=== PATIENT | male | born 1950 | race Caucasian/White ===

== ENCOUNTER 2016-10-03 16:39 | Inpatient (IN) ==
[2016-10-03] MEDS ORDERED: METOPROLOL TARTRATE 5 MG/5 ML VIAL IV STA (17:06)
[2016-10-03] MEDS ORDERED: ALUM/MAG/SIMETH/LIDO VISC 1:1 30 ML BOTTLE PO STA (17:06)
[2016-10-03] MEDS ORDERED: MORPHINE 2 MG/1 ML SYRINGE IV STA (17:06)
[2016-10-03] MEDS ORDERED: ASPIRIN 325 MG TABLET PO STA (17:06)
[2016-10-03] MEDS ORDERED: NITROGLYCERIN 2% OINT 1 INCH/GM PACK TOP STA (17:06)
[2016-10-03] MEDS ORDERED: ONDANSETRON 4 MG/2 ML VIAL IV STA (17:06)
[2016-10-03] MEDS ORDERED: ENOXAPARIN 100 MG/ML SYRINGE SUBCUT STA ×2 (17:06→17:44)
--- NOTE | 2016-10-03 17:08 | Emergency Department Note ---
Nakul Angelo Meredith, am scribing for, and in the presence of, Osmin Cline MD 17:06. Marlyn Angelo Charles R, MD, personally performed the services described in this documentation, ascribed by Ivy Mota in my presence, and it is both accurate and complete 708 . Arrival - Arrival Chief Complaint: Chest Pain Stated Complaint: chest pain ED Nursing Triage Note: Pt states that he has been having midsternal chest pain onset x 1 hour [employer] - pt states that he took nitro and had not helped the pain - pt states that the pain is radiating into bilat jaw area - Mode of Arrival: Ambulatory Limitations: No Limitations Source: Patient, Significant other, Old Records Reviewed, RN Notes Reviewed Time Seen by Provider: 10/03/16 17:00 - History of Present Illness HPI Narrative: Pt is a 66 y/o white male reporting to the ED with c/o midsternal chest pain which onset 1 hour [employer]. He took 2 NTG which did ease his pain slightly. Pt states the pain radiates into his jaw, teeth, and tongue. confirms diaphoresis. He is a former smoker. Pt has a history of HTN, angioplasty, HLD, and NIDDM. Onset (ago): hour(s) Allergies/Adverse Reactions: Allergies Allergy/AdvReac Type Severity Reaction Status Date / Time No Known Allergies Allergy Unverified 10/03/16 16:54 Home Medications: Home Medications Medication Instructions Recorded Confirmed Type Gabapentin Cap/Tab [Neurontin 100 mg PO BEDTIME 10/03/16 10/03/16 History Cap/Tab] Glipizide [Glipizide Xl] 10 mg PO BID 10/03/16 10/03/16 History Lisinopril 20 mg PO DAILY 10/03/16 10/03/16 History Metformin HCl 1,000 mg PO BID 10/03/16 10/03/16 History [place]-3 Fatty Acids [Fish Oil] 500 mg PO DAILY 10/03/16 10/03/16 History Review of System - Review of System 12 point system: reviewed and no additional remarkable complaints except as stated - Review of System Constitutional: Present: as per HPI, diaphoresis Cardiovascular: Present: as per HPI, chest pain (radiates to his jaw, tongue, and teeth) Medical,Surgical,& Family Hx - Medical History Cardio: History of: Hypertension, Cardiovascular Problems (angioplasty 1995) Endocrine: History of: Diabetes Mellitus (NIDDM), Dyslipidemia - Surgical History Neurologic Surgeries: Patient denies: Neurologic Surgery - Family History Family History: Denies;: Additional Family History - Social History Smoking Status: Never smoker Frequency of Alcohol Use: None Type of Drug Use: None Exam Vital Signs: Vital Signs Temperature 98.4 F 10/03/16 16:54 Pulse Rate 145 H 10/03/16 16:54 Respiratory Rate 20 10/03/16 16:54 Blood Pressure 119/73 10/03/16 16:54 O2 Sat by Pulse Oximetry 98 10/03/16 16:54 - General General appearance: alert, in no apparent distress - Head Head exam: Present: atraumatic, normocephalic - Eye Eye exam: Present: normal appearance, PERRL, EOMI - ENT ENT exam: Present: mucous membranes moist, normal external ear exam - Neck Neck exam: Present: full ROM, trachea midline. Absent: tenderness, meningismus , lymphadenopathy, thyromegaly - Chest Chest inspection: Present: symmetric chest wall rise. Absent: tenderness, rash - Respiratory Respiratory exam: Present: normal lung sounds bilaterally. Absent: respiratory distress - Cardiovascular Cardiovascular exam: Present: tachycardia, irregular rhythm - Abdominal Exam Abdominal exam: Present: soft, normal bowel sounds. Absent: distention, tenderness - Extremities Exam Extremities exam: Present: full ROM, normal capillary refill. Absent: tenderness, pedal edema, calf tenderness - Back Exam Back exam: Present: full ROM. Absent: tenderness - Neurological Exam Neurological exam: Present: alert, oriented X3, CN II-XII intact. Absent: motor sensory deficit - Psychiatric Psychiatric exam: Present: normal affect, normal mood - Skin Skin exam: Present: warm, dry, intact, normal color Course - Reevaluation(s) Reevaluation #1: Patient second EKG after beta-blockers and Cardizem showed the lateral leads with less ST depression patient's pain is down to 1 out of 10 feels much better heart rate is down to upper 90s to low 100s Time: 17:51 - Consultations Consultation #1: Dr. Dai will admit patient Time: 17:48 Results - Labs CBC & BMP: 10/03/16 17:11 10/03/16 17:11 Lab Results: I have reviewed the patients labs Labs: Laboratory Tests 10/03/16 17:11 WBC 5.4 RBC 3.96 Hgb 12.7 L Hct 36.1 L Plt Count 169 Critical Care Time Critical Care Time: Yes Total Critical Care Time: 60 Disposition Clinical Impression: Chest pain, New-onset A. fib with RVR Case discussed with: patient, patient's family Disposition: Still a Patient Condition: Guarded Time of Disposition: 17:48
[2016-10-03] MEDS ORDERED: NITROGLYCERIN 2% OINT 1 INCH/GM PACK TOP ONE (17:09)
[2016-10-03] MEDS ORDERED: ONDANSETRON 4 MG/2 ML VIAL ONE (17:09)
--- NOTE | 2016-10-03 17:09 | EKG Report ---
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
[2016-10-03] MEDS ORDERED: ALUM/MAG/SIMETH/LIDO VISC 1:1 30 ML BOTTLE PO ONE (17:10)
[2016-10-03] MEDS ORDERED: ASPIRIN 325 MG TABLET ONE (17:10)
[2016-10-03] MEDS ORDERED: METOPROLOL TARTRATE 5 MG/5 ML VIAL IV ONE (17:10)
[2016-10-03] MEDS ORDERED: MORPHINE 2 MG/1 ML SYRINGE ONE (17:10)
[2016-10-03] MEDS ORDERED: DILTIAZEM 50 MG/10 ML VIAL IV STA ×2 (17:18→17:45)
[2016-10-03 17:21] LABS: Basophils % 0.2 % (0.0-0.8); Eosinophils # 0.1 10*3/uL (0.0-0.87); Hematocrit 36.1 VOL% (42.0-52.0); Hemoglobin 12.7 GM/DL (14.0-18.0); Immature Granulocytes % 0.4 %; Immature Granulocytes Absolute 0.02 #; Lymphocytes # 1.4 10*3/uL (1.4-4.0); Mean Corpuscular HGB Conc 35.2 GM/DL (32-36); Mean Corpuscular Hemoglobin 32 PG (27-34); Mean Corpuscular Volume 91.2 FL (87-102); Mean Platelet Volume 11.6 FL (9.6-12.0); Monocytes # 0.6 10*3/uL (0.11-0.8); Neutrophils # 3.3 10*3/uL (1.4-7.4); Neutrophils % 60.4 % (38.7-73.9); Platelet Count 169 T/CUMM (130-400); Red Blood Count 3.96 MC/CUMM (3.8-5.5); Red Cell Distribution Width 13.3 % (9.3-17.3); White Blood Count 5.4 T/CUMM (4-12)
[2016-10-03] MEDS ORDERED: DILTIAZEM 100 MG VIAL.ADD IV ONE (17:22)
[2016-10-03] MEDS ORDERED: DILTIAZEM 50 MG/10 ML VIAL IV ONE (17:22)
[2016-10-03] MEDS ORDERED: DILTIAZEM INJ 100 MG in SODIUM CHLORIDE 0.9% 100 ML IV SCH (17:30)
--- NOTE | 2016-10-03 17:36 | EKG Report ---
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
[2016-10-03 17:39] LABS: D-Dimer <= 0.5 MG/L FEU; PT Patient Result 10.7 SECS
[2016-10-03 17:42] LABS: Albumin 4.2 G/DL (3.4-5.0); Bilirubin,Total 0.5 MG/DL (0.2-1.0); Magnesium 1.9 MG/DL (1.8-2.4); Potassium 3.6 MMOL/L (3.5-5.1); Total Protein 7.5 G/DL (6.4-8.3)
--- NOTE | 2016-10-03 17:45 | XRay Report ---
XR chest 1V portable Indication: Chest pain Comparison: 03 July 2009 Findings: The heart and mediastinum are normal in size and configuration. The pulmonary vascularity is normal in caliber. Lung volumes are increased with prominent bronchial markings. No lung infiltrates, effusions, pneumothorax or other abnormality is demonstrated. Impression: Chronic lung changes. No acute process or significant change. PROCEDURE INTERPRETED AT [facility] DEPARTMENT OF RADIOLOGY Final Report Signed by: Dr. Manfred Jensen
[2016-10-03] MEDS ORDERED: ENOXAPARIN 100 MG/ML SYRINGE SUBCUT ONE (17:48)
[2016-10-03] MEDS ORDERED: MAGNESIUM SULF RIDER 2 GM in PREMIX 1 EACH IV PRN (19:16)
[2016-10-03] MEDS ORDERED: DEXTROSE 50% 25 GM/50 ML VIAL IV PRN (19:16)
[2016-10-03] MEDS ORDERED: MAGNESIUM SULF RIDER 4 GM in PREMIX 1 EACH IV PRN (19:16)
[2016-10-03] MEDS ORDERED: GLUCAGON 1 MG VIAL IM PRN (19:16)
[2016-10-03] MEDS ORDERED: POTASSIUM CHLORIDE 20 MEQ TABLET PO PRN (19:16)
[2016-10-03] MEDS ORDERED: ONDANSETRON 4 MG/2 ML VIAL IV PRN (19:16)
[2016-10-03] MEDS ORDERED: MORPHINE 2 MG/1 ML SYRINGE IV PRN (19:16)
[2016-10-03] MEDS: SODIUM CHLORIDE 0.9% 1,000 ML IV SCH (19:49)
[2016-10-03] MEDS: NITROGLYCERIN 2% OINT 1 INCH/GM PACK TOP SCH (19:49)
[2016-10-03] MEDS: INSULIN REGULAR 100 UNIT/ML SUBCUT SCH (20:58)
[2016-10-03] MEDS ORDERED: GABAPENTIN 100 MG CAPSULE PO SCH (21:00)
[2016-10-03] MEDS ORDERED: metFORMIN 500 MG TABLET PO SCH (21:00)
[2016-10-03] MEDS ORDERED: ZALEPLON 5 MG CAPSULE PO SCH (21:30)
[2016-10-04] MEDS: NITROGLYCERIN 2% OINT 1 INCH/GM PACK TOP SCH ×3 (00:18→13:47)
[2016-10-04 03:42] LABS: Basophils % 0.2 % (0.0-0.8); Eosinophils # 0.1 10*3/uL (0.0-0.87); Eosinophils % 2.7 % (0.00-10.9); Hematocrit 32.4 VOL% (42.0-52.0); Hemoglobin 10.8 GM/DL (14.0-18.0); Immature Granulocytes % 0.2 %; Immature Granulocytes Absolute 0.01 #; Lymphocytes # 2.2 10*3/uL (1.4-4.0); Lymphocytes % 41.7 % (21.2-54.2); Mean Corpuscular HGB Conc 33.3 GM/DL (32-36); Mean Corpuscular Hemoglobin 31 PG (27-34); Mean Corpuscular Volume 92.8 FL (87-102); Mean Platelet Volume 11.9 FL (9.6-12.0); Monocytes # 0.6 10*3/uL (0.11-0.8); Monocytes % 11.7 % (1.7-12.7); Neutrophils # 2.3 10*3/uL (1.4-7.4); Neutrophils % 43.5 % (38.7-73.9); Platelet Count 141 T/CUMM (130-400); Red Blood Count 3.49 MC/CUMM (3.8-5.5); Red Cell Distribution Width 13.4 % (9.3-17.3); White Blood Count 5.2 T/CUMM (4-12)
[2016-10-04 04:25] LABS: Albumin 3.6 G/DL (3.4-5.0); Bilirubin,Total 1.2 MG/DL (0.2-1.0); Calcium 9.3 MG/DL (8.5-10.1); Magnesium 2.1 MG/DL (1.8-2.4); Osmolality,Calculated 291.6 MOS/KG (273-304); Potassium 3.4 MMOL/L (3.5-5.1); Risk Ratio 5.81; Thyroid Stimulating Hormone 2.6 uIU/ml (0.358-3.74); Total Protein 6.3 G/DL (6.4-8.3); VLDL CHOLESTEROL 85.4 MG/DL
--- NOTE | 2016-10-04 06:06 | Cardiology History & Physical ---
Assessment and Plan (1) Non-ST elevation myocardial infarction (NSTEMI) Status: Acute Assessment and plan: Elevation in his troponin. Certainly his EKG is abnormal. The patient needs further evaluation with left heart catheterization possible Coronary intervention. See my above note. Current Visit: Yes (2) Dyslipidemia associated with type 2 diabetes mellitus Status: Chronic Assessment and plan: Will monitor this while in the hospital. Continue his medications. Current Visit: Yes (3) Hypertension associated with diabetes Status: Chronic Assessment and plan: Fairly stable at this time but will need to monitor this while in the hospital and adjust his medications as necessary and appropriate. Current Visit: Yes (4) Obesity Status: Chronic Assessment and plan: This is a chronic problem and weight loss certainly would benefit most his medical problems. Current Visit: Yes (5) Type 2 diabetes mellitus Status: Chronic Current Visit: Yes Qualifiers: Diabetes mellitus complication status: without complication Diabetes mellitus terminal worker insulin use: without half-way use Qualified Code(s): E11.9 - Type 2 diabetes mellitus without complications (6) Atrial fibrillation with rapid ventricular response Status: Acute Assessment and plan: This is acute onset. The patient is now sinus rhythm. Hold antiarrhythmics at this time. Current Visit: Yes History of Present Illness Chief complaint: chest pain atrial fibrillation History of present illness: Mr. Bird is a 66 year old male who last night had episode of an onset of chest pain he describes as a sharp persistent chest pain without shortness of breath or nausea but will diaphoresis. It was nonradiating. It was not exacerbated by deep breath or motion. It persisted Emergency room and it really prior to coming to the emergency room on arrival. His pain was almost gone. On arrival in emergency room he was found to be in atrial fibrillation with rapid ventricular response. ECG did have some anterior lateral ST depression abnormalities and mild depression inferiorly. He had no prior history of atrial fibrillation. He is placed on diltiazem with management of his heart rates. His troponin was nondetectable on arrival but is increased to 3.13. He is already converted to sinus rhythm on his IV diltiazem. November 1995 the patient had chest pain and underwent cardiac catheterization and PTCA of the RCA. He had minimal disease in his left coronary system. The patient states he has had no issues since then but is continuing his follow with Dr. Diomedes Post. The patient's lab work with a H&H showing slight decrease in his numbers. His his chemistries with potassium dropped to 3.4. His creatinine is 1.1 BUN is 15. Liver signs are unremarkable. The patient is car catheterization was elevated troponin and chest pain on his coronary disease. I discussed heart catheterization with the patient and reviewed the indications as well as how the procedure would be carried out and the risk. I discussed cardiac catheterization and percutaneous coronary intervention with the patient. I reviewed with him the indications for the procedure and the basis of how the procedure would be carried out. I also reviewed with him the risk of the procedure which include but not necessarily limited to access site bleeding, bruising, pain, swelling or vascular injury that may require emergency vascular surgery, blood transfusion, or thrombin injection. Also discussed the possibility of stroke, myocardial infarction, arrhythmia which may require electrocardioversion, and the possibility of dye reaction that would require medical therapy. Also discussed the possibility of coronary artery injury, ruptured, closure or perforation that may require emergency bypass surgery. We also discussed the possibility of from a major complication. He voices understanding and agrees to proceed. Home Medications Medication Instructions Recorded Confirmed Type Aspirin EC Tab 81 mg PO QAM 10/03/16 10/03/16 History Bupropion HCl [Bupropion Xl] 300 mg PO QAM 10/03/16 10/03/16 History Carvedilol [Coreg] 25 mg PO BID 10/03/16 10/03/16 History Doxepin HCl [Silenor] 3 mg PO BEDTIME 10/03/16 10/03/16 History Ferrous Gluconate 325 mg PO QAM 10/03/16 10/03/16 History Gabapentin Cap/Tab [Neurontin 100 mg PO BID 10/03/16 10/03/16 History Cap/Tab] Gemfibrozil 600 mg PO BID 10/03/16 10/03/16 History Lisinopril 20 mg PO QAM 10/03/16 10/03/16 History Metformin HCl 1,000 mg PO BID 10/03/16 10/03/16 History [place]-3/Dha/Epa/Fish Oil [Fish Oil 3,000 mg PO QAM 10/03/16 10/03/16 History Conc 1,000 mg Softgel] Omeprazole Magnesium [Prilosec Otc] 20 mg PO QAM 10/03/16 10/03/16 History Pioglitazone [Actos] 15 mg PO QAM 10/03/16 10/03/16 History Tamsulosin [Flomax] 2 capsule PO BEDTIME 10/03/16 10/03/16 History glipiZIDE [Glipizide] 20 mg PO BID 10/03/16 10/03/16 History Allergies Allergy/AdvReac Type Severity Reaction Status Date / Time No Known Allergies Allergy Unverified 10/03/16 16:54 Review of systems: Constitutional: Denies anorexia, chills, fatigue, fever, frequent falls, night sweats, weight gain, weight loss Eyes: Denies visual changes or loss of vision Ears: Denies decreased hearing, vertigo Nose, mouth and throat: Denies dysphagia, epistaxis, headaches, neck pain, tongue swelling, Neck: Denies thyromegaly or masses. No stiffness. Cardiovascular: as per HPI Respiratory: Denies cough, dyspnea, hemoptysis, dyspnea on exertion, wheezing, snoring Gastrointestinal: Denies abdominal pain, constipation, dyspepsia, dysphagia, hematemesis, hematochezia, melena, nausea, vomiting Genitourinary: Denies dysuria, hematuria, nocturia Musculoskeletal: Denies arthralgias, joint swelling, muscle weakness, myalgias Neurological: denies abnormal gait, abnormal speech, confusion, convulsions, frequent falls, headaches, memory loss, syncope Psychiatric: Denies anxiety, confusion, depression Endocrine: Denies cold intolerance, fatigue, heat intolerance Hematologic/Lymphatic: Denies easy bleeding, easy bruising Dermatologic: Denies Rash, itching, shingles Medical,Surgical,& Family Hx - Medical History Cardio: History of: CAD, Hypertension, Cardiovascular Problems (angioplasty 1995 ) HEENT: History of: Ear Problem (Slight hearing loss) Endocrine: History of: Diabetes Mellitus (NIDDM), Dyslipidemia Genitourinary: History of: Prostate Problems (Enlarged) Gastrointestinal: History of: GERD - Surgical History Neurologic Surgeries: Patient denies: Neurologic Surgery Abdominal Surgeries: Surgical HX of: Abdominal Surgery, Appendectomy - Family History Family History: Reports;: Family Heart Disease Denies;: Additional Family History - Social History Smoking Status: Former smoker (crit 5 years ago but is using an electronic cigarette) Frequency of Alcohol Use: None Type of Drug Use: None Marital Status: Lives With:: Spouse Functional capacity: independent ambulation Cardiology Physical Exam - Constitutional Vitals: Vital Signs Temp Pulse Resp BP Pulse Ox 97.2 F L 68 18 142/71 95 10/04/16 03:35 10/04/16 03:35 10/04/16 03:35 10/04/16 03:35 10/04/16 03:35 Intake and Output 10/03/16 10/03/16 10/04/16 15:59 23:59 07:59 Intake Total 300 / 300 / Output Total 900 / 900 Balance -600 / -600 Intake: IV 30 30 Cardizem Inj 100 mg In Ns 30 30 100 ml @ 5 MG/HR 5 mls/ hr IV TITRATE TIM Rx#: [id number] Oral 300 / 300 Output: Urine 900 / 900 Other: Voiding Method Urinal Weight 90.537 kg Exam: General appearance: Obese, no acute distress Head exam: normal inspection, atraumatic Eye exam: Pupils are equal and reactive. EOMI. There is no trauma. Ear exam: Anatomically normal. Normal auditory acuity to conversation. Oral exam: No significant oral lesions. Neck exam: normal inspection no JVD. No carotid bruit. Trachea is in midline. Respiratory exam: clear to auscultation bilaterally posteriorly and anteriorly with good air movement. No rales, rhonchi or wheezes. Cardiovascular exam: regular rate and rhythm, no murmur or gallop or rub. No precordial lift. No bruits over the major arteries. Chest wall/torso: Anatomically normal. No tenderness, deformity Peripheral Pulses: 2+ throughout. GI/Abdominal exam: normal bowel sounds, soft and nontender, no abdominal bruits or pulsatile masses. Musculoskeletal/Extremities exam: normal inspection without edema or cyanosis. No deformities or trauma. Neurological exam: alert, oriented X3. There is no gross neurologic deficits. Psychiatric exam: normal affect, normal mood. Cognitive function is grossly intact. Skin exam: normal color, warm. No rashes or other skin lesions. Result/EKG - Labs CBC & BMP: 10/04/16 03:07 10/04/16 03:07 Lab Results: I have reviewed the past 24 hour labs Labs: Laboratory Results - last 24 hr 10/03/16 10/03/16 10/03/16 20:13 20:57 23:14 WBC RBC Hgb Hct MCV MCH MCHC RDW Plt Count MPV Neut % (Auto) Lymph % (Auto) Mcdonald % (Auto) Eos % (Auto) Baso % (Auto) Neut # (Auto) Lymph # (Auto) Mcdonald # (Auto) Eos # (Auto) Baso # (Auto) Immature Gran % Nucleated RBC % Immature Gran # Nucleated RBCs # Sodium Potassium Chloride Carbon Dioxide Anion Gap BUN Creatinine GFR Calculation BUN/Creatinine Ratio Glucose POC Glucose 199 H Calculated Osmolality Calcium Magnesium Total Bilirubin AST ALT Alkaline Phosphatase Troponin I 1.370 H D 3.130 H D B-Natriuretic Peptide Total Protein Albumin Globulin Albumin/Globulin Ratio Triglycerides Cholesterol LDL Cholesterol VLDL Cholesterol HDL Cholesterol Heart Disease Risk Ratio [facility] 3rd Generation 10/04/16 10/04/16 10/04/16 03:07 03:07 03:07 WBC 5.2 RBC 3.49 L Hgb 10.8 L Hct 32.4 L MCV 92.8 MCH 31 MCHC 33.3 RDW 13.4 Plt Count 141 MPV 11.9 Neut % (Auto) 43.5 Lymph % (Auto) 41.7 Mcdonald % (Auto) 11.7 Eos % (Auto) 2.7 Baso % (Auto) 0.2 Neut # (Auto) 2.3 Lymph # (Auto) 2.2 Mcdonald # (Auto) 0.6 Eos # (Auto) 0.1 Baso # (Auto) 0.0 Immature Gran % 0.2 Nucleated RBC % 0.0 Immature Gran # 0.01 Nucleated RBCs # 0.00 Sodium 146 H Potassium 3.4 L Chloride 108 H Carbon Dioxide 27 Anion Gap 14.4 BUN 15 Creatinine 1.10 GFR Calculation 85 BUN/Creatinine Ratio 13.00 Glucose 116 H POC Glucose Calculated Osmolality 291.6 Calcium 9.3 Magnesium 2.1 Total Bilirubin 1.20 H AST 31 ALT 26 Alkaline Phosphatase 25 L Troponin I B-Natriuretic Peptide 96 Total Protein 6.3 L Albumin 3.6 Globulin 2.7 Albumin/Globulin Ratio 1.3 Triglycerides 427 H Cholesterol 157 LDL Cholesterol 97.0 VLDL Cholesterol 85.4 HDL Cholesterol 27 L Heart Disease Risk Ratio 5.81 TSH 3rd Generation 2.600 - Impressions Impressions: Admitting ECG with atrial fibrillation rapid ventricular response. He had anterior lateral ST-T abnormalities consistent with possible ischemia. He also has some ST depression inferior but not initially diagnostic. His rhythm has now changed on telemetry to sinus rhythm.
[2016-10-04] MEDS ORDERED: DIAZEPAM 5 MG TABLET PO ONE (06:17)
[2016-10-04] MEDS ORDERED: MAGNESIUM SULF RIDER 2 GM in PREMIX 1 EACH IV PRN ×2 (06:17→16:22)
[2016-10-04] MEDS ORDERED: POTASSIUM CHLORIDE RIDER 10 MEQ in PREMIX 1 EACH IV PRN ×2 (06:17→16:22)
[2016-10-04] MEDS ORDERED: diphenhydrAMINE CAP 25 MG CAPSULE PO ONE (06:17)
--- NOTE | 2016-10-04 06:17 | History and Physical Update ---
Sedation H&P Update - History and Physical H&P was reviewed, the patient examined and there: are no changes in the patients condition since last H&P was completed. - Dictation Physical: refer to H&P completed by admitting physician - Physical Exam Mental Status: alert and oriented Heart: regular rate and rhythm Lung: clear to auscultation Abdomen: within normal limits Vitals: within normal limits History and Physical Changes: None - Sedation Plan for Sedation: moderate Patient Consent: Procedure disscussed with patient and patinet has consented., Risks and benefits were discussed with patient,including infection,, bleeding, injury to surrounding structures, seizure, temporary nerve, Patient understands and accepts potential risks/benefits and agrees to, proceed. ASA Class: III Airway Assessment: Class III: Soft palate, base of uvula visible
--- NOTE | 2016-10-04 07:38 | XRay Report ---
XR chest 2V Indication: Shortness of breath. Comparison: Chest x-ray 10/03/2016 Technique: PA and lateral chest x-ray was performed. Findings: The heart size is within normal limits. The mediastinal contour demonstrates no significant abnormality. The lungs are clear. Bones and soft tissues demonstrate no acute abnormality. Impression: 1. No active cardiopulmonary disease. 10/04/2016 7:35 AM PROCEDURE INTERPRETED AT [facility] DEPARTMENT OF RADIOLOGY Final Report Signed by: Dr. Adrian Pryor
[2016-10-04] MEDS: ASPIRIN EC 325 MG TABLET PO SCH ×2 (07:45→08:15)
[2016-10-04] MEDS: INSULIN REGULAR 100 UNIT/ML SUBCUT SCH ×3 (07:45→18:38)
[2016-10-04] MEDS: LISINOPRIL 20 MG TABLET PO SCH ×2 (07:46→08:16)
[2016-10-04] MEDS: OMEGA 3 ACID ETHYL ESTERS 1 GM CAPSULE PO SCH ×2 (07:46→08:15)
[2016-10-04] MEDS: PANTOPRAZOLE 40 MG TABLET PO SCH ×2 (07:46→08:16)
[2016-10-04] MEDS ORDERED: ENOXAPARIN 100 MG/ML SYRINGE SUBCUT ONE (07:48)
[2016-10-04] MEDS: ENOXAPARIN 100 MG/ML SYRINGE SUBCUT SCH ×2 (07:48→08:15)
[2016-10-04] MEDS ORDERED: MIDAZOLAM 2 MG/2 ML VIAL ONE ×2 (08:47→16:19)
[2016-10-04] MEDS ORDERED: LIDOCAINE 1% 20 ML VIAL ONE (08:47)
[2016-10-04] MEDS ORDERED: fentaNYL 100 MCG/2 ML VIAL ONE (08:47)
[2016-10-04] MEDS ORDERED: HYDROmorphone 2 MG/1 ML VIAL IV PRN (09:31)
[2016-10-04] MEDS ORDERED: GLUCAGON 1 MG VIAL IM PRN ×2 (09:31→10:07)
[2016-10-04] MEDS ORDERED: DEXTROSE 50% 25 GM/50 ML VIAL IV PRN ×4 (09:31→16:22)
--- NOTE | 2016-10-04 09:40 | Operative Note ---
Date of procedure: 10/04/16 Procedure Preformed: Left heart catheterization with [facility] Surgeon / Physician: Brenton Dai Post-op diagnosis: same (non-ST segment elevation myocardial infarction, 3 vessel coronary disease) Findings: Patient with three-vessel coronary artery disease. Specimens: none sent Estimated blood loss: minimal Condition: stable Anesthesia: local, conscious sedation Disposition: floor
--- NOTE | 2016-10-04 09:42 | Cardiac Catheterization ---
Date of Procedure:: 10/04/16 Pre-op Diagnosis: No ST segment elevation myocardial infarction Post-op diagnosis: same (non-ST segment elevation myocardial infarction, 3 vessel coronary disease) Procedure: LEFT HEART CATHERIZATION History: 66-year-old man with known coronary disease having prior intervention and stent placed. Patient now with multiple risk factors coronary disease and having chest pain with elevated troponins. Patient with non-ST elevation myocardial infarction. He presented atrial fibrillation. His multiple risk factors for coronary disease. Pre-Op diagnosis: Non-ST segment elevation myocardial infarction, coronary artery disease, paroxysmal atrial fibrillation. Postoperative diagnosis: Three-vessel coronary artery disease. Same as above Procedures: 1. Left heart catheterization. 2. Left ventricular angiogram. 3. Selective left and right coronary angiograms. 4. Right common femoral artery angiogram with Angio-Seal hemostasis. 5. Left internal mammary artery angiogram. Equipment: 6 [place] arterial sheath, 6 [place] diagnostic pigtail catheter, JL4 and JR4 diagnostic catheters. A 6 [place] Angio-Seal hemostatic device. Medications: Preoperative Benadryl and Valium given by mouth. Lidocaine 1% local anesthesia 10 mls administered by myself. Intraprocedure patient received Versed 1 mgs IVP, fentanyl 50 mcg IVP. Complications: None immediate. Contrast: Omnipaque 171 milliliters. Description of procedure: After informed consent the patient was given preoperative medications and brought to the catheterization laboratory where their right groin was prepped and draped in usual fashion. IV sedation was then obtained after which local anesthesia was administered at the right groin over the right common femoral artery. Using modified Seldinger technique the right common femoral artery was cannulated with 6 [place] arterial sheath placed. The pigtail catheter was then advanced through the sheath in a retrograde approach through the aorta to the aortic valve. The catheter was advanced through the aortic valve where left ventricular pressures were measured. The catheter was then pulled back into the aortic root and pressures measured. The catheter was then advanced across the aortic valve into the left ventricle where left ventricular angiogram was obtained in the right anterior oblique view. The pigtail catheter was then removed. The JL4 diagnostic coronary catheter was then advanced through the sheath in a retrograde approach and used to cannulate the left coronary artery of which angiograms were obtained in multiple projections. This catheter was then removed. The JR 4 diagnostic coronary catheter was then advanced retrograde through the aorta and used to cannulate the right coronary artery of which angiograms were obtained in multiple projections. This right coronary catheter was used to obtain selective left internal mammary artery angiogram. Angiograms were then reviewed. The right coronary catheter was pulled back into the sheath where a right common femoral artery angiogram was obtained with Angio-Seal hemostasis then obtained of this vessel. There were no immediate complications. Hemodynamic data: LV 153/-4 , EDP 20 ; AO root 155/68 , mean 96 . Left ventricular angiogram: Left ventricle is normal size systolic function ejection fraction 55+ percent. No specific segmental wall motion amount is are noted. There is no significant mitral regurgitation noted. The aortic valve appears to be a tricuspid structure. He is noted to have calcification of his coronary arteries. His aortic root is uncoiled. There is calcification of the aortic arch. Left main coronary artery angiogram: Calcified. The caliber vessel that bifurcates to LAD and circumflex arteries. Without any significant stenosis. Left anterior descending artery angiogram: The LAD is a medium caliber diffusely calcified vessel. It tapers to a small vessel is extensive the apex. Mid vessel there is an 80-90% stenosis that is part of a long stenosis extending from the first diagonal on the way past the second diagonal. Is otherwise diffuse lumen irregularities. There is a 20-30% proximal stenosis. Circumflex artery angiogram: Circumflex artery is calcified. Mid vessel/ possible portion of the obtuse marginal branch is a 90% stenosis. The body circumflex artery has diffuse luminal irregularities. Right coronary artery angiogram: RCA proximal is a medium large size vessel tapers are small vessel goes distally. The PDA is a medium caliber vessel with small posterior lateral branches. There is diffuse calcification the RCA. Proximally there is a hazy stenosis that is at least 50% stenosis if not worse. More distally there is a 99% stenosis. PDA has some mild/moderate disease of 50-70% stenosis. Left internal mammary artery angiogram: The RICHARDSON is widely patent at for bypass surgery. Right common femoral artery angiogram: Right calf artery is calcified as is the vessels around it. The sheath is inserted this vessel. Is widely patent though. Impression: 1. Left ventricle is normal size systolic function with ejection fraction 55+ percent. 2. LVEDP is 20 mmHg and mildly elevated. 3. There is no severe mitral regurgitation noted. 4. Aortic valves a tricuspid structure without gradient. 5. The aortic arch is calcified uncoiled. 6. RCA with diffuse calcification in proximal 50+ percent stenosis and 99 percent stenosis distal vessel and 50-70% stenosis of PDA. 7. Left main coronary artery is calcified but patent. 8. Circumflex artery is diffusely calcified with the obtuse marginal that is sensitive the only significant branch having 90% stenosis. 9. LAD is diffuse calcified with 20-30% proximal stenosis and mid stenosis of up to 80-90% stenosis is part removal long calcified lesion. 10. RICHARDSON is adequate for bypass surgery. 11. Calcified peripheral vascular disease involving the aorta and peripheral vessels. 12. Successful Angio-Seal hemostasis right common for artery that is calcified. Discussion: We will monitor this patient post catheterization for any complications. We will ask cardiovascular surgeon see the patient. Since he is had non-ST segment elevation myocardial infarction and has diffuse three- vessel disease I think this would be the best approach this patient. Implants: None Anesthesia: local, moderate conscious sedation Surgeon / Physician: Brenton Dai A P Supervisor: other (Krystle STEVEN) Estimated blood loss: minimal Specimens: none sent Condition: stable Disposition: floor - Medications / Follow-up
[2016-10-04] MEDS ORDERED: SODIUM CHLORIDE 0.9% 1,000 ML IV SCH (10:00)
[2016-10-04] MEDS ORDERED: CEFUROXIME INJ 1,500 MG in SODIUM CHLORIDE 0.9% 100 ML IV ONE (10:07)
--- NOTE | 2016-10-04 10:36 | Cardiothoracic Consult ---
Assessment and Plan - Time spent with patient Time spent with patient: Greater than 30 minutes Time spent discussing smoking cessation with patient: more than 10 minutes (1) Non-ST elevation myocardial infarction (NSTEMI) Status: Acute Assessment and plan: Risk Model and Variables - STS Adult Cardiac Surgery Database Version 2.81 RISK SCORES About the STS Risk Calculator Procedure: CAB Only Risk of Mortality: 2.084% Morbidity or Mortality: 18.89% Long Length of Stay: 7.578% Short Length of Stay: 38.769% Permanent Stroke: 1.579% Prolonged Ventilation: 13.266% DSW Infection: 1.032% Renal Failure: 4.451% Reoperation: 6.861% 66-year-old male with severe multivessel coronary artery disease and a non-ST elevation myocardial infarction. I discussed risks benefits and alternatives with him and the family and they are willing and eager to proceed. I will plan to take him urgently to the OR for bypass. Current Visit: Yes History of Present Illness - Data of Consult Patient: new to practice Consult date: 10/04/16 Requesting Physician: Brenton Dai - Consult Narrative Reason for consult: SEVERE CORONARY ARTERY DISEASE History of present illness: Mr. Bird is a 66 year old male who came in to the ER with chest pain. The patient took 2 nitroglycerin and it did not help with the pain. He was taken to the Critical Care Transport Nurse and was noted to have severe multivessel coronary artery disease with a non-ST elevation myocardial infarction. He was then referred for cardiac surgery. At the moment the patient does not have pain and he is dynamically stable CC: Diomedes Post MD - Home Medications and Allergies Home Medications: Home Medications Medication Instructions Recorded Confirmed Type Aspirin EC Tab 81 mg PO QAM 10/03/16 10/03/16 History Bupropion HCl [Bupropion Xl] 300 mg PO QAM 10/03/16 10/03/16 History Carvedilol [Coreg] 25 mg PO BID 10/03/16 10/03/16 History Doxepin HCl [Silenor] 3 mg PO BEDTIME 10/03/16 10/03/16 History Ferrous Gluconate 325 mg PO QAM 10/03/16 10/03/16 History Gabapentin Cap/Tab [Neurontin 100 mg PO BID 10/03/16 10/03/16 History Cap/Tab] Gemfibrozil 600 mg PO BID 10/03/16 10/03/16 History Lisinopril 20 mg PO QAM 10/03/16 10/03/16 History Metformin HCl 1,000 mg PO BID 10/03/16 10/03/16 History [place]-3/Dha/Epa/Fish Oil [Fish Oil 3,000 mg PO QAM 10/03/16 10/03/16 History Conc 1,000 mg Softgel] Omeprazole Magnesium [Prilosec Otc] 20 mg PO QAM 10/03/16 10/03/16 History Pioglitazone [Actos] 15 mg PO QAM 10/03/16 10/03/16 History Tamsulosin [Flomax] 2 capsule PO BEDTIME 10/03/16 10/03/16 History glipiZIDE [Glipizide] 20 mg PO BID 10/03/16 10/03/16 History Allergies/Adverse Reactions: Allergies Allergy/AdvReac Type Severity Reaction Status Date / Time No Known Allergies Allergy Unverified 10/03/16 16:54 12 point system: reviewed and no additional remarkable complaints except as stated (HPI) Medical,Surgical,& Family Hx - Medical History Cardio: History of: CAD, Hypertension, Cardiovascular Problems (angioplasty 1995 ) Neurology: No history of: Seizures HEENT: History of: Ear Problem (Slight hearing loss) Endocrine: History of: Diabetes Mellitus (NIDDM), Dyslipidemia Genitourinary: History of: Prostate Problems (Enlarged) Gastrointestinal: History of: GERD - Surgical History Neurologic Surgeries: Patient denies: Neurologic Surgery Abdominal Surgeries: Surgical HX of: Abdominal Surgery, Appendectomy - Family History Family History: Reports;: Family Heart Disease Denies;: Additional Family History - Social History Smoking Status: Never smoker Frequency of Alcohol Use: None Type of Drug Use: None Physical Examination Vital Signs Temp Pulse Resp BP Pulse Ox 98.4 F 145 H 20 119/73 98 10/03/16 16:54 10/03/16 16:54 10/03/16 16:54 10/03/16 16:54 10/03/16 16:54 Result/EKG - Labs CBC & BMP: 10/04/16 03:07 10/04/16 03:07 Labs: Laboratory Results - last 24 hr 10/03/16 10/03/16 10/03/16 20:13 20:57 23:14 WBC RBC Hgb Hct MCV MCH MCHC RDW Plt Count MPV Neut % (Auto) Lymph % (Auto) [place] % (Auto) Eos % (Auto) Baso % (Auto) Neut # (Auto) Lymph # (Auto) [place] # (Auto) Eos # (Auto) Baso # (Auto) Immature Gran % Nucleated RBC % Immature Gran # Nucleated RBCs # Sodium Potassium Chloride Carbon Dioxide Anion Gap BUN Creatinine GFR Calculation BUN/Creatinine Ratio Glucose POC Glucose 199 H Calculated Osmolality Calcium Magnesium Total Bilirubin AST ALT Alkaline Phosphatase Troponin I 1.370 H D 3.130 H D B-Natriuretic Peptide Total Protein Albumin Globulin Albumin/Globulin Ratio Triglycerides Cholesterol LDL Cholesterol VLDL Cholesterol HDL Cholesterol Heart Disease Risk Ratio [facility] 3rd Generation 10/04/16 10/04/16 10/04/16 03:07 03:07 03:07 WBC 5.2 RBC 3.49 L Hgb 10.8 L Hct 32.4 L MCV 92.8 MCH 31 MCHC 33.3 RDW 13.4 Plt Count 141 MPV 11.9 Neut % (Auto) 43.5 Lymph % (Auto) 41.7 [place] % (Auto) 11.7 Eos % (Auto) 2.7 Baso % (Auto) 0.2 Neut # (Auto) 2.3 Lymph # (Auto) 2.2 [place] # (Auto) 0.6 Eos # (Auto) 0.1 Baso # (Auto) 0.0 Immature Gran % 0.2 Nucleated RBC % 0.0 Immature Gran # 0.01 Nucleated RBCs # 0.00 Sodium 146 H Potassium 3.4 L Chloride 108 H Carbon Dioxide 27 Anion Gap 14.4 BUN 15 Creatinine 1.10 GFR Calculation 85 BUN/Creatinine Ratio 13.00 Glucose 116 H POC Glucose Calculated Osmolality 291.6 Calcium 9.3 Magnesium 2.1 Total Bilirubin 1.20 H AST 31 ALT 26 Alkaline Phosphatase 25 L Troponin I B-Natriuretic Peptide 96 Total Protein 6.3 L Albumin 3.6 Globulin 2.7 Albumin/Globulin Ratio 1.3 Triglycerides 427 H Cholesterol 157 LDL Cholesterol 97.0 VLDL Cholesterol 85.4 HDL Cholesterol 27 L Heart Disease Risk Ratio 5.81 TSH 3rd Generation 2.600 10/04/16 07:42 WBC RBC Hgb Hct MCV MCH MCHC RDW Plt Count MPV Neut % (Auto) Lymph % (Auto) [place] % (Auto) Eos % (Auto) Baso % (Auto) Neut # (Auto) Lymph # (Auto) [place] # (Auto) Eos # (Auto) Baso # (Auto) Immature Gran % Nucleated RBC % Immature Gran # Nucleated RBCs # Sodium Potassium Chloride Carbon Dioxide Anion Gap BUN Creatinine GFR Calculation BUN/Creatinine Ratio Glucose POC Glucose 126 H Calculated Osmolality Calcium Magnesium Total Bilirubin AST ALT Alkaline Phosphatase Troponin I B-Natriuretic Peptide Total Protein Albumin Globulin Albumin/Globulin Ratio Triglycerides Cholesterol LDL Cholesterol VLDL Cholesterol HDL Cholesterol Heart Disease Risk Ratio TSH 3rd Generation Quality Measures - VTE Contraindication to Pharmacological VTE Prophylaxis: High Risk of Bleeding Specialty Discharge - Follow Up or Referrals
[2016-10-04] MEDS ORDERED: FAMOTIDINE 20 MG TABLET PO ONE (10:38)
[2016-10-04] MEDS ORDERED: LORazepam 1 MG TABLET PO ONE (10:38)
--- NOTE | 2016-10-04 11:00 | Event Note ---
Patient is stable post cart catheterization. His right groin is stable. He is for CABG today. Review the patient's angiogram pictures with the patient and his today. We'll follow-up post CABG.
[2016-10-04] MEDS ORDERED: PAPAVERINE 60 MG/2 ML VIAL ONE (11:13)
[2016-10-04] MEDS ORDERED: TISSUE ADHESIVE 1 EACH APPLICATOR TOP ONE (11:13)
[2016-10-04] MEDS ORDERED: VANCOMYCIN 1,000 MG VIAL ONE (11:14)
[2016-10-04] MEDS ORDERED: CEFUROXIME 1,500 MG VIAL ONE (11:16)
[2016-10-04] MEDS: SODIUM CHLORIDE 0.9% 1,000 ML IV SCH (11:23)
[2016-10-04] MEDS ORDERED: CALCIUM CHLORIDE 1,000 MG/10 ML SYRINGE IV ONE ×2 (11:29→13:24)
[2016-10-04] MEDS ORDERED: LIDOCAINE 2% 5 ML VIAL ONE (11:29)
[2016-10-04] MEDS ORDERED: ETOMIDATE 20 MG/10 ML VIAL IV ONE (11:29)
[2016-10-04] MEDS ORDERED: AMINOCAPROIC ACID 5,000 MG/20 ML VIAL IV ONE (11:29)
[2016-10-04 12:23] LABS: ABG Base Excess 1.5 MMOL/L (-2.5-2.5); ABG HCO3 25.8 MMOL/L (20-26); ABG Oxygen Saturation 97.9 % (95-100); ABG PCO2 37.6 MM HG (35-48); Glucose Heart Surgery 102 MG/DL (74-106); Hematocrit Heart Surgery 32.5 PERCENT (42-52); Hemoglobin Heart Surgery 10.5 G/DL (14.0-18.0); Ionized Calcium Arterial 1.15 MMOL/L (1.21-1.46); PCO2 Patient Temp Arterial 37.6 MMHG; Patient Temperature 37 CELCIUS; Potassium Heart/CVR 3.5 MMOL/L (3.5-5.1); Sodium Heart/CVR 142 MMOL/L (135-145)
[2016-10-04 12:28] LABS: Apearance,Urine Slightly Hazy (Clear); Bilirubin,Urine Negative (Negative); Blood, Urine Negative (Negative); Glucose,Urine (UA) Negative (Negative); Ketones,Urine Negative (Negative); Nitrite,Urine Negative (Negative); Protein,Urine Negative; RBC,Urine 1 /HPF (0-4); Squamous Epithelial Cell,Urine Occasional /HPF (0-10); Urine Color Yellow (Yellow); Urine Specific Gravity 1.027 (1.001-1.035); Urine Urobilinogen < 2.0 EU/DL (0.2-1.0); WBC,Urine 1 /HPF (0-6)
[2016-10-04] MEDS ORDERED: POTASSIUM CHLORIDE RIDER 100 ML IV ONE (13:24)
[2016-10-04] MEDS ORDERED: SODIUM BICARBONATE 50 MEQ/50 ML SYRINGE IV ONE ×2 (13:25→15:25)
[2016-10-04] MEDS ORDERED: EPINEPHrine 1 MG/10 ML SYRINGE ONE (13:25)
[2016-10-04 13:46] LABS: Hematocrit Heart Surgery 23.3 PERCENT (42-52); Hemoglobin Heart Surgery 7.5 G/DL (14.0-18.0); PCO2 Patient Temp Venous 38.3 MM HG; PH Patient Temp Venous 7.447; PO2 Patient Temp Venous 32.4 MM HG; Potassium Heart/CVR 3.9 MMOL/L (3.5-5.1); VBG Base Excess 2.6 MEQ/L (0-4); VBG HCO3 26.5 MEQ/L (24-28); VBG Oxygen Saturation 75.3 %; VBG PCO2 44.3 MMHG (41-51); VBG PH 7.403
[2016-10-04 14:17] LABS: Hematocrit Heart Surgery 25.4 PERCENT (42-52); Hemoglobin Heart Surgery 8.2 G/DL (14.0-18.0); PCO2 Patient Temp Venous 34.2 MM HG; PH Patient Temp Venous 7.479; PO2 Patient Temp Venous 31.8 MM HG; VBG Base Excess 2.3 MEQ/L (0-4); VBG HCO3 26.3 MEQ/L (24-28); VBG Oxygen Saturation 81.4 %; VBG PCO2 43.5 MMHG (41-51); VBG PH 7.406
[2016-10-04 14:49] LABS: Hematocrit Heart Surgery 24.6 PERCENT (42-52); Hemoglobin Heart Surgery 7.9 G/DL (14.0-18.0); PCO2 Patient Temp Venous 41.2 MM HG; PH Patient Temp Venous 7.422; PO2 Patient Temp Venous 32.9 MM HG; Potassium Heart/CVR 4.3 MMOL/L (3.5-5.1); VBG Base Excess 2.4 MEQ/L (0-4); VBG HCO3 26.1 MEQ/L (24-28); VBG Oxygen Saturation 67.6 %; VBG PCO2 43.2 MMHG (41-51); VBG PH 7.408; VBG PO2 35.3 MMHG (17-40)
[2016-10-04] MEDS ORDERED: CHLORHEXIDINE 4% SOLN 118 ML BOTTLE TOP SCH (15:00)
[2016-10-04 15:23] LABS: ABG Base Excess 1.2 MMOL/L (-2.5-2.5); ABG Oxygen Saturation 98.2 % (95-100); ABG PCO2 42.2 MM HG (35-48); ABG PH 7.407 (7.35-7.45); ABG PO2 250.3 MM HG (80-95); ABG TCO2 27.3 MMOL/L (23-27); Glucose Heart Surgery 186 MG/DL (74-106); Hemoglobin Heart Surgery 8.3 G/DL (14.0-18.0); Ionized Calcium Arterial 1.02 MMOL/L (1.21-1.46); PCO2 Patient Temp Arterial 42.2 MMHG; PH Patient Temp Arterial 7.407; PO2 Patient Temp Arterial 250.3 MM HG; Patient Temperature 37 CELCIUS; Potassium Heart/CVR 3.7 MMOL/L (3.5-5.1); Sodium Heart/CVR 133 MMOL/L (135-145)
[2016-10-04] MEDS ORDERED: ALBUMIN 25% 25 GM/100 ML VIAL IV ONE (15:25)
[2016-10-04] MEDS ORDERED: DEXTROSE 5% KCL 20 MEQ 20 MEQ/1,000 ML BAG IV ONE (15:25)
[2016-10-04] MEDS ORDERED: HEPARIN 10,000 UNIT/10 ML VIAL ONE (15:25)
[2016-10-04] MEDS ORDERED: PROTAMINE SULFATE 250 MG/25 ML VIAL IV ONE (15:25)
[2016-10-04] MEDS ORDERED: MAGNESIUM SULFATE 1 GM/2 ML VIAL ONE (15:25)
[2016-10-04] MEDS ORDERED: methylPREDNISolone SOD SUC 1,000 MG/8 ML VIAL ONE (15:26)
[2016-10-04] MEDS ORDERED: FUROSEMIDE 20 MG/2 ML VIAL ONE (15:26)
[2016-10-04] MEDS ORDERED: MANNITOL 12.5 GM/50 ML VIAL IV ONE (15:26)
[2016-10-04] MEDS ORDERED: PHENYLEPHRINE DRIP 40 MG/250 ML PREMIX IV ONE (15:42)
[2016-10-04] MEDS ORDERED: SEVOFLURANE 1 UNIT/15 MINUTE INH ONE (16:18)
[2016-10-04] MEDS ORDERED: LACTATED RINGERS 1,000 ML IV ONE (16:19)
[2016-10-04] MEDS ORDERED: MIDAZOLAM 10 MG/2 ML VIAL ONE (16:19)
[2016-10-04] MEDS ORDERED: SODIUM CHLORIDE 0.9% 1,000 ML IV ONE (16:19)
[2016-10-04] MEDS ORDERED: SODIUM CHLORIDE 0.9% 250 ML IV ONE (16:19)
[2016-10-04] MEDS ORDERED: CHLORHEXIDINE 4% SOLN 118 ML BOTTLE TOP PRN (16:22)
[2016-10-04] MEDS ORDERED: MAGNESIUM SULF RIDER 4 GM in PREMIX 1 EACH IV PRN (16:22)
[2016-10-04] MEDS ORDERED: CALCIUM CHLORIDE 1,000 MG/10 ML SYRINGE IV PRN (16:22)
[2016-10-04] MEDS ORDERED: MORPHINE 10 MG/1 ML VIAL IV PRN (16:22)
[2016-10-04] MEDS ORDERED: SODIUM CHLORIDE 0.9% 250 ML IV PRN (16:22)
[2016-10-04] MEDS ORDERED: ACETAMINOPHEN 650 MG SUPP RECTAL PRN (16:22)
[2016-10-04] MEDS ORDERED: SODIUM CHLORIDE 0.45% 1,000 ML IV SCH (16:30)
[2016-10-04] MEDS ORDERED: NITROGLYCERIN DRIP 50 MG/250 ML BOTTLE IV ONE (16:40)
[2016-10-04 16:56] LABS: ABG HCO3 25.3 MMOL/L (20-26); ABG Oxygen Saturation 98.5 % (95-100); ABG PCO2 39.9 MM HG (35-48); ABG PH 7.414 (7.35-7.45); ABG TCO2 23.4 MMOL/L (23-27); Glucose Heart Surgery 203 MG/DL (74-106); Hematocrit Heart Surgery 28.9 PERCENT (42-52); Hemoglobin Heart Surgery 9.3 G/DL (14.0-18.0); Potassium Heart/CVR 3.8 MMOL/L (3.5-5.1)
[2016-10-04 17:04] LABS: Basophils % 0.2 % (0.0-0.8); Eosinophils % 0.3 % (0.00-10.9); Hemoglobin 9.2 GM/DL (14.0-18.0); Immature Granulocytes Absolute 0.06 #; Lymphocytes % 17.1 % (21.2-54.2); Mean Corpuscular HGB Conc 32.9 GM/DL (32-36); Mean Corpuscular Hemoglobin 30 PG (27-34); Mean Corpuscular Volume 92.4 FL (87-102); Mean Platelet Volume 11.9 FL (9.6-12.0); Monocytes # 0.4 10*3/uL (0.11-0.8); Monocytes % 7.1 % (1.7-12.7); Neutrophils # 4.3 10*3/uL (1.4-7.4); Neutrophils % 74.3 % (38.7-73.9); Platelet Count 119 T/CUMM (130-400); Red Blood Count 3.03 MC/CUMM (3.8-5.5); Red Cell Distribution Width 13.6 % (9.3-17.3); White Blood Count 5.8 T/CUMM (4-12)
--- NOTE | 2016-10-04 17:08 | XRay Report ---
Portable chest Date: 10/04/2016 Clinical history: Endotracheal tube and line placement Comparison: 10/04/2016 Technique: Portable AP supine chest Findings: The heart is borderline in size with interval median sternotomy. Endotracheal tube, nasogastric tube, and mediastinal chest tubes are in satisfactory position. Insertion of right IJ CVP line with tip in SVC. No pneumothorax. Minimal atelectasis/edema especially at the lung bases. Stable mediastinum with degenerative changes. Impression: Interval median sternotomy with support devices in satisfactory position. No definite pneumothorax is identified. Minimal atelectasis/edema especially at the lung bases. PROCEDURE INTERPRETED AT [facility] DEPARTMENT OF RADIOLOGY Final Report Signed by: Dr. Kelley Peterson
[2016-10-04 17:14] LABS: INR 1.2; PT Patient Result 12.6 SECS; Partial Thromboplastin Time 28.6 SECS (0-40)
[2016-10-04] MEDS: SODIUM CHLORIDE 0.45% 1,000 ML IV SCH (17:16)
[2016-10-04] MEDS: POTASSIUM CHLORIDE RIDER 20 MEQ in PREMIX 1 EACH IV PRN ×3 (17:16→20:44)
[2016-10-04 17:22] LABS: Lactic Acid 2.1 MMOL/L (0.4-2.0)
[2016-10-04] MEDS ORDERED: NITROGLYCERIN DRIP 50 MG/250 ML BOTTLE IV SCH (17:30)
[2016-10-04] MEDS: ALBUMIN 5% 12.5 GM in PREMIX 1 EACH IV PRN ×2 (17:43→18:00)
[2016-10-04 17:44] LABS: Calcium 8.9 MG/DL (8.5-10.1); Magnesium 2.5 MG/DL (1.8-2.4); Osmolality,Calculated 287.1 MOS/KG (273-304); Potassium 3.9 MMOL/L (3.5-5.1)
[2016-10-04 17:49] LABS: Hypochromasia Slight; Lymphocytes 8 % (20-55); Microcytosis Slight; Platelet Estimate Adequate; Segmented Neutrophils 88 % (50-85); Total Cells Counted 100
[2016-10-04] MEDS ORDERED: INSULIN REGULAR 100 UNIT/ML IV ONE (17:50)
[2016-10-04] MEDS: INSULIN REGULAR DRIP 100 ML IV SCH (17:58)
--- NOTE | 2016-10-04 18:32 | Operative Note ---
Date of procedure: 10/04/16 Pre-op diagnosis: Severe coronary artery disease with ST elevation myocardial infarction Post-op diagnosis: same Procedure: 1 harvest of the right lower extremity saphenous vein 2 harvest of the listed left internal mammary artery 3 institution of cardiopulmonary bypass 4. Coronary artery bypass graft to the posterior descending artery using saphenous vein graft, to the obtuse marginal #2 using saphenous vein graft, and to the left anterior descending artery using left internal mammary artery Details of the procedure: The patient was brought into the OR placed supine on the OR table and general endotracheal anesthesia was induced without any problems. The patient was then prepped and draped in the usual sterile fashion. Antibiotics were given. Timeout was performed. I proceeded with a midline incision over the sternum. Hemostasis was achieved and then a sternotomy was performed. I then placed the internal mammary retractor and dissection of the internal mammary artery was carried from the first rib all the way down to the xiphisternum. The internal mammary artery was functional and in good condition. I then proceeded with opening the pericardium. The pericardial cradle was created. I then proceeded with cannulating the proximal arch of the aorta. I then proceeded with cannulating the right atrium and the IVC using dual stage cannula. I then proceeded with inserting the cardioplegia needle. The left internal mammary artery was prepped and the rent was made through the left side of the pericardium. At this point I placed the aortic cross-clamp and cardioplegia was given. The heart arrested successfully. I then proceeded with identifying the target on the posterior descending artery. After the arteriotomy was performed I then created the anastomosis between the saphenous vein to the distal target. This was done using 7-0 Prolene stitch. After that I turned my attention to the circumflex circulation. I then identified the second obtuse marginal branch and it was a good target. After making the arteriotomy I then proceeded with creating the anastomosis between the saphenous vein graft and the target. This was done using 7-0 Prolene stitch. Flow was very good as well. I then turned my attention to the left anterior descending artery I made the arteriotomy and it was a good target as well. I performed a distal anastomosis between the left internal mammary artery and the left anterior descending artery. This was done without any problems. Flow was achieved and hemostasis was in good condition. I then removed the cross clamp of the aorta and the heart recovered successfully. After that and instituted the proximal anastomosis between the saphenous vein grafts to the obtuse marginal as well as to the posterior descending artery to the ascending aorta. This was done using running 6-0 Prolene stitch on each side. I then weaned the patient off bypass successfully. Protamine was given and decannulation ensued. The patient was hemodynamically stable. Hemostasis was achieved. Chest tubes were inserted and the sternum was then closed using wires. Subcutaneous tissue using PDS. The skin was closed using Monocryl. The patient tolerated the procedure very well without any problems. All counts were correct at the end of the procedure. Anesthesia: DAWOOD Surgeon / Physician: Maureen Sherwood [employer] Instructor: Yasemin Burnham Estimated blood loss: other (CPB) Tourniquet Time (Minutes): 54 Specimens: none sent Condition: stable Disposition: ICU Results - Labs CBC & BMP: 10/04/16 16:45 10/04/16 16:45 Discharge Plan - Discharge Medications No Action Lisinopril 20 mg PO QAM Gabapentin Cap/Tab [Neurontin Cap/Tab] 100 mg PO BID Metformin HCl 1,000 mg PO BID Gemfibrozil 600 mg PO BID Doxepin HCl [Silenor] 3 mg PO BEDTIME Carvedilol [Coreg] 25 mg PO BID Bupropion HCl [Bupropion Xl] 300 mg PO QAM Tamsulosin [Flomax] 2 capsule PO BEDTIME Ferrous Gluconate 325 mg PO QAM Pioglitazone [Actos] 15 mg PO QAM glipiZIDE [Glipizide] 20 mg PO BID Omeprazole Magnesium [Prilosec Otc] 20 mg PO QAM Aspirin EC Tab 81 mg PO QAM [place]-3/Dha/Epa/Fish Oil [Fish Oil Conc 1,000 mg Softgel] 3,000 mg PO QAM - Follow Up or Referral - Forms/Instructions Instructions: Myocardial Infarction (GEN), Left Heart Catheterization (DC), Heart Healthy Diet (GEN)
[2016-10-04] MEDS ORDERED: AMIODARONE 450 MG/9 ML VIAL IV ONE (18:42)
[2016-10-04] MEDS ORDERED: AMIODARONE INJ 450 MG in DEXTROSE 5% 241 ML IV SCH (19:00)
--- NOTE | 2016-10-04 19:30 | Anesthesia ---
Anesthesia Procedures - Arterial Line Consent obtained arterial line: written consent Time out performed arterial line: Yes Size (Gauge): 20 Technique used arterial line: guide wire technique Post-Procedure: line sutured into place, dry sterile dressing placed Patient tolerated procedure arterial line: well, no complications Complications art line: none Site: right
[2016-10-04 20:09] LABS: ABG Base Excess -1.1 MMOL/L (-2.5-2.5); ABG HCO3 25.5 MMOL/L (20-26); ABG PO2 126.3 MM HG (80-95); ABG TCO2 27.1 MMOL/L (23-27); Glucose Heart Surgery 200 MG/DL (74-106); Hemoglobin Heart Surgery 8.5 G/DL (14.0-18.0); Potassium Heart/CVR 3.5 MMOL/L (3.5-5.1)
[2016-10-04] MEDS: INSULIN REGULAR 100 UNIT/ML IV PRN (20:20)
[2016-10-04] MEDS ORDERED: METOPROLOL TARTRATE 50 MG TABLET PO SCH (21:00)
[2016-10-04] MEDS ORDERED: ATORVASTATIN 40 MG TABLET PO SCH (21:00)
[2016-10-04] MEDS ORDERED: CHLORHEXIDINE 0.12% ORAL RINSE 60 ML BOTTLE SWISH/SPIT SCH (21:00)
[2016-10-04] MEDS: MIDAZOLAM 2 MG/2 ML VIAL IV PRN ×3 (22:09→23:52)
[2016-10-04] MEDS: CHLORHEXIDINE 0.12% ORAL RINSE 60 ML BOTTLE SWISH/SPIT SCH (22:09)
[2016-10-04 23:28] LABS: ABG Base Excess -2.6 MMOL/L (-2.5-2.5); ABG HCO3 23.5 MMOL/L (20-26); ABG Oxygen Saturation 97.9 % (95-100); ABG PCO2 46.4 MM HG (35-48); ABG PH 7.323 (7.35-7.45); ABG PO2 144.6 MM HG (80-95); Glucose Heart Surgery 180 MG/DL (74-106); Hemoglobin Heart Surgery 10.4 G/DL (14.0-18.0); Potassium Heart/CVR 4.2 MMOL/L (3.5-5.1)
[2016-10-04] MEDS ORDERED: DEXMEDETOMIDINE 200 MCG in SODIUM CHLORIDE 0.9% 48 ML IV SCH (23:30)
[2016-10-04] MEDS ORDERED: DEXMEDETOMIDINE 200 MCG/2 ML VIAL IV ONE (23:36)
[2016-10-04] MEDS: CEFUROXIME INJ 1,500 MG in SODIUM CHLORIDE 0.9% 100 ML IV SCH (23:53)
[2016-10-05] MEDS: INSULIN REGULAR 100 UNIT/ML IV PRN ×2 (00:54→02:28)
[2016-10-05] MEDS: AMIODARONE INJ 450 MG in DEXTROSE 5% 241 ML IV SCH ×2 (01:00→18:02)
[2016-10-05 04:05] LABS: ABG Base Excess -2.5 MMOL/L (-2.5-2.5); ABG HCO3 22.6 MMOL/L (20-26); ABG Oxygen Saturation 97.9 % (95-100); ABG PCO2 40.3 MM HG (35-48); ABG PH 7.367 (7.35-7.45); ABG PO2 136.3 MM HG (80-95); ABG TCO2 23.9 MMOL/L (23-27); Glucose Heart Surgery 146 MG/DL (74-106); Hemoglobin Heart Surgery 10.6 G/DL (14.0-18.0)
[2016-10-05 04:16] LABS: Basophils % 0.1 % (0.0-0.8); Hematocrit 29.8 VOL% (42.0-52.0); Hemoglobin 9.9 GM/DL (14.0-18.0); Immature Granulocytes % 0.5 %; Immature Granulocytes Absolute 0.06 #; Lymphocytes # 0.7 10*3/uL (1.4-4.0); Lymphocytes % 5.5 % (21.2-54.2); Mean Corpuscular HGB Conc 33.2 GM/DL (32-36); Mean Corpuscular Hemoglobin 31 PG (27-34); Mean Corpuscular Volume 92.8 FL (87-102); Mean Platelet Volume 12.3 FL (9.6-12.0); Monocytes # 0.7 10*3/uL (0.11-0.8); Monocytes % 6.3 % (1.7-12.7); Neutrophils # 10.3 10*3/uL (1.4-7.4); Neutrophils % 87.6 % (38.7-73.9); Platelet Count 125 T/CUMM (130-400); Red Blood Count 3.21 MC/CUMM (3.8-5.5); White Blood Count 11.8 T/CUMM (4-12)
[2016-10-05 05:00] LABS: Osmolality,Calculated 289.8 MOS/KG (273-304); Potassium 4.1 MMOL/L (3.5-5.1)
[2016-10-05] MEDS: INSULIN REGULAR DRIP 100 ML IV SCH (05:00)
[2016-10-05] MEDS: POTASSIUM CHLORIDE RIDER 20 MEQ in PREMIX 1 EACH IV PRN (05:23)
[2016-10-05 05:24] LABS: CKMB % 4.8 %
[2016-10-05 05:34] LABS: Troponin I Only 46.2 NG/ML (0.00-0.045)
[2016-10-05] MEDS: MORPHINE 2 MG/1 ML SYRINGE IV PRN ×5 (06:12→23:21)
[2016-10-05 06:44] LABS: ABG Base Excess -3.6 MMOL/L (-2.5-2.5); ABG HCO3 21.5 MMOL/L (20-26); ABG Oxygen Saturation 99.1 % (95-100); ABG PCO2 41.6 MM HG (35-48); ABG PH 7.334 (7.35-7.45); ABG TCO2 20.2 MMOL/L (23-27); Glucose Heart Surgery 124 MG/DL (74-106); Hematocrit Heart Surgery 31.4 PERCENT (42-52); Hemoglobin Heart Surgery 10.1 G/DL (14.0-18.0); Potassium Heart/CVR 4.3 MMOL/L (3.5-5.1)
[2016-10-05] MEDS: ACETAMINOPHEN 325 MG TABLET PO PRN (07:22)
[2016-10-05] MEDS: SODIUM CHLORIDE 0.45% 1,000 ML IV SCH ×3 (07:25→18:19)
--- NOTE | 2016-10-05 07:27 | Cardiology Progress Note ---
Cardiology - PN: Subj Interval history: Cardiology note 66-year-old man status post non-Q-wave WA with three-vessel CABG yesterday. RICHARDSON graft to LAD, vein graft to PDA, vein graft OM branch. Preop EF 55%. Now on IV amiodarone for atrial fibrillation and converted to sinus. Blood pressure 102/50 on no drips Telemetry shows sinus rhythm in the 70s-80s O2 sat 99 on 40% face tent Right mediastinal tube for 25 cc drainage. Other tubes 190 135 cc respectively Decreased breath sounds few crackles at bases Regular rhythm no gallop Abdomen soft Lab data Hemoglobin 9.9 hematocrit 29.8 white count 11.8 Sodium 144 potassium 4.1 chloride 109 CO2 22 BUN 16 creatinine 1.50 Peak CPK 1640 peak troponin 46 Status post non-Q-wave WA with atrial fibrillation Status post three-vessel CABG with EF 55% Diabetic on insulin drip Plan Accu-Chek sugars and insulin as needed Follow chest tube output IV amiodarone Exam (Progress Note) - Constitutional Vitals: Period Temp Pulse Resp BP Sys/Mehta Pulse Ox Last 24 Hr 97.0 F-101.2 F 58-85 9-31 90-162/43-79 96-100 Result/EKG - Labs CBC & BMP: 10/05/16 04:00 10/05/16 04:00 Labs: Laboratory Results - last 24 hr 10/04/16 10/04/16 10/04/16 07:42 10:23 10:23 WBC RBC Hgb Hct MCV MCH MCHC RDW Plt Count MPV Neut % (Auto) Lymph % (Auto) [place] % (Auto) Eos % (Auto) Baso % (Auto) Neut # (Auto) Lymph # (Auto) [place] # (Auto) Eos # (Auto) Baso # (Auto) Total Counted Immature Gran % Nucleated RBC % Immature Gran # Segmented Neutrophils Lymphocytes Monocytes Nucleated RBCs # Platelet Estimate Hypochromasia Microcytosis INR PT Patient/Control Mix Circ Anticoag PTT Patient Temperature ABG pH ABG pH at Pt Temp ABG pCO2 ABG pCO2 at Pt Temp ABG pO2 ABG pO2 at Pt Temp ABG HCO3 ABG Total CO2 ABG O2 Saturation ABG Base Excess ABG Sodium VBG pH VBG pCO2 VBG pO2 VBG HCO3 VBG Total CO2 VBG O2 Saturation VBG Base Excess Hemoglobin Hematocrit Potassium Glucose Ionized Calcium FiO2 Sodium Chloride Carbon Dioxide Anion Gap BUN Creatinine GFR Calculation BUN/Creatinine Ratio POC Glucose 126 H Hemoglobin A1c 7.2 H Calculated Osmolality Lactic Acid Calcium Venous Ioniz Calcium Magnesium Total Creatine Kinase CK-MB (CK-2) CK and CKMB Interp Troponin I Urine Color Urine Appearance Urine pH Ur Specific [place] Urine Protein Urine Glucose (UA) Urine Ketones Urine Blood Urine Nitrate Urine Bilirubin Urine Urobilinogen Urine Leukocytes Urine RBC Urine WBC Ur Squamous Epith Cells Ur Culture Indicated? Blood Type A POSITIVE Antibody Screen Crossmatch 10/04/16 10/04/16 10/04/16 10:23 11:12 12:04 WBC RBC Hgb Hct MCV MCH MCHC RDW Plt Count 116 L MPV Neut % (Auto) Lymph % (Auto) [place] % (Auto) Eos % (Auto) Baso % (Auto) Neut # (Auto) Lymph # (Auto) [place] # (Auto) Eos # (Auto) Baso # (Auto) Total Counted Immature Gran % Nucleated RBC % Immature Gran # Segmented Neutrophils Lymphocytes Monocytes Nucleated RBCs # Platelet Estimate Hypochromasia Microcytosis INR PT Patient/Control Mix Circ Anticoag PTT Patient Temperature ABG pH ABG pH at Pt Temp ABG pCO2 ABG pCO2 at Pt Temp ABG pO2 ABG pO2 at Pt Temp ABG HCO3 ABG Total CO2 ABG O2 Saturation ABG Base Excess ABG Sodium VBG pH VBG pCO2 VBG pO2 VBG HCO3 VBG Total CO2 VBG O2 Saturation VBG Base Excess Hemoglobin Hematocrit Potassium Glucose Ionized Calcium FiO2 Sodium Chloride Carbon Dioxide Anion Gap BUN Creatinine GFR Calculation BUN/Creatinine Ratio POC Glucose 108 H Hemoglobin A1c Calculated Osmolality Lactic Acid Calcium Venous Ioniz Calcium Magnesium Total Creatine Kinase CK-MB (CK-2) CK and CKMB Interp Troponin I Urine Color Urine Appearance Urine pH Ur Specific [place] Urine Protein Urine Glucose (UA) Urine Ketones Urine Blood Urine Nitrate Urine Bilirubin Urine Urobilinogen Urine Leukocytes Urine RBC Urine WBC Ur Squamous Epith Cells Ur Culture Indicated? Blood Type A POSITIVE Antibody Screen Negative Crossmatch See Detail 10/04/16 10/04/16 10/04/16 12:22 12:25 13:45 WBC RBC Hgb Hct MCV MCH MCHC RDW Plt Count MPV Neut % (Auto) Lymph % (Auto) [place] % (Auto) Eos % (Auto) Baso % (Auto) Neut # (Auto) Lymph # (Auto) [place] # (Auto) Eos # (Auto) Baso # (Auto) Total Counted Immature Gran % Nucleated RBC % Immature Gran # Segmented Neutrophils Lymphocytes Monocytes Nucleated RBCs # Platelet Estimate Hypochromasia Microcytosis INR PT Patient/Control Mix Circ Anticoag PTT Patient Temperature 37 34 ABG pH 7.440 ABG pH at Pt Temp 7.440 7.447 ABG pCO2 37.6 ABG pCO2 at Pt Temp 37.6 38.3 ABG pO2 432.0 H ABG pO2 at Pt Temp 432.0 32.4 ABG HCO3 25.8 ABG Total CO2 23.0 ABG O2 Saturation 97.9 ABG Base Excess 1.5 ABG Sodium 142 134 L VBG pH 7.403 VBG pCO2 44.3 VBG pO2 40.0 VBG HCO3 26.5 VBG Total CO2 26.0 VBG O2 Saturation 75.3 VBG Base Excess 2.6 Hemoglobin 10.5 L 7.5 L D Hematocrit 32.5 L 23.3 L Potassium 3.5 3.9 Glucose 102 286 H Ionized Calcium 1.15 L FiO2 80.00 Sodium Chloride Carbon Dioxide Anion Gap BUN Creatinine GFR Calculation BUN/Creatinine Ratio POC Glucose Hemoglobin A1c Calculated Osmolality Lactic Acid Calcium Venous Ioniz Calcium 0.98 L Magnesium Total Creatine Kinase CK-MB (CK-2) CK and CKMB Interp Troponin I Urine Color Yellow Urine Appearance Slightly hazy Urine pH 5.0 Ur Specific [place] 1.027 Urine Protein Negative Urine Glucose (UA) Negative Urine Ketones Negative Urine Blood Negative Urine Nitrate Negative Urine Bilirubin Negative Urine Urobilinogen < 2.0 H Urine Leukocytes Negative Urine RBC 1 Urine WBC 1 Ur Squamous Epith Cells Occasional Ur Culture Indicated? Not indicated Blood Type Antibody Screen Crossmatch 10/04/16 10/04/16 10/04/16 14:14 14:45 15:20 WBC RBC Hgb Hct MCV MCH MCHC RDW Plt Count MPV Neut % (Auto) Lymph % (Auto) [place] % (Auto) Eos % (Auto) Baso % (Auto) Neut # (Auto) Lymph # (Auto) [place] # (Auto) Eos # (Auto) Baso # (Auto) Total Counted Immature Gran % Nucleated RBC % Immature Gran # Segmented Neutrophils Lymphocytes Monocytes Nucleated RBCs # Platelet Estimate Hypochromasia Microcytosis INR PT Patient/Control Mix Circ Anticoag PTT Patient Temperature 32 36 37 ABG pH 7.407 ABG pH at Pt Temp 7.479 7.422 7.407 ABG pCO2 42.2 ABG pCO2 at Pt Temp 34.2 41.2 42.2 ABG pO2 250.3 H ABG pO2 at Pt Temp 31.8 32.9 250.3 ABG HCO3 26.0 ABG Total CO2 27.3 H ABG O2 Saturation 98.2 ABG Base Excess 1.2 ABG Sodium 135 134 L 133 L VBG pH 7.406 7.408 VBG pCO2 43.5 43.2 VBG pO2 45.0 H 35.3 VBG HCO3 26.3 26.1 VBG Total CO2 25.5 25.6 VBG O2 Saturation 81.4 67.6 VBG Base Excess 2.3 2.4 Hemoglobin 8.2 L 7.9 L 8.3 L Hematocrit 25.4 L 24.6 L 24.0 L Potassium 4.0 4.3 3.7 Glucose 218 H 225 H 186 H Ionized Calcium 1.02 L FiO2 80.00 80.00 Sodium Chloride Carbon Dioxide Anion Gap BUN Creatinine GFR Calculation BUN/Creatinine Ratio POC Glucose Hemoglobin A1c Calculated Osmolality Lactic Acid Calcium Venous Ioniz Calcium 1.02 L 1.01 L Magnesium Total Creatine Kinase CK-MB (CK-2) CK and CKMB Interp Troponin I Urine Color Urine Appearance Urine pH Ur Specific [place] Urine Protein Urine Glucose (UA) Urine Ketones Urine Blood Urine Nitrate Urine Bilirubin Urine Urobilinogen Urine Leukocytes Urine RBC Urine WBC Ur Squamous Epith Cells Ur Culture Indicated? Blood Type Antibody Screen Crossmatch 10/04/16 10/04/16 10/04/16 16:45 16:45 16:45 WBC 5.8 RBC 3.03 L Hgb 9.2 L Hct 28.0 L MCV 92.4 MCH 30 MCHC 32.9 RDW 13.6 Plt Count 122 L 119 L MPV 11.9 Neut % (Auto) 74.3 H Lymph % (Auto) 17.1 L [place] % (Auto) 7.1 Eos % (Auto) 0.3 Baso % (Auto) 0.2 Neut # (Auto) 4.3 Lymph # (Auto) 1.0 L [place] # (Auto) 0.4 Eos # (Auto) 0.0 Baso # (Auto) 0.0 Total Counted 100 Immature Gran % 1.0 Nucleated RBC % 0.0 Immature Gran # 0.06 Segmented Neutrophils 88 H Lymphocytes 8 L Monocytes 4 Nucleated RBCs # 0.00 Platelet Estimate Adequate Hypochromasia Slight Microcytosis Slight INR 1.2 PT Patient/Control Mix 12.6 Circ Anticoag PTT 28.6 Patient Temperature ABG pH ABG pH at Pt Temp ABG pCO2 ABG pCO2 at Pt Temp ABG pO2 ABG pO2 at Pt Temp ABG HCO3 ABG Total CO2 ABG O2 Saturation ABG Base Excess ABG Sodium VBG pH VBG pCO2 VBG pO2 VBG HCO3 VBG Total CO2 VBG O2 Saturation VBG Base Excess Hemoglobin Hematocrit Potassium Glucose Ionized Calcium FiO2 Sodium Chloride Carbon Dioxide Anion Gap BUN Creatinine GFR Calculation BUN/Creatinine Ratio POC Glucose Hemoglobin A1c Calculated Osmolality Lactic Acid Calcium Venous Ioniz Calcium Magnesium Total Creatine Kinase CK-MB (CK-2) CK and CKMB Interp Troponin I Urine Color Urine Appearance Urine pH Ur Specific [place] Urine Protein Urine Glucose (UA) Urine Ketones Urine Blood Urine Nitrate Urine Bilirubin Urine Urobilinogen Urine Leukocytes Urine RBC Urine WBC Ur Squamous Epith Cells Ur Culture Indicated? Blood Type Antibody Screen Crossmatch 10/04/16 10/04/16 10/04/16 16:45 16:45 17:35 WBC RBC Hgb Hct MCV MCH MCHC RDW Plt Count MPV Neut % (Auto) Lymph % (Auto) [place] % (Auto) Eos % (Auto) Baso % (Auto) Neut # (Auto) Lymph # (Auto) [place] # (Auto) Eos # (Auto) Baso # (Auto) Total Counted Immature Gran % Nucleated RBC % Immature Gran # Segmented Neutrophils Lymphocytes Monocytes Nucleated RBCs # Platelet Estimate Hypochromasia Microcytosis INR PT Patient/Control Mix Circ Anticoag PTT Patient Temperature ABG pH 7.414 ABG pH at Pt Temp ABG pCO2 39.9 ABG pCO2 at Pt Temp ABG pO2 112.0 H ABG pO2 at Pt Temp ABG HCO3 25.3 ABG Total CO2 23.4 ABG O2 Saturation 98.5 ABG Base Excess 1.0 ABG Sodium VBG pH VBG pCO2 VBG pO2 VBG HCO3 VBG Total CO2 VBG O2 Saturation VBG Base Excess Hemoglobin 9.3 L Hematocrit 28.9 L Potassium 3.9 3.8 Glucose 196 H 203 H Ionized Calcium FiO2 Sodium 142 Chloride 105 Carbon Dioxide 24 Anion Gap 16.9 H BUN 13 Creatinine 1.00 GFR Calculation 96 BUN/Creatinine Ratio 13.00 POC Glucose 258 H Hemoglobin A1c Calculated Osmolality 287.1 Lactic Acid 2.1 H Calcium 8.9 Venous Ioniz Calcium Magnesium 2.5 H Total Creatine Kinase CK-MB (CK-2) CK and CKMB Interp Troponin I Urine Color Urine Appearance Urine pH Ur Specific [place] Urine Protein Urine Glucose (UA) Urine Ketones Urine Blood Urine Nitrate Urine Bilirubin Urine Urobilinogen Urine Leukocytes Urine RBC Urine WBC Ur Squamous Epith Cells Ur Culture Indicated? Blood Type Antibody Screen Crossmatch 10/04/16 10/04/16 10/04/16 18:13 20:00 21:13 WBC RBC Hgb Hct MCV MCH MCHC RDW Plt Count MPV Neut % (Auto) Lymph % (Auto) [place] % (Auto) Eos % (Auto) Baso % (Auto) Neut # (Auto) Lymph # (Auto) [place] # (Auto) Eos # (Auto) Baso # (Auto) Total Counted Immature Gran % Nucleated RBC % Immature Gran # Segmented Neutrophils Lymphocytes Monocytes Nucleated RBCs # Platelet Estimate Hypochromasia Microcytosis INR PT Patient/Control Mix Circ Anticoag PTT Patient Temperature ABG pH 7.300 L ABG pH at Pt Temp ABG pCO2 53.0 H ABG pCO2 at Pt Temp ABG pO2 126.3 H ABG pO2 at Pt Temp ABG HCO3 25.5 ABG Total CO2 27.1 H ABG O2 Saturation 97.0 ABG Base Excess -1.1 ABG Sodium VBG pH VBG pCO2 VBG pO2 VBG HCO3 VBG Total CO2 VBG O2 Saturation VBG Base Excess Hemoglobin 8.5 L Hematocrit 25.0 L Potassium 3.5 Glucose 200 H Ionized Calcium FiO2 Sodium Chloride Carbon Dioxide Anion Gap BUN Creatinine GFR Calculation BUN/Creatinine Ratio POC Glucose 235 H 224 H Hemoglobin A1c Calculated Osmolality Lactic Acid Calcium Venous Ioniz Calcium Magnesium Total Creatine Kinase CK-MB (CK-2) CK and CKMB Interp Troponin I Urine Color Urine Appearance Urine pH Ur Specific [place] Urine Protein Urine Glucose (UA) Urine Ketones Urine Blood Urine Nitrate Urine Bilirubin Urine Urobilinogen Urine Leukocytes Urine RBC Urine WBC Ur Squamous Epith Cells Ur Culture Indicated? Blood Type Antibody Screen Crossmatch 10/04/16 10/04/16 10/05/16 22:38 23:25 00:27 WBC RBC Hgb Hct MCV MCH MCHC RDW Plt Count MPV Neut % (Auto) Lymph % (Auto) [place] % (Auto) Eos % (Auto) Baso % (Auto) Neut # (Auto) Lymph # (Auto) [place] # (Auto) Eos # (Auto) Baso # (Auto) Total Counted Immature Gran % Nucleated RBC % Immature Gran # Segmented Neutrophils Lymphocytes Monocytes Nucleated RBCs # Platelet Estimate Hypochromasia Microcytosis INR PT Patient/Control Mix Circ Anticoag PTT Patient Temperature ABG pH 7.323 L ABG pH at Pt Temp ABG pCO2 46.4 ABG pCO2 at Pt Temp ABG pO2 144.6 H ABG pO2 at Pt Temp ABG HCO3 23.5 ABG Total CO2 25.0 ABG O2 Saturation 97.9 ABG Base Excess -2.6 L ABG Sodium VBG pH VBG pCO2 VBG pO2 VBG HCO3 VBG Total CO2 VBG O2 Saturation VBG Base Excess Hemoglobin 10.4 L D Hematocrit 31.0 L Potassium 4.2 Glucose 180 H Ionized Calcium FiO2 Sodium Chloride Carbon Dioxide Anion Gap BUN Creatinine GFR Calculation BUN/Creatinine Ratio POC Glucose 143 H 169 H Hemoglobin A1c Calculated Osmolality Lactic Acid Calcium Venous Ioniz Calcium Magnesium Total Creatine Kinase CK-MB (CK-2) CK and CKMB Interp Troponin I Urine Color Urine Appearance Urine pH Ur Specific [place] Urine Protein Urine Glucose (UA) Urine Ketones Urine Blood Urine Nitrate Urine Bilirubin Urine Urobilinogen Urine Leukocytes Urine RBC Urine WBC Ur Squamous Epith Cells Ur Culture Indicated? Blood Type Antibody Screen Crossmatch 10/05/16 10/05/16 10/05/16 01:09 02:24 03:09 WBC RBC Hgb Hct MCV MCH MCHC RDW Plt Count MPV Neut % (Auto) Lymph % (Auto) [place] % (Auto) Eos % (Auto) Baso % (Auto) Neut # (Auto) Lymph # (Auto) [place] # (Auto) Eos # (Auto) Baso # (Auto) Total Counted Immature Gran % Nucleated RBC % Immature Gran # Segmented Neutrophils Lymphocytes Monocytes Nucleated RBCs # Platelet Estimate Hypochromasia Microcytosis INR PT Patient/Control Mix Circ Anticoag PTT Patient Temperature ABG pH ABG pH at Pt Temp ABG pCO2 ABG pCO2 at Pt Temp ABG pO2 ABG pO2 at Pt Temp ABG HCO3 ABG Total CO2 ABG O2 Saturation ABG Base Excess ABG Sodium VBG pH VBG pCO2 VBG pO2 VBG HCO3 VBG Total CO2 VBG O2 Saturation VBG Base Excess Hemoglobin Hematocrit Potassium Glucose Ionized Calcium FiO2 Sodium Chloride Carbon Dioxide Anion Gap BUN Creatinine GFR Calculation BUN/Creatinine Ratio POC Glucose 150 H 174 H 113 H Hemoglobin A1c Calculated Osmolality Lactic Acid Calcium Venous Ioniz Calcium Magnesium Total Creatine Kinase CK-MB (CK-2) CK and CKMB Interp Troponin I Urine Color Urine Appearance Urine pH Ur Specific [place] Urine Protein Urine Glucose (UA) Urine Ketones Urine Blood Urine Nitrate Urine Bilirubin Urine Urobilinogen Urine Leukocytes Urine RBC Urine WBC Ur Squamous Epith Cells Ur Culture Indicated? Blood Type Antibody Screen Crossmatch 10/05/16 10/05/16 10/05/16 04:00 04:00 04:00 WBC 11.8 D RBC 3.21 L Hgb 9.9 L Hct 29.8 L MCV 92.8 MCH 31 MCHC 33.2 RDW 14.0 Plt Count 125 L MPV 12.3 H Neut % (Auto) 87.6 H Lymph % (Auto) 5.5 L [place] % (Auto) 6.3 Eos % (Auto) 0.0 Baso % (Auto) 0.1 Neut # (Auto) 10.3 H Lymph # (Auto) 0.7 L [place] # (Auto) 0.7 Eos # (Auto) 0.0 Baso # (Auto) 0.0 Total Counted Immature Gran % 0.5 Nucleated RBC % 0.0 Immature Gran # 0.06 Segmented Neutrophils Lymphocytes Monocytes Nucleated RBCs # 0.00 Platelet Estimate Hypochromasia Microcytosis INR PT Patient/Control Mix Circ Anticoag PTT Patient Temperature ABG pH ABG pH at Pt Temp ABG pCO2 ABG pCO2 at Pt Temp ABG pO2 ABG pO2 at Pt Temp ABG HCO3 ABG Total CO2 ABG O2 Saturation ABG Base Excess ABG Sodium VBG pH VBG pCO2 VBG pO2 VBG HCO3 VBG Total CO2 VBG O2 Saturation VBG Base Excess Hemoglobin Hematocrit Potassium 4.1 Glucose 149 H Ionized Calcium FiO2 Sodium 144 Chloride 109 H Carbon Dioxide 22 Anion Gap 17.1 H BUN 16 Creatinine 1.50 H GFR Calculation 59 BUN/Creatinine Ratio 10.00 POC Glucose Hemoglobin A1c Calculated Osmolality 289.8 Lactic Acid Calcium 8.0 L Venous Ioniz Calcium Magnesium Total Creatine Kinase 1640 H CK-MB (CK-2) 77.9 H CK and CKMB Interp 4.8 Troponin I 46.200 H D Urine Color Urine Appearance Urine pH Ur Specific [place] Urine Protein Urine Glucose (UA) Urine Ketones Urine Blood Urine Nitrate Urine Bilirubin Urine Urobilinogen Urine Leukocytes Urine RBC Urine WBC Ur Squamous Epith Cells Ur Culture Indicated? Blood Type Antibody Screen Crossmatch 10/05/16 10/05/16 04:00 06:30 WBC RBC Hgb Hct MCV MCH MCHC RDW Plt Count MPV Neut % (Auto) Lymph % (Auto) [place] % (Auto) Eos % (Auto) Baso % (Auto) Neut # (Auto) Lymph # (Auto) [place] # (Auto) Eos # (Auto) Baso # (Auto) Total Counted Immature Gran % Nucleated RBC % Immature Gran # Segmented Neutrophils Lymphocytes Monocytes Nucleated RBCs # Platelet Estimate Hypochromasia Microcytosis INR PT Patient/Control Mix Circ Anticoag PTT Patient Temperature ABG pH 7.367 7.334 L ABG pH at Pt Temp ABG pCO2 40.3 41.6 ABG pCO2 at Pt Temp ABG pO2 136.3 H 146.0 H ABG pO2 at Pt Temp ABG HCO3 22.6 21.5 ABG Total CO2 23.9 20.2 L ABG O2 Saturation 97.9 99.1 ABG Base Excess -2.5 -3.6 L ABG Sodium VBG pH VBG pCO2 VBG pO2 VBG HCO3 VBG Total CO2 VBG O2 Saturation VBG Base Excess Hemoglobin 10.6 L 10.1 L Hematocrit 31.0 L 31.4 L Potassium 4.0 4.3 Glucose 146 H 124 H Ionized Calcium FiO2 Sodium Chloride Carbon Dioxide Anion Gap BUN Creatinine GFR Calculation BUN/Creatinine Ratio POC Glucose Hemoglobin A1c Calculated Osmolality Lactic Acid Calcium Venous Ioniz Calcium Magnesium Total Creatine Kinase CK-MB (CK-2) CK and CKMB Interp Troponin I Urine Color Urine Appearance Urine pH Ur Specific [place] Urine Protein Urine Glucose (UA) Urine Ketones Urine Blood Urine Nitrate Urine Bilirubin Urine Urobilinogen Urine Leukocytes Urine RBC Urine WBC Ur Squamous Epith Cells Ur Culture Indicated? Blood Type Antibody Screen Crossmatch Quality Measures - VTE Contraindication to Pharmacological VTE Prophylaxis: High Risk of Bleeding Specialty Discharge - Follow Up or Referrals
--- NOTE | 2016-10-05 07:33 | EKG Report ---
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
--- NOTE | 2016-10-05 08:28 | XRay Report ---
Portable chest Date: 10/05/2016 Clinical history: Postop, evaluate for pneumothorax Comparison: 10/04/2016 Technique: Portable AP sitting chest Findings: The heart is enlarged with recent median sternotomy. The support devices are stable in position with no obvious pneumothorax. Residual atelectasis/edema at the lung bases. Stable mediastinum and osseous structures. Impression: Stable supportive devices with recent median sternotomy. No significant pneumothorax is identified. Residual atelectasis/edema lung bases. PROCEDURE INTERPRETED AT [facility] DEPARTMENT OF RADIOLOGY Final Report Signed by: Dr. Kelley Peterson
[2016-10-05] MEDS ORDERED: FUROSEMIDE 40 MG/4 ML VIAL IV ONE (08:39)
[2016-10-05] MEDS: CLOPIDOGREL 75 MG TABLET PO SCH (08:48)
[2016-10-05] MEDS: ASPIRIN EC 325 MG TABLET PO SCH (08:48)
[2016-10-05] MEDS: INSULIN REGULAR 100 UNIT/ML SUBCUT SCH ×4 (08:49→21:46)
--- NOTE | 2016-10-05 09:08 | Cardiothoracic Progress Note ---
Assessment and Plan - Time spent with patient Time spent with patient: Greater than 30 minutes (1) Non-ST elevation myocardial infarction (NSTEMI) Status: Acute Assessment and plan: Postoperative day 1 status post CABG 3. Transfer to telemetry. LEXIE Gomez. Start Lasix, aspirin, Plavix and statin. Current Visit: Yes Cardiothoracic Subjective Interval history: Postoperative day 1 status post urgent CABG for cardiac function with severe multivessel coronary artery disease. The patient has done very well. Extubated and on nasal cannula. Hemodynamically stable. Exam (Progress Note) - Constitutional Vitals: Period Temp Pulse Resp BP Sys/Mehta Pulse Ox Last 24 Hr 97.8 F-101.4 F 58-85 9-31 90-162/43-79 96-100 Result/EKG - Labs CBC & BMP: 10/05/16 04:00 10/05/16 04:00 Labs: Laboratory Results - last 24 hr 10/04/16 10/04/16 10/04/16 10:23 10:23 10:23 WBC RBC Hgb Hct MCV MCH MCHC RDW Plt Count MPV Neut % (Auto) Lymph % (Auto) [place] % (Auto) Eos % (Auto) Baso % (Auto) Neut # (Auto) Lymph # (Auto) [place] # (Auto) Eos # (Auto) Baso # (Auto) Total Counted Immature Gran % Nucleated RBC % Immature Gran # Segmented Neutrophils Lymphocytes Monocytes Nucleated RBCs # Platelet Estimate Hypochromasia Microcytosis INR PT Patient/Control Mix Circ Anticoag PTT Patient Temperature ABG pH ABG pH at Pt Temp ABG pCO2 ABG pCO2 at Pt Temp ABG pO2 ABG pO2 at Pt Temp ABG HCO3 ABG Total CO2 ABG O2 Saturation ABG Base Excess ABG Sodium VBG pH VBG pCO2 VBG pO2 VBG HCO3 VBG Total CO2 VBG O2 Saturation VBG Base Excess Hemoglobin Hematocrit Potassium Glucose Ionized Calcium FiO2 Sodium Chloride Carbon Dioxide Anion Gap BUN Creatinine GFR Calculation BUN/Creatinine Ratio POC Glucose Hemoglobin A1c 7.2 H Calculated Osmolality Lactic Acid Calcium Venous Ioniz Calcium Magnesium Total Creatine Kinase CK-MB (CK-2) CK and CKMB Interp Troponin I Urine Color Urine Appearance Urine pH Ur Specific [place] Urine Protein Urine Glucose (UA) Urine Ketones Urine Blood Urine Nitrate Urine Bilirubin Urine Urobilinogen Urine Leukocytes Urine RBC Urine WBC Ur Squamous Epith Cells Ur Culture Indicated? Blood Type A POSITIVE A POSITIVE Antibody Screen Negative Crossmatch See Detail 10/04/16 10/04/16 10/04/16 11:12 12:04 12:22 WBC RBC Hgb Hct MCV MCH MCHC RDW Plt Count 116 L MPV Neut % (Auto) Lymph % (Auto) [place] % (Auto) Eos % (Auto) Baso % (Auto) Neut # (Auto) Lymph # (Auto) [place] # (Auto) Eos # (Auto) Baso # (Auto) Total Counted Immature Gran % Nucleated RBC % Immature Gran # Segmented Neutrophils Lymphocytes Monocytes Nucleated RBCs # Platelet Estimate Hypochromasia Microcytosis INR PT Patient/Control Mix Circ Anticoag PTT Patient Temperature ABG pH ABG pH at Pt Temp ABG pCO2 ABG pCO2 at Pt Temp ABG pO2 ABG pO2 at Pt Temp ABG HCO3 ABG Total CO2 ABG O2 Saturation ABG Base Excess ABG Sodium VBG pH VBG pCO2 VBG pO2 VBG HCO3 VBG Total CO2 VBG O2 Saturation VBG Base Excess Hemoglobin Hematocrit Potassium Glucose Ionized Calcium FiO2 Sodium Chloride Carbon Dioxide Anion Gap BUN Creatinine GFR Calculation BUN/Creatinine Ratio POC Glucose 108 H Hemoglobin A1c Calculated Osmolality Lactic Acid Calcium Venous Ioniz Calcium Magnesium Total Creatine Kinase CK-MB (CK-2) CK and CKMB Interp Troponin I Urine Color Yellow Urine Appearance Slightly hazy Urine pH 5.0 Ur Specific [place] 1.027 Urine Protein Negative Urine Glucose (UA) Negative Urine Ketones Negative Urine Blood Negative Urine Nitrate Negative Urine Bilirubin Negative Urine Urobilinogen < 2.0 H Urine Leukocytes Negative Urine RBC 1 Urine WBC 1 Ur Squamous Epith Cells Occasional Ur Culture Indicated? Not indicated Blood Type Antibody Screen Crossmatch 10/04/16 10/04/16 10/04/16 12:25 13:45 14:14 WBC RBC Hgb Hct MCV MCH MCHC RDW Plt Count MPV Neut % (Auto) Lymph % (Auto) [place] % (Auto) Eos % (Auto) Baso % (Auto) Neut # (Auto) Lymph # (Auto) [place] # (Auto) Eos # (Auto) Baso # (Auto) Total Counted Immature Gran % Nucleated RBC % Immature Gran # Segmented Neutrophils Lymphocytes Monocytes Nucleated RBCs # Platelet Estimate Hypochromasia Microcytosis INR PT Patient/Control Mix Circ Anticoag PTT Patient Temperature 37 34 32 ABG pH 7.440 ABG pH at Pt Temp 7.440 7.447 7.479 ABG pCO2 37.6 ABG pCO2 at Pt Temp 37.6 38.3 34.2 ABG pO2 432.0 H ABG pO2 at Pt Temp 432.0 32.4 31.8 ABG HCO3 25.8 ABG Total CO2 23.0 ABG O2 Saturation 97.9 ABG Base Excess 1.5 ABG Sodium 142 134 L 135 VBG pH 7.403 7.406 VBG pCO2 44.3 43.5 VBG pO2 40.0 45.0 H VBG HCO3 26.5 26.3 VBG Total CO2 26.0 25.5 VBG O2 Saturation 75.3 81.4 VBG Base Excess 2.6 2.3 Hemoglobin 10.5 L 7.5 L D 8.2 L Hematocrit 32.5 L 23.3 L 25.4 L Potassium 3.5 3.9 4.0 Glucose 102 286 H 218 H Ionized Calcium 1.15 L FiO2 80.00 80.00 Sodium Chloride Carbon Dioxide Anion Gap BUN Creatinine GFR Calculation BUN/Creatinine Ratio POC Glucose Hemoglobin A1c Calculated Osmolality Lactic Acid Calcium Venous Ioniz Calcium 0.98 L 1.02 L Magnesium Total Creatine Kinase CK-MB (CK-2) CK and CKMB Interp Troponin I Urine Color Urine Appearance Urine pH Ur Specific [place] Urine Protein Urine Glucose (UA) Urine Ketones Urine Blood Urine Nitrate Urine Bilirubin Urine Urobilinogen Urine Leukocytes Urine RBC Urine WBC Ur Squamous Epith Cells Ur Culture Indicated? Blood Type Antibody Screen Crossmatch 10/04/16 10/04/16 10/04/16 14:45 15:20 16:45 WBC RBC Hgb Hct MCV MCH MCHC RDW Plt Count 122 L MPV Neut % (Auto) Lymph % (Auto) [place] % (Auto) Eos % (Auto) Baso % (Auto) Neut # (Auto) Lymph # (Auto) [place] # (Auto) Eos # (Auto) Baso # (Auto) Total Counted Immature Gran % Nucleated RBC % Immature Gran # Segmented Neutrophils Lymphocytes Monocytes Nucleated RBCs # Platelet Estimate Hypochromasia Microcytosis INR PT Patient/Control Mix Circ Anticoag PTT Patient Temperature 36 37 ABG pH 7.407 ABG pH at Pt Temp 7.422 7.407 ABG pCO2 42.2 ABG pCO2 at Pt Temp 41.2 42.2 ABG pO2 250.3 H ABG pO2 at Pt Temp 32.9 250.3 ABG HCO3 26.0 ABG Total CO2 27.3 H ABG O2 Saturation 98.2 ABG Base Excess 1.2 ABG Sodium 134 L 133 L VBG pH 7.408 VBG pCO2 43.2 VBG pO2 35.3 VBG HCO3 26.1 VBG Total CO2 25.6 VBG O2 Saturation 67.6 VBG Base Excess 2.4 Hemoglobin 7.9 L 8.3 L Hematocrit 24.6 L 24.0 L Potassium 4.3 3.7 Glucose 225 H 186 H Ionized Calcium 1.02 L FiO2 80.00 Sodium Chloride Carbon Dioxide Anion Gap BUN Creatinine GFR Calculation BUN/Creatinine Ratio POC Glucose Hemoglobin A1c Calculated Osmolality Lactic Acid Calcium Venous Ioniz Calcium 1.01 L Magnesium Total Creatine Kinase CK-MB (CK-2) CK and CKMB Interp Troponin I Urine Color Urine Appearance Urine pH Ur Specific [place] Urine Protein Urine Glucose (UA) Urine Ketones Urine Blood Urine Nitrate Urine Bilirubin Urine Urobilinogen Urine Leukocytes Urine RBC Urine WBC Ur Squamous Epith Cells Ur Culture Indicated? Blood Type Antibody Screen Crossmatch 10/04/16 10/04/16 10/04/16 16:45 16:45 16:45 WBC 5.8 RBC 3.03 L Hgb 9.2 L Hct 28.0 L MCV 92.4 MCH 30 MCHC 32.9 RDW 13.6 Plt Count 119 L MPV 11.9 Neut % (Auto) 74.3 H Lymph % (Auto) 17.1 L [place] % (Auto) 7.1 Eos % (Auto) 0.3 Baso % (Auto) 0.2 Neut # (Auto) 4.3 Lymph # (Auto) 1.0 L [place] # (Auto) 0.4 Eos # (Auto) 0.0 Baso # (Auto) 0.0 Total Counted 100 Immature Gran % 1.0 Nucleated RBC % 0.0 Immature Gran # 0.06 Segmented Neutrophils 88 H Lymphocytes 8 L Monocytes 4 Nucleated RBCs # 0.00 Platelet Estimate Adequate Hypochromasia Slight Microcytosis Slight INR 1.2 PT Patient/Control Mix 12.6 Circ Anticoag PTT 28.6 Patient Temperature ABG pH ABG pH at Pt Temp ABG pCO2 ABG pCO2 at Pt Temp ABG pO2 ABG pO2 at Pt Temp ABG HCO3 ABG Total CO2 ABG O2 Saturation ABG Base Excess ABG Sodium VBG pH VBG pCO2 VBG pO2 VBG HCO3 VBG Total CO2 VBG O2 Saturation VBG Base Excess Hemoglobin Hematocrit Potassium 3.9 Glucose 196 H Ionized Calcium FiO2 Sodium 142 Chloride 105 Carbon Dioxide 24 Anion Gap 16.9 H BUN 13 Creatinine 1.00 GFR Calculation 96 BUN/Creatinine Ratio 13.00 POC Glucose Hemoglobin A1c Calculated Osmolality 287.1 Lactic Acid 2.1 H Calcium 8.9 Venous Ioniz Calcium Magnesium 2.5 H Total Creatine Kinase CK-MB (CK-2) CK and CKMB Interp Troponin I Urine Color Urine Appearance Urine pH Ur Specific [place] Urine Protein Urine Glucose (UA) Urine Ketones Urine Blood Urine Nitrate Urine Bilirubin Urine Urobilinogen Urine Leukocytes Urine RBC Urine WBC Ur Squamous Epith Cells Ur Culture Indicated? Blood Type Antibody Screen Crossmatch 10/04/16 10/04/16 10/04/16 16:45 17:35 18:13 WBC RBC Hgb Hct MCV MCH MCHC RDW Plt Count MPV Neut % (Auto) Lymph % (Auto) [place] % (Auto) Eos % (Auto) Baso % (Auto) Neut # (Auto) Lymph # (Auto) [place] # (Auto) Eos # (Auto) Baso # (Auto) Total Counted Immature Gran % Nucleated RBC % Immature Gran # Segmented Neutrophils Lymphocytes Monocytes Nucleated RBCs # Platelet Estimate Hypochromasia Microcytosis INR PT Patient/Control Mix Circ Anticoag PTT Patient Temperature ABG pH 7.414 ABG pH at Pt Temp ABG pCO2 39.9 ABG pCO2 at Pt Temp ABG pO2 112.0 H ABG pO2 at Pt Temp ABG HCO3 25.3 ABG Total CO2 23.4 ABG O2 Saturation 98.5 ABG Base Excess 1.0 ABG Sodium VBG pH VBG pCO2 VBG pO2 VBG HCO3 VBG Total CO2 VBG O2 Saturation VBG Base Excess Hemoglobin 9.3 L Hematocrit 28.9 L Potassium 3.8 Glucose 203 H Ionized Calcium FiO2 Sodium Chloride Carbon Dioxide Anion Gap BUN Creatinine GFR Calculation BUN/Creatinine Ratio POC Glucose 258 H 235 H Hemoglobin A1c Calculated Osmolality Lactic Acid Calcium Venous Ioniz Calcium Magnesium Total Creatine Kinase CK-MB (CK-2) CK and CKMB Interp Troponin I Urine Color Urine Appearance Urine pH Ur Specific [place] Urine Protein Urine Glucose (UA) Urine Ketones Urine Blood Urine Nitrate Urine Bilirubin Urine Urobilinogen Urine Leukocytes Urine RBC Urine WBC Ur Squamous Epith Cells Ur Culture Indicated? Blood Type Antibody Screen Crossmatch 10/04/16 10/04/16 10/04/16 20:00 21:13 22:38 WBC RBC Hgb Hct MCV MCH MCHC RDW Plt Count MPV Neut % (Auto) Lymph % (Auto) [place] % (Auto) Eos % (Auto) Baso % (Auto) Neut # (Auto) Lymph # (Auto) [place] # (Auto) Eos # (Auto) Baso # (Auto) Total Counted Immature Gran % Nucleated RBC % Immature Gran # Segmented Neutrophils Lymphocytes Monocytes Nucleated RBCs # Platelet Estimate Hypochromasia Microcytosis INR PT Patient/Control Mix Circ Anticoag PTT Patient Temperature ABG pH 7.300 L ABG pH at Pt Temp ABG pCO2 53.0 H ABG pCO2 at Pt Temp ABG pO2 126.3 H ABG pO2 at Pt Temp ABG HCO3 25.5 ABG Total CO2 27.1 H ABG O2 Saturation 97.0 ABG Base Excess -1.1 ABG Sodium VBG pH VBG pCO2 VBG pO2 VBG HCO3 VBG Total CO2 VBG O2 Saturation VBG Base Excess Hemoglobin 8.5 L Hematocrit 25.0 L Potassium 3.5 Glucose 200 H Ionized Calcium FiO2 Sodium Chloride Carbon Dioxide Anion Gap BUN Creatinine GFR Calculation BUN/Creatinine Ratio POC Glucose 224 H 143 H Hemoglobin A1c Calculated Osmolality Lactic Acid Calcium Venous Ioniz Calcium Magnesium Total Creatine Kinase CK-MB (CK-2) CK and CKMB Interp Troponin I Urine Color Urine Appearance Urine pH Ur Specific [place] Urine Protein Urine Glucose (UA) Urine Ketones Urine Blood Urine Nitrate Urine Bilirubin Urine Urobilinogen Urine Leukocytes Urine RBC Urine WBC Ur Squamous Epith Cells Ur Culture Indicated? Blood Type Antibody Screen Crossmatch 10/04/16 10/05/16 10/05/16 23:25 00:27 01:09 WBC RBC Hgb Hct MCV MCH MCHC RDW Plt Count MPV Neut % (Auto) Lymph % (Auto) [place] % (Auto) Eos % (Auto) Baso % (Auto) Neut # (Auto) Lymph # (Auto) [place] # (Auto) Eos # (Auto) Baso # (Auto) Total Counted Immature Gran % Nucleated RBC % Immature Gran # Segmented Neutrophils Lymphocytes Monocytes Nucleated RBCs # Platelet Estimate Hypochromasia Microcytosis INR PT Patient/Control Mix Circ Anticoag PTT Patient Temperature ABG pH 7.323 L ABG pH at Pt Temp ABG pCO2 46.4 ABG pCO2 at Pt Temp ABG pO2 144.6 H ABG pO2 at Pt Temp ABG HCO3 23.5 ABG Total CO2 25.0 ABG O2 Saturation 97.9 ABG Base Excess -2.6 L ABG Sodium VBG pH VBG pCO2 VBG pO2 VBG HCO3 VBG Total CO2 VBG O2 Saturation VBG Base Excess Hemoglobin 10.4 L D Hematocrit 31.0 L Potassium 4.2 Glucose 180 H Ionized Calcium FiO2 Sodium Chloride Carbon Dioxide Anion Gap BUN Creatinine GFR Calculation BUN/Creatinine Ratio POC Glucose 169 H 150 H Hemoglobin A1c Calculated Osmolality Lactic Acid Calcium Venous Ioniz Calcium Magnesium Total Creatine Kinase CK-MB (CK-2) CK and CKMB Interp Troponin I Urine Color Urine Appearance Urine pH Ur Specific [place] Urine Protein Urine Glucose (UA) Urine Ketones Urine Blood Urine Nitrate Urine Bilirubin Urine Urobilinogen Urine Leukocytes Urine RBC Urine WBC Ur Squamous Epith Cells Ur Culture Indicated? Blood Type Antibody Screen Crossmatch 10/05/16 10/05/16 10/05/16 02:24 03:09 04:00 WBC RBC Hgb Hct MCV MCH MCHC RDW Plt Count MPV Neut % (Auto) Lymph % (Auto) [place] % (Auto) Eos % (Auto) Baso % (Auto) Neut # (Auto) Lymph # (Auto) [place] # (Auto) Eos # (Auto) Baso # (Auto) Total Counted Immature Gran % Nucleated RBC % Immature Gran # Segmented Neutrophils Lymphocytes Monocytes Nucleated RBCs # Platelet Estimate Hypochromasia Microcytosis INR PT Patient/Control Mix Circ Anticoag PTT Patient Temperature ABG pH ABG pH at Pt Temp ABG pCO2 ABG pCO2 at Pt Temp ABG pO2 ABG pO2 at Pt Temp ABG HCO3 ABG Total CO2 ABG O2 Saturation ABG Base Excess ABG Sodium VBG pH VBG pCO2 VBG pO2 VBG HCO3 VBG Total CO2 VBG O2 Saturation VBG Base Excess Hemoglobin Hematocrit Potassium Glucose Ionized Calcium FiO2 Sodium Chloride Carbon Dioxide Anion Gap BUN Creatinine GFR Calculation BUN/Creatinine Ratio POC Glucose 174 H 113 H Hemoglobin A1c Calculated Osmolality Lactic Acid Calcium Venous Ioniz Calcium Magnesium Total Creatine Kinase 1640 H CK-MB (CK-2) 77.9 H CK and CKMB Interp 4.8 Troponin I 46.200 H D Urine Color Urine Appearance Urine pH Ur Specific [place] Urine Protein Urine Glucose (UA) Urine Ketones Urine Blood Urine Nitrate Urine Bilirubin Urine Urobilinogen Urine Leukocytes Urine RBC Urine WBC Ur Squamous Epith Cells Ur Culture Indicated? Blood Type Antibody Screen Crossmatch 10/05/16 10/05/16 10/05/16 04:00 04:00 04:00 WBC 11.8 D RBC 3.21 L Hgb 9.9 L Hct 29.8 L MCV 92.8 MCH 31 MCHC 33.2 RDW 14.0 Plt Count 125 L MPV 12.3 H Neut % (Auto) 87.6 H Lymph % (Auto) 5.5 L [place] % (Auto) 6.3 Eos % (Auto) 0.0 Baso % (Auto) 0.1 Neut # (Auto) 10.3 H Lymph # (Auto) 0.7 L [place] # (Auto) 0.7 Eos # (Auto) 0.0 Baso # (Auto) 0.0 Total Counted Immature Gran % 0.5 Nucleated RBC % 0.0 Immature Gran # 0.06 Segmented Neutrophils Lymphocytes Monocytes Nucleated RBCs # 0.00 Platelet Estimate Hypochromasia Microcytosis INR PT Patient/Control Mix Circ Anticoag PTT Patient Temperature ABG pH 7.367 ABG pH at Pt Temp ABG pCO2 40.3 ABG pCO2 at Pt Temp ABG pO2 136.3 H ABG pO2 at Pt Temp ABG HCO3 22.6 ABG Total CO2 23.9 ABG O2 Saturation 97.9 ABG Base Excess -2.5 ABG Sodium VBG pH VBG pCO2 VBG pO2 VBG HCO3 VBG Total CO2 VBG O2 Saturation VBG Base Excess Hemoglobin 10.6 L Hematocrit 31.0 L Potassium 4.1 4.0 Glucose 149 H 146 H Ionized Calcium FiO2 Sodium 144 Chloride 109 H Carbon Dioxide 22 Anion Gap 17.1 H BUN 16 Creatinine 1.50 H GFR Calculation 59 BUN/Creatinine Ratio 10.00 POC Glucose Hemoglobin A1c Calculated Osmolality 289.8 Lactic Acid Calcium 8.0 L Venous Ioniz Calcium Magnesium Total Creatine Kinase CK-MB (CK-2) CK and CKMB Interp Troponin I Urine Color Urine Appearance Urine pH Ur Specific [place] Urine Protein Urine Glucose (UA) Urine Ketones Urine Blood Urine Nitrate Urine Bilirubin Urine Urobilinogen Urine Leukocytes Urine RBC Urine WBC Ur Squamous Epith Cells Ur Culture Indicated? Blood Type Antibody Screen Crossmatch 10/05/16 10/05/16 04:00 06:30 WBC RBC Hgb Hct MCV MCH MCHC RDW Plt Count MPV Neut % (Auto) Lymph % (Auto) [place] % (Auto) Eos % (Auto) Baso % (Auto) Neut # (Auto) Lymph # (Auto) [place] # (Auto) Eos # (Auto) Baso # (Auto) Total Counted Immature Gran % Nucleated RBC % Immature Gran # Segmented Neutrophils Lymphocytes Monocytes Nucleated RBCs # Platelet Estimate Hypochromasia Microcytosis INR PT Patient/Control Mix Circ Anticoag PTT Patient Temperature ABG pH 7.334 L ABG pH at Pt Temp ABG pCO2 41.6 ABG pCO2 at Pt Temp ABG pO2 146.0 H ABG pO2 at Pt Temp ABG HCO3 21.5 ABG Total CO2 20.2 L ABG O2 Saturation 99.1 ABG Base Excess -3.6 L ABG Sodium VBG pH VBG pCO2 VBG pO2 VBG HCO3 VBG Total CO2 VBG O2 Saturation VBG Base Excess Hemoglobin 10.1 L Hematocrit 31.4 L Potassium 4.3 Glucose 124 H Ionized Calcium FiO2 Sodium Chloride Carbon Dioxide Anion Gap BUN Creatinine GFR Calculation BUN/Creatinine Ratio POC Glucose Hemoglobin A1c Calculated Osmolality Lactic Acid Calcium Venous Ioniz Calcium Magnesium 2.0 Total Creatine Kinase CK-MB (CK-2) CK and CKMB Interp Troponin I Urine Color Urine Appearance Urine pH Ur Specific [place] Urine Protein Urine Glucose (UA) Urine Ketones Urine Blood Urine Nitrate Urine Bilirubin Urine Urobilinogen Urine Leukocytes Urine RBC Urine WBC Ur Squamous Epith Cells Ur Culture Indicated? Blood Type Antibody Screen Crossmatch Quality Measures - VTE Contraindication to Pharmacological VTE Prophylaxis: High Risk of Bleeding Specialty Discharge - Follow Up or Referrals
[2016-10-05] MEDS: CHLORHEXIDINE 0.12% ORAL RINSE 60 ML BOTTLE SWISH/SPIT SCH ×2 (09:28→21:46)
--- NOTE | 2016-10-05 10:07 | Anesthesia ---
Anesthesia Post OP - Post Ansesthetic Evaluation Patient seen in post op: Yes Resp: within normal limits CV: within normal limits Mental: within normal limits Temp: within normal limits [id number]: within normal limits Nausea and Vomiting: within normal limits Pain: within normal limits
[2016-10-05] MEDS: CEFUROXIME INJ 1,500 MG in SODIUM CHLORIDE 0.9% 100 ML IV SCH (13:44)
[2016-10-05] MEDS: ONDANSETRON 4 MG/2 ML VIAL IV PRN (14:37)
[2016-10-05] MEDS: FUROSEMIDE 40 MG TABLET PO SCH (18:02)
[2016-10-05] MEDS: ATORVASTATIN 40 MG TABLET PO SCH ×2 (18:09→21:46)
[2016-10-05] MEDS ORDERED: AMIODARONE INJ 150 MG in DEXTROSE 5% 100 ML IV ONE (23:28)
[2016-10-05] MEDS ORDERED: METOPROLOL TARTRATE 5 MG/5 ML VIAL IV ONE (23:58)
[2016-10-05] MEDS ORDERED: MORPHINE 2 MG/1 ML SYRINGE IV ONE (23:59)
[2016-10-06] MEDS: AMIODARONE INJ 450 MG in DEXTROSE 5% 241 ML IV SCH ×2 (00:09→05:39)
[2016-10-06] MEDS: CEFUROXIME INJ 1,500 MG in SODIUM CHLORIDE 0.9% 100 ML IV SCH (00:37)
[2016-10-06] MEDS: INSULIN REGULAR 100 UNIT/ML SUBCUT SCH ×6 (00:40→21:25)
[2016-10-06] MEDS: MORPHINE 2 MG/1 ML SYRINGE IV PRN ×2 (03:45→09:19)
[2016-10-06] MEDS ORDERED: AMIODARONE INJ 450 MG in DEXTROSE 5% 241 ML IV SCH ×2 (05:30→18:30)
--- NOTE | 2016-10-06 07:06 | EKG Report ---
Stationary ECG Study [facility] Test Date: 10/05/2016 11:14:48 PM Pat Name: NIKA COVERT Department: Room: 269 Gender: M [employer]: : [id number] Requested by: Maureen Sherwood Order Number: [id number] Reading MD: RUBINA SKELTON Intervals [place] Rate: 123 P: 999 ID: [id number] QRS: 28 QRSD: 91 T: 28 QT: 296 QTc: 369 Interpretive Statements ATRIAL FIBRILLATION WITH RAPID VENTRICULAR RESPONSE LOW QRS VOLTAGE IN LIMB LEADS ANTERIOR INFARCT, POSSIBLY ACUTE LATERAL EPICARDIAL INJURY Electronically Signed On 10-06-16 12:07:55 CDT by RUBINA SKELTON [email or web address]
--- NOTE | 2016-10-06 08:17 | XRay Report ---
Portable chest Date: 10/06/2016 Clinical history: Pneumothorax, postop Comparison: 10/05/2016 Technique: Portable AP sitting chest Findings: The heart remains enlarged with prior median sternotomy. Interval removal of the endotracheal tube and nasogastric tube. The remaining supportive devices are stable in position with no definite pneumothorax. Persistent atelectasis/edema at the lung bases with small pleural effusions. Impression: Status post median sternotomy with no definite pneumothorax. Minimally progressive edema/atelectasis at the lung bases with small pleural effusions. PROCEDURE INTERPRETED AT [facility] DEPARTMENT OF RADIOLOGY Final Report Signed by: Dr. Kelley Peterson
[2016-10-06] MEDS: FUROSEMIDE 40 MG TABLET PO SCH (09:05)
[2016-10-06] MEDS: CLOPIDOGREL 75 MG TABLET PO SCH (09:05)
[2016-10-06] MEDS: ASPIRIN EC 325 MG TABLET PO SCH (09:05)
[2016-10-06] MEDS: CHLORHEXIDINE 0.12% ORAL RINSE 60 ML BOTTLE SWISH/SPIT SCH ×2 (09:08→21:15)
[2016-10-06] MEDS: SODIUM CHLORIDE 0.45% 1,000 ML IV SCH (09:09)
--- NOTE | 2016-10-06 09:32 | Cardiology Progress Note ---
Cardiology - PN: Subj Interval history: Cardiology note Status post non-Q-wave VA with atrial fibrillation Postop day #2 three-vessel CABG with RICHARDSON graft to LAD, vein graft to the PDA and vein graft to OM Having hiccups this morning. Telemetry shows steady sinus rhythm in the 70s Blood pressure 110/66 O2 sat 92% on 2 L cannula Decreased breath sounds with weak inspiratory effort Regular rhythm no murmur or gallop Incision looks okay Trace leg edema Lab data peak CPK 1640 peak troponin 46.0 Hemoglobin A1c 7.2 Impression Status post non-Q-wave VA with atrial fibrillation Postop day #2 three-vessel CABG Preop EF 55% Diabetes Hiccups Plan Thorazine every 6 hours as needed Spirometry Accu-Chek sugars Exam (Progress Note) - Constitutional Vitals: Period Temp Pulse Resp BP Sys/Mehta Pulse Ox Last 24 Hr 95.1 F-100.3 F 75-134 11-20 90-134/48-81 90-100 Result/EKG - Labs CBC & BMP: 10/05/16 04:00 10/05/16 04:00 Labs: Laboratory Results - last 24 hr 10/05/16 10/05/16 10/05/16 04:00 16:16 21:43 POC Glucose 207 H 217 H Magnesium 2.0 10/06/16 10/06/16 10/06/16 00:35 03:45 06:25 POC Glucose 247 H 288 H 221 H Magnesium Quality Measures - VTE Contraindication to Pharmacological VTE Prophylaxis: High Risk of Bleeding Specialty Discharge - Follow Up or Referrals
[2016-10-06] MEDS ORDERED: chlorproMAZINE INJ 25 MG in SODIUM CHLORIDE 0.9% 100 ML IV PRN (09:37)
[2016-10-06 09:56] LABS: Basophils % 0.1 % (0.0-0.8); Hematocrit 28.4 VOL% (42.0-52.0); Hemoglobin 9.5 GM/DL (14.0-18.0); Immature Granulocytes % 0.8 %; Lymphocytes # 1.1 10*3/uL (1.4-4.0); Lymphocytes % 8.8 % (21.2-54.2); Mean Corpuscular HGB Conc 33.5 GM/DL (32-36); Mean Corpuscular Hemoglobin 31 PG (27-34); Mean Corpuscular Volume 93.7 FL (87-102); Mean Platelet Volume 12.4 FL (9.6-12.0); Monocytes # 1.7 10*3/uL (0.11-0.8); Monocytes % 13.4 % (1.7-12.7); NRBC # 0.02 10*3/uL; Neutrophils # 9.9 10*3/uL (1.4-7.4); Neutrophils % 76.9 % (38.7-73.9); Platelet Count 121 T/CUMM (130-400); Red Blood Count 3.03 MC/CUMM (3.8-5.5); Red Cell Distribution Width 14.4 % (9.3-17.3); White Blood Count 12.9 T/CUMM (4-12)
[2016-10-06 10:22] LABS: Calcium 7.5 MG/DL (8.5-10.1); Osmolality,Calculated 284.8 MOS/KG (273-304); Potassium 4.4 MMOL/L (3.5-5.1)
[2016-10-06 10:32] LABS: Band Neutrophils 1 % (0-10); Hypochromasia 1+; Lymphocytes 6 % (20-55); Microcytosis Slight; Ovalocytes Slight; Platelet Estimate Normal; Segmented Neutrophils 82 % (50-85); Total Cells Counted 100
[2016-10-06] MEDS ORDERED: FUROSEMIDE 40 MG/4 ML VIAL IV ONE (10:38)
--- NOTE | 2016-10-06 10:38 | Cardiothoracic Progress Note ---
Assessment and Plan (1) Non-ST elevation myocardial infarction (NSTEMI) Status: Acute Assessment and plan: Postoperative day 2 status post CABG 3. DC chest tube. Out of bed and ambulate. Lasix 40 mg IV. Current Visit: Yes Cardiothoracic Subjective Interval history: Postoperative day 2 status post CABG 3. The patient has been doing very well. No complaints overnight. He did go back into A. fib requiring a bolus of amiodarone overnight. This now improved. Exam (Progress Note) - Constitutional Vitals: Period Temp Pulse Resp BP Sys/Mehta Pulse Ox Last 24 Hr 95.1 F-100 F 75-134 11-20 90-134/52-81 90-100 Result/EKG - Labs CBC & BMP: 10/06/16 09:29 10/06/16 09:29 Labs: Laboratory Results - last 24 hr 10/05/16 10/05/16 10/06/16 16:16 21:43 00:35 WBC RBC Hgb Hct MCV MCH MCHC RDW Plt Count MPV Neut % (Auto) Lymph % (Auto) [place] % (Auto) Eos % (Auto) Baso % (Auto) Neut # (Auto) Lymph # (Auto) [place] # (Auto) Eos # (Auto) Baso # (Auto) Total Counted Immature Gran % Nucleated RBC % Immature Gran # Segmented Neutrophils Band Neutrophils Lymphocytes Monocytes Nucleated RBCs # Platelet Estimate Hypochromasia Microcytosis Ovalocytes Morphology Comment Sodium Potassium Chloride Carbon Dioxide Anion Gap BUN Creatinine GFR Calculation BUN/Creatinine Ratio Glucose POC Glucose 207 H 217 H 247 H Calculated Osmolality Calcium Magnesium 10/06/16 10/06/16 10/06/16 03:45 06:25 09:29 WBC 12.9 H RBC 3.03 L Hgb 9.5 L Hct 28.4 L MCV 93.7 MCH 31 MCHC 33.5 RDW 14.4 Plt Count 121 L MPV 12.4 H Neut % (Auto) 76.9 H Lymph % (Auto) 8.8 L [place] % (Auto) 13.4 H Eos % (Auto) 0.0 Baso % (Auto) 0.1 Neut # (Auto) 9.9 H Lymph # (Auto) 1.1 L [place] # (Auto) 1.7 H Eos # (Auto) 0.0 Baso # (Auto) 0.0 Total Counted 100 Immature Gran % 0.8 Nucleated RBC % 0.2 Immature Gran # 0.10 Segmented Neutrophils 82 Band Neutrophils 1 Lymphocytes 6 L Monocytes 11 Nucleated RBCs # 0.02 Platelet Estimate Normal Hypochromasia 1+ Microcytosis Slight Ovalocytes Slight Morphology Comment Sodium Potassium Chloride Carbon Dioxide Anion Gap BUN Creatinine GFR Calculation BUN/Creatinine Ratio Glucose POC Glucose 288 H 221 H Calculated Osmolality Calcium Magnesium 10/06/16 09:29 WBC RBC Hgb Hct MCV MCH MCHC RDW Plt Count MPV Neut % (Auto) Lymph % (Auto) [place] % (Auto) Eos % (Auto) Baso % (Auto) Neut # (Auto) Lymph # (Auto) [place] # (Auto) Eos # (Auto) Baso # (Auto) Total Counted Immature Gran % Nucleated RBC % Immature Gran # Segmented Neutrophils Band Neutrophils Lymphocytes Monocytes Nucleated RBCs # Platelet Estimate Hypochromasia Microcytosis Ovalocytes Morphology Comment Sodium 137 Potassium 4.4 Chloride 100 Carbon Dioxide 24 Anion Gap 17.4 H BUN 27 H Creatinine 1.90 H GFR Calculation 45 BUN/Creatinine Ratio 14.00 Glucose 218 H POC Glucose Calculated Osmolality 284.8 Calcium 7.5 L Magnesium 2.0 Quality Measures - VTE Contraindication to Pharmacological VTE Prophylaxis: High Risk of Bleeding Specialty Discharge - Follow Up or Referrals
[2016-10-06] MEDS ORDERED: AMIODARONE 200 MG TABLET PO SCH (10:47)
--- NOTE | 2016-10-06 11:02 | XRay Report ---
Exam: XR chest 1V Date: 10/06/2016 10:20 AM Comparison: 10/06/2016 Indication: Chest tube removal Technique:[Portable sitting chest] Findings: Stable cardiomegaly in patient with prior median sternotomy. Removal of left chest tube with tiny left apical pneumothorax. Progressive atelectasis with small pleural effusions. Stable mediastinum with degenerative changes. Impression: Interval removal of left chest tube with tiny left apical pneumothorax. Progressive atelectasis. This report was called to patient's nurse, Leyda at 10:55 AM on 10/06/2016. Critical test results PROCEDURE INTERPRETED AT [facility] DEPARTMENT OF RADIOLOGY Final Report Signed by: Dr. Kelley Peterson
[2016-10-06] MEDS: KETOROLAC 15 MG/1 ML VIAL IV PRN ×2 (11:16→17:00)
[2016-10-06] MEDS: ACETAMINOPHEN 325 MG TABLET PO PRN (14:53)
[2016-10-06] MEDS ORDERED: AMIODARONE INJ 150 MG in DEXTROSE 5% 100 ML IV ONE (18:01)
[2016-10-06] MEDS ORDERED: AMIODARONE 450 MG/9 ML VIAL IV ONE (18:05)
[2016-10-06] MEDS ORDERED: AMIODARONE 150 MG/3 ML VIAL ONE (18:05)
[2016-10-06] MEDS: traMADol 50 MG TABLET PO PRN (18:24)
[2016-10-06] MEDS ORDERED: METOPROLOL TARTRATE 5 MG/5 ML VIAL IV ONE (21:07)
[2016-10-06] MEDS: ATORVASTATIN 40 MG TABLET PO SCH (21:15)
[2016-10-06] MEDS: METOPROLOL TARTRATE 25 MG TABLET PO SCH (21:25)
[2016-10-07] MEDS: KETOROLAC 15 MG/1 ML VIAL IV PRN (01:55)
[2016-10-07] MEDS: SODIUM CHLORIDE 0.45% 1,000 ML IV SCH (02:07)
[2016-10-07] MEDS: INSULIN REGULAR 100 UNIT/ML SUBCUT SCH ×6 (02:07→20:29)
[2016-10-07] MEDS ORDERED: AMIODARONE INJ 450 MG in DEXTROSE 5% 241 ML IV SCH (02:30)
[2016-10-07] MEDS ORDERED: GLUCAGON 1 MG VIAL IM PRN (03:22)
[2016-10-07] MEDS ORDERED: DEXTROSE 50% 25 GM/50 ML VIAL IV PRN (03:22)
[2016-10-07 07:58] LABS: Hematocrit 26.3 VOL% (42.0-52.0); Immature Granulocytes % 0.8 %; Immature Granulocytes Absolute 0.09 #; Lymphocytes # 1.1 10*3/uL (1.4-4.0); Lymphocytes % 9.3 % (21.2-54.2); Mean Corpuscular HGB Conc 34.2 GM/DL (32-36); Mean Corpuscular Hemoglobin 31 PG (27-34); Mean Corpuscular Volume 89.8 FL (87-102); Mean Platelet Volume 12.7 FL (9.6-12.0); Monocytes # 1.1 10*3/uL (0.11-0.8); Monocytes % 9.7 % (1.7-12.7); NRBC # 0.02 10*3/uL; Neutrophils # 9.4 10*3/uL (1.4-7.4); Neutrophils % 80.2 % (38.7-73.9); Platelet Count 104 T/CUMM (130-400); Red Blood Count 2.93 MC/CUMM (3.8-5.5); White Blood Count 11.7 T/CUMM (4-12)
[2016-10-07 08:20] LABS: Calcium 7.7 MG/DL (8.5-10.1); Magnesium 2.4 MG/DL (1.8-2.4); Osmolality,Calculated 285.8 MOS/KG (273-304); Potassium 4.7 MMOL/L (3.5-5.1)
[2016-10-07 08:21] LABS: Band Neutrophils 6 % (0-10); Hypochromasia 1+; Lymphocytes 13 % (20-55); Microcytosis 1+; Polychromasia Slight; Segmented Neutrophils 76 % (50-85); Total Cells Counted 100
[2016-10-07 08:22] LABS: Ovalocytes Slight; Platelet Estimate Decreased
--- NOTE | 2016-10-07 08:22 | XRay Report ---
Exam: XR chest 2V Indication: Pleural effusion, cardiomegaly Comparison study: 10/06/2016 Findings: Cardiac silhouette is mildly enlarged, similar to prior. Median sternotomy wiring appears unchanged. Right-sided venous catheter has been removed. Patchy basilar opacities are decreased from prior. Upper lungs appear clear. There is no pneumothorax. Impression: Postsurgical changes with improved aeration within the lung bases. Similar cardiomegaly. No pneumothorax. PROCEDURE INTERPRETED AT [facility] DEPARTMENT OF RADIOLOGY Final Report Signed by: William Thrasher
[2016-10-07] MEDS ORDERED: AMIODARONE 200 MG TABLET PO SCH (09:00)
[2016-10-07] MEDS: ASPIRIN EC 325 MG TABLET PO SCH (09:56)
[2016-10-07] MEDS: METOPROLOL TARTRATE 25 MG TABLET PO SCH ×2 (09:56→20:29)
[2016-10-07] MEDS: FUROSEMIDE 40 MG TABLET PO SCH (09:56)
[2016-10-07] MEDS: CLOPIDOGREL 75 MG TABLET PO SCH (09:56)
--- NOTE | 2016-10-07 10:13 | Cardiology Progress Note ---
Soham Angelo Rachel, RN, am scribing for, and in the presence of, Ryan Nunez MD 10:12. Assessment and Plan (1) Status post aorto-coronary artery bypass graft Status: Acute Assessment and plan: Patient is status post three-vessel bypass graft. RICHARDSON to LAD and vein graft to PDA and OM. Current Visit: Yes (2) Coronary artery disease Status: Chronic Current Visit: Yes (3) Elevated serum creatinine Status: Acute Assessment and plan: Creatinine today is noted to be 2.4. This is elevated from 1.2 at admission. Current Visit: Yes (4) Anemia Status: Acute Assessment and plan: Patient is status post CABG. H&H today is 9 and 23. Current Visit: Yes (5) Atrial fibrillation with rapid ventricular response Status: Acute Assessment and plan: He has converted back to normal sinus rhythm. I'm going to add vitamin C and keep his electrolytes optimized. Current Visit: Yes (6) Non-ST elevation myocardial infarction (NSTEMI) Status: Resolved Assessment and plan: Patient is status post CABG. Current Visit: Yes (7) Type 2 diabetes mellitus Status: Chronic Assessment and plan: This is clinically stable. Will continue current plan of care. Current Visit: Yes Qualifiers: Diabetes mellitus complication status: without complication Diabetes mellitus manager medical insulin use: without chcf use Qualified Code(s): E11.9 - Type 2 diabetes mellitus without complications (8) Dyslipidemia associated with type 2 diabetes mellitus Status: Chronic Current Visit: Yes (9) Obesity Status: Chronic Current Visit: Yes Cardiology - PN: Subj Interval history: 66-year-old male patient routinely followed by Dr. Post is status post non -Q-wave [place] with atrial fibrillation. He is postop day #3 from three-vessel CABG with RICHARDSON graft to LAD and vein graft to PDA and OM. Preop ejection fraction of 55% noted. Patient was seen and examined on the telemetry floor. He is resting in bed in no acute distress. Currently receiving oxygen at 2 L via nasal cannula. He reports that he has ambulated to chair and bathroom. He tolerated this well. Telemetry has been reviewed. Episode of atrial fibrillation was noted yesterday. Patient received bolus of amiodarone and converted back to sinus rhythm. Patient is currently in sinus rhythm with heart rates in the 60s with occasional PACs noted. Potassium is noted to be 4.7 with mag of 2.4. Creatinine is elevated today at 2.4, this is elevated from 1.2 at admission. H&H is 9 and 26.3. Midsternal chest incision is healing well without any signs of infection. Right lower extremity dressing is clean dry and intact. He complains of a poor appetite, soreness when he hiccups or coughs, poor appetite. Active Medications Acetaminophen (Tylenol Supp) 650 mg RECTAL Q4H PRN PRN Reason: Temp greater than 101F Acetaminophen (Tylenol Tab) 650 mg PO Q6H PRN PRN Reason: Fever, Headache, Mild Pain Last Admin: 10/06/16 14:53 Dose: 650 mg Aspirin () 325 mg PO DAILY [facility] Last Admin: 10/06/16 09:05 Dose: 325 mg Atorvastatin Calcium (Lipitor) 40 mg PO BEDTIME [facility] Last Admin: 10/06/16 21:15 Dose: 40 mg Calcium Chloride () 250 mg IV ONCE PRN PRN Reason: MAP <60 w/ IVF & Norepinephrin Chlorhexidine Gluconate (Peridex) 15 ml SWISH/SPIT BID [facility] Last Admin: 10/06/16 21:15 Dose: 15 ml Chlorhexidine Gluconate (Hibiclens) 1 applic TOP PRN PRN PRN Reason: Wound Care Last Admin: 10/05/16 04:00 Dose: 1 applic Clopidogrel Bisulfate (Plavix) 75 mg PO DAILY [facility] Last Admin: 10/06/16 09:05 Dose: 75 mg Dextrose/Water (D50) 25 gm IV Q15M PRN PRN Reason: BG less than/equal to 70 mg/dL Dextrose/Water (D50) 12.5 gm IV Q15M PRN PRN Reason: BG 71 - 80 mg/dL Dextrose/Water (D50) 25 gm IV PRN PRN PRN Reason: Hypoglycemia with IV access Furosemide (Lasix Tab) 40 mg PO DAILY [facility] Last Admin: 10/06/16 09:05 Dose: 40 mg Glucagon () 1 mg IM PRN PRN PRN Reason: Hypoglycemia w/o IV access Sodium Chloride (1/2ns) 1,000 mls @ 75 mls/hr IV .[id number] [facility] Last Admin: 10/07/16 02:07 Dose: Not Given Magnesium Sulfate 2 gm/ Premix 50 mls @ 25 mls/hr IV .PER PROTOCOL PRN; Protocol PRN Reason: Per Protocol Potassium Chloride 10 meq/ (Premix) 100 mls @ 100 mls/hr IV .PER PROTOCOL PRN; Protocol PRN Reason: Per Protocol Last Infusion: 10/04/16 22:20 Dose: Infused Magnesium Sulfate 4 gm/ Premix 100 mls @ 25 mls/hr IV .PER PROTOCOL PRN; Protocol PRN Reason: Per Protocol Potassium Chloride 20 meq/ (Premix) 100 mls @ 50 mls/hr IV .PER PROTOCOL PRN; Protocol PRN Reason: Per Protocol Last Infusion: 10/05/16 05:55 Dose: Infused Chlorpromazine HCl 25 mg/ (Sodium Chloride) 101 mls @ 240 mls/hr IV Q4H PRN PRN Reason: Hiccups Insulin Human Regular (Humulin R) 0 unit SUBCUT Q4H TIM PRN Reason: Protocol Last Admin: 10/07/16 06:27 Dose: Not Given Ketorolac Tromethamine (Toradol Inj) 15 mg IV Q6H PRN PRN Reason: Pain Moderate (4-7) Stop: 10/11/16 10:23 Last Admin: 10/07/16 01:55 Dose: 15 mg Metoprolol Tartrate (Lopressor Tab) 25 mg PO BID [facility] Last Admin: 10/06/16 21:25 Dose: 25 mg Ondansetron HCl (Zofran Inj) 4 mg IV Q6H PRN PRN Reason: Nausea/Vomiting Last Admin: 10/05/16 14:37 Dose: 4 mg Tramadol HCl (Ultram) 50 mg PO Q6H PRN PRN Reason: Pain Moderate (4-7) Last Admin: 10/06/16 18:24 Dose: 50 mg Exam (Progress Note) - Constitutional Vitals: Period Temp Pulse Resp BP Sys/Mehta Pulse Ox Last 24 Hr 96.1 F-97.6 F 56-117 16-22 94-127/50-77 90-95 General appearance: no acute distress, mild distress - Head Head exam: Present: normal inspection, normocephalic - Eye Eye exam: Present: EOMI - Neck Neck exam: Present: normal inspection - Respiratory Respiratory exam: Present: decreased breath sounds, other (Oxygen at 2 L via nasal cannula). Absent: accessory muscle use, rales, rhonchi, stridor, wheezes - Cardiovascular Cardiovascular exam: Present: regular rate and rhythm, other (Midsternal chest incision healing well without any signs of infection). Absent: gallop, rubs - GI/Abdominal GI/Abdominal exam: Present: normal bowel sounds, soft. Absent: distended, firm , mass, tenderness - Extremities Exam Extremities exam: Present: normal capillary refill, edema (Trace lower extremity edema noted), other (Right lower extremity dressing clean dry and intact). Absent: calf tenderness - Neurological Exam Neurological exam: Present: alert, oriented X3 - Psychiatric Psychiatric exam: Present: normal affect, normal mood. Absent: agitated, anxious, depressed - Skin Skin exam: Present: normal color, warm, dry. Absent: cyanosis, erythema Result/EKG - Labs CBC & BMP: 10/07/16 06:46 10/07/16 06:46 Lab Results: I have reviewed the past 24 hour labs Labs: Laboratory Results - last 24 hr 10/04/16 10/06/16 10/06/16 10:23 09:29 09:29 WBC 12.9 H RBC 3.03 L Hgb 9.5 L Hct 28.4 L MCV 93.7 MCH 31 MCHC 33.5 RDW 14.4 Plt Count 121 L MPV 12.4 H Neut % (Auto) 76.9 H Lymph % (Auto) 8.8 L [place] % (Auto) 13.4 H Eos % (Auto) 0.0 Baso % (Auto) 0.1 Neut # (Auto) 9.9 H Lymph # (Auto) 1.1 L [place] # (Auto) 1.7 H Eos # (Auto) 0.0 Baso # (Auto) 0.0 Total Counted 100 Immature Gran % 0.8 Nucleated RBC % 0.2 Immature Gran # 0.10 Segmented Neutrophils 82 Band Neutrophils 1 Lymphocytes 6 L Monocytes 11 Nucleated RBCs # 0.02 Platelet Estimate Normal Polychromasia Hypochromasia 1+ Microcytosis Slight Ovalocytes Slight Morphology Comment Sodium 137 Potassium 4.4 Chloride 100 Carbon Dioxide 24 Anion Gap 17.4 H BUN 27 H Creatinine 1.90 H GFR Calculation 45 BUN/Creatinine Ratio 14.00 Glucose 218 H POC Glucose Calculated Osmolality 284.8 Calcium 7.5 L Magnesium 2.0 Blood Type A POSITIVE Antibody Screen Negative Crossmatch See Detail 10/06/16 10/06/16 10/06/16 12:32 16:46 21:21 WBC RBC Hgb Hct MCV MCH MCHC RDW Plt Count MPV Neut % (Auto) Lymph % (Auto) [place] % (Auto) Eos % (Auto) Baso % (Auto) Neut # (Auto) Lymph # (Auto) [place] # (Auto) Eos # (Auto) Baso # (Auto) Total Counted Immature Gran % Nucleated RBC % Immature Gran # Segmented Neutrophils Band Neutrophils Lymphocytes Monocytes Nucleated RBCs # Platelet Estimate Polychromasia Hypochromasia Microcytosis Ovalocytes Morphology Comment Sodium Potassium Chloride Carbon Dioxide Anion Gap BUN Creatinine GFR Calculation BUN/Creatinine Ratio Glucose POC Glucose 224 H 201 H 269 H Calculated Osmolality Calcium Magnesium Blood Type Antibody Screen Crossmatch 10/07/16 10/07/16 10/07/16 01:49 06:46 06:46 WBC 11.7 RBC 2.93 L Hgb 9.0 L Hct 26.3 L MCV 89.8 MCH 31 MCHC 34.2 RDW 14.0 Plt Count 104 L MPV 12.7 H Neut % (Auto) 80.2 H Lymph % (Auto) 9.3 L [place] % (Auto) 9.7 Eos % (Auto) 0.0 Baso % (Auto) 0.0 Neut # (Auto) 9.4 H Lymph # (Auto) 1.1 L [place] # (Auto) 1.1 H Eos # (Auto) 0.0 Baso # (Auto) 0.0 Total Counted 100 Immature Gran % 0.8 Nucleated RBC % 0.2 Immature Gran # 0.09 Segmented Neutrophils 76 Band Neutrophils 6 Lymphocytes 13 L Monocytes 5 Nucleated RBCs # 0.02 Platelet Estimate Decreased Polychromasia Slight Hypochromasia 1+ Microcytosis 1+ Ovalocytes Slight Morphology Comment Sodium 137 Potassium 4.7 Chloride 101 Carbon Dioxide 23 Anion Gap 17.7 H BUN 38 H D Creatinine 2.40 H GFR Calculation 34 BUN/Creatinine Ratio 15.00 Glucose 166 H POC Glucose 264 H Calculated Osmolality 285.8 Calcium 7.7 L Magnesium 2.4 Blood Type Antibody Screen Crossmatch 10/07/16 07:41 WBC RBC Hgb Hct MCV MCH MCHC RDW Plt Count MPV Neut % (Auto) Lymph % (Auto) [place] % (Auto) Eos % (Auto) Baso % (Auto) Neut # (Auto) Lymph # (Auto) [place] # (Auto) Eos # (Auto) Baso # (Auto) Total Counted Immature Gran % Nucleated RBC % Immature Gran # Segmented Neutrophils Band Neutrophils Lymphocytes Monocytes Nucleated RBCs # Platelet Estimate Polychromasia Hypochromasia Microcytosis Ovalocytes Morphology Comment Sodium Potassium Chloride Carbon Dioxide Anion Gap BUN Creatinine GFR Calculation BUN/Creatinine Ratio Glucose POC Glucose 174 H Calculated Osmolality Calcium Magnesium Blood Type Antibody Screen Crossmatch - EKG EKG results: interpreted by me, sinus rhythm Quality Measures - VTE Contraindication to Pharmacological VTE Prophylaxis: High Risk of Bleeding Specialty Discharge - Follow Up or Referrals Mayra Angelo Michael, MD, personally performed the services described in this documentation, ascribed by Maria Elena Rousseau RN in my presence, and it is both accurate and complete 012 .
[2016-10-07] MEDS: ASCORBIC ACID 500 MG TABLET PO SCH ×2 (12:02→20:29)
[2016-10-07] MEDS: traMADol 50 MG TABLET PO PRN ×2 (12:03→20:29)
--- NOTE | 2016-10-07 12:27 | Cardiothoracic Progress Note ---
Cardiothoracic Subjective Interval history: She is postoperative day 3 following urgent coronary bypass surgery. He doesn' t feel as well today but is without specific complaints. Vital signs have been stable however his creatinine has risen to 2.4. I'm going to discontinue his Toradol and I do not see any other nephrotoxic medications listed. Otherwise we will continue with routine postoperative protocol and encourage activity as tolerated. Exam (Progress Note) - Constitutional Vitals: Period Temp Pulse Resp BP Sys/Mehta Pulse Ox Last 24 Hr 96.2 F-97.6 F 56-117 16-22 94-115/50-68 90-95 Result/EKG - Labs CBC & BMP: 10/07/16 06:46 10/07/16 06:46 Labs: Laboratory Results - last 24 hr 10/04/16 10/06/16 10/06/16 10:23 12:32 16:46 WBC RBC Hgb Hct MCV MCH MCHC RDW Plt Count MPV Neut % (Auto) Lymph % (Auto) [place] % (Auto) Eos % (Auto) Baso % (Auto) Neut # (Auto) Lymph # (Auto) [place] # (Auto) Eos # (Auto) Baso # (Auto) Total Counted Immature Gran % Nucleated RBC % Immature Gran # Segmented Neutrophils Band Neutrophils Lymphocytes Monocytes Nucleated RBCs # Platelet Estimate Polychromasia Hypochromasia Microcytosis Ovalocytes Sodium Potassium Chloride Carbon Dioxide Anion Gap BUN Creatinine GFR Calculation BUN/Creatinine Ratio Glucose POC Glucose 224 H 201 H Calculated Osmolality Calcium Magnesium Blood Type A POSITIVE Antibody Screen Negative Crossmatch See Detail 10/06/16 10/07/16 10/07/16 21:21 01:49 06:46 WBC 11.7 RBC 2.93 L Hgb 9.0 L Hct 26.3 L MCV 89.8 MCH 31 MCHC 34.2 RDW 14.0 Plt Count 104 L MPV 12.7 H Neut % (Auto) 80.2 H Lymph % (Auto) 9.3 L [place] % (Auto) 9.7 Eos % (Auto) 0.0 Baso % (Auto) 0.0 Neut # (Auto) 9.4 H Lymph # (Auto) 1.1 L [place] # (Auto) 1.1 H Eos # (Auto) 0.0 Baso # (Auto) 0.0 Total Counted 100 Immature Gran % 0.8 Nucleated RBC % 0.2 Immature Gran # 0.09 Segmented Neutrophils 76 Band Neutrophils 6 Lymphocytes 13 L Monocytes 5 Nucleated RBCs # 0.02 Platelet Estimate Decreased Polychromasia Slight Hypochromasia 1+ Microcytosis 1+ Ovalocytes Slight Sodium Potassium Chloride Carbon Dioxide Anion Gap BUN Creatinine GFR Calculation BUN/Creatinine Ratio Glucose POC Glucose 269 H 264 H Calculated Osmolality Calcium Magnesium Blood Type Antibody Screen Crossmatch 10/07/16 10/07/16 10/07/16 06:46 07:41 12:04 WBC RBC Hgb Hct MCV MCH MCHC RDW Plt Count MPV Neut % (Auto) Lymph % (Auto) [place] % (Auto) Eos % (Auto) Baso % (Auto) Neut # (Auto) Lymph # (Auto) [place] # (Auto) Eos # (Auto) Baso # (Auto) Total Counted Immature Gran % Nucleated RBC % Immature Gran # Segmented Neutrophils Band Neutrophils Lymphocytes Monocytes Nucleated RBCs # Platelet Estimate Polychromasia Hypochromasia Microcytosis Ovalocytes Sodium 137 Potassium 4.7 Chloride 101 Carbon Dioxide 23 Anion Gap 17.7 H BUN 38 H D Creatinine 2.40 H GFR Calculation 34 BUN/Creatinine Ratio 15.00 Glucose 166 H POC Glucose 174 H 192 H Calculated Osmolality 285.8 Calcium 7.7 L Magnesium 2.4 Blood Type Antibody Screen Crossmatch Quality Measures - VTE Contraindication to Pharmacological VTE Prophylaxis: High Risk of Bleeding Specialty Discharge - Follow Up or Referrals
[2016-10-07] MEDS: ONDANSETRON 4 MG/2 ML VIAL IV PRN (13:54)
[2016-10-07] MEDS: CHLORHEXIDINE 0.12% ORAL RINSE 60 ML BOTTLE SWISH/SPIT SCH ×2 (16:33→20:29)
[2016-10-07] MEDS: ATORVASTATIN 40 MG TABLET PO SCH (20:29)
[2016-10-08] MEDS: SODIUM CHLORIDE 0.45% 1,000 ML IV SCH (01:15)
[2016-10-08] MEDS: INSULIN REGULAR 100 UNIT/ML SUBCUT SCH ×6 (01:40→21:02)
[2016-10-08] MEDS: ONDANSETRON 4 MG/2 ML VIAL IV PRN (08:51)
--- NOTE | 2016-10-08 09:12 | Cardiothoracic Progress Note ---
Cardiothoracic Subjective Interval history: Patient is doing some better today. He is nauseated but is going to receive Zofran for this. Otherwise his vital signs are stable and he is breathing more comfortably. When she is feeling a little better we will try to increase his activity some according to routine postoperative protocol. Exam (Progress Note) - Constitutional Vitals: Period Temp Pulse Resp BP Sys/Mehta Pulse Ox Last 24 Hr 96.1 F-98.5 F 61-68 16-20 92-122/56-66 90-94 Result/EKG - Labs CBC & BMP: 10/07/16 06:46 10/07/16 06:46 Labs: Laboratory Results - last 24 hr 10/05/16 10/05/16 10/05/16 05:14 07:12 07:58 POC Glucose 160 H 116 H 95 10/07/16 10/07/16 10/07/16 12:04 16:49 20:06 POC Glucose 192 H 179 H 180 H 10/08/16 10/08/16 01:18 07:47 POC Glucose 138 H 137 H Quality Measures - VTE Contraindication to Pharmacological VTE Prophylaxis: High Risk of Bleeding Specialty Discharge - Follow Up or Referrals
[2016-10-08] MEDS: traMADol 50 MG TABLET PO PRN (10:03)
[2016-10-08] MEDS: CLOPIDOGREL 75 MG TABLET PO SCH (10:04)
[2016-10-08] MEDS: METOPROLOL TARTRATE 25 MG TABLET PO SCH ×2 (10:05→21:02)
[2016-10-08] MEDS: ASCORBIC ACID 500 MG TABLET PO SCH ×2 (10:05→21:02)
[2016-10-08] MEDS: FUROSEMIDE 40 MG TABLET PO SCH (10:05)
[2016-10-08] MEDS: ASPIRIN EC 325 MG TABLET PO SCH (10:06)
[2016-10-08] MEDS: CHLORHEXIDINE 0.12% ORAL RINSE 60 ML BOTTLE SWISH/SPIT SCH ×2 (10:06→21:03)
--- NOTE | 2016-10-08 12:39 | Cardiology Progress Note ---
Soham Angelo Rachel, RN, am scribing for, and in the presence of, Ryna Nunez MD 12:39. Assessment and Plan (1) Status post aorto-coronary artery bypass graft Status: Acute Assessment and plan: Patient is status post three-vessel bypass graft. RICHARDSON to LAD and vein graft to PDA and OM. Current Visit: Yes (2) Coronary artery disease Status: Chronic Current Visit: Yes (3) Elevated serum creatinine Status: Acute Assessment and plan: Creatinine 2.4 yesterday. This is elevated from 1.2 at admission. Current Visit: Yes (4) Anemia Status: Acute Assessment and plan: Patient is status post CABG. H&H today is 9 and 26.3. Current Visit: Yes (5) Atrial fibrillation with rapid ventricular response Status: Acute Assessment and plan: This is clinically stable. Patient is currently in sinus rhythm with heart rates in the 60s. Current Visit: Yes (6) Type 2 diabetes mellitus Status: Chronic Assessment and plan: This is clinically stable. Will continue current plan of care. Current Visit: Yes Qualifiers: Diabetes mellitus complication status: without complication Diabetes mellitus chcf insulin use: without predatory animal exterminator use Qualified Code(s): E11.9 - Type 2 diabetes mellitus without complications (7) Postoperative atrial fibrillation Status: Acute Assessment and plan: His rhythm is now normal sinus. Continue current management. Current Visit: Yes Cardiology - PN: Subj Interval history: 66-year-old male patient routinely followed by Dr. Post is status post non -Q-wave [place] with atrial fibrillation. He is postop day #4 from three-vessel CABG with RICHARDSON graft to LAD and vein graft to PDA and OM. Preop ejection fraction of 55% noted. Patient was seen and examined on the telemetry floor. Patient is resting in bed in no acute distress. Currently not requiring any oxygen. Patient continues to have lack of appetite. He reports being nauseated this morning. He has had some hiccups. Nurse was at bedside administering Zofran. Patient continues to have mild chest soreness. He denies shortness of breath. Mid sternal chest incision healing well without any signs of infection. Right lower extremity incision is also healing well without signs of infection. Tele was reviewed, no arrhythmias noted. Vitamin C was added yesterday. Currently, he is in sinus rhythm with heart rates in the 60 's. Nutrition, ambulation and incentive spirometry encouraged. Active Medications Acetaminophen (Tylenol Supp) 650 mg RECTAL Q4H PRN PRN Reason: Temp greater than 101F Acetaminophen (Tylenol Tab) 650 mg PO Q6H PRN PRN Reason: Fever, Headache, Mild Pain Last Admin: 10/06/16 14:53 Dose: 650 mg Ascorbic Acid (Vitamin C Tab) 1,000 mg PO BID [facility] Last Admin: 10/07/16 20:29 Dose: 1,000 mg Aspirin () 325 mg PO DAILY [facility] Last Admin: 10/07/16 09:56 Dose: 325 mg Atorvastatin Calcium (Lipitor) 40 mg PO BEDTIME [facility] Last Admin: 10/07/16 20:29 Dose: 40 mg Calcium Chloride () 250 mg IV ONCE PRN PRN Reason: MAP <60 w/ IVF & Norepinephrin Chlorhexidine Gluconate (Peridex) 15 ml SWISH/SPIT BID [facility] Last Admin: 10/07/16 20:29 Dose: 15 ml Chlorhexidine Gluconate (Hibiclens) 1 applic TOP PRN PRN PRN Reason: Wound Care Last Admin: 10/05/16 04:00 Dose: 1 applic Clopidogrel Bisulfate (Plavix) 75 mg PO DAILY [facility] Last Admin: 10/07/16 09:56 Dose: 75 mg Dextrose/Water (D50) 25 gm IV Q15M PRN PRN Reason: BG less than/equal to 70 mg/dL Dextrose/Water (D50) 12.5 gm IV Q15M PRN PRN Reason: BG 71 - 80 mg/dL Dextrose/Water (D50) 25 gm IV PRN PRN PRN Reason: Hypoglycemia with IV access Furosemide (Lasix Tab) 40 mg PO DAILY [facility] Last Admin: 10/07/16 09:56 Dose: 40 mg Glucagon () 1 mg IM PRN PRN PRN Reason: Hypoglycemia w/o IV access Sodium Chloride (1/2ns) 1,000 mls @ 75 mls/hr IV .[id number] [facility] Last Admin: 10/08/16 01:15 Dose: Not Given Magnesium Sulfate 2 gm/ Premix 50 mls @ 25 mls/hr IV .PER PROTOCOL PRN; Protocol PRN Reason: Per Protocol Potassium Chloride 10 meq/ (Premix) 100 mls @ 100 mls/hr IV .PER PROTOCOL PRN; Protocol PRN Reason: Per Protocol Last Infusion: 10/04/16 22:20 Dose: Infused Magnesium Sulfate 4 gm/ Premix 100 mls @ 25 mls/hr IV .PER PROTOCOL PRN; Protocol PRN Reason: Per Protocol Potassium Chloride 20 meq/ (Premix) 100 mls @ 50 mls/hr IV .PER PROTOCOL PRN; Protocol PRN Reason: Per Protocol Last Infusion: 10/05/16 05:55 Dose: Infused Chlorpromazine HCl 25 mg/ (Sodium Chloride) 101 mls @ 240 mls/hr IV Q4H PRN PRN Reason: Hiccups Insulin Human Regular (Humulin R) 0 unit SUBCUT Q4H TIM PRN Reason: Protocol Last Admin: 10/08/16 05:32 Dose: Not Given Metoprolol Tartrate (Lopressor Tab) 25 mg PO BID [facility] Last Admin: 10/07/16 20:29 Dose: 25 mg Ondansetron HCl (Zofran Inj) 4 mg IV Q6H PRN PRN Reason: Nausea/Vomiting Last Admin: 10/08/16 08:51 Dose: 4 mg Tramadol HCl (Ultram) 50 mg PO Q6H PRN PRN Reason: Pain Moderate (4-7) Last Admin: 10/07/16 20:29 Dose: 50 mg Exam (Progress Note) - Constitutional Vitals: Period Temp Pulse Resp BP Sys/Mehta Pulse Ox Last 24 Hr 96.1 F-98.5 F 61-68 16-20 92-122/56-66 90-94 Exam: General appearance: no acute distress, mild distress - Head Head exam: Present: normal inspection, normocephalic - Eye Eye exam: Present: EOMI - Neck Neck exam: Present: normal inspection - Respiratory Respiratory exam: Present: decreased breath sounds, patient on room air. Absent : accessory muscle use, rales, rhonchi, stridor, wheezes - Cardiovascular Cardiovascular exam: Present: regular rate and rhythm, other (Midsternal chest incision healing well without any signs of infection). Absent: gallop, rubs - GI/Abdominal GI/Abdominal exam: Present: normal bowel sounds, soft. Absent: distended, firm , mass, tenderness - Extremities Exam Extremities exam: Present: normal capillary refill, edema (Trace lower extremity edema noted), other (Right lower extremity dressing clean dry and intact). Absent: calf tenderness - Neurological Exam Neurological exam: Present: alert, oriented X3 - Psychiatric Psychiatric exam: Present: normal affect, normal mood. Absent: agitated, anxious, depressed - Skin Skin exam: Present: normal color, warm, dry. Absent: cyanosis, erythema Result/EKG - Labs CBC & BMP: 10/07/16 06:46 10/07/16 06:46 Lab Results: I have reviewed the past 24 hour labs Labs: Laboratory Results - last 24 hr 10/05/16 10/05/16 10/05/16 05:14 07:12 07:58 POC Glucose 160 H 116 H 95 10/07/16 10/07/16 10/07/16 12:04 16:49 20:06 POC Glucose 192 H 179 H 180 H 10/08/16 10/08/16 01:18 07:47 POC Glucose 138 H 137 H - EKG EKG results: interpreted by me Quality Measures - VTE Contraindication to Pharmacological VTE Prophylaxis: High Risk of Bleeding Specialty Discharge - Follow Up or Referrals I, Ryan Nunez MD, personally performed the services described in this documentation, ascribed by Maria Elena Rousseau RN in my presence, and it is both accurate and complete 239 .
--- NOTE | 2016-10-08 13:09 | Physician Query Form ---
CLICK EDIT DOCUMENT TO SELECT QUERY ANSWER --> OK --> SIGN Lucia Guillen RN Clinical [employer] W) [phone] (f) [phone] [email or web address] PROVIDERS: Make your selection(s) from the choices in EACH section by typing an "x" and enter comments in the comment section. Please use your independent medical judgment in providing your response. This request does not imply that any particular answer is desired or expected. CLINICAL INDICATORS: (Providers should not edit this section) Based on documentation of "Creatinine today is noted to be 2.4. This is elevated from 1.2 at admission" "creatinine has risen to 2.4. I'm going to discontinue his Toradol and I do not see any other nephrotoxic medications listed" Monitored with serial lab checks. Treated with holding medications and adding NS infusion. Clarify which of the following most accurately represents the patient's renal status: ( ) Acute kidney injury (non-traumatic) ( ) Acute renal failure ( ) Acute renal failure with underlying Chronic Kidney Disease (CKD) - please provide stage below ( ) Acute renal failure with pathological renal lesion ( ) Acute renal failure with necrosis ( ) tubular ( ) medullary ( ) cortical ( ) CKD - please provide stage below ( ) End Stage Renal Disease ( ) Acute interstitial nephritis ( ) Hepatorenal syndrome ( ) Other, please specify: ( ) Clinically unable to determine Chronic Kidney Disease Stages Source: National Kidney Disease Foundation ( ) Stage I (eGFR > or = 90) ( ) Stage II (eGFR 60 - 89) ( ) Stage III (eGFR 30 - 59) ( ) Stage IV (eGFR 15 - 29) ( ) Stage V (eGFR < 15 or dialysis) This is a Dr. Hoskins patient now. Dr. Hoskins wrote the above. Please have him address COMMENTS: i have not seen pt. please refer to the drDinora that admitted the pt-- look in the document section--this would also go for all future queries like this one. please always look at who admitted and was seeing the pt and send it to them. Thank you for your consideration in this matter. Use of terms such as suspected, likely, or probable (associated with a specific diagnosis that is being evaluated, monitored, or treated as if it exists) are acceptable and can be restated in the discharge summary if not ruled out. APARNAD
[2016-10-08] MEDS ORDERED: chlorproMAZINE 25 MG TABLET PO PRN (14:24)
[2016-10-08] MEDS: ATORVASTATIN 40 MG TABLET PO SCH (21:02)
[2016-10-09] MEDS: INSULIN REGULAR 100 UNIT/ML SUBCUT SCH ×6 (01:49→21:29)
[2016-10-09] MEDS: SODIUM CHLORIDE 0.45% 1,000 ML IV SCH (05:45)
[2016-10-09] MEDS: traMADol 50 MG TABLET PO PRN ×2 (05:47→21:19)
--- NOTE | 2016-10-09 06:24 | Cardiothoracic Progress Note ---
Cardiothoracic Subjective Interval history: Patient had a more comfortable night. His vital signs are stable and he is afebrile. His wounds are clean and dry. He is gradually increasing his activity according to routine postoperative protocol. Overall his progress is satisfactory. Exam (Progress Note) - Constitutional Vitals: Period Temp Pulse Resp BP Sys/Mehta Pulse Ox Last 24 Hr 97.6 F-98.5 F 61-93 16-20 106-127/59-70 91-100 Result/EKG - Labs CBC & BMP: 10/07/16 06:46 10/07/16 06:46 Labs: Laboratory Results - last 24 hr 10/05/16 10/05/16 10/05/16 05:14 07:12 07:58 POC Glucose 160 H 116 H 95 10/08/16 10/08/16 10/08/16 01:18 07:47 12:27 POC Glucose 138 H 137 H 170 H 10/08/16 10/08/16 17:30 20:03 POC Glucose 200 H 250 H Quality Measures - VTE Contraindication to Pharmacological VTE Prophylaxis: High Risk of Bleeding Specialty Discharge - Follow Up or Referrals
[2016-10-09] MEDS: ASPIRIN EC 325 MG TABLET PO SCH (09:22)
[2016-10-09] MEDS: CLOPIDOGREL 75 MG TABLET PO SCH (09:22)
[2016-10-09] MEDS: ASCORBIC ACID 500 MG TABLET PO SCH ×2 (09:22→21:19)
[2016-10-09] MEDS: FUROSEMIDE 40 MG TABLET PO SCH (09:22)
[2016-10-09] MEDS: METOPROLOL TARTRATE 25 MG TABLET PO SCH ×2 (09:22→21:19)
[2016-10-09] MEDS: CHLORHEXIDINE 0.12% ORAL RINSE 60 ML BOTTLE SWISH/SPIT SCH ×2 (09:23→21:20)
--- NOTE | 2016-10-09 14:26 | Cardiology Progress Note ---
Soham Angelo Rachel RN, am scribing for, and in the presence of, Ryan Nunez MD 14:26. Assessment and Plan (1) Status post aorto-coronary artery bypass graft Status: Acute Assessment and plan: Patient is status post three-vessel bypass graft. RICHARDSON to LAD and vein graft to PDA and OM. Current Visit: Yes (2) Coronary artery disease Status: Chronic Current Visit: Yes (3) Elevated serum creatinine Status: Acute Current Visit: Yes (4) Anemia Status: Acute Current Visit: Yes (5) Atrial fibrillation with rapid ventricular response Status: Acute Assessment and plan: This is clinically stable. Patient is currently in sinus rhythm with heart rates in the 80s. Current Visit: Yes (6) Non-ST elevation myocardial infarction (NSTEMI) Status: Resolved Assessment and plan: Patient is status post CABG. Current Visit: Yes (7) Type 2 diabetes mellitus Status: Chronic Assessment and plan: This is clinically stable. Will continue current plan of care. Current Visit: Yes Qualifiers: Diabetes mellitus complication status: without complication Diabetes mellitus alf insulin use: without intermediate manager use Qualified Code(s): E11.9 - Type 2 diabetes mellitus without complications Cardiology - PN: Subj Interval history: 66-year-old male patient routinely followed by Dr. Post is status post non -Q-wave NC with atrial fibrillation. He is postop day #5 from three-vessel CABG with RICHARDSON graft to LAD and vein graft to PDA and OM. Preop ejection fraction of 55% noted. Patient was seen and examined on the telemetry floor. Patient is sitting up in chair in no acute distress. He is currently not requiring any oxygen. Patient continues to complain of mild chest soreness. He reports that his nausea and hiccups is better this morning and his appetite has improved slightly. He plans to ambulate the halls today. Midsternal chest and right lower extremity incisions are clean and dry and healing well. Vital signs are stable. Telemetry has been reviewed and is benign. Is currently sinus rhythm with heart rates in the 80s without any overt arrhythmias or ectopy noted. We will continue to monitor on telemetry. Nutrition, ambulation and incentive spirometry encouraged. Active Medications Acetaminophen (Tylenol Supp) 650 mg RECTAL Q4H PRN PRN Reason: Temp greater than 101F Acetaminophen (Tylenol Tab) 650 mg PO Q6H PRN PRN Reason: Fever, Headache, Mild Pain Last Admin: 10/06/16 14:53 Dose: 650 mg Ascorbic Acid (Vitamin C Tab) 1,000 mg PO BID [facility] Last Admin: 10/09/16 09:22 Dose: 1,000 mg Aspirin () 325 mg PO DAILY [facility] Last Admin: 10/09/16 09:22 Dose: 325 mg Atorvastatin Calcium (Lipitor) 40 mg PO BEDTIME [facility] Last Admin: 10/08/16 21:02 Dose: 40 mg Calcium Chloride () 250 mg IV ONCE PRN PRN Reason: MAP <60 w/ IVF & Norepinephrin Chlorhexidine Gluconate (Peridex) 15 ml SWISH/SPIT BID [facility] Last Admin: 10/09/16 09:23 Dose: 15 ml Chlorhexidine Gluconate (Hibiclens) 1 applic TOP PRN PRN PRN Reason: Wound Care Last Admin: 10/05/16 04:00 Dose: 1 applic Chlorpromazine HCl (Thorazine Tab) 25 mg PO Q6H PRN PRN Reason: Hiccups Last Admin: 10/08/16 15:24 Dose: 25 mg Clopidogrel Bisulfate (Plavix) 75 mg PO DAILY [facility] Last Admin: 10/09/16 09:22 Dose: 75 mg Dextrose/Water (D50) 25 gm IV Q15M PRN PRN Reason: BG less than/equal to 70 mg/dL Dextrose/Water (D50) 12.5 gm IV Q15M PRN PRN Reason: BG 71 - 80 mg/dL Dextrose/Water (D50) 25 gm IV PRN PRN PRN Reason: Hypoglycemia with IV access Furosemide (Lasix Tab) 40 mg PO DAILY [facility] Last Admin: 10/09/16 09:22 Dose: 40 mg Glucagon () 1 mg IM PRN PRN PRN Reason: Hypoglycemia w/o IV access Sodium Chloride (1/2ns) 1,000 mls @ 75 mls/hr IV .[id number] [facility] Last Admin: 10/09/16 05:45 Dose: Not Given Magnesium Sulfate 2 gm/ Premix 50 mls @ 25 mls/hr IV .PER PROTOCOL PRN; Protocol PRN Reason: Per Protocol Potassium Chloride 10 meq/ (Premix) 100 mls @ 100 mls/hr IV .PER PROTOCOL PRN; Protocol PRN Reason: Per Protocol Last Infusion: 10/04/16 22:20 Dose: Infused Magnesium Sulfate 4 gm/ Premix 100 mls @ 25 mls/hr IV .PER PROTOCOL PRN; Protocol PRN Reason: Per Protocol Potassium Chloride 20 meq/ (Premix) 100 mls @ 50 mls/hr IV .PER PROTOCOL PRN; Protocol PRN Reason: Per Protocol Last Infusion: 10/05/16 05:55 Dose: Infused Chlorpromazine HCl 25 mg/ (Sodium Chloride) 101 mls @ 240 mls/hr IV Q4H PRN PRN Reason: Hiccups Insulin Human Regular (Humulin R) 0 unit SUBCUT Q4H TIM PRN Reason: Protocol Last Admin: 10/09/16 09:23 Dose: 4 unit Metoprolol Tartrate (Lopressor Tab) 25 mg PO BID [facility] Last Admin: 10/09/16 09:22 Dose: 25 mg Ondansetron HCl (Zofran Inj) 4 mg IV Q6H PRN PRN Reason: Nausea/Vomiting Last Admin: 10/08/16 08:51 Dose: 4 mg Tramadol HCl (Ultram) 50 mg PO Q6H PRN PRN Reason: Pain Moderate (4-7) Last Admin: 10/09/16 05:47 Dose: 50 mg Exam (Progress Note) - Constitutional Vitals: Period Temp Pulse Resp BP Sys/Mehta Pulse Ox Last 24 Hr 97.4 F-98.5 F 64-93 16-20 106-132/59-70 91-100 Exam: General appearance: no acute distress - Head Head exam: Present: normal inspection, normocephalic - Eye Eye exam: Present: EOMI - Neck Neck exam: Present: normal inspection - Respiratory Respiratory exam: Present: decreased breath sounds, patient on room air. Absent : accessory muscle use, rales, rhonchi, stridor, wheezes - Cardiovascular Cardiovascular exam: Present: regular rate and rhythm, other (Midsternal chest incision healing well without any signs of infection). Absent: gallop, rubs - GI/Abdominal GI/Abdominal exam: Present: normal bowel sounds, soft. Absent: distended, firm , mass, tenderness - Extremities Exam Extremities exam: Present: normal capillary refill, edema (Trace lower extremity edema noted), other (Right lower extremity dressing clean dry and intact). Absent: calf tenderness - Neurological Exam Neurological exam: Present: alert, oriented X3 - Psychiatric Psychiatric exam: Present: normal affect, normal mood. Absent: agitated, anxious, depressed - Skin Skin exam: Present: normal color, warm, dry. Absent: cyanosis, erythema Result/EKG - Labs CBC & BMP: 10/07/16 06:46 10/07/16 06:46 Lab Results: I have reviewed the past 24 hour labs Labs: Laboratory Results - last 24 hr 10/08/16 10/08/16 10/08/16 12:27 17:30 20:03 POC Glucose 170 H 200 H 250 H 10/09/16 07:26 POC Glucose 204 H - EKG EKG results: interpreted by me Quality Measures - VTE Contraindication to Pharmacological VTE Prophylaxis: High Risk of Bleeding Specialty Discharge - Follow Up or Referrals IMayra Michael, MD, personally performed the services described in this documentation, ascribed by Maria Elena Rousseau RN in my presence, and it is both accurate and complete [id number] .
[2016-10-09] MEDS ORDERED: LOPERAMIDE 2 MG CAPSULE PO PRN (19:56)
[2016-10-09] MEDS: ATORVASTATIN 40 MG TABLET PO SCH (21:19)
[2016-10-09] MEDS: ACETAMINOPHEN 325 MG TABLET PO PRN (22:57)
[2016-10-10] MEDS: INSULIN REGULAR 100 UNIT/ML SUBCUT SCH ×6 (01:09→20:49)
[2016-10-10] MEDS: MUPIROCIN 2% OINT 22 GM TUBE TOP SCH ×3 (02:03→20:51)
--- NOTE | 2016-10-10 06:18 | Cardiothoracic Progress Note ---
Cardiothoracic Subjective Interval history: Patient was clear to go home today but went back into atrial fibrillation. His ventricular response is 110-115. He feels okay and his blood pressure has been okay. I am going to add oral amiodarone as well as diltiazem and watch him for at least another day. Overall his progress continues to be satisfactory. Exam (Progress Note) - Constitutional Vitals: Period Temp Pulse Resp BP Sys/Mehta Pulse Ox Last 24 Hr 97.4 F-98.4 F 69-85 18-20 103-178/58-78 94-100 Result/EKG - Labs CBC & BMP: 10/07/16 06:46 10/07/16 06:46 Labs: Laboratory Results - last 24 hr 10/09/16 10/09/16 10/09/16 07:26 12:13 15:37 POC Glucose 204 H 230 H 182 H 10/09/16 21:22 POC Glucose 237 H Quality Measures - VTE Contraindication to Pharmacological VTE Prophylaxis: High Risk of Bleeding Specialty Discharge - Follow Up or Referrals
[2016-10-10] MEDS: DILTIAZEM 30 MG TABLET PO SCH ×3 (06:50→17:12)
[2016-10-10] MEDS: METOPROLOL TARTRATE 25 MG TABLET PO SCH ×2 (08:51→20:50)
[2016-10-10] MEDS: ASCORBIC ACID 500 MG TABLET PO SCH ×2 (08:52→20:50)
[2016-10-10] MEDS: FUROSEMIDE 40 MG TABLET PO SCH (08:52)
[2016-10-10] MEDS: ASPIRIN EC 325 MG TABLET PO SCH (08:52)
[2016-10-10] MEDS: CLOPIDOGREL 75 MG TABLET PO SCH (08:52)
[2016-10-10] MEDS: AMIODARONE 200 MG TABLET PO SCH ×2 (08:52→20:50)
[2016-10-10] MEDS: CHLORHEXIDINE 0.12% ORAL RINSE 60 ML BOTTLE SWISH/SPIT SCH ×2 (08:53→20:51)
[2016-10-10] MEDS: traMADol 50 MG TABLET PO PRN ×2 (08:59→20:50)
--- NOTE | 2016-10-10 13:26 | Physician Query Form ---
CLICK EDIT DOCUMENT TO SELECT QUERY ANSWER --> OK --> SIGN Lucia Guillen RN Clinical [employer] W) [phone] (f) [phone] [email or web address] PROVIDERS: Make your selection(s) from the choices in EACH section by typing an "x" and enter comments in the comment section. Please use your independent medical judgment in providing your response. This request does not imply that any particular answer is desired or expected. CLINICAL INDICATORS: (Providers should not edit this section) Based on documentation of "Creatinine today is noted to be 2.4. This is elevated from 1.2 at admission" "creatinine has risen to 2.4. I'm going to discontinue his Toradol and I do not see any other nephrotoxic medications listed" Monitored with serial lab checks. Treated with holding medications and adding NS infusion. Clarify which of the following most accurately represents the patient's renal status: ( ) Acute kidney injury (non-traumatic) ( ) Acute renal failure ( ) Acute renal failure with underlying Chronic Kidney Disease (CKD) - please provide stage below ( ) Acute renal failure with pathological renal lesion ( ) Acute renal failure with necrosis ( ) tubular ( ) medullary ( ) cortical ( ) CKD - please provide stage below ( ) End Stage Renal Disease ( ) Acute interstitial nephritis ( ) Hepatorenal syndrome ( ) Other, please specify: ( ) Clinically unable to determine Chronic Kidney Disease Stages Source: National Kidney Disease Foundation ( ) Stage I (eGFR > or = 90) ( ) Stage II (eGFR 60 - 89) ( ) Stage III (eGFR 30 - 59) ( ) Stage IV (eGFR 15 - 29) ( ) Stage V (eGFR < 15 or dialysis) COMMENTS: Use of terms such as suspected, likely, or probable (associated with a specific diagnosis that is being evaluated, monitored, or treated as if it exists) are acceptable and can be restated in the discharge summary if not ruled out. MTDD
[2016-10-10 15:08] LABS: Calcium 8.2 MG/DL (8.5-10.1); Magnesium 2.1 MG/DL (1.8-2.4); Osmolality,Calculated 296.1 MOS/KG (273-304); Potassium 3.8 MMOL/L (3.5-5.1)
--- NOTE | 2016-10-10 15:49 | Cardiology Progress Note ---
<Maria Elena Rousseau - Last Filed: 10/10/16 17:05> Assessment and Plan (1) Status post aorto-coronary artery bypass graft Status: Acute Assessment and plan: Patient is status post three-vessel bypass graft. RICHARDSON to LAD and vein graft to PDA and OM. Current Visit: Yes (2) Atrial fibrillation with rapid ventricular response Status: Acute Assessment and plan: Telemetry has been reviewed. It appears that patient has been in and out of atrial fibrillation today. He is currently in a normal sinus rhythm with heart rate in the 70s. Will add Eliquis at this time for stroke prevention. Plavix will be discontinued. Potassium was noted to be 3.8. This will be replaced per protocol. Current Visit: Yes (3) Coronary artery disease Status: Chronic Current Visit: Yes (4) Elevated serum creatinine Status: Acute Assessment and plan: Creatinine is stable at 1.3 today. Current Visit: Yes (5) Anemia Status: Acute Current Visit: Yes (6) Non-ST elevation myocardial infarction (NSTEMI) Status: Resolved Assessment and plan: Patient is status post CABG. Current Visit: Yes (7) Type 2 diabetes mellitus Status: Chronic Assessment and plan: This is clinically stable. Will continue current plan of care. Current Visit: Yes Qualifiers: Diabetes mellitus complication status: without complication Diabetes mellitus ad terminal makeup operator insulin use: without prison use Qualified Code(s): E11.9 - Type 2 diabetes mellitus without complications Cardiology - PN: Subj Interval history: She was seen on telemetry. Patient is postop day #6 from three-vessel CABG with RICHARDSON graft to LAD and vein graft to PDA and OM. Patient was seen and examined on telemetry. He is resting in bed in no acute distress. Not requiring oxygen. Patient seems to be doing much better this morning. He reports that his nausea has resolved and he has appetite is improving. Continues to complain of mild chest soreness. This is expected post CABG. Midsternal chest and right lower extremity incisions are clean and dry and healing well. Telemetry has been reviewed. It appears that patient has been going in and out of atrial fibrillation today. Patient denies any palpitations or heart racing today. He reports that he cannot tell when he is in an irregular rhythm. Currently he is in a sinus rhythm with heart rates in the 70s without any overt arrhythmias or ectopy noted. Vital signs are stable. Potassium is noted to be 3.8. Magnesium is stable at 2.1. Potassium replacement protocol has already been ordered. We will continue to monitor on telemetry. Active Medications Acetaminophen (Tylenol Supp) 650 mg RECTAL Q4H PRN PRN Reason: Temp greater than 101F Acetaminophen (Tylenol Tab) 650 mg PO Q6H PRN PRN Reason: Fever, Headache, Mild Pain Last Admin: 10/09/16 22:57 Dose: 650 mg Amiodarone HCl (Cordarone Tab) 200 mg PO BID [facility] Last Admin: 10/10/16 08:52 Dose: 200 mg Ascorbic Acid (Vitamin C Tab) 1,000 mg PO BID [facility] Last Admin: 10/10/16 08:52 Dose: 1,000 mg Aspirin () 325 mg PO DAILY [facility] Last Admin: 10/10/16 08:52 Dose: 325 mg Atorvastatin Calcium (Lipitor) 40 mg PO BEDTIME [facility] Last Admin: 10/09/16 21:19 Dose: 40 mg Calcium Chloride () 250 mg IV ONCE PRN PRN Reason: MAP <60 w/ IVF & Norepinephrin Chlorhexidine Gluconate (Peridex) 15 ml SWISH/SPIT BID [facility] Last Admin: 10/10/16 08:53 Dose: 15 ml Chlorhexidine Gluconate (Hibiclens) 1 applic TOP PRN PRN PRN Reason: Wound Care Last Admin: 10/05/16 04:00 Dose: 1 applic Chlorpromazine HCl (Thorazine Tab) 25 mg PO Q6H PRN PRN Reason: Hiccups Last Admin: 10/08/16 15:24 Dose: 25 mg Clopidogrel Bisulfate (Plavix) 75 mg PO DAILY [facility] Last Admin: 10/10/16 08:52 Dose: 75 mg Dextrose/Water (D50) 25 gm IV Q15M PRN PRN Reason: BG less than/equal to 70 mg/dL Dextrose/Water (D50) 12.5 gm IV Q15M PRN PRN Reason: BG 71 - 80 mg/dL Dextrose/Water (D50) 25 gm IV PRN PRN PRN Reason: Hypoglycemia with IV access Diltiazem HCl (Cardizem Tab) 30 mg PO Q6H [facility] Last Admin: 10/10/16 12:42 Dose: 30 mg Furosemide (Lasix Tab) 40 mg PO DAILY [facility] Last Admin: 10/10/16 08:52 Dose: 40 mg Glucagon () 1 mg IM PRN PRN PRN Reason: Hypoglycemia w/o IV access Guaifenesin/Dextromethorphan (Robitussin Dm) 10 ml PO Q6H PRN PRN Reason: Cough Last Admin: 10/10/16 06:51 Dose: 10 ml Magnesium Sulfate 2 gm/ Premix 50 mls @ 25 mls/hr IV .PER PROTOCOL PRN; Protocol PRN Reason: Per Protocol Potassium Chloride 10 meq/ (Premix) 100 mls @ 100 mls/hr IV .PER PROTOCOL PRN; Protocol PRN Reason: Per Protocol Last Infusion: 10/04/16 22:20 Dose: Infused Magnesium Sulfate 4 gm/ Premix 100 mls @ 25 mls/hr IV .PER PROTOCOL PRN; Protocol PRN Reason: Per Protocol Potassium Chloride 20 meq/ (Premix) 100 mls @ 50 mls/hr IV .PER PROTOCOL PRN; Protocol PRN Reason: Per Protocol Last Infusion: 10/05/16 05:55 Dose: Infused Chlorpromazine HCl 25 mg/ (Sodium Chloride) 101 mls @ 240 mls/hr IV Q4H PRN PRN Reason: Hiccups Insulin Human Regular (Humulin R) 0 unit SUBCUT Q4H TIM PRN Reason: Protocol Last Admin: 10/10/16 12:43 Dose: 6 unit Loperamide HCl (Imodium Cap) 2 mg PO Q3H PRN PRN Reason: Diarrhea Last Admin: 10/09/16 21:19 Dose: 2 mg Metoprolol Tartrate (Lopressor Tab) 25 mg PO BID [facility] Last Admin: 10/10/16 08:51 Dose: 25 mg Mupirocin (Bactroban Oint) 1 applic TOP BID [facility] Last Admin: 10/10/16 08:51 Dose: 1 applic Ondansetron HCl (Zofran Inj) 4 mg IV Q6H PRN PRN Reason: Nausea/Vomiting Last Admin: 10/08/16 08:51 Dose: 4 mg Tramadol HCl (Ultram) 50 mg PO Q6H PRN PRN Reason: Pain Moderate (4-7) Last Admin: 10/10/16 08:59 Dose: 50 mg Exam (Progress Note) - Constitutional Vitals: Period Temp Pulse Resp BP Sys/Mehta Pulse Ox Last 24 Hr 97.3 F-98.4 F 69-119 18-20 103-178/58-71 94-100 Exam: General appearance: no acute distress - Head Head exam: Present: normal inspection, normocephalic - Eye Eye exam: Present: EOMI - Neck Neck exam: Present: normal inspection - Respiratory Respiratory exam: Present: Breath sounds clear throughout, patient on room air. Absent: accessory muscle use, rales, rhonchi, stridor, wheezes - Cardiovascular Cardiovascular exam: Present: regular rate and rhythm, other (Midsternal chest incision healing well without any signs of infection). Absent: gallop, rubs - GI/Abdominal GI/Abdominal exam: Present: normal bowel sounds, soft. Absent: distended, firm , mass, tenderness - Extremities Exam Extremities exam: Present: normal capillary refill, edema, other (Right lower extremity dressing clean dry and intact). Absent: calf tenderness and edema. - Neurological Exam Neurological exam: Present: alert, oriented X3 - Psychiatric Psychiatric exam: Present: normal affect, normal mood. Absent: agitated, anxious, depressed - Skin Skin exam: Present: normal color, warm, dry. Absent: cyanosis, erythema Result/EKG - Labs CBC & BMP: 10/07/16 06:46 10/10/16 14:30 Lab Results: I have reviewed the past 24 hour labs Labs: Laboratory Results - last 24 hr 10/09/16 10/09/16 10/10/16 15:37 21:22 07:42 Sodium Potassium Chloride Carbon Dioxide Anion Gap BUN Creatinine GFR Calculation BUN/Creatinine Ratio Glucose POC Glucose 182 H 237 H 202 H Calculated Osmolality Calcium Magnesium 10/10/16 10/10/16 11:56 14:30 Sodium 142 Potassium 3.8 Chloride 100 Carbon Dioxide 30 Anion Gap 15.8 H BUN 36 H Creatinine 1.30 GFR Calculation 71 BUN/Creatinine Ratio 27.00 H Glucose 201 H POC Glucose 297 H Calculated Osmolality 296.1 Calcium 8.2 L Magnesium 2.1 Quality Measures - VTE Contraindication to Pharmacological VTE Prophylaxis: High Risk of Bleeding Specialty Discharge - Follow Up or Referrals <Ryan Nunez - Last Filed: 10/10/16 18:00> Assessment and Plan (1) Status post aorto-coronary artery bypass graft Status: Acute Current Visit: Yes (2) Coronary artery disease Status: Chronic Current Visit: Yes (3) Elevated serum creatinine Status: Acute Current Visit: Yes (4) Anemia Status: Acute Current Visit: Yes (5) Atrial fibrillation with rapid ventricular response Status: Acute Current Visit: Yes (6) Non-ST elevation myocardial infarction (NSTEMI) Status: Resolved Current Visit: Yes (7) Type 2 diabetes mellitus Status: Chronic Current Visit: Yes Qualifiers: Diabetes mellitus complication status: without complication Diabetes mellitus prison insulin use: without prison use Qualified Code(s): E11.9 - Type 2 diabetes mellitus without complications Cardiology - PN: Subj Interval history: I have seen, interviewed, examined the patient and reviewed his chart and discussed the case with the mid-level provider and agree with the plan as outlined in the note. Exam (Progress Note) - Constitutional Vitals: Period Temp Pulse Resp BP Sys/Mehta Pulse Ox Last 24 Hr 97.3 F-97.9 F 69-119 18-20 103-178/58-71 94-100 Result/EKG - Labs CBC & BMP: 10/07/16 06:46 10/10/16 14:30 Labs: Laboratory Results - last 24 hr 10/09/16 10/10/16 10/10/16 21:22 07:42 11:56 Sodium Potassium Chloride Carbon Dioxide Anion Gap BUN Creatinine GFR Calculation BUN/Creatinine Ratio Glucose POC Glucose 237 H 202 H 297 H Calculated Osmolality Calcium Magnesium 10/10/16 10/10/16 14:30 15:51 Sodium 142 Potassium 3.8 Chloride 100 Carbon Dioxide 30 Anion Gap 15.8 H BUN 36 H Creatinine 1.30 GFR Calculation 71 BUN/Creatinine Ratio 27.00 H Glucose 201 H POC Glucose 228 H Calculated Osmolality 296.1 Calcium 8.2 L Magnesium 2.1
[2016-10-10] MEDS: APIXABAN 5 MG TABLET PO SCH (20:50)
[2016-10-10] MEDS: ATORVASTATIN 40 MG TABLET PO SCH (20:50)
[2016-10-10] MEDS: ACETAMINOPHEN 325 MG TABLET PO PRN (23:35)
[2016-10-11] MEDS: INSULIN REGULAR 100 UNIT/ML SUBCUT SCH ×3 (00:51→09:38)
[2016-10-11] MEDS: DILTIAZEM 30 MG TABLET PO SCH ×2 (00:55→06:47)
--- NOTE | 2016-10-11 06:32 | Discharge Summary ---
Hospital Course - Hospital Course Hospital Course: History of present illness: The patient is a 66-year-old man who presented to the emergency room with acute onset of substernal chest discomfort. Cardiac enzymes suggestive ongoing cardiac necrosis and so the patient was taken immediately to the cardiac [employer]. There he was found to have severe triple- vessel cardiac disease and was referred for urgent bypass surgery. Past medical history review of systems social history and family history are documented in his admission notes. Hospital course: Patient was taken to surgery where three-vessel bypass grafting was performed with an internal mammary graft to the anterior descending coronary artery and saphenous vein graft to the right posterior descending and obtuse marginal coronary arteries. The patient's postoperative course was marked by episodes of atrial fibrillation controlled with amiodarone. On discharge she was placed on oral amiodarone and Eliquis therapy. Hopefully this can be discontinued in the early postoperative course. Plan is to see him in follow-up in 1 month and his discharge medications are listed below. Specialty Discharge - Follow Up or Referrals Follow up with: Maureen Sherwood [Physician] - 1 Month Discharge Plan - Discharge Data Condition at Discharge: Stable Discharge Diet: advance to your usual diet Activity: resume usual activities as tolerated Hygiene: no restrictions Weight Bearing at Discharge: full weight bearing Driving: not until seen by doctor - Discharge Medications New Aspirin EC Tab 325 mg PO DAILY tablet Amiodarone Tab [Cordarone Tab] 200 mg PO BID #60 tablet Apixaban [Eliquis] 5 mg PO BID #60 tablet Ascorbic Acid Tab [Vitamin C Tab] 1,000 mg PO BID tablet Atorvastatin [Lipitor] 40 mg PO BEDTIME tablet Metoprolol Tartrate Tab [Lopressor Tab] 25 mg PO BID tablet traMADol TAB [Ultram] 50 mg PO Q6H PRN #40 tablet PRN Reason: Pain Moderate (4-7) Continue Lisinopril 20 mg PO QAM Gabapentin Cap/Tab [Neurontin Cap/Tab] 100 mg PO BID Metformin HCl 1,000 mg PO BID Gemfibrozil 600 mg PO BID Doxepin HCl [Silenor] 3 mg PO BEDTIME Carvedilol [Coreg] 25 mg PO BID Bupropion HCl [Bupropion Xl] 300 mg PO QAM Tamsulosin [Flomax] 2 capsule PO BEDTIME Ferrous Gluconate 325 mg PO QAM Pioglitazone [Actos] 15 mg PO QAM glipiZIDE [Glipizide] 20 mg PO BID Omeprazole Magnesium [Prilosec Otc] 20 mg PO QAM Aspirin EC Tab 81 mg PO QAM Fries-3/Dha/Epa/Fish Oil [Fish Oil Conc 1,000 mg Softgel] 3,000 mg PO QAM - Follow Up or Referral - Forms/Instructions Instructions: Myocardial Infarction (GEN), Coronary Artery Bypass Graft (DC), Left Heart Catheterization (DC), Heart Healthy Diet (GEN), Sternal Precautions ( GEN) Exam - Constitutional Vitals: Period Temp Pulse Resp BP Sys/Mehta Pulse Ox Last 24 Hr 97.3 F-98.7 F 69-119 20-20 103-148/58-71 92-96 Discharge Results Procedures and tests throughout hospitalization: Pending Orders 10/04/16 10:23 Fresh Frozen Plasma Stat Red Blood Cells Leuko Red Stat Single Donor Platelets Stat Type and Screen Stat 10/11/16 05:22 BMP w/ Mg [Basic Metabolic Panel w/Mg] IN AM Labs on day of discharge: Labs from last 24 hours 10/10/16 10/10/16 10/10/16 20:38 15:51 14:30 Sodium 142 Potassium 3.8 Chloride 100 Carbon Dioxide 30 Anion Gap 15.8 H BUN 36 H Creatinine 1.30 GFR Calculation 71 BUN/Creatinine Ratio 27.00 H Glucose 201 H POC Glucose 208 H 228 H Calculated Osmolality 296.1 Calcium 8.2 L Magnesium 2.1 10/10/16 10/10/16 11:56 07:42 Sodium Potassium Chloride Carbon Dioxide Anion Gap BUN Creatinine GFR Calculation BUN/Creatinine Ratio Glucose POC Glucose 297 H 202 H Calculated Osmolality Calcium Magnesium DS: Provider Date of admission: 10/03/16 17:53 Primary care physician: . No PCP Attending physician on admission: Diomedes Post MD Consults: 10/03/16 19:21 Consult to Pharmacy [CONS] Routine Reason for Pharmacy Consult: Adjust Meds Renal Funct 10/04/16 06:40 Consult to Cardiac Rehabilitation [CONS] Routine Reason for Cardiac Rehabilitation: Other 10/04/16 09:32 Consult to Cardiac Rehabilitation [CONS] Routine Reason for Cardiac Rehabilitation: Risk Factor Modification Appt Out Pt Cardiac Rehab 10/04/16 10:08 Consult to Anesthesiology [CONS] Routine Consulting Provider: Reason for Anesthesiology: Pre-op Clearance Consult to Cardiac Rehabilitation [CONS] Routine Reason for Cardiac Rehabilitation: Other Consult Comment: Cardiac rehab to evaluate and recommend Consult to Dietitian [CONS] Routine Reason for Dietitian: Other Consult Comment: low salt, low cholesterol, diet Consult to Pastoral Services [CONS] Routine Comment: Emotional support Pastoral Screen: Declines Visit Consult to Physical Therapy [CONS] Routine Reason for Physical Therapy: Evaluate and Treat 10/04/16 10:30 Consult to Physician [CONS] Routine Comment: Consulting Provider: Maureen Sherwood 10/04/16 16:32 Consult to Occupational Therapy [CONS] Routine Reason for Occupational Therapy: Evaluate and Treat Start Therapy: Tomorrow Consult to Physical Therapy [CONS] Routine Reason for Physical Therapy: Evaluate and Treat Start Therapy: Tomorrow 10/05/16 13:47 Consult to Case Mgmt/Social Srvs [CONS] Routine Reason for Case Mgmt/Social Srvs: Rehab Consult Comment: plan to d'c by or Friday10/09/16 15:14 Consult to Case Mgmt/Social Srvs [CONS] Routine Reason for Case Mgmt/Social Srvs: Equipment Consult Comment: bed side commode Discharging clinician: Miguelito Hoskins MD Expected date of discharge: 10/11/16
[2016-10-11 06:53] LABS: Calcium 8.4 MG/DL (8.5-10.1); Magnesium 2.2 MG/DL (1.8-2.4); Osmolality,Calculated 289.3 MOS/KG (273-304); Potassium 3.8 MMOL/L (3.5-5.1)
--- NOTE | 2016-10-11 07:17 | EKG Report ---
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
[2016-10-11 07:52] VITALS: BP 138/75
[2016-10-11] MEDS: AMIODARONE 200 MG TABLET PO SCH (09:38)
[2016-10-11] MEDS: APIXABAN 5 MG TABLET PO SCH (09:38)
[2016-10-11] MEDS: FUROSEMIDE 40 MG TABLET PO SCH (09:38)
[2016-10-11] MEDS: ASPIRIN EC 325 MG TABLET PO SCH (09:38)
[2016-10-11] MEDS: ASCORBIC ACID 500 MG TABLET PO SCH (09:38)
[2016-10-11] MEDS: METOPROLOL TARTRATE 25 MG TABLET PO SCH (09:38)
[2016-10-11] MEDS: MUPIROCIN 2% OINT 22 GM TUBE TOP SCH (09:39)
[2016-10-11] MEDS: traMADol 50 MG TABLET PO PRN (09:43)
[2016-10-11] MEDS: CHLORHEXIDINE 0.12% ORAL RINSE 60 ML BOTTLE SWISH/SPIT SCH (09:45)
--- NOTE | 2016-10-11 11:26 | Physician Query Form ---
CLICK EDIT DOCUMENT TO SELECT QUERY ANSWER --> OK --> SIGN Lucia Guillen RN Clinical [employer] Developer W) [phone] (f) [phone] [email or web address] PROVIDERS: Make your selection(s) from the choices in EACH section by typing an "x" and enter comments in the comment section. Please use your independent medical judgment in providing your response. This request does not imply that any particular answer is desired or expected. CLINICAL INDICATORS: (Providers should not edit this section) Based on documentation of "Creatinine today is noted to be 2.4. This is elevated from 1.2 at admission" "creatinine has risen to 2.4. I'm going to discontinue his Toradol and I do not see any other nephrotoxic medications listed" Monitored with serial lab checks. Treated with holding medications and adding NS infusion. Clarify which of the following most accurately represents the patient's renal status: ( ) Acute kidney injury (non-traumatic) ( ) Acute renal failure ( ) Acute renal failure with underlying Chronic Kidney Disease (CKD) - please provide stage below ( ) Acute renal failure with pathological renal lesion ( ) Acute renal failure with necrosis ( ) tubular ( ) medullary ( ) cortical ( ) CKD - please provide stage below ( ) End Stage Renal Disease ( ) Acute interstitial nephritis ( ) Hepatorenal syndrome ( ) Other, please specify: ( ) Clinically unable to determine Chronic Kidney Disease Stages Source: National Kidney Disease Foundation ( ) Stage I (eGFR > or = 90) ( ) Stage II (eGFR 60 - 89) ( ) Stage III (eGFR 30 - 59) ( ) Stage IV (eGFR 15 - 29) ( ) Stage V (eGFR < 15 or dialysis) COMMENTS: Use of terms such as suspected, likely, or probable (associated with a specific diagnosis that is being evaluated, monitored, or treated as if it exists) are acceptable and can be restated in the discharge summary if not ruled out. MTDD
== END 2016-10-11 10:25 | disposition home or self-care (01) | DRG 234 ==
LOC: N.ED 16:39 → N.EDINP 17:53 → N.TELES 18:50 → N.CVR 10-04 12:13 → N.TELES 10-05 11:56
PROVIDERS: ADMIT Internal Medicine Cardiovascular Disease; ATTEND Internal Medicine Cardiovascular Disease

== ENCOUNTER 2016-10-12 21:04 | Inpatient (IN) ==
[2016-10-12] MEDS ORDERED: SODIUM CHLORIDE 0.9% 500 ML IV STA (21:43)
[2016-10-12 21:54] LABS: Eosinophils % 0.5 % (0.00-10.9); Hematocrit 25.7 VOL% (42.0-52.0); Hemoglobin 8.2 GM/DL (14.0-18.0); Immature Granulocytes % 1.2 %; Immature Granulocytes Absolute 0.09 #; Lymphocytes # 0.9 10*3/uL (1.4-4.0); Lymphocytes % 12.3 % (21.2-54.2); Mean Corpuscular HGB Conc 31.9 GM/DL (32-36); Mean Corpuscular Hemoglobin 31 PG (27-34); Mean Corpuscular Volume 95.9 FL (87-102); Mean Platelet Volume 12.7 FL (9.6-12.0); Monocytes # 1.1 10*3/uL (0.11-0.8); Monocytes % 14.4 % (1.7-12.7); NRBC # 0.09 10*3/uL; Neutrophils # 5.5 10*3/uL (1.4-7.4); Neutrophils % 71.6 % (38.7-73.9); Platelet Count 124 T/CUMM (130-400); Red Blood Count 2.68 MC/CUMM (3.8-5.5); White Blood Count 7.6 T/CUMM (4-12)
[2016-10-12 22:02] LABS: INR 1.5; PT Patient Result 16.7 SECS; Partial Thromboplastin Time 32.2 SECS (0-40)
[2016-10-12 22:07] LABS: Alanine Aminotransferase 670 U/L (16-61); Albumin 2.9 G/DL (3.4-5.0); Alkaline Phosphatase 54 U/L (45-117); Aspartate Amino Transferase 80 U/L (0-37); Blood Urea Nitrogen 43 MG/DL (7-18); Calcium 8.3 MG/DL (8.5-10.1); Glucose 183 MG/DL (74-106); Osmolality,Calculated 292.5 MOS/KG (273-304); Potassium 3.8 MMOL/L (3.5-5.1); Sodium 139 MMOL/L (136-145); Total Protein 5.7 G/DL (6.4-8.3)
--- NOTE | 2016-10-12 22:13 | Emergency Department Note ---
I, Serg Stuart, am scribing for, and in the presence of, Kristin De Guzman DO 21 :59. I, Kristin De Guzman DO, personally performed the services described in this documentation, ascribed by Serg Stuart in my presence, and it is both accurate and complete . Arrival - Arrival Chief Complaint: Weakness Stated Complaint: weakness, near syncopy ED Nursing Triage Note: patient's states that blood 74/41 at home. patient stood up to go to restroom and fell. patient had triple bypass 7 days ago. released from hospital yesterday. Mode of Arrival: Stretcher Limitations: No Limitations Source: Patient Time Seen by Provider: 10/12/16 21:43 - History of Present Illness HPI Narrative: This is a 66 y/o white male presenting to the ED with c/o dizziness and not feeling well. Pt's checked his blood pressure and it was 74/41 at home. Pt stood up to use the restroom and fell tonight. He has increased weakness. He had a triple bypass 7 days ago and was released from the hospital yesterday. Pt last dose of pain medication was 3 hours after dinner. He denies hurting or being in pain such as chest pain but states he has no energy. He denies fever, chills, nausea, vomiting, diarrhea, abdominal pain, and urinary symptoms. Pt is having some trouble breathing. His PCP is Dr. Shepard and Dr. Post is his detective private eye. Consistency: constant Severity: moderate Allergies/Adverse Reactions: Allergies Allergy/AdvReac Type Severity Reaction Status Date / Time No Known Allergies Allergy Unverified 10/03/16 16:54 Home Medications: Home Medications Medication Instructions Recorded Confirmed Type Bupropion HCl [Bupropion Xl] 300 mg PO QAM 10/03/16 10/12/16 History Carvedilol [Coreg] 25 mg PO BID 10/03/16 10/12/16 History Doxepin HCl [Silenor] 3 mg PO BEDTIME 10/03/16 10/12/16 History Ferrous Gluconate 325 mg PO QAM 10/03/16 10/12/16 History Gabapentin Cap/Tab [Neurontin 100 mg PO BID 10/03/16 10/12/16 History Cap/Tab] Gemfibrozil 600 mg PO BID 10/03/16 10/12/16 History Lisinopril 20 mg PO QAM 10/03/16 10/12/16 History Metformin HCl 1,000 mg PO BID 10/03/16 10/12/16 History [place]-3/Dha/Epa/Fish Oil [Fish Oil 3,000 mg PO QAM 10/03/16 10/12/16 History Conc 1,000 mg Softgel] Omeprazole Magnesium [Prilosec Otc] 20 mg PO QAM 10/03/16 10/12/16 History Pioglitazone [Actos] 15 mg PO QAM 10/03/16 10/12/16 History Tamsulosin [Flomax] 2 capsule PO BEDTIME 10/03/16 10/12/16 History glipiZIDE [Glipizide] 20 mg PO BID 10/03/16 10/12/16 History Amiodarone Tab [Cordarone Tab] 200 mg PO BID #60 tablet 10/11/16 10/12/16 Rx Apixaban [Eliquis] 5 mg PO BID #60 tablet 10/11/16 10/12/16 Rx Ascorbic Acid Tab [Vitamin C Tab] 1,000 mg PO BID tablet 10/11/16 10/12/16 Rx Aspirin EC Tab 325 mg PO DAILY tablet 10/11/16 10/12/16 Rx Atorvastatin [Lipitor] 40 mg PO BEDTIME tablet 10/11/16 10/12/16 Rx Metoprolol Tartrate Tab [Lopressor 25 mg PO BID tablet 10/11/16 10/12/16 Rx Tab] traMADol TAB [Ultram] 50 mg PO Q6H PRN #40 tablet 10/11/16 10/12/16 Rx Review of System - Review of System 12 point system: reviewed and no additional remarkable complaints except as stated - Review of System Constitutional: Present: weakness. Absent: chills, fever, other (hypotension ) Eyes: Absent: vision change Head/Ears/Nose/Throat: Absent: nasal drainage Respiratory: Absent: cough, wheezing Cardiovascular: Absent: chest pain, dyspnea on exertion Gastrointestinal: Absent: abdominal pain, nausea, vomiting, diarrhea Genitourinary male: Absent: dysuria Musculoskeletal: Present: leg pain (healing scar to right leg that is consistent with surgery ). Absent: arm pain, back pain, neck pain Skin: Absent: rash Neurological: Present: weakness. Absent: headache, numbness, confusion, abnormal gait, vertigo Psychiatric: Absent: anxiety Endocrine: Absent: fatigue Hematological/Lymphatic: Absent: easy bleeding Allergic/Immunologic: Absent: facial swelling Medical,Surgical,& Family Hx - Medical History Cardio: History of: CAD, Hypertension, Cardiovascular Problems (angioplasty 1995 ) Neurology: No history of: Seizures HEENT: History of: Ear Problem (Slight hearing loss) Endocrine: History of: Diabetes Mellitus (NIDDM), Dyslipidemia Genitourinary: History of: Prostate Problems (Enlarged) Gastrointestinal: History of: GERD - Surgical History Neurologic Surgeries: Patient denies: Neurologic Surgery Abdominal Surgeries: Surgical HX of: Abdominal Surgery, Appendectomy - Family History Family History: Reports;: Family Heart Disease - Social History Smoking Status: Never smoker Exam Vital Signs: Vital Signs Temperature 97.4 F L 10/12/16 21:04 Pulse Rate 58 L 10/12/16 21:04 Respiratory Rate 15 10/12/16 21:04 Blood Pressure 88/57 10/12/16 21:04 O2 Sat by Pulse Oximetry 96 10/12/16 21:04 - General General appearance: alert, in no apparent distress - Head Head exam: Present: atraumatic, normocephalic, normal inspection - Eye Eye exam: Present: normal appearance, PERRL, EOMI - ENT ENT exam: Present: normal exam, normal oropharynx, mucous membranes moist, TM's normal bilaterally, normal external ear exam - Neck Neck exam: Present: normal inspection, full ROM, trachea midline. Absent: tenderness - Chest Chest inspection: Present: normal inspection, symmetric chest wall rise. Absent : tenderness - Respiratory Respiratory exam: Present: normal lung sounds bilaterally - Cardiovascular Cardiovascular exam: Present: regular rate, normal rhythm, normal heart sounds - Abdominal Exam Abdominal exam: Present: soft, normal bowel sounds. Absent: distention, tenderness, guarding - Extremities Exam Extremities exam: Present: normal inspection, full ROM, normal capillary refill. Absent: tenderness, pedal edema, calf tenderness - Back Exam Back exam: Present: normal inspection, full ROM. Absent: tenderness - Neurological Exam Neurological exam: Present: alert, oriented X3, CN II-XII intact, normal gait, reflexes normal - Psychiatric Psychiatric exam: Present: normal affect, normal mood - Skin Skin exam: Present: warm, dry, intact, pallor, other (anemic ). Absent: normal color, rash, diaphoresis Course Course Narrative: spoke with Dr Brenton Berry Results - Labs CBC & BMP: 10/12/16 21:21 10/12/16 21:21 Lab Results: I have reviewed the patients labs Labs: Laboratory Tests 10/12/16 21:21 RBC 2.68 L Hgb 8.2 L Hct 25.7 L MCHC 31.9 L Plt Count 124 L MPV 12.7 H Lymph % (Auto) 12.3 L [place] % (Auto) 14.4 H Lymph # (Auto) 0.9 L [place] # (Auto) 1.1 H Disposition Clinical Impression: Hypotension, Dehydration, Anemia Case discussed with: patient, patient's family Disposition: Still a Patient Condition: Stable Time of Disposition: 22:53
--- NOTE | 2016-10-12 22:33 | CT Report ---
History: Confusion. Near syncope Date: 10/12/2016 Study: CT head without contrast Comparison exam: No previous head CT Transaxial CT sections were obtained through the head without IV contrast. Total DLP measures 970 mGy*cm. The CT exam was performed using one or more of the following dose reduction techniques: Automated exposure control and adjustment of the mA and/or kV according to patient size. The ventricles are midline in position without evidence of hydrocephalus. There is minimal cerebral atrophy. There is a small amount of ill-defined low density in the periventricular white matter without mass effect compatible with changes of small vessel disease. There is a small chronic lacunar infarct in the left thalamus. There is no mass or parenchymal hemorrhage. There is no gross CT evidence of acute cortical stroke. There is no extra-axial hematoma. There is no acute abnormality of the calvarium. The partially visualized paranasal sinuses and mastoid air cells are clear. There is moderate distal carotid artery calcification bilaterally. Impression: No acute intracranial process PROCEDURE INTERPRETED AT [facility] DEPARTMENT OF RADIOLOGY Final Report Signed by: Dr. Meghann York
--- NOTE | 2016-10-12 22:37 | XRay Report ---
History: Dizziness. Recent cardiovascular surgery Date: 10/12/2016 Study: Chest x-ray AP portable Comparison exam: Chest x-ray October 07, 2016 There is cardiomegaly. The pulmonary vasculature is slightly prominent. The mediastinal contours are stable in this patient status post prior median sternotomy. There is some patchy and hazy pulmonary edema in the lower lungs. The osseous structures are unchanged. Impression: Pulmonary edema related to cardiac decompensation PROCEDURE INTERPRETED AT [facility] DEPARTMENT OF RADIOLOGY Final Report Signed by: Dr. Meghann York
--- NOTE | 2016-10-13 02:23 | Hospitalist History & Physical ---
Assessment and Plan - Time spent with patient Time spent with patient: Greater than 30 minutes Time spent discussing smoking cessation with patient: 3 to 10 minutes (1) Hypotension Problem details: Extremities seem warm, does not seem consistent with cardiogenic shock. Troponin is elevated, but significantly decreased from last admission. Check EKG, transthoracic echocardiogram. Also noted markedly elevated BNP from previous, signs of pulmonary edema on the chest x-ray despite seeming overall volume down. No obvious source of infection, check blood cultures and urinalysis, hold empiric antibiotics at this time unless fever Most likely hypovolemic shock from profuse diarrhea, FOBT was negative. Check C. difficile Given a history of a triple a, and current distended abdomen with dropping hemoglobin and no other source, worried about possible rupture. Patient has been complaining of back pain since his surgery, although some of this is expected. CT abdomen and pelvis without contrast ordered due to LAURA. Medications likely large contributor, hold beta blockers due to bradycardia, hold lisinopril Monitor on telemetry, encourage patient to lie flat and call for help if needed Status: Acute Current Visit: Yes (2) Coronary artery disease Problem details: Just discharged from the hospital after CABG Patient denies chest pain Very hesitant to stop his anticoagulants given no proven source of bleeding Continue aspirin, Eliquis, follow-up CT abdomen read Continue statin His surgeon has been made aware, requested hospitalist admission Consult cardiology Status: Chronic Current Visit: No (3) Anemia Problem details: Hemoglobin has trended down from 12 before his surgery 10 9 prior to discharge to 8 tonight. No obvious source of bleeding per the patient Fecal occult blood test was negative CT of abdomen given his history of a AAA and back pain, distended abdomen Type and screened, trend blood counts Status: Acute Current Visit: Yes (4) Uncontrolled type 2 diabetes mellitus with hyperglycemia Problem details: Hold metformin, Actos, glimepiride Low-dose sliding scale insulin, will change to basal bolus as needed Status: Acute Current Visit: Yes (5) Elevated liver enzymes Problem details: Favor secondary to congestion, heart disease Check acute hepatitis panel May need right upper quadrant ultrasound as well Status: Acute Current Visit: Yes (6) Acute kidney injury Problem details: During the week of his surgery his creatinine ranged from 1-2.4 , currently creatinine is 1.8 which is increased from the previous Favor secondary to dehydration, hypotension Check urinalysis, urine sodium and creatinine Status post a small fluid bolus in the emergency department, will monitor and encourage p.o. intake off of antihypertensives Status: Acute Current Visit: Yes History of Present Illness Chief complaint: dizziness History of present illness: Mr. Bird is a 66 year old white male with history of coronary artery disease, recent CABG, A. fib, AAA, dyslipidemia, type 2 diabetes, small bowel obstruction status post resection that presented for dizziness and hypotension at home. Patient was discharged 2 days ago after a three-vessel coronary artery bypass and the day following his return home noticed that he was feeling much worse, specifically with lightheadedness/dizziness which was worse with standing. Severity is significant given that he had a fall, his helped ease him to the ground, and she reported that he stared off in the distance for a few seconds before responding to her again, no seizure-like activity reported , no history of the same. No other aggravating features reported. Feels better lying flat. Associated symptoms include several days of profuse diarrhea. Patient said he has had diarrhea all day today. Denied any dark black tarry stools or frankly bloody stools. Denied fevers, chest pain, palpitations, sick contacts. Did endorse a new problem of a sore throat. Did endorse that he had some shortness of breath that may be a little worse than baseline. Patient's history is assisted by his at the bedside. They took his blood pressure at home and it was 74/41. He remained hypotensive on arrival , improved with a 500 cc fluid bolus into the 90 systolic. She states that several medications were started after his surgery, and that he has been compliant with all these medications. They seem to think that he was taking Plavix but I do not see this on his discharge summary. He has been taking aspirin and apixaban. He denied any gross bleeding despite the drop in his blood counts. His abdomen does seem more distended. They also reported that he was taking both metoprolol and carvedilol in addition to other blood pressure medications. He has been taking tramadol for pain. He denied any changes in his urine or liver problems. His surgeon was Kaela. His primary care provider is Dr. 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 Post. Home Medications Medication Instructions Recorded Confirmed Type Bupropion HCl [Bupropion Xl] 300 mg PO QAM 10/03/16 10/12/16 History Carvedilol [Coreg] 25 mg PO BID 10/03/16 10/12/16 History Doxepin HCl [Silenor] 3 mg PO BEDTIME 10/03/16 10/12/16 History Ferrous Gluconate 325 mg PO QAM 10/03/16 10/12/16 History Gabapentin Cap/Tab [Neurontin 100 mg PO BID 10/03/16 10/12/16 History Cap/Tab] Gemfibrozil 600 mg PO BID 10/03/16 10/12/16 History Lisinopril 20 mg PO QAM 10/03/16 10/12/16 History Metformin HCl 1,000 mg PO BID 10/03/16 10/12/16 History [place]-3/Dha/Epa/Fish Oil [Fish Oil 3,000 mg PO QAM 10/03/16 10/12/16 History Conc 1,000 mg Softgel] Omeprazole Magnesium [Prilosec Otc] 20 mg PO QAM 10/03/16 10/12/16 History Pioglitazone [Actos] 15 mg PO QAM 10/03/16 10/12/16 History Tamsulosin [Flomax] 2 capsule PO BEDTIME 10/03/16 10/12/16 History glipiZIDE [Glipizide] 20 mg PO BID 10/03/16 10/12/16 History Amiodarone Tab [Cordarone Tab] 200 mg PO BID #60 tablet 10/11/16 10/12/16 Rx Apixaban [Eliquis] 5 mg PO BID #60 tablet 10/11/16 10/12/16 Rx Ascorbic Acid Tab [Vitamin C Tab] 1,000 mg PO BID tablet 10/11/16 10/12/16 Rx Aspirin EC Tab 325 mg PO DAILY tablet 10/11/16 10/12/16 Rx Atorvastatin [Lipitor] 40 mg PO BEDTIME tablet 10/11/16 10/12/16 Rx Metoprolol Tartrate Tab [Lopressor 25 mg PO BID tablet 10/11/16 10/12/16 Rx Tab] traMADol TAB [Ultram] 50 mg PO Q6H PRN #40 tablet 10/11/16 10/12/16 Rx Allergies Allergy/AdvReac Type Severity Reaction Status Date / Time No Known Allergies Allergy Unverified 10/03/16 16:54 Medical,Surgical,& Family Hx - Medical History Cardio: History of: CAD, Hypertension, Cardiovascular Problems (angioplasty 1995 ) Neurology: No history of: Seizures HEENT: History of: Ear Problem (Slight hearing loss) Endocrine: History of: Diabetes Mellitus (NIDDM), Dyslipidemia Genitourinary: History of: Prostate Problems (Enlarged) Gastrointestinal: History of: GERD - Surgical History Neurologic Surgeries: Patient denies: Neurologic Surgery Abdominal Surgeries: Surgical HX of: Abdominal Surgery, Appendectomy - Family History Family History: Reports;: Family Diabetes, Family Heart Disease, Family Stroke - Social History Smoking Status: Former smoker Have you smoked in the last 12 months: Yes (Quit smoking cigarettes 6 years ago , quit smoking E cigarettes 1 week ago.) Time spent discussing smoking cessation with patient: 3 to 10 minutes Frequency of Alcohol Use: None Type of Drug Use: None Marital Status: Lives With:: Spouse Functional capacity: independent ambulation Review of systems: - Constitutional Constitutional: Absent: chills, fatigue, fever(s), night sweats, weight loss - EENT Eyes: Absent: blurry vision Ears: Absent: decreased hearing, ear pain Nose, mouth and throat: Present: Sore throat absent: nasal congestion - Cardiovascular Cardiovascular: Present: Dyspnea with exertion, edema absent: chest pain at rest , chest pain with activity, orthopnea, palpitations - Respiratory Respiratory: Present: Dyspnea absent: cough, hemoptysis - Gastrointestinal Gastrointestinal: Present: Profuse diarrhea absent: abdominal pain, constipation , dysphagia, hematemesis, hematochezia, melena, nausea, vomiting - Genitourinary Genitourinary: Absent: difficulty urinating, dysuria, hematuria - Musculoskeletal Musculoskeletal: Absent: arthralgias, joint swelling, myalgias - Neurological Neurological: Present: Dizziness, near syncope, neuropathy in feet absent: confusion, focal weakness, headache(s) - Psychiatric Psychiatric: Absent: anxiety, depression - Endocrine Endocrine: Absent: cold intolerance, heat intolerance, polydipsia, polyuria - Hematologic/Lymphatic Hematologic/Lymphatic: Absent: easy bleeding, easy bruising, lymphadenopathy Exam - Constitutional Vitals: Period Temp Pulse Resp BP Sys/Mehta Pulse Ox Last 24 Hr 97.4 F 58 15 88/57 96 General appearance: over weight, other (White male middle-aged) Exam: - Eye Eye exam: Present: EOMI, mild conjunctival icterus absent: conjunctival injection Pupils: Present: YENNY - ENT ENT exam: Present: normal external ear exam, normal oropharynx - Expanded ENT Exam Mouth exam: Present: Dry - Neck Neck exam: Present: normal inspection. Absent: lymphadenopathy, thyromegaly - Respiratory Respiratory exam: Present: Mildly coarse in the bases, otherwise clear to auscultation bilaterally. Mildly increased effort on nasal cannula. - Cardiovascular Cardiovascular exam: Present: regular rate and rhythm. Absent: diastolic murmur , systolic murmur chest exam with CABG wounds clean dry and intact - Expanded Cardiovascular Exam Peripheral pulses: 2+: posterior tibialis (L), posterior tibialis (R) - GI/Abdominal GI/Abdominal exam: Present: Hyperactive bowel sounds, soft, distended, hypertympanic. Mildly tender diffusely to palpation absent: Organomegaly, rebound - Extremities Exam Extremities exam: Present: Mild bilateral lower extremity edema graft site of right lower extremity looks good - Neurological Exam Neurological exam: Present: alert, oriented X3, CN II-XII intact. Absent: motor sensory deficit - Psychiatric Psychiatric exam: Present: normal affect - Skin Skin exam: Present: warm, dry. Absent: diaphoretic, rash Results - Labs CBC & BMP: 10/12/16 21:21 10/12/16 21:21 - Diagnostic Findings Procedure: Chest x-ray: report reviewed by me, CT: report reviewed by me
[2016-10-13] MEDS ORDERED: SODIUM CHLORIDE 0.9% 500 ML IV ONE (03:10)
[2016-10-13] MEDS ORDERED: SODIUM CHLORIDE 0.9% 250 ML IV PRN (04:20)
[2016-10-13 04:43] LABS: Eosinophils # 0.1 10*3/uL (0.0-0.87); Eosinophils % 0.6 % (0.00-10.9); Eosinophils % 0.7 % (0.00-10.9); Hematocrit 22.7 VOL% (42.0-52.0); Hematocrit 23.3 VOL% (42.0-52.0); Hemoglobin 7.4 GM/DL (14.0-18.0); Immature Granulocytes % 1.1 %; Immature Granulocytes Absolute 0.07 #; Immature Granulocytes Absolute 0.08 #; Lymphocytes # 1.2 10*3/uL (1.4-4.0); Lymphocytes % 16.6 % (21.2-54.2); Lymphocytes % 17.3 % (21.2-54.2); Mean Corpuscular HGB Conc 31.8 GM/DL (32-36); Mean Corpuscular HGB Conc 32.6 GM/DL (32-36); Mean Corpuscular Hemoglobin 31 PG (27-34); Mean Corpuscular Volume 93.8 FL (87-102); Mean Corpuscular Volume 95.9 FL (87-102); Mean Platelet Volume 12.6 FL (9.6-12.0); Monocytes # 0.9 10*3/uL (0.11-0.8); Monocytes % 12.2 % (1.7-12.7); Monocytes % 13.4 % (1.7-12.7); NRBC # 0.04 10*3/uL; NRBC # 0.05 10*3/uL; Neutrophils # 4.8 10*3/uL (1.4-7.4); Neutrophils % 67.7 % (38.7-73.9); Neutrophils % 69.4 % (38.7-73.9); Platelet Count 115 T/CUMM (130-400); Platelet Count 117 T/CUMM (130-400); Red Blood Count 2.42 MC/CUMM (3.8-5.5); Red Blood Count 2.43 MC/CUMM (3.8-5.5); Red Cell Distribution Width 14.8 % (9.3-17.3); Red Cell Distribution Width 14.9 % (9.3-17.3); White Blood Count 7.1 T/CUMM (4-12)
[2016-10-13] MEDS ORDERED: NOREPINEPHRINE 8 MG in SODIUM CHLORIDE 0.9% 242 ML IV SCH (05:00)
[2016-10-13 05:12] LABS: Albumin 2.7 G/DL (3.4-5.0); Bilirubin,Direct 0.5 MG/DL (0.0-0.20); Bilirubin,Indirect 0.5 MG/DL (0.0-1.0)
[2016-10-13 05:13] LABS: Lactic Acid 2.1 MMOL/L (0.4-2.0)
[2016-10-13 05:22] LABS: Troponin I Only 4.57 NG/ML (0.00-0.045)
[2016-10-13 05:26] LABS: Albumin 2.6 G/DL (3.4-5.0); Bilirubin,Direct 0.5 MG/DL (0.0-0.20); Bilirubin,Indirect 0.8 MG/DL (0.0-1.0); Bilirubin,Total 1.3 MG/DL (0.2-1.0); Magnesium 2.1 MG/DL (1.8-2.4)
[2016-10-13 05:33] LABS: Troponin I Only 4.57 NG/ML (0.00-0.045)
[2016-10-13] MEDS ORDERED: VANCOMYCIN INJ 1,000 MG in SODIUM CHLORIDE 0.9% 250 ML IV STA (06:51)
[2016-10-13] MEDS ORDERED: CIPROFLOXACIN INJ 400 MG in PREMIX 1 EACH IV SCH (07:30)
[2016-10-13 08:15] LABS: Hepatitis B Core Ab Result Negative (Negative); Hepatitis B Core IgM Quant 0.15 Index; Hepatitis B Core IgM Result Negative (Negative); Hepatitis B Surface Ab Result Negative; Hepatitis B Surface Ag Quant < 0.10 Index; Hepatitis B Surface Ag Result Negative (Negative); Hepatitis C Virus Ab Quant 0.13 Index; Hepatitis C Virus Ab Result Negative (Negative)
[2016-10-13] MEDS: INSULIN LISPRO 100 UNIT/ML SUBCUT SCH ×4 (08:40→21:53)
--- NOTE | 2016-10-13 08:57 | EKG Report ---
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
[2016-10-13] MEDS ORDERED: AMIODARONE 200 MG TABLET PO SCH (09:00)
[2016-10-13] MEDS ORDERED: PANTOPRAZOLE 40 MG TABLET PO SCH (09:00)
[2016-10-13] MEDS ORDERED: APIXABAN 5 MG TABLET PO SCH (09:00)
[2016-10-13] MEDS ORDERED: buPROPion XL 150 MG TABLET PO SCH (09:00)
[2016-10-13] MEDS ORDERED: ASPIRIN EC 325 MG TABLET PO SCH (09:00)
[2016-10-13] MEDS ORDERED: ASCORBIC ACID 500 MG TABLET PO SCH (09:00)
[2016-10-13] MEDS: FERROUS SULFATE 325 MG TABLET PO SCH (09:22)
[2016-10-13] MEDS: GABAPENTIN 100 MG CAPSULE PO SCH ×2 (09:22→21:54)
[2016-10-13] MEDS: PANTOPRAZOLE 40 MG VIAL IV SCH ×2 (09:29→21:53)
[2016-10-13] MEDS: FUROSEMIDE 40 MG/4 ML VIAL IV SCH ×2 (09:41→17:06)
--- NOTE | 2016-10-13 09:47 | Gastrointestinal Consult Note ---
Assessment and Plan (1) Anemia Problem details: Hemoglobin has trended down from 12 before his surgery 10 9 prior to discharge to 8 tonight. No obvious source of bleeding per the patient Fecal occult blood test was negative CT of abdomen given his history of a AAA and back pain, distended abdomen Type and screened, trend blood counts Status: Acute Current Visit: Yes (2) Elevated liver enzymes Problem details: Favor secondary to congestion, heart disease Check acute hepatitis panel May need right upper quadrant ultrasound as well Status: Acute Current Visit: Yes (3) Other specified counseling Status: Acute Current Visit: Yes History of Present Illness History of present illness: Mr. Bird is a 66 year old male Home Medications Medication Instructions Recorded Confirmed Type Bupropion HCl [Bupropion Xl] 300 mg PO QAM 10/03/16 10/13/16 History Carvedilol [Coreg] 25 mg PO BID 10/03/16 10/13/16 History Doxepin HCl [Silenor] 3 mg PO BEDTIME 10/03/16 10/13/16 History Ferrous Gluconate 325 mg PO QAM 10/03/16 10/13/16 History Gabapentin Cap/Tab [Neurontin 100 mg PO BID 10/03/16 10/13/16 History Cap/Tab] Gemfibrozil 600 mg PO BID 10/03/16 10/13/16 History Lisinopril 20 mg PO QAM 10/03/16 10/13/16 History Metformin HCl 1,000 mg PO BID 10/03/16 10/13/16 History [place]-3/Dha/Epa/Fish Oil [Fish Oil 3,000 mg PO QAM 10/03/16 10/13/16 History Conc 1,000 mg Softgel] Omeprazole Magnesium [Prilosec Otc] 20 mg PO QAM 10/03/16 10/13/16 History Pioglitazone [Actos] 15 mg PO QAM 10/03/16 10/13/16 History Tamsulosin [Flomax] 2 capsule PO BEDTIME 10/03/16 10/13/16 History glipiZIDE [Glipizide] 20 mg PO BID 10/03/16 10/13/16 History Amiodarone Tab [Cordarone Tab] 200 mg PO BID #60 tablet 10/11/16 10/13/16 Rx Apixaban [Eliquis] 5 mg PO BID #60 tablet 10/11/16 10/13/16 Rx Ascorbic Acid Tab [Vitamin C Tab] 1,000 mg PO BID tablet 10/11/16 10/13/16 Rx Aspirin EC Tab 325 mg PO DAILY tablet 10/11/16 10/13/16 Rx Atorvastatin [Lipitor] 40 mg PO BEDTIME tablet 10/11/16 10/13/16 Rx Metoprolol Tartrate Tab [Lopressor 25 mg PO BID tablet 10/11/16 10/13/16 Rx Tab] traMADol TAB [Ultram] 50 mg PO Q6H PRN #40 tablet 10/11/16 10/13/16 Rx Allergies Allergy/AdvReac Type Severity Reaction Status Date / Time No Known Allergies Allergy Unverified 10/03/16 16:54 Medical,Surgical,& Family Hx - Medical History Cardio: History of: CAD, Hypertension, [place], Cardiovascular Problems (angioplasty 1995) Neurology: No history of: Seizures HEENT: History of: Ear Problem (Slight hearing loss) Endocrine: History of: Diabetes Mellitus (NIDDM), Dyslipidemia Genitourinary: History of: Prostate Problems (Enlarged) Gastrointestinal: History of: GERD - Surgical History Cardiac Surgeries: Sugical HX of: Cardiac Catheterization, Cardiac Surgery ( cabg 10/05/2016) Neurologic Surgeries: Patient denies: Neurologic Surgery Abdominal Surgeries: Surgical HX of: Abdominal Surgery, Appendectomy - Family History Family History: Reports;: Family Diabetes, Family Heart Disease, Family Stroke - Social History Smoking Status: Never smoker Frequency of Alcohol Use: None Type of Drug Use: None Exam - Constitutional Vitals: Period Temp Pulse Resp BP Sys/Mehta Pulse Ox Last 24 Hr 97.2 F-98.4 F 57-60 12-27 76-113/48-66 96-100 Results - Labs CBC & BMP: 10/13/16 04:21 10/12/16 21:21 Note Addendum: PLEASE NOTE -- automatic citation of patient information is unavoidable in this electronic note. I have made a reasonable effort to review the information cited , but it is not a part of my evaluation, impression, or recommendation unless specifically discussed in the dictated text that follows.~ As well, voice recognition software was used in the creation of this clinical note. Reasonable effort was made to identify and correct gross errors. Despite proofreading, errors in behavioral medical director may be present, including nonsense verbiage at times. If you encounter such an error, please contact me at for discussion and correction. -- Kailey Chief complaint: unexplained anemia History of present illness: this is a new patient, a 66-year-old male seen by consultation for evaluation of possible gastrointestinal bleeding. The patient is admitted to the intensive care unit under the care of Dr. Roa with a primary diagnosis of symptomatic hypotension. He has a fairly complicated recent history having undergone coronary artery bypass grafting last week with discharge only three days ago. His postsurgical course was nominal per his understanding. He did have diarrhea after the surgery but this was not bloody and there is no report of mesenteric ischemia. Prior to this readmission, he had not had a bowel movement for one day. He has seen no overt gastrointestinal bleeding, neither overt bleeding from any source. He has not had any nausea, neither any epigastric or chest pain. He has not had any stool, let alone blood in stool. He has not noticed any ecchymosis, neither any discolored lumps or bumps under his skin. He reports some mild abdominal tenderness since his surgery but this has been more nuisance than anything. Since his readmission, he has required crystalloid resuscitation, vasopressor support, and is now taking transfusion. He is comfortable at present. Patient denies fever, chills, night sweats, rigors, headache, neck pain, visual changes, redness of the eyes, dysphagia, odynophagia, difficulty chewing, chest pain, regurgitation, hematemesis, hematochezia, melena, proctalgia, constipation , dysuria, skin changes, temperature regulation issues, flushing, easy bleeding/ bruising, musculoskeletal pain, numbness/weakness in the extremities, yellowing of the eyes/skin, cutaneous eruptions, allergies to food or drug, family history of gastrointestinal cancer and colon polyps, and other complaints in general. Review of systems: 12 point review of systems was negative except as documented above. Outpatient medications: bupropion, Coreg, doxepin, iron gluconate, Neurontin, gemfibrozil, lisinopril, metformin, Prilosec, Actos, Flomax, glipizide, amiodarone, Eliquis, aspirin, Lipitor, Lopressor, ultram Inpatient medications: amiodarone, Eliquis, aspirin, Lipitor, Wellbutrin, ciprofloxacin, iron sulfate, gabapentin, insulin, doxepin, norepinephrine, Protonix, normal saline infusion, Flomax Past Medical History: coronary artery disease status post three vessel coronary artery bypass grafting last week, hypertension, diabetes, dyslipidemia, benign prosthetic hypertrophy, gastroesophageal reflux disease Social history: negative tobacco. Negative alcohol ~ Family history: no gastrointestinal cancers Physical examination:~ Vital Signs: Current vital signs reviewed and documented above.~ General Appearance: The patient is lying in bed, comfortable, in no acute distress. Head: Normocephalic.~ Neck: Palpation of the neck revealed no abnormalities.~ Eyes: No scleral icterus.~ No scleral injection.~ No conjunctival pallor.~ Oral Cavity: Odor of breath was normal. No drooling was observed. Lips showed no abnormalities. Floor of the mouth showed no abnormalities.~ Pharynx: Oropharynx was normal.~ Lungs: Respiration rhythm and depth was normal.~ Cardiovascular: sinus tachycardia Abdomen: abdomen was minimally distended but not tense. Abdominal palpation revealed minimal tenderness and no hepatosplenomegaly. Ascites was not discovered. Abdominal auscultation revealed positive bowel sounds. Musculoskeletal System: Musculoskeletal system was grossly normal.~ Neurological: level of consciousness was normal. Speech was normal. Skin: General appearance was normal. Color and pigmentation were normal. Surgical wounds are present at the right lower extremity, chest, and abdomen. ~ Laboratory: white blood count 7.1, hemoglobin 7.4, hematocrit 23.3, platelets 115, happy globin 217, INR 1.5, PT 16.7, ALT 581, AST 65, total bilirubin 1.3, alkaline phosphatase 52, total protein 5.0, albumin 2.6 Radiology: CT accomplished with official read pending. Per my read, no intra- abdominal fluid collections, no obvious varices, no pancreatic or biliary disease, and extensive vascular calcification Impressions:~ 1. Symptomatic anemia -- the patient is on dual antiplatelet therapy and at risk for gastrointestinal bleeding. The volume of blood loss, however, without overt production from the G.I. tract is paradoxical. He has had CT scan that did not show any evidence of intra-abdominal fluid collection per my read ( official read pending). We have discussed the risks and benefits of diagnostic upper endoscopy to rule out bleeding vascular lesions as well as bleeding ulcer and the patient has chosen to proceed with same. Colonoscopy is less urgent but may be needed depending on clinical evolution. In the interim, I recommend continued aggressive volume and hemodynamic management with further transfusion as indicated. I also recommend proton pump inhibitor. 2. Elevated liver associated enzymes -- the patient has elevated transaminases in a hepatocellular injury pattern. The differential diagnosis includes ischemic hepatitis, drug-induced liver injury, coincidental viral infection, and other much less common conditions. The patient does not appear to have chronic liver disease, neither evidence of cirrhosis or portal hypertension. I recommend monitoring trends is both now and during convalescence to ensure normalization. 3. Other specified counseling:~ The patient was seen for greater than 30 minutes.~ The patient was counseled for greater than 50% of this time regarding differential diagnosis, likely diagnosis, diagnostic and therapeutic alternatives, risks/benefits/alternatives of medications and procedures, and plan of care generally.~ The patient expressed understanding and wishes to proceed. Recommendations: -- aggressive volume and hemodynamic management -- transfusion as indicated -- serial hemoglobin and hematocrit monitoring -- intravenous proton pump inhibitor -- upper endoscopy with timing dependent on clinical progress, likely today -- colonoscopy may be indicated depending on clinical clinical progress -- thank you for consultation. We will continue to follow with you.
--- NOTE | 2016-10-13 09:52 | Cardiothoracic Consult ---
Assessment and Plan - Time spent with patient Time spent with patient: Greater than 30 minutes (1) Anemia Problem details: Hemoglobin has trended down from 12 before his surgery 10 9 prior to discharge to 8 tonight. No obvious source of bleeding per the patient Fecal occult blood test was negative CT of abdomen given his history of a AAA and back pain, distended abdomen Type and screened, trend blood counts Status: Acute Assessment and plan: 66-year-old male with chronic history of anemia came to the ER after discharge after recent CABG with dizziness. He was found to have his H&H 7/23. The anemia is likely to be hemolytic in nature, as there was no obvious source of bleeding from his GI or from his incisions. CT scan of the abdomen and pelvis were negative. Echo was negative. 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 We will consult hematology to evaluate. I also agree with gastroenterology consult to rule out any GI source of bleeding. Meanwhile the patient is receiving blood transfusion and he is hemodynamically stable without any problems at this point. Current Visit: Yes History of Present Illness - Data of Consult Patient: known to practice within the last 3 years Consult date: 10/13/16 Requesting Physician: Yelena Roa - Consult Narrative Reason for consult: Anemia History of present illness: Mr. Bird is a 66 year old male 9 days status post emergent CABG 3. He was recently discharged and came back with dizziness. He was found to have his H&H 7/23. Rest of his labs were okay. Of note the patient did have a long history of anemia and he had upper and lower GI workup for possible bleeding bleeding a few months ago. His echo and his EKG did not show any cardiac problems CC: Yelena Rao MD - Home Medications and Allergies Home Medications: Home Medications Medication Instructions Recorded Confirmed Type Bupropion HCl [Bupropion Xl] 300 mg PO QAM 10/03/16 10/13/16 History Carvedilol [Coreg] 25 mg PO BID 10/03/16 10/13/16 History Doxepin HCl [Silenor] 3 mg PO BEDTIME 10/03/16 10/13/16 History Ferrous Gluconate 325 mg PO QAM 10/03/16 10/13/16 History Gabapentin Cap/Tab [Neurontin 100 mg PO BID 10/03/16 10/13/16 History Cap/Tab] Gemfibrozil 600 mg PO BID 10/03/16 10/13/16 History Lisinopril 20 mg PO QAM 10/03/16 10/13/16 History Metformin HCl 1,000 mg PO BID 10/03/16 10/13/16 History [place]-3/Dha/Epa/Fish Oil [Fish Oil 3,000 mg PO QAM 10/03/16 10/13/16 History Conc 1,000 mg Softgel] Omeprazole Magnesium [Prilosec Otc] 20 mg PO QAM 10/03/16 10/13/16 History Pioglitazone [Actos] 15 mg PO QAM 10/03/16 10/13/16 History Tamsulosin [Flomax] 2 capsule PO BEDTIME 10/03/16 10/13/16 History glipiZIDE [Glipizide] 20 mg PO BID 10/03/16 10/13/16 History Amiodarone Tab [Cordarone Tab] 200 mg PO BID #60 tablet 10/11/16 10/13/16 Rx Apixaban [Eliquis] 5 mg PO BID #60 tablet 10/11/16 10/13/16 Rx Ascorbic Acid Tab [Vitamin C Tab] 1,000 mg PO BID tablet 10/11/16 10/13/16 Rx Aspirin EC Tab 325 mg PO DAILY tablet 10/11/16 10/13/16 Rx Atorvastatin [Lipitor] 40 mg PO BEDTIME tablet 10/11/16 10/13/16 Rx Metoprolol Tartrate Tab [Lopressor 25 mg PO BID tablet 10/11/16 10/13/16 Rx Tab] traMADol TAB [Ultram] 50 mg PO Q6H PRN #40 tablet 10/11/16 10/13/16 Rx Allergies/Adverse Reactions: Allergies Allergy/AdvReac Type Severity Reaction Status Date / Time No Known Allergies Allergy Unverified 10/03/16 16:54 Medical,Surgical,& Family Hx - Medical History Cardio: History of: CAD, Hypertension, [place], Cardiovascular Problems (angioplasty 1995) Neurology: No history of: Seizures HEENT: History of: Ear Problem (Slight hearing loss) Endocrine: History of: Diabetes Mellitus (NIDDM), Dyslipidemia Genitourinary: History of: Prostate Problems (Enlarged) Gastrointestinal: History of: GERD - Surgical History Cardiac Surgeries: Sugical HX of: Cardiac Catheterization, Cardiac Surgery ( cabg 10/05/2016) Neurologic Surgeries: Patient denies: Neurologic Surgery Abdominal Surgeries: Surgical HX of: Abdominal Surgery, Appendectomy - Family History Family History: Reports;: Family Diabetes, Family Heart Disease, Family Stroke - Social History Smoking Status: Never smoker Frequency of Alcohol Use: None Type of Drug Use: None Physical Examination Vital Signs Temp Pulse Resp BP Pulse Ox 97.4 F L 58 L 15 88/57 96 10/12/16 21:04 10/12/16 21:04 10/12/16 21:04 10/12/16 21:04 10/12/16 21:04 General: Present: Appears Well HEENT: Present: PERRL Neck: Present: Supple Neck Cardiac: Present: Reg Rate and Rhythm Lungs: Present: Clear Ascult./Percussion Neuro: Present: Cranial Nerve 2-12 Intact Result/EKG - Labs CBC & BMP: 10/13/16 04:21 10/12/16 21:21 Labs: Laboratory Results - last 24 hr 10/13/16 10/13/16 10/13/16 03:05 04:20 04:20 WBC RBC Hgb Hct MCV MCH MCHC RDW Plt Count MPV Neut % (Auto) Lymph % (Auto) [place] % (Auto) Eos % (Auto) Baso % (Auto) Neut # (Auto) Lymph # (Auto) [place] # (Auto) Eos # (Auto) Baso # (Auto) Immature Gran % Nucleated RBC % Immature Gran # Nucleated RBCs # ESR [place] Haptoglobin POC Glucose 161 H Lactic Acid Magnesium Total Bilirubin 1.00 Direct Bilirubin 0.5 H Indirect Bilirubin 0.5 AST 60 H ALT 578 H Alkaline Phosphatase 49 Lactate Dehydrogenase Troponin I 4.570 H C-Reactive Protein Total Protein 5.0 L Albumin 2.7 L Hep Bs Antigen Negative Hep Bs Antibody Negative Hep B Core Total Ab Negative Hep B Core IgM Ab Negative Hepatitis C Antibody Negative Blood Type Antibody Screen ARIEL (IgG-AHG) ARIEL, Polyspecific Crossmatch Blood Bank Comment 10/13/16 10/13/16 10/13/16 04:20 04:21 04:21 WBC 7.0 7.1 RBC 2.42 L 2.43 L Hgb 7.4 L 7.4 L Hct 22.7 L 23.3 L MCV 93.8 95.9 MCH 31 31 MCHC 32.6 31.8 L RDW 14.9 14.8 Plt Count 117 L 115 L MPV 12.6 H 12.6 H Neut % (Auto) 69.4 67.7 Lymph % (Auto) 16.6 L 17.3 L Towner % (Auto) 12.2 13.4 H Eos % (Auto) 0.7 0.6 Baso % (Auto) 0.0 0.0 Neut # (Auto) 4.8 4.8 Lymph # (Auto) 1.2 L 1.2 L Towner # (Auto) 0.9 H 1.0 H Eos # (Auto) 0.1 0.0 Baso # (Auto) 0.0 0.0 Immature Gran % 1.1 1.0 Nucleated RBC % 0.6 0.7 Immature Gran # 0.08 0.07 Nucleated RBCs # 0.04 0.05 ESR [place] Haptoglobin POC Glucose Lactic Acid Magnesium 2.1 Total Bilirubin 1.30 H Direct Bilirubin 0.5 H Indirect Bilirubin 0.8 AST 65 H ALT 581 H Alkaline Phosphatase 52 Lactate Dehydrogenase Troponin I 4.570 H C-Reactive Protein Total Protein 5.0 L Albumin 2.6 L Hep Bs Antigen Hep Bs Antibody Hep B Core Total Ab Hep B Core IgM Ab Hepatitis C Antibody Blood Type Antibody Screen ARIEL (IgG-AHG) ARIEL, Polyspecific Crossmatch Blood Bank Comment 10/13/16 10/13/16 10/13/16 04:22 04:22 04:22 WBC RBC Hgb Hct MCV MCH MCHC RDW Plt Count MPV Neut % (Auto) Lymph % (Auto) [place] % (Auto) Eos % (Auto) Baso % (Auto) Neut # (Auto) Lymph # (Auto) [place] # (Auto) Eos # (Auto) Baso # (Auto) Immature Gran % Nucleated RBC % Immature Gran # Nucleated RBCs # ESR [place] 29 H Haptoglobin 217.0 H POC Glucose Lactic Acid 2.1 H Magnesium Total Bilirubin Direct Bilirubin Indirect Bilirubin AST ALT Alkaline Phosphatase Lactate Dehydrogenase 381 H Troponin I C-Reactive Protein 11.20 H Total Protein Albumin Hep Bs Antigen Hep Bs Antibody Hep B Core Total Ab Hep B Core IgM Ab Hepatitis C Antibody Blood Type Antibody Screen ARIEL (IgG-AHG) ARIEL, Polyspecific Crossmatch Blood Bank Comment 10/13/16 10/13/16 10/13/16 04:23 06:34 07:26 WBC RBC Hgb Hct MCV MCH MCHC RDW Plt Count MPV Neut % (Auto) Lymph % (Auto) [place] % (Auto) Eos % (Auto) Baso % (Auto) Neut # (Auto) Lymph # (Auto) [place] # (Auto) Eos # (Auto) Baso # (Auto) Immature Gran % Nucleated RBC % Immature Gran # Nucleated RBCs # ESR [place] Haptoglobin POC Glucose 174 H Lactic Acid Magnesium Total Bilirubin Direct Bilirubin Indirect Bilirubin AST ALT Alkaline Phosphatase Lactate Dehydrogenase Troponin I C-Reactive Protein Total Protein Albumin Hep Bs Antigen Hep Bs Antibody Hep B Core Total Ab Hep B Core IgM Ab Hepatitis C Antibody Blood Type Cancelled Antibody Screen Cancelled ARIEL (IgG-AHG) Negative ARIEL, Polyspecific Negative Crossmatch See Detail Blood Bank Comment Cancelled 10/13/16 08:46 WBC RBC Hgb Hct MCV MCH MCHC RDW Plt Count MPV Neut % (Auto) Lymph % (Auto) [place] % (Auto) Eos % (Auto) Baso % (Auto) Neut # (Auto) Lymph # (Auto) [place] # (Auto) Eos # (Auto) Baso # (Auto) Immature Gran % Nucleated RBC % Immature Gran # Nucleated RBCs # ESR [place] Haptoglobin POC Glucose Lactic Acid Magnesium Total Bilirubin Direct Bilirubin Indirect Bilirubin AST ALT Alkaline Phosphatase Lactate Dehydrogenase Troponin I C-Reactive Protein Total Protein Albumin Hep Bs Antigen Hep Bs Antibody Hep B Core Total Ab Hep B Core IgM Ab Hepatitis C Antibody Blood Type Cancelled Antibody Screen Cancelled ARIEL (IgG-AHG) ARIEL, Polyspecific Crossmatch See Detail Blood Bank Comment Cancelled
[2016-10-13 10:16] LABS: Apearance,Urine CLOUDY (Clear); Bilirubin,Urine Negative (Negative); Blood, Urine Large mg/dL (Negative); Glucose,Urine (UA) Negative (Negative); Hyaline Casts,Urine 16 /LPF (0-3); Ketones,Urine Negative (Negative); Mucus,Urine Occasional /LPF (Occasional); Nitrite,Urine Negative (Negative); Protein,Urine 30 MG/DL; RBC,Urine 84 /HPF (0-4); Squamous Epithelial Cell,Urine Occasional /HPF (0-10); Urine Color Amber (Yellow); Urine Specific Gravity 1.015 (1.001-1.035); Urine Urobilinogen < 2.0 EU/DL (0.2-1.0); WBC,Urine 2 /HPF (0-6)
--- NOTE | 2016-10-13 10:26 | Operative Note ---
Pre-op diagnosis: Symptomatic anemia Post-op diagnosis: other (NORMAL UPPER ENDOSCOPY) Procedure: DIAGNOSTIC EGD Anesthesia: MAC Surgeon / Physician: Sohan Bonner Results - Labs CBC & BMP: 10/13/16 04:21 10/12/16 21:21 Discharge Plan - Discharge Medications No Action Lisinopril 20 mg PO QAM Gabapentin Cap/Tab [Neurontin Cap/Tab] 100 mg PO BID Metformin HCl 1,000 mg PO BID Gemfibrozil 600 mg PO BID Doxepin HCl [Silenor] 3 mg PO BEDTIME Carvedilol [Coreg] 25 mg PO BID Bupropion HCl [Bupropion Xl] 300 mg PO QAM Tamsulosin [Flomax] 2 capsule PO BEDTIME Ferrous Gluconate 325 mg PO QAM Pioglitazone [Actos] 15 mg PO QAM glipiZIDE [Glipizide] 20 mg PO BID Aspirin EC Tab 325 mg PO DAILY tablet Omeprazole Magnesium [Prilosec Otc] 20 mg PO QAM [place]-3/Dha/Epa/Fish Oil [Fish Oil Conc 1,000 mg Softgel] 3,000 mg PO QAM Amiodarone Tab [Cordarone Tab] 200 mg PO BID #60 tablet Apixaban [Eliquis] 5 mg PO BID #60 tablet Ascorbic Acid Tab [Vitamin C Tab] 1,000 mg PO BID tablet Atorvastatin [Lipitor] 40 mg PO BEDTIME tablet Metoprolol Tartrate Tab [Lopressor Tab] 25 mg PO BID tablet traMADol TAB [Ultram] 50 mg PO Q6H PRN #40 tablet PRN Reason: Pain Moderate (4-7) - Follow Up or Referral - Forms/Instructions Note Addendum: PREOPERATIVE DIAGNOSIS: UPPER GASTROINTESTINAL BLEEDING POSTOPERATIVE DIAGNOSES: NORMAL UPPER ENDOSCOPY PHYSICIAN: SOHAN BONNER M.D. NURSE: ENDOSCOPY STAFF PRE-OP VITALS: SEE ANESTHESIA FLOWSHEET ASA: ANIRUDH PROCEDURE TIMES: SEE ANESTHESIA FLOWSHEET ANESTHESIA: SEE ANESTHESIA FLOWSHEET OPERATION PERFORMED: DIAGNOSTIC ESOPHAGOGASTRODUODENOSCOPY DATE OF SURGERY: 10/13/2016 OPERATIVE INDICATIONS: SYMPTOMATIC ANEMIA FOR DIAGNOSTIC/THERAPEUTIC ENDOSCOPY OPERATIVE FINDINGS: Duodenum: --Mild inflammatory appearing change, diffuse --No active bleeding Gastric antrum: --Normal endoscopic appearance --No active bleeding Gastric body: --Normal endoscopic appearance --No active bleeding Gastric cardia: --Normal endoscopic appearance --No active bleeding Gastric fundus: --Normal endoscopic appearance --No active bleeding Esophagus: --Normal endoscopic appearance --No active bleeding SPECIMENS: None OPERATIVE PROCEDURE: The procedure was performed in the operating room. Details of the procedure, alternatives, benefits and risks to include but not limited to bleeding, infection, perforation, need for emergency surgery, need for other procedures, possibility of an incomplete examination, possibility of misdiagnosis, and possibility of were discussed with the patient in simple terms. The patient reported understanding and freely consented to the procedure. All questions were answered. Informed consent was signed and the form is on the chart. The patient was then placed in the left lateral decubitus position with sedation managed by the anesthesia service. Blood pressure, pulse and pulse oximetry were monitored throughout the entire procedure. The endoscope was introduced into the patients mouth and passed to the third part of the duodenum under direct visualization. Careful examination of all sections of the duodenal, gastric, and esophageal mucosa traversed during the exam was performed with findings as documented. Retroflexion exam was performed. The patient tolerated the procedure well. There was no evidence of complication. The total procedure time was less than 30 minutes. After the procedure the patient was taken to the PACU for recovery. IMPRESSIONS: --Duodenal inflammation --No active bleeding or retained blood in the upper GI tract RECOMMENDATIONS: --Remain in ICU for ongoing care --Clear liquid diet at your discretion --Aggressive anti-emetic therapy --Daily proton pump inhibitor --Consider colonoscopy with any overt blood in stool --We will continue to follow with you. Dr. York will assume GI care for this patient tomorrow SOHAN BONNER MD STAFF DRY KILN BURNER
[2016-10-13] MEDS ORDERED: PROPOFOL 200 MG/20 ML VIAL IV ONE (10:27)
[2016-10-13] MEDS ORDERED: LIDOCAINE 100 MG/5 ML SYRINGE ONE (10:27)
[2016-10-13] MEDS ORDERED: ETOMIDATE 20 MG/10 ML VIAL IV ONE (10:27)
--- NOTE | 2016-10-13 11:26 | Anesthesia ---
Anesthesia Post OP - Post Ansesthetic Evaluation Patient seen in post op: Yes Resp: within normal limits CV: within normal limits Mental: within normal limits Temp: within normal limits [id number]: within normal limits Nausea and Vomiting: within normal limits Pain: within normal limits Other:: post procedure, pt opens eyes to verbal stimuli, drifts back to sleep, report give to nurse caring for patient today
[2016-10-13 12:52] LABS: Hematocrit 30.9 VOL% (42.0-52.0); Hemoglobin 9.9 GM/DL (14.0-18.0)
--- NOTE | 2016-10-13 12:59 | Hospitalist Progress Note ---
Assessment and Plan (1) Anemia Problem details: Hemoglobin has trended down from 12 before his surgery 10 9 prior to discharge to 8 tonight. No obvious source of bleeding per the patient Fecal occult blood test was negative CT of abdomen given his history of a AAA and back pain, distended abdomen Type and screened, trend blood counts Status: Acute Assessment and plan: Received 2 units packed red blood cells, was on aspirin and Eliquis, status post EGD negative, hold off on other transfusion at this time. Doubt hemolytic anemia due to elevated haptoglobin. Patient also has low platelets. Will check for schistocytes and fibrinogen level. Aspirin should be restarted in am Current Visit: Yes (2) Status post aorto-coronary artery bypass graft Status: Acute Assessment and plan: Troponin still elevated most likely due to the recent CABG Current Visit: No (3) Postoperative atrial fibrillation Status: Acute Assessment and plan: Hold Eliquis. Continue amiodarone at lower dose due to elevated liver enzymes Current Visit: No (4) Hypotension Problem details: Extremities seem warm, does not seem consistent with cardiogenic shock. Troponin is elevated, but significantly decreased from last admission. Check EKG, transthoracic echocardiogram. Also noted markedly elevated BNP from previous, signs of pulmonary edema on the chest x-ray despite seeming overall volume down. No obvious source of infection, check blood cultures and urinalysis, hold empiric antibiotics at this time unless fever Most likely hypovolemic shock from profuse diarrhea, FOBT was negative. Check C. difficile Given a history of a triple a, and current distended abdomen with dropping hemoglobin and no other source, worried about possible rupture. Patient has been complaining of back pain since his surgery, although some of this is expected. CT abdomen and pelvis without contrast ordered due to LAURA. Medications likely large contributor, hold beta blockers due to bradycardia, hold lisinopril Monitor on telemetry, encourage patient to lie flat and call for help if needed Status: Acute Assessment and plan: Was able to wean off Levophed after blood transfusion Current Visit: Yes (5) Uncontrolled type 2 diabetes mellitus with hyperglycemia Problem details: Hold metformin, Actos, glimepiride Low-dose sliding scale insulin, will change to basal bolus as needed Status: Acute Assessment and plan: Insulin sliding scale only. Start full liquids Current Visit: Yes (6) Elevated liver enzymes Problem details: Favor secondary to congestion, heart disease Check acute hepatitis panel May need right upper quadrant ultrasound as well Status: Acute Assessment and plan: Hepatitis panel is negative. Discussed case with Dr. Bonner and he feels that patient may have had an ischemic hit causing his elevated liver enzymes. What does not make sense is usually the AST is equally elevated. Will continue to monitor with CMP's. A lot of his medications that are hepatically cleared had to be discontinued. Current Visit: Yes (7) Acute renal failure Status: Acute Assessment and plan: Continue to monitor while on Lasix no more fluid. Current Visit: Yes (8) Acute systolic (congestive) heart failure Status: Acute Assessment and plan: 40 of IV Lasix twice daily Current Visit: Yes Hospitalist: Subjective Interval history: Critical care time 1 hour. Patient was hypotensive and anemic this morning when I saw him. He was currently on Levophed. Patient had a recent CABG about [address] Flannery. Patient has had previous EGD and colonoscopy and problems with anemia in the past. Patient was on his second unit of blood. I personally discussed case with Dr. Sohan Bonner from GI and Dr. Flannery from cardiothoracic surgery. EGD emergently was performed no evident evidence of active bleeding in the stomach. Dr. Flannery wanted Dr. Logan to see him as he was concerned about possible hemolytic anemia. The only thing that goes against hemolytic anemia at this time is elevated haptoglobin. We will hold off transfusing another 2 units of PRBC due to negative EGD. Patient was able to be weaned off the Levophed drip after the transfusion was finished. I have stopped his abx and Dr Flannery agrees. Exam - Constitutional Vitals: Period Temp Pulse Resp BP Sys/Mehta Pulse Ox Last 24 Hr 97.2 F-98.4 F 57-62 12-58 76-113/48-79 96-100 Exam: Heart Rate-[hardy] Lungs-[diminished very crackles at bases ] GI-[+bs soft, NT] Ext-[1+ edema] Neuro [Motor 5/5], [alert and oriented times 3] psych [normal mood and flat affect] General [no acute distress] Skin incision from surgery looks good. Results - Labs CBC & BMP: 10/13/16 04:21 10/12/16 21:21 Lab Results: I have reviewed the past 24 hour labs Labs: AST 65 ALT 581, LDH 381, troponin is elevated at 4, C-reactive protein 11, glucose 150, haptoglobin 217, repeat hemoglobin 9.9 - Diagnostic Findings Procedure: Chest x-ray: report reviewed by me (Pulmonary edema), CT Abdomen and Pelvis: report reviewed by me (Pending), CT: report reviewed by me (Head CT nothing acute)
--- NOTE | 2016-10-13 13:06 | Oncology Consult Note ---
History of Present Illness History of present illness: Mr. Bird is a 66 year old male who was readmitted with hypotension and anemia. On reviewing his lab work, it appears that he probably has iron deficiency in spite of the fact that no obvious source was found. The patient has an elevated haptoglobin which means that he is unlikely to be hemolyzing. In addition, his LDH is elevated but not enough, in my opinion, to suggest hemolysis under the current circumstances. He underwent emergency coronary artery bypass surgery on October 04, 2016. On readmission he was found to be significantly more anemic than he had been at the time of his initial diagnosis. He has undergone UGI evaluation and no obvious cause of bleeding has been established. On October 12 the patient had a white cell count of 7600 with a hemoglobin of 8.2 and a platelet count of 124,000. The patient was on Eliquis and aspirin as an outpatient. His INR on October 12 was 1.5. On October 13, his hemoglobin was down to 7.4. He has a normocytic, normochromic anemia. A haptoglobin was drawn on October 13, 2016 and is 217.0. Past medical history: Allergies: No known allergies Prior operations: Tonsillectomy, appendectomy and laparotomy, apparently for bowel obstruction. The patient's story is that he took too much Metamucil and had to have surgery. Medical History Cardio: History of: CAD, Hypertension, Cardiovascular Problems (angioplasty 1995 ) there is mention of an abdominal aortic aneurysm in this record. Neurology: No history of seizures or paralysis HEENT: History of: Ear Problem (Slight hearing loss) Endocrine: History of: Diabetes Mellitus (NIDDM), Dyslipidemia Genitourinary: History of: Prostate Problems (Enlarged) Gastrointestinal: History of: GERD and chronic constipation - Family History Family History: Reports;: Family Diabetes, Family Heart Disease, Family Stroke - Social History Smoking Status: Former smoker Have you smoked in the last 12 months: Yes (Quit smoking cigarettes 6 years ago , quit smoking E cigarettes 1 week ago.) Time spent discussing smoking cessation with patient: 3 to 10 minutes Frequency of Alcohol Use: None Type of Drug Use: None Physical examination: General: The patient is somewhat sedated and lethargic. Eyes: Lids are normal. I did not check his eyes closely. ENT: His trachea is midline. He has no neck masses. His hearing is normal. Lungs: Breath sounds are slightly coarse throughout without rubs, rales or rhonchi. There is symmetrical unlabored chest motion with respiration. Cardiovascular: His heart rhythm is regular with a grade 2/6 systolic ejection murmur heard best at the apex. No clubbing or cyanosis. He has recently had thoracic surgery that is healing. Abdomen: He has an old, well-healed midline scar. I palpate no definite masses. Musculoskeletal: There is no focal muscle atrophy or bone or joint deformity. Neurologic: Cranial nerves II through XII are intact. There are no focal neurologic deficits. Psychiatric: The patient appears to be oriented but he is lethargic. Nodes: I find no submandibular, cervical, supraclavicular or axillary adenopathy. Skin: Cursory examination is negative for any significant abnormalities other than from his surgery. Impression: I think the patient is iron deficient. I do not find evidence of hemolytic anemia. In addition, he was successfully screened for 2 units of blood and no antibodies were found on his direct antibody test. This, along with his haptoglobin being high or certainly against this anemia having a component of hemolysis to it. Please reconsult as needed. Thank you for consulting me. Home Medications Medication Instructions Recorded Confirmed Type Bupropion HCl [Bupropion Xl] 300 mg PO QAM 10/03/16 10/13/16 History Carvedilol [Coreg] 25 mg PO BID 10/03/16 10/13/16 History Doxepin HCl [Silenor] 3 mg PO BEDTIME 10/03/16 10/13/16 History Ferrous Gluconate 325 mg PO QAM 10/03/16 10/13/16 History Gabapentin Cap/Tab [Neurontin 100 mg PO BID 10/03/16 10/13/16 History Cap/Tab] Gemfibrozil 600 mg PO BID 10/03/16 10/13/16 History Lisinopril 20 mg PO QAM 10/03/16 10/13/16 History Metformin HCl 1,000 mg PO BID 10/03/16 10/13/16 History [place]-3/Dha/Epa/Fish Oil [Fish Oil 3,000 mg PO QAM 10/03/16 10/13/16 History Conc 1,000 mg Softgel] Omeprazole Magnesium [Prilosec Otc] 20 mg PO QAM 10/03/16 10/13/16 History Pioglitazone [Actos] 15 mg PO QAM 10/03/16 10/13/16 History Tamsulosin [Flomax] 2 capsule PO BEDTIME 10/03/16 10/13/16 History glipiZIDE [Glipizide] 20 mg PO BID 10/03/16 10/13/16 History Amiodarone Tab [Cordarone Tab] 200 mg PO BID #60 tablet 10/11/16 10/13/16 Rx Apixaban [Eliquis] 5 mg PO BID #60 tablet 10/11/16 10/13/16 Rx Ascorbic Acid Tab [Vitamin C Tab] 1,000 mg PO BID tablet 10/11/16 10/13/16 Rx Aspirin EC Tab 325 mg PO DAILY tablet 10/11/16 10/13/16 Rx Atorvastatin [Lipitor] 40 mg PO BEDTIME tablet 10/11/16 10/13/16 Rx Metoprolol Tartrate Tab [Lopressor 25 mg PO BID tablet 10/11/16 10/13/16 Rx Tab] traMADol TAB [Ultram] 50 mg PO Q6H PRN #40 tablet 10/11/16 10/13/16 Rx Allergies Allergy/AdvReac Type Severity Reaction Status Date / Time No Known Allergies Allergy Unverified 10/03/16 16:54 Medical,Surgical,& Family Hx - Medical History Cardio: History of: CAD, Hypertension, [place], Cardiovascular Problems (angioplasty 1995) Neurology: No history of: Seizures HEENT: History of: Ear Problem (Slight hearing loss) Endocrine: History of: Diabetes Mellitus (NIDDM), Dyslipidemia Genitourinary: History of: Prostate Problems (Enlarged) Gastrointestinal: History of: GERD - Surgical History Cardiac Surgeries: Sugical HX of: Cardiac Catheterization, Cardiac Surgery ( cabg 10/05/2016) Neurologic Surgeries: Patient denies: Neurologic Surgery Abdominal Surgeries: Surgical HX of: Abdominal Surgery, Appendectomy - Family History Family History: Reports;: Family Diabetes, Family Heart Disease, Family Stroke - Social History Smoking Status: Never smoker Frequency of Alcohol Use: None Type of Drug Use: None Exam - Constitutional Vitals: Period Temp Pulse Resp BP Sys/Mehta Pulse Ox Last 24 Hr 97.2 F-98.4 F 57-62 12-58 76-113/48-79 96-100 Results - Labs CBC & BMP: 10/13/16 12:14 10/12/16 21:21
[2016-10-13] MEDS ORDERED: DEXTROSE 50% 25 GM/50 ML VIAL IV PRN (13:14)
[2016-10-13] MEDS ORDERED: GLUCAGON 1 MG VIAL IM PRN (13:14)
[2016-10-13 13:26] LABS: % Iron Saturation 14.5 % (18-50); Ferritin 644.9 ng/ml (26-388)
[2016-10-13 13:37] LABS: Basophils % 0.1 % (0.0-0.8); Eosinophils # 0.1 10*3/uL (0.0-0.87); Hematocrit 31.5 VOL% (42.0-52.0); Hemoglobin 9.9 GM/DL (14.0-18.0); Immature Granulocytes % 1.1 %; Immature Granulocytes Absolute 0.08 #; Lymphocytes # 1.2 10*3/uL (1.4-4.0); Lymphocytes % 16.9 % (21.2-54.2); Mean Corpuscular HGB Conc 31.4 GM/DL (32-36); Mean Corpuscular Hemoglobin 30 PG (27-34); Mean Corpuscular Volume 95.2 FL (87-102); Mean Platelet Volume 11.9 FL (9.6-12.0); Monocytes % 13.5 % (1.7-12.7); NRBC # 0.05 10*3/uL; Neutrophils % 67.4 % (38.7-73.9); Platelet Count 122 T/CUMM (130-400); Red Cell Distribution Width 15.2 % (9.3-17.3); White Blood Count 7.3 T/CUMM (4-12)
[2016-10-13 13:38] LABS: Red Blood Count 3.31 MC/CUMM (3.8-5.5)
--- NOTE | 2016-10-13 13:41 | ECHO Report ---
Glenn Bird Exam Date: 10/13/2016 07:10 Referring Physician: Technologist: Kathleen DE SANTIAGO Age: 66 Ht (in): Wt (lb): Gender: M Exam Location: [facility] Echo Indications: S/P Cabg, hypotensive BP: / HR: Rhythm: Sinus Technical Quality: Technically difficult study IMPRESSIONS Technically difficult study. Left ventricular ejection fraction is estimated at 35-40%. The mid to distal anteroseptal wall appears hypokinetic. Mild concentric left ventricular hypertrophy with diastolic dysfunction. Trace mitral regurgitation. Moderate tricuspid valve regurgitation. MEASUREMENTS (Male / Female) Normal Values 2D ECHO LV Diastolic Diameter PLAX 5.1 cm 4.2 - 5.9 / 3.9 - 5.3 cm LV Systolic Diameter PLAX 4.3 cm LV Fractional Shortening PLAX 15.2 % IVS Diastolic Thickness 1.2 cm 0.6 - 1.0 / 0.6 - 0.9 cm LVPW Diastolic Thickness 1.1 cm 0.6 - 1.0 / 0.6 - 0.9 cm RV Internal Dim ED PLAX 2.4 cm Aortic Root Diameter 2.3 cm LA Systolic Diameter LX 4.8 cm 3.0 - 4.0 / 2.7 - 3.8 cm DOPPLER TR Peak Velocity 269.0 cm/s TR Peak Gradient 28.9 mmHg FINDINGS Left Ventricle Normal left ventricular cavity size. Mild concentric left ventricular hypertrophy with diastolic dysfunction. Left ventricular ejection fraction is estimated at 35-40%. The mid to distal anteroseptal wall appears hypokinetic. Right Ventricle Normal right ventricular size. Right Atrium Normal right atrial size. Left Atrium Normal left atrial size. Mitral Valve Mild mitral valve sclerosis with trace mitral valve regurgitation. Aortic Valve Mild aortic valve sclerosis. Tricuspid Valve Morphologically normal tricuspid valve. Moderate tricuspid valve regurgitation. Tricuspid regurgitation velocities suggest a PAP of 28.9 mmHg + RAP. Pulmonic Valve Morphologically normal pulmonic valve. Trace pulmonary valve regurgitation. Pericardium No pericardial effusion. Aorta Normal size aortic root and proximal ascending aorta. Ryan Nunez (Electronically Signed) Final Date: 13 October 2016 13:40
[2016-10-13 13:52] LABS: Folate 11.1 NG/ML (5.4-24.0)
--- NOTE | 2016-10-13 14:45 | CT Report ---
History: Distended abdomen. Anemia. Abdominal aortic aneurysm Date: 10/13/2016 Study: CT abdomen and pelvis without contrast Comparison exam: July 01, 2009 The study was also reviewed by [facility], with initial preliminary report generated on 10/13/2016 at 2:00 AM. Technique: Spiral CT sections were obtained from the lung bases to the pubic symphysis without contrast. Total DLP measures 620.7 mGy*cm. The CT exam was performed using one or more of the following dose reduction techniques: Automated exposure control and adjustment of the mA and/or kV according to patient size. CT abdomen: There is mild bilateral pleural effusion with mild dependent atelectasis in the lung bases. There is trace pericardial effusion. There is mild perihepatic ascites. The liver is unremarkable noncontrast CT appearance. There is some suspected gallbladder wall thickening. The spleen, pancreas, adrenal glands, and bile ducts are unremarkable. There is no gross renal parenchymal mass. There is moderate arterial vascular calcification associated with either renal artery. There is a saccular 3.6 cm infrarenal abdominal aortic aneurysm which previously measured 3.3 cm on the comparison study. There is no evidence of aortic rupture. There is no lymphadenopathy. There is mild to moderate thoracolumbar spondylosis. CT pelvis: There is mild free fluid in the pelvis. No soft tissue pelvic mass is seen. Impression: 3.6 cm abdominal aortic aneurysm There is suspected gallbladder wall thickening diffusely. Mild ascites Bilateral pleural effusion and dependent atelectasis Trace pericardial effusion PROCEDURE INTERPRETED AT [facility] DEPARTMENT OF RADIOLOGY Final Report Signed by: Dr. Meghann York
[2016-10-13 14:50] LABS: Burr Cells Few; Ovalocytes Few; Platelet Estimate Decreased; Poikilocytosis 1+; Stomatocytes Few; Tear Drop Cells Few
[2016-10-13] MEDS ORDERED: INSULIN LISPRO 100 UNIT/ML SUBCUT SCH (16:30)
[2016-10-13] MEDS ORDERED: NON-FORMULARY MEDICATION (Doxepin Hcl [Silenor] 3 MG) PO SCH (21:00)
[2016-10-13] MEDS ORDERED: ATORVASTATIN 40 MG TABLET PO SCH (21:00)
[2016-10-13] MEDS: TAMSULOSIN 0.4 MG CAPSULE PO SCH (21:54)
--- NOTE | 2016-10-14 03:01 | EKG Report ---
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
[2016-10-14 05:39] LABS: Basophils % 0.1 % (0.0-0.8); Eosinophils # 0.1 10*3/uL (0.0-0.87); Eosinophils % 1.6 % (0.00-10.9); Hematocrit 31.9 VOL% (42.0-52.0); Hemoglobin 10.4 GM/DL (14.0-18.0); Immature Granulocytes % 0.7 %; Immature Granulocytes Absolute 0.06 #; Lymphocytes # 1.2 10*3/uL (1.4-4.0); Lymphocytes % 13.9 % (21.2-54.2); Mean Corpuscular HGB Conc 32.6 GM/DL (32-36); Mean Corpuscular Hemoglobin 30 PG (27-34); Mean Corpuscular Volume 91.9 FL (87-102); Mean Platelet Volume 12.5 FL (9.6-12.0); Monocytes % 11.3 % (1.7-12.7); Neutrophils # 6.4 10*3/uL (1.4-7.4); Neutrophils % 72.4 % (38.7-73.9); Platelet Count 133 T/CUMM (130-400); Red Blood Count 3.47 MC/CUMM (3.8-5.5); Red Cell Distribution Width 15.4 % (9.3-17.3); White Blood Count 8.9 T/CUMM (4-12)
[2016-10-14 06:08] LABS: Albumin 2.9 G/DL (3.4-5.0); Calcium 8.2 MG/DL (8.5-10.1); Osmolality,Calculated 294.3 MOS/KG (273-304); Phosphorous 4.3 MG/DL (2.5-4.9); Potassium 3.9 MMOL/L (3.5-5.1)
[2016-10-14 06:33] LABS: Albumin 2.9 G/DL (3.4-5.0); Bilirubin,Total 1.2 MG/DL (0.2-1.0); Calcium 8.3 MG/DL (8.5-10.1); Osmolality,Calculated 292.4 MOS/KG (273-304); Potassium 3.9 MMOL/L (3.5-5.1); Total Protein 5.7 G/DL (6.4-8.3)
--- NOTE | 2016-10-14 07:08 | Cardiology Consult Note ---
Assessment and Plan - Time spent with patient Time spent with patient: Greater than 30 minutes (1) Postoperative atrial fibrillation Status: Acute Assessment and plan: Patient remains in atrial fibrillation with rapid ventricular response. Eliquis was held yesterday due to severe anemia. Amiodarone has been decreased due to elevated liver enzymes. I will discuss this further with Dr. Post. Further plan an addendum to follow per Dr. Post. Current Visit: No (2) Elevated liver enzymes Status: Acute Assessment and plan: Hepatitis panel negative. Dr. Bonner feels that patient may have had ischemic hit causing his liver enzymes to become elevated. Defer further management to hospitalist and GI. Current Visit: Yes (3) Acute renal failure Status: Acute Assessment and plan: Status post surgery as creatinine ranged from 1.2-2.4. Today his creatinine is 2.1. This is most likely secondary to dehydration and hypotension. The patient 's hypotension has resolved and no longer requiring vasopressors. We will continue to monitor BMP. Current Visit: Yes (4) Anemia Problem details: Hemoglobin has trended down from 12 before his surgery 10 9 prior to discharge to 8 tonight. No obvious source of bleeding per the patient Fecal occult blood test was negative CT of abdomen given his history of a AAA and back pain, distended abdomen Type and screened, trend blood counts Status: Acute Assessment and plan: This is clinically stable today after blood transfusion. EGD did not reveal any evidence of active bleeding. GI and oncology are following. Current Visit: Yes (5) Hypotension Problem details: Extremities seem warm, does not seem consistent with cardiogenic shock. Troponin is elevated, but significantly decreased from last admission. Check EKG, transthoracic echocardiogram. Also noted markedly elevated BNP from previous, signs of pulmonary edema on the chest x-ray despite seeming overall volume down. No obvious source of infection, check blood cultures and urinalysis, hold empiric antibiotics at this time unless fever Most likely hypovolemic shock from profuse diarrhea, FOBT was negative. Check C. difficile Given a history of a triple a, and current distended abdomen with dropping hemoglobin and no other source, worried about possible rupture. Patient has been complaining of back pain since his surgery, although some of this is expected. CT abdomen and pelvis without contrast ordered due to LAURA. Medications likely large contributor, hold beta blockers due to bradycardia, hold lisinopril Monitor on telemetry, encourage patient to lie flat and call for help if needed Status: Resolved Assessment and plan: This has resolved. Current Visit: Yes (6) Status post aorto-coronary artery bypass graft Status: Chronic Assessment and plan: Patient is status post CABG October 04, 2016 with RICHARDSON to LAD and SVG to PDA and OM. 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 Bird is a 66 year old male with a known history of coronary artery disease , routinely followed by Dr. Post. Patient's primary care provider is Dr. Aristeo Shepard. Patient presented to the emergency room yesterday morning with complaints of weakness and syncope. Patient has a history of coronary artery disease with recent CABG October 04, 2016, atrial fibrillation, AAA, dyslipidemia , diabetes, BPH, GERD and hypertension. Patient is a former smoker (reports that he quit smoking cigarettes 6 years ago and quit smoking a cigarette 1 week ago). He has a past surgical history of CABG October 04, 2016 with RICHARDSON graft to LAD and vein graft to PDA and OM, appendectomy and abdominal surgery (small bowel obstruction status post resection). Patient confirms a family history of heart disease. Patient was discharged from [facility] October 11, 2016 after undergoing CABG with RICHARDSON graft to LAD and vein graft to PDA and OM. The patient's postoperative course was marked by episodes of atrial fibrillation controlled with amiodarone. On discharge she was placed on oral amiodarone and Eliquis therapy. Patient reports that Friday morning he began feeling weak and tired and generally not feeling well. His checked his blood pressure at home and it was noted to be 74/41. He confirms dizziness and feeling lightheaded that was worsened after standing up. Patient fell at home after getting up to use the restroom. Patient denies chest pain, heaviness and tightness. He also denies shortness of breath and palpitations/heart racing. Associated symptoms include nausea, decreased appetite and diarrhea. Patient denies fever, chills, vomiting , abdominal pain, melena, hematochezia, bloody or dark stools and dysuria. Patient presented to the ER for further evaluation. Patient was admitted under hospitalist's service and housed on telemetry for close observation. While on telemetry, he remained hypotensive. Patient was then transferred to the CCU and transfused with packed red blood cells. Oncology has been consulted due to concerns of possible hemolytic anemia. Abdomen/pelvis CT revealed small pericardial effusion, bilateral pleural effusions, small ascites, apparently unchanged diameter of AAA, mild gallbladder wall thickening. Echocardiogram revealed left ventricular ejection fraction 35-40%. Mild concentric left ventricular hypertrophy with diastolic dysfunction noted. Trace MR and moderate TR. Patient was seen and examined in the CCU. He is resting in bed in no acute distress. Currently not requiring any oxygen. No longer requiring vasopressors. Patient did well overnight and reports that he feels much better this morning. His H&H is stable this morning and 10.4 and 31.9. No overt bleeding is noted. He is status post EGD which revealed duodenal inflammation, without evidence of active bleeding. GI is following with plans for C scope if patient has any further bleeding. Blood cultures are negative at 1 day. Liver enzymes are elevated. Creatinine is elevated at 2.1, discharge was noted to be 1.1. Electrolytes are stable. Troponin is noted to be 4.57. This has decreased from prior admission as expected. Surgical incisions are healing well without signs of infection. Patient is currently in atrial fibrillation with rapid ventricular response. Heart rate is ranging from 110-120. Pressure is stable with systolic blood pressure 119 noted. We will continue to monitor patient closely in the CCU. Eliquis was put on hold yesterday. Patient continues to receive aspirin 325 mg p.o. daily. Active Medications Hydrocodone Bitart/Acetaminophen ([place] 5-325) 1 tablet PO Q4H PRN PRN Reason: Pain Moderate (4-7) Last Admin: 10/14/16 02:06 Dose: 1 tablet Amiodarone HCl (Cordarone Tab) 200 mg PO DAILY [facility] Aspirin () 325 mg PO DAILY [facility] Dextrose/Water (D50) 25 gm IV PRN PRN PRN Reason: Hypoglycemia with IV access Ferrous Sulfate (Feosol Original Tab) 325 mg PO QAM [facility] Last Admin: 10/13/16 09:22 Dose: Not Given Furosemide (Lasix Inj) 40 mg IV BID DIURETIC [facility] Last Admin: 10/13/16 17:06 Dose: 40 mg Gabapentin (Neurontin Cap/Tab) 100 mg PO BID [facility] Last Admin: 10/13/16 21:54 Dose: 100 mg Glucagon () 1 mg IM PRN PRN PRN Reason: Hypoglycemia w/o IV access Insulin Human Lispro (Humalog) 0 unit SUBCUT ACHS [facility] PRN Reason: Protocol Last Admin: 10/13/16 21:53 Dose: 4 unit Pantoprazole Sodium (Protonix Inj) 40 mg IV BID [facility] Last Admin: 10/13/16 21:53 Dose: 40 mg Tamsulosin HCl (Flomax) 0.8 mg PO BEDTIME [facility] Last Admin: 10/13/16 21:54 Dose: 0.8 mg CC: Yelena Roa MD - Home Medications and Allergies Home Medications: Home Medications Medication Instructions Recorded Confirmed Type Bupropion HCl [Bupropion Xl] 300 mg PO QAM 10/03/16 10/13/16 History Carvedilol [Coreg] 25 mg PO BID 10/03/16 10/13/16 History Doxepin HCl [Silenor] 3 mg PO BEDTIME 10/03/16 10/13/16 History Ferrous Gluconate 325 mg PO QAM 10/03/16 10/13/16 History Gabapentin Cap/Tab [Neurontin 100 mg PO BID 10/03/16 10/13/16 History Cap/Tab] Gemfibrozil 600 mg PO BID 10/03/16 10/13/16 History Lisinopril 20 mg PO QAM 10/03/16 10/13/16 History Metformin HCl 1,000 mg PO BID 10/03/16 10/13/16 History Sweet [place]-3/Dha/Epa/Fish Oil [Fish Oil 3,000 mg PO QAM 10/03/16 10/13/16 History Conc 1,000 mg Softgel] Omeprazole Magnesium [Prilosec Otc] 20 mg PO QAM 10/03/16 10/13/16 History Pioglitazone [Actos] 15 mg PO QAM 10/03/16 10/13/16 History Tamsulosin [Flomax] 2 capsule PO BEDTIME 10/03/16 10/13/16 History glipiZIDE [Glipizide] 20 mg PO BID 10/03/16 10/13/16 History Amiodarone Tab [Cordarone Tab] 200 mg PO BID #60 tablet 10/11/16 10/13/16 Rx Apixaban [Eliquis] 5 mg PO BID #60 tablet 10/11/16 10/13/16 Rx Ascorbic Acid Tab [Vitamin C Tab] 1,000 mg PO BID tablet 10/11/16 10/13/16 Rx Aspirin EC Tab 325 mg PO DAILY tablet 10/11/16 10/13/16 Rx Atorvastatin [Lipitor] 40 mg PO BEDTIME tablet 10/11/16 10/13/16 Rx Metoprolol Tartrate Tab [Lopressor 25 mg PO BID tablet 10/11/16 10/13/16 Rx Tab] traMADol TAB [Ultram] 50 mg PO Q6H PRN #40 tablet 10/11/16 10/13/16 Rx Allergies/Adverse Reactions: Allergies Allergy/AdvReac Type Severity Reaction Status Date / Time No Known Allergies Allergy Unverified 10/03/16 16:54 - Constitutional Constitutional: Present: fatigue, lethargy, malaise, weakness. Absent: chills, fever(s), headache(s), night sweats - EENT Nose, mouth and throat: Absent: headache(s), nasal congestion, sinus pressure, sore throat - Cardiovascular Cardiovascular: Present: lightheadedness. Absent: chest pain at rest, chest pain with activity, claudication, diaphoresis, dyspnea, dyspnea on exertion, edema, radiating jaw, neck or arm pain, orthopnea, palpitations, PND - Respiratory Respiratory: Absent: cough, dyspnea, hemoptysis, dyspnea on exertion, wheezing, snoring, pain on inspiration, change in phlegm color - Gastrointestinal Gastrointestinal: Present: cramping, diarrhea, loose stools, nausea. Absent: abdominal pain, coffee ground emesis, heartburn, hematemesis, hematochezia, melena, vomiting - Genitourinary Genitourinary: Absent: difficulty urinating, dysuria, flank pain, hematuria - Neurological Neurological: Present: disequilibrium, dizziness, syncope - Hematologic/Lymphatic Hematologic/Lymphatic: Absent: easy bleeding, easy bruising, lymphadenopathy Medical,Surgical,& Family Hx - Medical History Cardio: History of: CAD, Hypertension, [place], Cardiovascular Problems (angioplasty 1995) Neurology: No history of: Seizures HEENT: History of: Ear Problem (Slight hearing loss) Endocrine: History of: Diabetes Mellitus (NIDDM), Dyslipidemia Genitourinary: History of: Prostate Problems (Enlarged) Gastrointestinal: History of: GERD - Surgical History Cardiac Surgeries: Sugical HX of: Cardiac Catheterization, Cardiac Surgery ( cabg 10/05/2016) Neurologic Surgeries: Patient denies: Neurologic Surgery Abdominal Surgeries: Surgical HX of: Abdominal Surgery, Appendectomy, EGD - Family History Family History: Reports;: Family Diabetes, Family Heart Disease, Family Stroke - Social History Smoking Status: Former smoker Frequency of Alcohol Use: None Type of Drug Use: None Physical Examination Vital Signs Temp Pulse Resp BP Pulse Ox 97.4 F L 58 L 15 88/57 96 10/12/16 21:04 10/12/16 21:04 10/12/16 21:04 10/12/16 21:04 10/12/16 21:04 General: Present: Appears Well, No Apparent Distress Neck: Present: Supple Neck, Midline Trachea, No JVD/HJR, No Masses, No Bruit, No Lymphadenopathy, No Thyromegaly Cardiac: Present: S1/S2, Tachycardia, Other (Atrial fibrillation) Lungs: Present: Decreased Breath Sounds, Bibasilar Rales. Absent: Oxygen Abdomen: Present: Soft, Active Bowel Sounds, Distended, Non-Tender Skin: Present: Clear, Other (Surgical incisions healing well without signs of infection.). Absent: Rash, Suspicious Lesions, Ulceration Extremities: Present: Normal Gait, No Clubbing, No Cyanosis, No Edema, Normal Upper Extr. Pulses, Normal Lower Extr. Pulses Result/EKG - Labs CBC & BMP: 10/14/16 04:57 10/14/16 04:57 Lab Results: I have reviewed the past 24 hour labs Labs: Laboratory Results - last 24 hr 10/13/16 10/13/16 10/13/16 04:20 04:22 04:22 WBC RBC Hgb Hct MCV MCH MCHC RDW Plt Count MPV Neut % (Auto) Lymph % (Auto) [place] % (Auto) Eos % (Auto) Baso % (Auto) Neut # (Auto) Lymph # (Auto) [place] # (Auto) Eos # (Auto) Baso # (Auto) Immature Gran % Nucleated RBC % Immature Gran # Nucleated RBCs # Platelet Estimate Poikilocytosis Tear Drop Cells Ovalocytes Stomatocytes [place] Cells ESR [place] 29 H Absolute Retic Percent Retic Retic Hgb Equivalent Haptoglobin 217.0 H Fibrinogen Sodium Potassium Chloride Carbon Dioxide Anion Gap BUN Creatinine GFR Calculation BUN/Creatinine Ratio Glucose POC Glucose Calculated Osmolality Calcium Phosphorus Iron TIBC % Saturation Ferritin Total Bilirubin AST ALT Alkaline Phosphatase Lactate Dehydrogenase 381 H Total Protein Albumin Globulin Albumin/Globulin Ratio Vitamin B12 Folate Urine Color Urine Appearance Urine pH Ur Specific [place] Urine Protein Urine Glucose (UA) Urine Ketones Urine Blood Urine Nitrate Urine Bilirubin Urine Urobilinogen Urine Leukocytes Urine RBC Urine WBC Ur Squamous Epith Cells Hyaline Casts Urine Mucus Ur Culture Indicated? Ur Random Creatinine Ur Random Sodium Hep Bs Antigen Negative Hep Bs Antibody Negative Hep B Core Total Ab Negative Hep B Core IgM Ab Negative Hepatitis C Antibody Negative Blood Type Antibody Screen ARIEL (IgG-AHG) ARIEL, Polyspecific Crossmatch Blood Bank Comment 10/13/16 10/13/16 10/13/16 04:23 06:34 07:26 WBC RBC Hgb Hct MCV MCH MCHC RDW Plt Count MPV Neut % (Auto) Lymph % (Auto) [place] % (Auto) Eos % (Auto) Baso % (Auto) Neut # (Auto) Lymph # (Auto) [place] # (Auto) Eos # (Auto) Baso # (Auto) Immature Gran % Nucleated RBC % Immature Gran # Nucleated RBCs # Platelet Estimate Poikilocytosis Tear Drop Cells Ovalocytes Stomatocytes Jeremy Cells ESR [place] Absolute Retic Percent Retic Retic Hgb Equivalent Haptoglobin Fibrinogen Sodium Potassium Chloride Carbon Dioxide Anion Gap BUN Creatinine GFR Calculation BUN/Creatinine Ratio Glucose POC Glucose 174 H Calculated Osmolality Calcium Phosphorus Iron TIBC % Saturation Ferritin Total Bilirubin AST ALT Alkaline Phosphatase Lactate Dehydrogenase Total Protein Albumin Globulin Albumin/Globulin Ratio Vitamin B12 Folate Urine Color Urine Appearance Urine pH Ur Specific [place] Urine Protein Urine Glucose (UA) Urine Ketones Urine Blood Urine Nitrate Urine Bilirubin Urine Urobilinogen Urine Leukocytes Urine RBC Urine WBC Ur Squamous Epith Cells Hyaline Casts Urine Mucus Ur Culture Indicated? Ur Random Creatinine Ur Random Sodium Hep Bs Antigen Hep Bs Antibody Hep B Core Total Ab Hep B Core IgM Ab Hepatitis C Antibody Blood Type Cancelled Antibody Screen Cancelled ARIEL (IgG-AHG) Negative ARIEL, Polyspecific Negative Crossmatch See Detail Blood Bank Comment Cancelled 10/13/16 10/13/16 10/13/16 08:46 10:00 12:14 WBC RBC Hgb 9.9 L D Hct 30.9 L MCV MCH MCHC RDW Plt Count MPV Neut % (Auto) Lymph % (Auto) [place] % (Auto) Eos % (Auto) Baso % (Auto) Neut # (Auto) Lymph # (Auto) [place] # (Auto) Eos # (Auto) Baso # (Auto) Immature Gran % Nucleated RBC % Immature Gran # Nucleated RBCs # Platelet Estimate Poikilocytosis Tear Drop Cells Ovalocytes Stomatocytes Jeremy Cells ESR [place] Absolute Retic Percent Retic Retic Hgb Equivalent Haptoglobin Fibrinogen Sodium Potassium Chloride Carbon Dioxide Anion Gap BUN Creatinine GFR Calculation BUN/Creatinine Ratio Glucose POC Glucose Calculated Osmolality Calcium Phosphorus Iron TIBC % Saturation Ferritin Total Bilirubin AST ALT Alkaline Phosphatase Lactate Dehydrogenase Total Protein Albumin Globulin Albumin/Globulin Ratio Vitamin B12 Folate Urine Color [place] Urine Appearance Cloudy Urine pH 5.0 Ur Specific [place] 1.015 Urine Protein 30 Urine Glucose (UA) Negative Urine Ketones Negative Urine Blood Large Urine Nitrate Negative Urine Bilirubin Negative Urine Urobilinogen < 2.0 H Urine Leukocytes Negative Urine RBC 84 Urine WBC 2 Ur Squamous Epith Cells Occasional Hyaline Casts 16 Urine Mucus Occasional Ur Culture Indicated? Ordered separately Ur Random Creatinine Ur Random Sodium Hep Bs Antigen Hep Bs Antibody Hep B Core Total Ab Hep B Core IgM Ab Hepatitis C Antibody Blood Type Cancelled Antibody Screen Cancelled ARIEL (IgG-AHG) ARIEL, Polyspecific Crossmatch See Detail Blood Bank Comment Cancelled 10/13/16 10/13/16 10/13/16 12:14 12:14 12:23 WBC RBC Hgb Hct MCV MCH MCHC RDW Plt Count MPV Neut % (Auto) Lymph % (Auto) [place] % (Auto) Eos % (Auto) Baso % (Auto) Neut # (Auto) Lymph # (Auto) [place] # (Auto) Eos # (Auto) Baso # (Auto) Immature Gran % Nucleated RBC % Immature Gran # Nucleated RBCs # Platelet Estimate Poikilocytosis Tear Drop Cells Ovalocytes Stomatocytes Jeremy Cells ESR [place] Absolute Retic Percent Retic Retic Hgb Equivalent Haptoglobin Fibrinogen Sodium Potassium Chloride Carbon Dioxide Anion Gap BUN Creatinine GFR Calculation BUN/Creatinine Ratio Glucose POC Glucose Calculated Osmolality Calcium Phosphorus Iron 40 L TIBC 276 % Saturation 14.5 L Ferritin 644.9 H Total Bilirubin AST ALT Alkaline Phosphatase Lactate Dehydrogenase 409 H Total Protein Albumin Globulin Albumin/Globulin Ratio Vitamin B12 1569 H Folate 11.1 Urine Color Urine Appearance Urine pH Ur Specific [place] Urine Protein Urine Glucose (UA) Urine Ketones Urine Blood Urine Nitrate Urine Bilirubin Urine Urobilinogen Urine Leukocytes Urine RBC Urine WBC Ur Squamous Epith Cells Hyaline Casts Urine Mucus Ur Culture Indicated? Ur Random Creatinine Ur Random Sodium Hep Bs Antigen Hep Bs Antibody Hep B Core Total Ab Hep B Core IgM Ab Hepatitis C Antibody Blood Type Antibody Screen ARIEL (IgG-AHG) ARIEL, Polyspecific Crossmatch Blood Bank Comment 10/13/16 10/13/16 10/13/16 12:49 13:25 13:25 WBC 7.3 RBC 3.31 L D Hgb 9.9 L Hct 31.5 L MCV 95.2 MCH 30 MCHC 31.4 L RDW 15.2 Plt Count 122 L MPV 11.9 Neut % (Auto) 67.4 Lymph % (Auto) 16.9 L Daw[place] % (Auto) 13.5 H Eos % (Auto) 1.0 Baso % (Auto) 0.1 Neut # (Auto) 5.0 Lymph # (Auto) 1.2 L [place] # (Auto) 1.0 H Eos # (Auto) 0.1 Baso # (Auto) 0.0 Immature Gran % 1.1 Nucleated RBC % 0.7 Immature Gran # 0.08 Nucleated RBCs # 0.05 Platelet Estimate Decreased Poikilocytosis 1+ Tear Drop Cells Few Ovalocytes Few Stomatocytes Few [place] Cells Few ESR [place] Absolute Retic Percent Retic Retic Hgb Equivalent Haptoglobin Fibrinogen 374 Sodium Potassium Chloride Carbon Dioxide Anion Gap BUN Creatinine GFR Calculation BUN/Creatinine Ratio Glucose POC Glucose 150 H Calculated Osmolality Calcium Phosphorus Iron TIBC % Saturation Ferritin Total Bilirubin AST ALT Alkaline Phosphatase Lactate Dehydrogenase Total Protein Albumin Globulin Albumin/Globulin Ratio Vitamin B12 Folate Urine Color Urine Appearance Urine pH Ur Specific [place] Urine Protein Urine Glucose (UA) Urine Ketones Urine Blood Urine Nitrate Urine Bilirubin Urine Urobilinogen Urine Leukocytes Urine RBC Urine WBC Ur Squamous Epith Cells Hyaline Casts Urine Mucus Ur Culture Indicated? Ur Random Creatinine Ur Random Sodium Hep Bs Antigen Hep Bs Antibody Hep B Core Total Ab Hep B Core IgM Ab Hepatitis C Antibody Blood Type Antibody Screen ARIEL (IgG-AHG) ARIEL, Polyspecific Crossmatch Blood Bank Comment 10/13/16 10/13/16 10/13/16 13:27 15:46 19:45 WBC RBC Hgb Hct MCV MCH MCHC RDW Plt Count MPV Neut % (Auto) Lymph % (Auto) [place] % (Auto) Eos % (Auto) Baso % (Auto) Neut # (Auto) Lymph # (Auto) [place] # (Auto) Eos # (Auto) Baso # (Auto) Immature Gran % Nucleated RBC % Immature Gran # Nucleated RBCs # Platelet Estimate Poikilocytosis Tear Drop Cells Ovalocytes Stomatocytes [place] Cells ESR [place] Absolute Retic 0.1 Percent Retic 4.5 H Retic Hgb Equivalent 23.1 L Haptoglobin Fibrinogen Sodium Potassium Chloride Carbon Dioxide Anion Gap BUN Creatinine GFR Calculation BUN/Creatinine Ratio Glucose POC Glucose 190 H 223 H Calculated Osmolality Calcium Phosphorus Iron TIBC % Saturation Ferritin Total Bilirubin AST ALT Alkaline Phosphatase Lactate Dehydrogenase Total Protein Albumin Globulin Albumin/Globulin Ratio Vitamin B12 Folate Urine Color Urine Appearance Urine pH Ur Specific [place] Urine Protein Urine Glucose (UA) Urine Ketones Urine Blood Urine Nitrate Urine Bilirubin Urine Urobilinogen Urine Leukocytes Urine RBC Urine WBC Ur Squamous Epith Cells Hyaline Casts Urine Mucus Ur Culture Indicated? Ur Random Creatinine Ur Random Sodium Hep Bs Antigen Hep Bs Antibody Hep B Core Total Ab Hep B Core IgM Ab Hepatitis C Antibody Blood Type Antibody Screen ARIEL (IgG-AHG) ARIEL, Polyspecific Crossmatch Blood Bank Comment 10/13/16 10/13/16 10/14/16 Unknown Unknown 04:57 WBC RBC Hgb Hct MCV MCH MCHC RDW Plt Count MPV Neut % (Auto) Lymph % (Auto) [place] % (Auto) Eos % (Auto) Baso % (Auto) Neut # (Auto) Lymph # (Auto) [place] # (Auto) Eos # (Auto) Baso # (Auto) Immature Gran % Nucleated RBC % Immature Gran # Nucleated RBCs # Platelet Estimate Poikilocytosis Tear Drop Cells Ovalocytes Stomatocytes [place] Cells ESR [place] Absolute Retic Percent Retic Retic Hgb Equivalent Haptoglobin Fibrinogen Sodium 141 Potassium 3.9 Chloride 99 Carbon Dioxide 28 Anion Gap 17.9 H BUN 51 H Creatinine 2.10 H GFR Calculation 40 BUN/Creatinine Ratio 24.00 H Glucose 91 POC Glucose Calculated Osmolality 294.3 Calcium 8.2 L Phosphorus 4.3 Iron TIBC % Saturation Ferritin Total Bilirubin AST ALT Alkaline Phosphatase Lactate Dehydrogenase Total Protein Albumin 2.9 L Globulin Albumin/Globulin Ratio Vitamin B12 Folate Urine Color Urine Appearance Urine pH Ur Specific [place] Urine Protein Urine Glucose (UA) Urine Ketones Urine Blood Urine Nitrate Urine Bilirubin Urine Urobilinogen Urine Leukocytes Urine RBC Urine WBC Ur Squamous Epith Cells Hyaline Casts Urine Mucus Ur Culture Indicated? Ur Random Creatinine 224 Ur Random Sodium 14.0 Hep Bs Antigen Hep Bs Antibody Hep B Core Total Ab Hep B Core IgM Ab Hepatitis C Antibody Blood Type Antibody Screen AREIL (IgG-AHG) ARIEL, Polyspecific Crossmatch Blood Bank Comment 10/14/16 10/14/16 04:57 04:57 WBC 8.9 RBC 3.47 L Hgb 10.4 L Hct 31.9 L MCV 91.9 MCH 30 MCHC 32.6 RDW 15.4 Plt Count 133 MPV 12.5 H Neut % (Auto) 72.4 Lymph % (Auto) 13.9 L [place] % (Auto) 11.3 Eos % (Auto) 1.6 Baso % (Auto) 0.1 Neut # (Auto) 6.4 Lymph # (Auto) 1.2 L [place] # (Auto) 1.0 H Eos # (Auto) 0.1 Baso # (Auto) 0.0 Immature Gran % 0.7 Nucleated RBC % 0.0 Immature Gran # 0.06 Nucleated RBCs # 0.00 Platelet Estimate Poikilocytosis Tear Drop Cells Ovalocytes Stomatocytes [place] Cells ESR [place] Absolute Retic Percent Retic Retic Hgb Equivalent Haptoglobin Fibrinogen Sodium 140 Potassium 3.9 Chloride 99 Carbon Dioxide 29 Anion Gap 15.9 H BUN 51 H Creatinine 2.10 H GFR Calculation 40 BUN/Creatinine Ratio 24.00 H Glucose 92 POC Glucose Calculated Osmolality 292.4 Calcium 8.3 L Phosphorus Iron TIBC % Saturation Ferritin Total Bilirubin 1.20 H AST 53 H ALT 509 H Alkaline Phosphatase 55 Lactate Dehydrogenase Total Protein 5.7 L Albumin 2.9 L Globulin 2.8 Albumin/Globulin Ratio 1.0 L Vitamin B12 Folate Urine Color Urine Appearance Urine pH Ur Specific [place] Urine Protein Urine Glucose (UA) Urine Ketones Urine Blood Urine Nitrate Urine Bilirubin Urine Urobilinogen Urine Leukocytes Urine RBC Urine WBC Ur Squamous Epith Cells Hyaline Casts Urine Mucus Ur Culture Indicated? Ur Random Creatinine Ur Random Sodium Hep Bs Antigen Hep Bs Antibody Hep B Core Total Ab Hep B Core IgM Ab Hepatitis C Antibody Blood Type Antibody Screen ARIEL (IgG-AHG) ARIEL, Polyspecific Crossmatch Blood Bank Comment - EKG EKG results: interpreted by me EKG shows: atrial fibrillation
--- NOTE | 2016-10-14 08:00 | Oncology Progress Note ---
Oncology Subjective PN Interval history: My ability to document on this patient's case is being disrupted. Each time I bring up this case it indicates that there is additional documentation that has not been done yet. I certainly wish that this problem were taken care of so that I do not have to go through additional steps to review lab work and document progress notes. Additional laboratory work done yesterday on this patient included a low serum iron of 40 with a total iron binding capacity of 276 and an iron saturation of 14.5. The folic acid level was 11.1 with a B12 level of 1569. Once again, this suggests iron deficiency anemia as a cause of this patient's anemia. I do not see anything to suggest hemolytic anemia and therefore I will sign off. Thank you. Exam - Constitutional Vitals: Period Temp Pulse Resp BP Sys/Mehta Pulse Ox Last 24 Hr 97.4 F-98.4 F 57-123 10-58 90-126/54-96 93-100 Results - Labs CBC & BMP: 10/14/16 04:57 10/14/16 04:57
[2016-10-14] MEDS: INSULIN LISPRO 100 UNIT/ML SUBCUT SCH ×4 (08:11→22:23)
[2016-10-14] MEDS: FUROSEMIDE 40 MG/4 ML VIAL IV SCH ×2 (08:11→16:16)
[2016-10-14] MEDS: ASPIRIN EC 325 MG TABLET PO SCH (08:12)
[2016-10-14] MEDS: PANTOPRAZOLE 40 MG VIAL IV SCH ×2 (08:13→22:15)
[2016-10-14] MEDS: GABAPENTIN 100 MG CAPSULE PO SCH ×2 (08:13→22:13)
[2016-10-14] MEDS: FERROUS SULFATE 325 MG TABLET PO SCH (08:13)
[2016-10-14] MEDS ORDERED: METOPROLOL TARTRATE 5 MG/5 ML VIAL IV ONE ×5 (08:23→15:02)
[2016-10-14] MEDS ORDERED: AMIODARONE 200 MG TABLET PO SCH (09:00)
--- NOTE | 2016-10-14 10:30 | Hospitalist Progress Note ---
Assessment and Plan (1) Anemia Problem details: Hemoglobin has trended down from 12 before his surgery 10 9 prior to discharge to 8 tonight. No obvious source of bleeding per the patient Fecal occult blood test was negative CT of abdomen given his history of a AAA and back pain, distended abdomen Type and screened, trend blood counts Status: Acute Assessment and plan: 1)anemia- H&H looks good after transfusion. It appears to be due to iron deficiency. Back on aspirin, still holding eliquis, but can probably start soon. 2)DM- accuchecks look ok, SSI 3)post op afib- on amio, rate up to 120- monitor. Dr Post to see. 4)hypotension- resolved 5)LAURA- creatinine 2.1- recent baseline closer to 1. 6)acute systolic CHF- on IV lasix. 7)recent CABG. Current Visit: Yes (2) Status post aorto-coronary artery bypass graft Status: Chronic Current Visit: No (3) Postoperative atrial fibrillation Status: Acute Current Visit: No (4) Hypotension Problem details: Extremities seem warm, does not seem consistent with cardiogenic shock. Troponin is elevated, but significantly decreased from last admission. Check EKG, transthoracic echocardiogram. Also noted markedly elevated BNP from previous, signs of pulmonary edema on the chest x-ray despite seeming overall volume down. No obvious source of infection, check blood cultures and urinalysis, hold empiric antibiotics at this time unless fever Most likely hypovolemic shock from profuse diarrhea, FOBT was negative. Check C. difficile Given a history of a triple a, and current distended abdomen with dropping hemoglobin and no other source, worried about possible rupture. Patient has been complaining of back pain since his surgery, although some of this is expected. CT abdomen and pelvis without contrast ordered due to LAURA. Medications likely large contributor, hold beta blockers due to bradycardia, hold lisinopril Monitor on telemetry, encourage patient to lie flat and call for help if needed Status: Resolved Current Visit: Yes (5) Uncontrolled type 2 diabetes mellitus with hyperglycemia Problem details: Hold metformin, Actos, glimepiride Low-dose sliding scale insulin, will change to basal bolus as needed Status: Acute Current Visit: Yes (6) Elevated liver enzymes Problem details: Favor secondary to congestion, heart disease Check acute hepatitis panel May need right upper quadrant ultrasound as well Status: Acute Current Visit: Yes (7) Acute kidney injury Problem details: During the week of his surgery his creatinine ranged from 1-2.4 , currently creatinine is 1.8 which is increased from the previous Favor secondary to dehydration, hypotension Check urinalysis, urine sodium and creatinine Status post a small fluid bolus in the emergency department, will monitor and encourage p.o. intake off of antihypertensives Status: Acute Current Visit: Yes (8) Acute systolic (congestive) heart failure Status: Acute Current Visit: Yes Hospitalist: Subjective Interval history: Mr Bird feels good this morning. His CABG was about 10 days ago. There is no sign of bleeding and his H&H has been stable after transfusion. Off pressors for a day. Discussed with Dr Celestino Cole - will transfer to floor and anticipate discharge tomorrow with follow up with Dr Logan. Exam - Constitutional Vitals: Period Temp Pulse Resp BP Sys/Mehta Pulse Ox Last 24 Hr 96.6 F-98 F 58-123 10-58 90-126/57-96 93-100 General appearance: normal weight, no acute distress - Head Head exam: Present: normocephalic, atraumatic - Eye Eye exam: Present: EOMI. Absent: scleral icterus - Respiratory Respiratory exam: Present: clear to auscultation bilaterally - Cardiovascular Cardiovascular exam: Present: regular rate and rhythm - GI/Abdominal GI/Abdominal exam: Present: normal bowel sounds, soft. Absent: tenderness - Extremities Exam Extremities exam: Absent: edema - Neurological Exam Neurological exam: Present: alert, oriented X3 Results - Labs CBC & BMP: 10/14/16 04:57 10/14/16 04:57
--- NOTE | 2016-10-14 12:40 | Gastrointestinal Progress Note ---
Assessment and Plan (1) Anemia Status: Acute Assessment and plan: 10/14-hemoglobin improved to 10.4 following 2 units of blood on yesterday. EGD findings noted. Recent colonoscopy noted. For transfer to floor today. Plan and addendum to follow by Dr. York. Current Visit: No Gastroenterology - PN: Subj Interval history: CC: Anemia Patient is seen awake and alert with at bedside. Pending transfer to floor later today. Patient underwent EGD on yesterday with only findings of duodenal inflammation and no acute bleeding. His Eliquis continues to be held at present time. He has received a total of 2 units of blood and hemoglobin remained stable at 10.4. Patient states he has had a colonoscopy in the past year done in [place] through the [place]. Only findings at that time were a couple of polyps and was told to return in 5 years. Abdomen is soft, nontender. He does state that the [place] is to obtain him an appointment with Dr. 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 Review of systems: Denies shortness of breath or chest pain Exam (Progress Note) - Constitutional Vitals: Period Temp Pulse Resp BP Sys/Mehta Pulse Ox Last 24 Hr 96.6 F-97.8 F 60-123 10-28 90-126/57-96 93-100 General appearance: normal weight, no acute distress - Head Head exam: Present: normal inspection, normocephalic - Eye Eye exam: Present: other (Lids and conjunctivae are unremarkable). Absent: scleral icterus - ENT ENT exam: Present: normal exam, normal oropharynx - Neck Neck exam: Present: normal inspection - Respiratory Respiratory exam: Present: clear to auscultation bilaterally. Absent: wheezes - Cardiovascular Cardiovascular exam: Present: regular rate and rhythm. Absent: diastolic murmur , JVD, systolic murmur - GI/Abdominal GI/Abdominal exam: Present: normal bowel sounds, soft. Absent: ascites, distended, mass, organomegaly, tenderness - Extremities Exam Extremities exam: Present: normal inspection, full ROM - Back Exam Back exam: Present: normal inspection - Neurological Exam Neurological exam: Present: alert, oriented X3 - Psychiatric Psychiatric exam: Present: normal affect, normal mood - Skin Skin exam: Present: normal color, warm, dry Results - Labs CBC & BMP: 10/14/16 04:57 10/14/16 04:57 Lab Results: I have reviewed the past 24 hour labs
[2016-10-14] MEDS: AMIODARONE 200 MG TABLET PO SCH ×2 (14:17→22:14)
[2016-10-14] MEDS ORDERED: METOPROLOL TARTRATE 25 MG TABLET PO SCH ×3 (15:03→21:00)
[2016-10-14] MEDS: METOPROLOL TARTRATE 25 MG TABLET PO SCH ×2 (15:12→22:24)
[2016-10-14] MEDS: APIXABAN 5 MG TABLET PO SCH ×2 (15:12→22:14)
[2016-10-14] MEDS: TAMSULOSIN 0.4 MG CAPSULE PO SCH (22:13)
[2016-10-15 04:58] LABS: Basophils % 0.1 % (0.0-0.8); Eosinophils # 0.1 10*3/uL (0.0-0.87); Eosinophils % 1.2 % (0.00-10.9); Hemoglobin 10.7 GM/DL (14.0-18.0); Immature Granulocytes % 0.5 %; Immature Granulocytes Absolute 0.05 #; Lymphocytes # 1.4 10*3/uL (1.4-4.0); Mean Corpuscular HGB Conc 32.4 GM/DL (32-36); Mean Corpuscular Hemoglobin 30 PG (27-34); Mean Corpuscular Volume 92.2 FL (87-102); Monocytes # 1.1 10*3/uL (0.11-0.8); Monocytes % 10.9 % (1.7-12.7); Neutrophils # 7.3 10*3/uL (1.4-7.4); Neutrophils % 73.3 % (38.7-73.9); Platelet Count 158 T/CUMM (130-400); Red Blood Count 3.58 MC/CUMM (3.8-5.5); Red Cell Distribution Width 14.7 % (9.3-17.3); White Blood Count 9.9 T/CUMM (4-12)
[2016-10-15 05:29] LABS: Albumin 2.8 G/DL (3.4-5.0); Calcium 8.1 MG/DL (8.5-10.1); Osmolality,Calculated 294.3 MOS/KG (273-304); Phosphorous 3.2 MG/DL (2.5-4.9); Potassium 3.3 MMOL/L (3.5-5.1)
[2016-10-15 05:31] LABS: Albumin 2.8 G/DL (3.4-5.0); Bilirubin,Total 1.2 MG/DL (0.2-1.0); Osmolality,Calculated 294.3 MOS/KG (273-304); Potassium 3.3 MMOL/L (3.5-5.1); Total Protein 5.9 G/DL (6.4-8.3)
[2016-10-15] MEDS ORDERED: POTASSIUM CHLORIDE 20 MEQ TABLET PO ONE (07:35)
--- NOTE | 2016-10-15 09:36 | Gastrointestinal Progress Note ---
Assessment and Plan (1) Anemia Status: Acute Assessment and plan: 10/15-Hgb 10.7, no bleeding reported. Tolerating diet. Stool for occult blood pending at present time. Plan and addendum to follow by Dr York. 10/14-hemoglobin improved to 10.4 following 2 units of blood on yesterday. EGD findings noted. Recent colonoscopy noted. For transfer to floor today. Plan and addendum to follow by Dr. York. Current Visit: No Gastroenterology - PN: Subj Interval history: CC: Anemia Pt is seen, awake and alert, at side. States he is feeling better today. He has had no overt bleeding. Denies any abdominal pain, nausea, vomiting. Tolerating his diet. Hemoglobin is at 10.7 today. His LFTS are trending down at present time as well. Abdomen is soft, nontender. He states he is for possible discharge home today. Stool for occult blood has been ordered at this time. Pt is also to locate records from last endoscopy in [place] and bring back or bring with them to followup appts. ROS: Denies SOB or chest pain Exam (Progress Note) - Constitutional Vitals: Period Temp Pulse Resp BP Sys/Mehta Pulse Ox Last 24 Hr 97.1 F-97.9 F 74-126 18-20 109-147/64-85 91-95 General appearance: normal weight, no acute distress - Head Head exam: Present: normal inspection, normocephalic - Eye Eye exam: Present: other (lids and conjunctiva unremarkable). Absent: scleral icterus - ENT ENT exam: Present: normal exam, normal oropharynx - Neck Neck exam: Present: normal inspection - Respiratory Respiratory exam: Present: clear to auscultation bilaterally. Absent: rales, rhonchi, wheezes - Cardiovascular Cardiovascular exam: Present: regular rate and rhythm. Absent: diastolic murmur , JVD, systolic murmur - GI/Abdominal GI/Abdominal exam: Present: normal bowel sounds, soft. Absent: ascites, distended, mass, organomegaly, tenderness - Extremities Exam Extremities exam: Present: normal inspection, full ROM - Back Exam Back exam: Present: normal inspection - Neurological Exam Neurological exam: Present: alert, oriented X3 - Psychiatric Psychiatric exam: Present: normal affect, normal mood - Skin Skin exam: Present: normal color, warm, dry Results - Labs CBC & BMP: 10/15/16 04:02 10/15/16 04:02 Lab Results: I have reviewed the past 24 hour labs
[2016-10-15] MEDS: INSULIN LISPRO 100 UNIT/ML SUBCUT SCH ×4 (10:01→22:58)
[2016-10-15] MEDS: GABAPENTIN 100 MG CAPSULE PO SCH ×2 (10:17→22:18)
[2016-10-15] MEDS: METOPROLOL TARTRATE 25 MG TABLET PO SCH (10:18)
[2016-10-15] MEDS: APIXABAN 5 MG TABLET PO SCH ×2 (10:18→22:16)
[2016-10-15] MEDS: ASPIRIN EC 325 MG TABLET PO SCH (10:18)
[2016-10-15] MEDS: FERROUS SULFATE 325 MG TABLET PO SCH (10:25)
[2016-10-15] MEDS: AMIODARONE 200 MG TABLET PO SCH ×2 (10:26→22:19)
[2016-10-15] MEDS: FUROSEMIDE 40 MG/4 ML VIAL IV SCH (10:29)
[2016-10-15] MEDS: PANTOPRAZOLE 40 MG VIAL IV SCH ×2 (10:31→22:20)
[2016-10-15] MEDS ORDERED: POTASSIUM CHLORIDE 20 MEQ PACK PO ONE (13:31)
--- NOTE | 2016-10-15 14:28 | Cardiology Progress Note ---
Assessment and Plan (1) Postoperative atrial fibrillation Status: Acute Assessment and plan: Patient is currently in sinus rhythm with heart rates in the 80's. Eliquis was restarted yesterday. Tolerating well. H and H today is stable at 33 and 10.7. Will continue to monitor CBC. I will change his beta man to coreg 25 BID at this time. Continue amiodarone 200 mg PO BID. Current Visit: No (2) Elevated liver enzymes Status: Acute Assessment and plan: GI is following. Current Visit: Yes (3) Acute renal failure Status: Acute Assessment and plan: Creatinine has dramatically improved. It is down to 1.4 today from 2.1 yesterday. Will continue daily BMP's Current Visit: Yes (4) Anemia Problem details: Hemoglobin has trended down from 12 before his surgery 10 9 prior to discharge to 8 tonight. No obvious source of bleeding per the patient Fecal occult blood test was negative CT of abdomen given his history of a AAA and back pain, distended abdomen Type and screened, trend blood counts Status: Acute Assessment and plan: This is clinically stable today. EGD did not reveal any evidence of active bleeding. GI and oncology are following. Current Visit: Yes (5) Hypotension Status: Resolved Assessment and plan: This has resolved. Current Visit: Yes (6) Status post aorto-coronary artery bypass graft Status: Chronic Assessment and plan: Patient is status post CABG October 04, 2016 with RICHARDSON to LAD and SVG to PDA and OM. Current Visit: No (7) Type 2 diabetes mellitus Status: Chronic Current Visit: No Qualifiers: Diabetes mellitus complication status: without complication Diabetes mellitus prison insulin use: without prison use Qualified Code(s): E11.9 - Type 2 diabetes mellitus without complications (8) Hypokalemia Status: Acute Assessment and plan: Will replace with 40 meq of potassium po. Current Visit: Yes Cardiology - PN: Subj Interval history: Patient was seen on telemetry. He did well overnight and is without complaints this afternoon. He denies chest pain, heaviness and tightness. He is currently in sinus rhythm with heart rate in the 80's. He is being anticoagulated with Eliquis and tolerating well. H and H is stable today. Patient is without overt bleeding. Telemetry has been reviewed. Patient was noted to be in atrial fibrillation earlier today. Will continue to monitor patient on telemetry. Will adjust medications as needed. Vital signs stable. Potassium is noted to be 3.3, will replace with PO potassium. Magnesium is stable at 1.9. Will recheck CBC and BMP tomorrow. Exam (Progress Note) - Constitutional Vitals: Period Temp Pulse Resp BP Sys/Mehta Pulse Ox Last 24 Hr 97.1 F-97.9 F 74-111 18-20 109-147/64-79 91-95 Exam: General: Present: Appears Well, No Apparent Distress Neck: Present: Supple Neck, Midline Trachea, No JVD/HJR, No Masses, No Bruit, No Lymphadenopathy, No Thyromegaly Cardiac: Present: regular rate and rhythm, S1/S2 Lungs: Present: Decreased Breath Sounds, Bibasilar Rales. Absent: Oxygen Abdomen: Present: Soft, Active Bowel Sounds, Distended, Non-Tender Skin: Present: Clear, Other (Surgical incisions healing well without signs of infection.). Absent: Rash, Suspicious Lesions, Ulceration Extremities: Present: Normal Gait, No Clubbing, No Cyanosis, No Edema, Normal Upper Extr. Pulses, Normal Lower Extr. Pulses Result/EKG - Labs CBC & BMP: 10/15/16 04:02 10/15/16 04:02 Lab Results: I have reviewed the past 24 hour labs Labs: Laboratory Results - last 24 hr 10/13/16 10/14/16 10/14/16 08:46 16:12 22:13 WBC RBC Hgb Hct MCV MCH MCHC RDW Plt Count MPV Neut % (Auto) Lymph % (Auto) Dane % (Auto) Eos % (Auto) Baso % (Auto) Neut # (Auto) Lymph # (Auto) Dane # (Auto) Eos # (Auto) Baso # (Auto) Immature Gran % Nucleated RBC % Immature Gran # Nucleated RBCs # Sodium Potassium Chloride Carbon Dioxide Anion Gap BUN Creatinine GFR Calculation BUN/Creatinine Ratio Glucose POC Glucose 140 H 241 H Calculated Osmolality Calcium Phosphorus Total Bilirubin AST ALT Alkaline Phosphatase Total Protein Albumin Globulin Albumin/Globulin Ratio Blood Type Cancelled Antibody Screen Cancelled Crossmatch See Detail Blood Bank Comment Cancelled 10/15/16 10/15/16 10/15/16 04:02 04:02 04:02 WBC 9.9 RBC 3.58 L Hgb 10.7 L Hct 33.0 L MCV 92.2 MCH 30 MCHC 32.4 RDW 14.7 Plt Count 158 MPV 12.0 Neut % (Auto) 73.3 Lymph % (Auto) 14.0 L Dane % (Auto) 10.9 Eos % (Auto) 1.2 Baso % (Auto) 0.1 Neut # (Auto) 7.3 Lymph # (Auto) 1.4 Dane # (Auto) 1.1 H Eos # (Auto) 0.1 Baso # (Auto) 0.0 Immature Gran % 0.5 Nucleated RBC % 0.0 Immature Gran # 0.05 Nucleated RBCs # 0.00 Sodium 141 141 Potassium 3.3 L 3.3 L Chloride 95 L 96 L Carbon Dioxide 31 33 H Anion Gap 18.3 H 15.3 H BUN 38 H D 39 H Creatinine 1.40 H 1.40 H GFR Calculation 139 139 BUN/Creatinine Ratio 27.00 H 27.00 H Glucose 182 H 195 H POC Glucose Calculated Osmolality 294.3 294.3 Calcium 8.1 L 8.0 L Phosphorus 3.2 Total Bilirubin 1.20 H AST 40 H ALT 390 H Alkaline Phosphatase 59 Total Protein 5.9 L Albumin 2.8 L 2.8 L Globulin 3.1 Albumin/Globulin Ratio 0.9 L Blood Type Antibody Screen Crossmatch Blood Bank Comment 10/15/16 10/15/16 07:18 11:14 WBC RBC Hgb Hct MCV MCH MCHC RDW Plt Count MPV Neut % (Auto) Lymph % (Auto) Dane % (Auto) Eos % (Auto) Baso % (Auto) Neut # (Auto) Lymph # (Auto) Dane # (Auto) Eos # (Auto) Baso # (Auto) Immature Gran % Nucleated RBC % Immature Gran # Nucleated RBCs # Sodium Potassium Chloride Carbon Dioxide Anion Gap BUN Creatinine GFR Calculation BUN/Creatinine Ratio Glucose POC Glucose 167 H 287 H Calculated Osmolality Calcium Phosphorus Total Bilirubin AST ALT Alkaline Phosphatase Total Protein Albumin Globulin Albumin/Globulin Ratio Blood Type Antibody Screen Crossmatch Blood Bank Comment
--- NOTE | 2016-10-15 14:54 | Hospitalist Progress Note ---
Assessment and Plan (1) Anemia Problem details: Hemoglobin has trended down from 12 before his surgery 10 9 prior to discharge to 8 tonight. No obvious source of bleeding per the patient Fecal occult blood test was negative CT of abdomen given his history of a AAA and back pain, distended abdomen Type and screened, trend blood counts Status: Acute Assessment and plan: 1)anemia- H&H looks good after transfusion. It appears to be due to iron deficiency. Back on aspirin, Eliquis restarted by Cards after we talked yesterday. stool reported negative for blood. No sign of bleeding. 2)DM- accuchecks look ok, SSI 3)post op afib- on amio, rate up to 120- monitor. Dr Post managing 4)hypotension- resolved 5)LAURA- creatinine 2.1- recent baseline closer to 1. 6)acute systolic CHF- resolved- stop lasix 7)recent CABG. 8)hypokalemia- replaced today orally. when corrected should help with controlling afib. Current Visit: Yes (2) Status post aorto-coronary artery bypass graft Status: Chronic Current Visit: No (3) Postoperative atrial fibrillation Status: Acute Current Visit: No (4) Hypotension Problem details: Extremities seem warm, does not seem consistent with cardiogenic shock. Troponin is elevated, but significantly decreased from last admission. Check EKG, transthoracic echocardiogram. Also noted markedly elevated BNP from previous, signs of pulmonary edema on the chest x-ray despite seeming overall volume down. No obvious source of infection, check blood cultures and urinalysis, hold empiric antibiotics at this time unless fever Most likely hypovolemic shock from profuse diarrhea, FOBT was negative. Check C. difficile Given a history of a triple a, and current distended abdomen with dropping hemoglobin and no other source, worried about possible rupture. Patient has been complaining of back pain since his surgery, although some of this is expected. CT abdomen and pelvis without contrast ordered due to LAURA. Medications likely large contributor, hold beta blockers due to bradycardia, hold lisinopril Monitor on telemetry, encourage patient to lie flat and call for help if needed Status: Resolved Current Visit: Yes (5) Uncontrolled type 2 diabetes mellitus with hyperglycemia Problem details: Hold metformin, Actos, glimepiride Low-dose sliding scale insulin, will change to basal bolus as needed Status: Acute Current Visit: Yes (6) Elevated liver enzymes Problem details: Favor secondary to congestion, heart disease Check acute hepatitis panel May need right upper quadrant ultrasound as well Status: Acute Current Visit: Yes (7) Acute kidney injury Problem details: During the week of his surgery his creatinine ranged from 1-2.4 , currently creatinine is 1.8 which is increased from the previous Favor secondary to dehydration, hypotension Check urinalysis, urine sodium and creatinine Status post a small fluid bolus in the emergency department, will monitor and encourage p.o. intake off of antihypertensives Status: Acute Current Visit: Yes (8) Acute systolic (congestive) heart failure Status: Acute Current Visit: Yes Hospitalist: Subjective Interval history: Mr Bird was feeling good today but then got tired. He continues to have rapid afib. Dr Post is adjusting his meds. He is eating well, up to move around in the room. Exam - Constitutional Vitals: Period Temp Pulse Resp BP Sys/Mehta Pulse Ox Last 24 Hr 97.1 F-97.9 F 74-111 18-20 109-147/64-79 91-95 General appearance: normal weight, no acute distress - Eye Eye exam: Present: EOMI. Absent: scleral icterus - Respiratory Respiratory exam: Present: clear to auscultation bilaterally - Cardiovascular Cardiovascular exam: Present: irregular rhythm - GI/Abdominal GI/Abdominal exam: Present: normal bowel sounds, soft. Absent: tenderness - Extremities Exam Extremities exam: Absent: edema Results - Labs CBC & BMP: 10/15/16 04:02 10/15/16 04:02 Lab Results: I have reviewed the past 24 hour labs
[2016-10-15] MEDS: CARVEDILOL 25 MG TABLET PO SCH ×2 (16:25→22:18)
[2016-10-15] MEDS: TAMSULOSIN 0.4 MG CAPSULE PO SCH (22:18)
[2016-10-16 05:42] LABS: Basophils % 0.2 % (0.0-0.8); Eosinophils # 0.1 10*3/uL (0.0-0.87); Eosinophils % 0.4 % (0.00-10.9); Hematocrit 34.8 VOL% (42.0-52.0); Hemoglobin 10.9 GM/DL (14.0-18.0); Immature Granulocytes % 0.6 %; Immature Granulocytes Absolute 0.11 #; Lymphocytes # 1.3 10*3/uL (1.4-4.0); Lymphocytes % 7.2 % (21.2-54.2); Mean Corpuscular HGB Conc 31.3 GM/DL (32-36); Mean Corpuscular Hemoglobin 30 PG (27-34); Mean Corpuscular Volume 94.3 FL (87-102); Mean Platelet Volume 11.9 FL (9.6-12.0); Monocytes # 1.5 10*3/uL (0.11-0.8); Monocytes % 8.2 % (1.7-12.7); Neutrophils % 83.4 % (38.7-73.9); Platelet Count 174 T/CUMM (130-400); Red Blood Count 3.69 MC/CUMM (3.8-5.5); Red Cell Distribution Width 14.4 % (9.3-17.3)
[2016-10-16 06:12] LABS: Calcium 8.5 MG/DL (8.5-10.1); Osmolality,Calculated 287.3 MOS/KG (273-304); Potassium 4.1 MMOL/L (3.5-5.1)
[2016-10-16 06:15] LABS: Albumin 2.9 G/DL (3.4-5.0); Calcium 8.5 MG/DL (8.5-10.1); Osmolality,Calculated 286.3 MOS/KG (273-304); Phosphorous 2.5 MG/DL (2.5-4.9); Potassium 4.1 MMOL/L (3.5-5.1)
[2016-10-16 06:17] LABS: Albumin 2.9 G/DL (3.4-5.0); Bilirubin,Total 1.4 MG/DL (0.2-1.0); Calcium 8.4 MG/DL (8.5-10.1); Potassium 4.1 MMOL/L (3.5-5.1); Total Protein 6.3 G/DL (6.4-8.3)
--- NOTE | 2016-10-16 08:27 | XRay Report ---
Portable chest Date: 10/16/2016 Clinical history: Fever Comparison: 10/12/2016 Technique: Portable AP sitting chest Findings: The heart is smaller in size with prior median sternotomy. Diffuse parenchymal findings. Stable mediastinum with degenerative changes. Impression: Improved pulmonary edema with the heart smaller in size. Status post median sternotomy. PROCEDURE INTERPRETED AT [facility] DEPARTMENT OF RADIOLOGY Final Report Signed by: Dr. Kelley Peterson
[2016-10-16] MEDS: PANTOPRAZOLE 40 MG VIAL IV SCH ×2 (09:03→20:52)
[2016-10-16] MEDS: FERROUS SULFATE 325 MG TABLET PO SCH (09:05)
[2016-10-16] MEDS: ASPIRIN EC 325 MG TABLET PO SCH (09:05)
[2016-10-16] MEDS: APIXABAN 5 MG TABLET PO SCH ×2 (09:06→20:59)
[2016-10-16] MEDS: GABAPENTIN 100 MG CAPSULE PO SCH ×4 (09:07→22:49)
[2016-10-16] MEDS: INSULIN LISPRO 100 UNIT/ML SUBCUT SCH ×4 (09:08→22:40)
[2016-10-16] MEDS: AMIODARONE 200 MG TABLET PO SCH ×2 (09:08→21:00)
[2016-10-16] MEDS: CARVEDILOL 25 MG TABLET PO SCH ×2 (09:08→20:59)
--- NOTE | 2016-10-16 10:27 | Gastrointestinal Progress Note ---
Assessment and Plan (1) Anemia Status: Acute Assessment and plan: 10/16-Hgb 10.9. No overt bleeding. No stool for occult blood results noted. Negative C. diff stool noted. Plan and addendum to follow by Dr York. 10/15-Hgb 10.7, no bleeding reported. Tolerating diet. Stool for occult blood pending at present time. Plan and addendum to follow by Dr York. 10/14-hemoglobin improved to 10.4 following 2 units of blood on yesterday. EGD findings noted. Recent colonoscopy noted. For transfer to floor today. Plan and addendum to follow by Dr. York. Current Visit: No Gastroenterology - PN: Subj Interval history: CC: Anemia Pt is seen, up and ambulating around room. States he is feeling better today. His hemoglobin is stable at 10.9. Noted his WBC elevated at 18 today. His Eliquis has been restarted at this time. He denies any abdominal pain, nausea or vomiting. Abdomen is soft, nontender. He is noted to have continued episodes of atrial fibrillation. He denies any blood with bowel movements. Has a good appetite. States he feels ready to go home at this time. ROS: Denies SOB or chest pain Exam (Progress Note) - Constitutional Vitals: Period Temp Pulse Resp BP Sys/Mehta Pulse Ox Last 24 Hr 97.2 F-100 F 73-110 16-20 114-154/62-76 93-98 General appearance: normal weight, no acute distress - Head Head exam: Present: normal inspection, normocephalic - Eye Eye exam: Present: other (lids and conjunctiva unremarkable). Absent: scleral icterus - ENT ENT exam: Present: normal exam, normal oropharynx - Neck Neck exam: Present: normal inspection - Respiratory Respiratory exam: Present: clear to auscultation bilaterally. Absent: rales, rhonchi, wheezes - Cardiovascular Cardiovascular exam: Present: regular rate and rhythm. Absent: diastolic murmur , JVD, systolic murmur - GI/Abdominal GI/Abdominal exam: Present: normal bowel sounds, soft. Absent: ascites, distended, mass, organomegaly, tenderness - Extremities Exam Extremities exam: Present: normal inspection, full ROM - Back Exam Back exam: Present: normal inspection - Neurological Exam Neurological exam: Present: alert, oriented X3 - Psychiatric Psychiatric exam: Present: normal affect, normal mood - Skin Skin exam: Present: normal color, warm, dry Results - Labs CBC & BMP: 10/16/16 05:03 10/16/16 05:03 Lab Results: I have reviewed the past 24 hour labs
--- NOTE | 2016-10-16 11:03 | Cardiology Progress Note ---
Assessment and Plan (1) Postoperative atrial fibrillation Status: Acute Assessment and plan: Patient remains in atrial fibrillation with a controlled ventricular response. Eliquis was reinitiated for anticoagulation. Tolerating well. H&H remained stable today. Continue amiodarone and Coreg. Patient is stable for discharge per cardiology's standpoint. Recommend patient being discharged home with Eliquis 5 mg p.o. twice daily for anticoagulation and amiodarone and Coreg for rate control. Patient will follow up with Dr. Post October 24 at 1150 with EKG, CBC and CMP. Current Visit: No (2) Elevated liver enzymes Status: Acute Assessment and plan: GI is following. Current Visit: Yes (3) Acute renal failure Status: Resolved Assessment and plan: Creatinine has dramatically improved. Creatinine today is within normal limits at 1.2. Encouraged patient to avoid use of nonsteroidals at home. Patient verbalized understanding. Current Visit: Yes (4) Anemia Status: Resolved Assessment and plan: This has resolved. H&H is stable. Current Visit: Yes (5) Hypotension Status: Resolved Assessment and plan: This has resolved. Current Visit: Yes (6) Status post aorto-coronary artery bypass graft Status: Chronic Assessment and plan: Patient is status post CABG October 04, 2016 with RICHARDSON to LAD and SVG to PDA and OM. Current Visit: No (7) Type 2 diabetes mellitus Status: Chronic Current Visit: No Qualifiers: Diabetes mellitus complication status: without complication Diabetes mellitus parts counterman insulin use: without parts counterman use Qualified Code(s): E11.9 - Type 2 diabetes mellitus without complications (8) Hypokalemia Status: Acute Assessment and plan: Potassium is stable today after replacement yesterday. It is noted to be 4.1. Current Visit: Yes (9) Ischemic heart disease Status: Chronic Assessment and plan: Patient has been revascularized. He is status post CABG. Current Visit: Yes (10) Obstructive sleep apnea Status: Acute Assessment and plan: Patient apparently had a positive sleep study prior to being admitted at [facility]. Sleep lab has been consulted to assist patient with CPAP machine. Current Visit: Yes (11) Back pain Status: Acute Assessment and plan: Encourage patient to avoid nonsteroidals at home. Defer further management to hospitalist. Current Visit: Yes Cardiology - PN: Subj Interval history: Patient was seen on telemetry. He did well overnight and is without cardiac complaints this morning. He does however report mild back pain. Patient denies chest pain, heaviness and tightness. He also denies shortness of breath and heart palpitations/heart racing. He reports that he had a positive sleep study prior to being admitted at [facility]. However, he never received a CPAP machine. Sleep lab has been consulted to further assist patient with CPAP machine. Patient continues to be in atrial fibrillation with a controlled ventricular response. Current heart rate is noted to be 74. He is being anticoagulated with Eliquis. Rate controlled with Coreg and amiodarone. Patient is asymptomatic with atrial fibrillation. He reports that he cannot tell he is in an irregular rhythm. Patient is stable for discharge per cardiology's standpoint. Patient will need to be discharged home on Eliquis, amiodarone and Coreg. Patient will follow with Dr. Post on October 24 at 1150 with EKG, CBC and CMP. Exam (Progress Note) - Constitutional Vitals: Period Temp Pulse Resp BP Sys/Mehta Pulse Ox Last 24 Hr 97.2 F-100 F 73-110 16-20 114-154/62-76 93-98 Exam: General: Present: Appears Well, No Apparent Distress Neck: Present: Supple Neck, Midline Trachea, No JVD/HJR, No Masses, No Bruit, No Lymphadenopathy, No Thyromegaly Cardiac: Present: irregular rhythm, atrial fibrillation. Lungs: Present: Decreased Breath Sounds, Bibasilar Rales. Absent: Oxygen Abdomen: Present: Soft, Active Bowel Sounds, Distended, Non-Tender Skin: Present: Clear, Other (Surgical incisions healing well without signs of infection.). Absent: Rash, Suspicious Lesions, Ulceration Extremities: Present: Normal Gait, No Clubbing, No Cyanosis, No Edema, Normal Upper Extr. Pulses, Normal Lower Extr. Pulses Result/EKG - Labs CBC & BMP: 10/16/16 05:03 10/16/16 05:03 Lab Results: I have reviewed the past 24 hour labs Labs: Laboratory Results - last 24 hr 10/15/16 10/15/16 10/15/16 11:14 14:07 16:17 WBC RBC Hgb Hct MCV MCH MCHC RDW Plt Count MPV Neut % (Auto) Lymph % (Auto) [place] % (Auto) Eos % (Auto) Baso % (Auto) Neut # (Auto) Lymph # (Auto) [place] # (Auto) Eos # (Auto) Baso # (Auto) Immature Gran % Nucleated RBC % Immature Gran # Nucleated RBCs # Sodium Potassium Chloride Carbon Dioxide Anion Gap BUN Creatinine GFR Calculation BUN/Creatinine Ratio Glucose POC Glucose 287 H 188 H Calculated Osmolality Calcium Phosphorus Magnesium 1.9 Total Bilirubin AST ALT Alkaline Phosphatase Total Protein Albumin Globulin Albumin/Globulin Ratio 10/15/16 10/16/16 10/16/16 19:51 05:03 05:03 WBC 18.0 H D RBC 3.69 L Hgb 10.9 L Hct 34.8 L MCV 94.3 MCH 30 MCHC 31.3 L RDW 14.4 Plt Count 174 MPV 11.9 Neut % (Auto) 83.4 H Lymph % (Auto) 7.2 L [place] % (Auto) 8.2 Eos % (Auto) 0.4 Baso % (Auto) 0.2 Neut # (Auto) 15.0 H Lymph # (Auto) 1.3 L [place] # (Auto) 1.5 H Eos # (Auto) 0.1 Baso # (Auto) 0.0 Immature Gran % 0.6 Nucleated RBC % 0.0 Immature Gran # 0.11 Nucleated RBCs # 0.00 Sodium 141 Potassium 4.1 Chloride 97 L Carbon Dioxide 32 Anion Gap 16.1 H BUN 22 H Creatinine 1.20 GFR Calculation 76 BUN/Creatinine Ratio 18.00 Glucose 154 H POC Glucose 198 H Calculated Osmolality 286.3 Calcium 8.5 Phosphorus 2.5 Magnesium Total Bilirubin AST ALT Alkaline Phosphatase Total Protein Albumin 2.9 L Globulin Albumin/Globulin Ratio 10/16/16 10/16/16 10/16/16 05:03 05:03 08:00 WBC RBC Hgb Hct MCV MCH MCHC RDW Plt Count MPV Neut % (Auto) Lymph % (Auto) [place] % (Auto) Eos % (Auto) Baso % (Auto) Neut # (Auto) Lymph # (Auto) [place] # (Auto) Eos # (Auto) Baso # (Auto) Immature Gran % Nucleated RBC % Immature Gran # Nucleated RBCs # Sodium 143 141 Potassium 4.1 4.1 Chloride 97 L 97 L Carbon Dioxide 33 H 33 H Anion Gap 17.1 H 15.1 H BUN 23 H 23 H Creatinine 1.20 1.20 GFR Calculation 76 76 BUN/Creatinine Ratio 19.00 19.00 Glucose 146 H 148 H POC Glucose 192 H Calculated Osmolality 291.0 287.3 Calcium 8.4 L 8.5 Phosphorus Magnesium Total Bilirubin 1.40 H AST 38 H ALT 307 H Alkaline Phosphatase 59 Total Protein 6.3 L Albumin 2.9 L Globulin 3.4 Albumin/Globulin Ratio 0.8 L Specialty Discharge - Follow Up or Referrals Follow up with: Diomedes Post MD [Physician] - (Please schedule patient a follow-up appointment with Dr. Post October 24 at 1150. This was requested part Dr. Post.)
--- NOTE | 2016-10-16 12:45 | Hospitalist Progress Note ---
Assessment and Plan (1) Back pain Status: Acute Assessment and plan: Will review current medication regimen and adjust accordingly. Will consult PT for eval. Current Visit: Yes (2) Atrial fibrillation with rapid ventricular response Status: Acute Assessment and plan: Continue Amiodarone, Coreg, and Eliquis as previously ordered. Current Visit: No Hospitalist: Subjective Interval history: Patient seen and evaluated. Reports complaints of lower back pain on last night which caused him not to be able to sleep. Was seen by Cardiology and cleared to go home, but reports that his back pain is "too much" and that he lives "too far away". Exam - Constitutional Vitals: Period Temp Pulse Resp BP Sys/Mehta Pulse Ox Last 24 Hr 97.2 F-100 F 73-110 16-20 114-154/62-70 93-98 General appearance: normal weight, no acute distress - Head Head exam: Present: normal inspection, normocephalic, atraumatic - Eye Eye exam: Present: EOMI Pupils: Present: YENNY - ENT ENT exam: Present: normal exam - Neck Neck exam: Absent: lymphadenopathy, meningismus, tenderness, thyromegaly - Respiratory Respiratory exam: Present: clear to auscultation bilaterally. Absent: rales, rhonchi, stridor, wheezes - Cardiovascular Cardiovascular exam: Present: regular rate and rhythm. Absent: carotid bruit, diastolic murmur, gallop, irregular rhythm, rubs, systolic murmur - GI/Abdominal GI/Abdominal exam: Present: normal bowel sounds, soft - Extremities Exam Extremities exam: Present: normal inspection, full ROM - Back Exam Back exam: Present: normal inspection - Neurological Exam Neurological exam: Present: alert, oriented X3, CN II-XII intact - Psychiatric Psychiatric exam: Present: normal affect, normal mood - Skin Skin exam: Present: normal color. Absent: dry (Midsternal surgical inicision.) Results - Labs CBC & BMP: 10/16/16 05:03 10/16/16 05:03 Lab Results: I have reviewed the past 24 hour labs Specialty Discharge - Follow Up or Referrals Follow up with: Diomedes Post MD [Physician] - (Please schedule patient a follow-up appointment with Dr. Post October 24 at 1150. This was requested part Dr. Post.)
[2016-10-16 15:00] LABS: Apearance,Urine Slightly Hazy (Clear); Bacteria,Urine Many /HPF (Few); Bilirubin,Urine Negative (Negative); Blood, Urine Negative (Negative); Glucose,Urine (UA) 50 mg/dL (Negative); Ketones,Urine Negative (Negative); Mucus,Urine Occasional /LPF (Occasional); Nitrite,Urine Negative (Negative); Protein,Urine 30 MG/DL; RBC,Urine 5 /HPF (0-4); Squamous Epithelial Cell,Urine Occasional /HPF (0-10); Urine Color Yellow (Yellow); Urine Specific Gravity 1.016 (1.001-1.035); WBC,Urine 185 /HPF (0-6)
[2016-10-16] MEDS ORDERED: cefTRIAXone 1,000 MG in SODIUM CHLORIDE 0.9% 100 ML IV SCH (16:30)
[2016-10-16] MEDS: DESITIN 4OZ/NYSTATIN 15 GRAM MIXTURE PASTE TOP SCH ×2 (18:32→22:49)
[2016-10-16] MEDS: TAMSULOSIN 0.4 MG CAPSULE PO SCH (20:58)
[2016-10-17 05:11] LABS: Basophils % 0.2 % (0.0-0.8); Hematocrit 30.7 VOL% (42.0-52.0); Immature Granulocytes % 1.2 %; Immature Granulocytes Absolute 0.27 #; Lymphocytes # 1.5 10*3/uL (1.4-4.0); Lymphocytes % 6.5 % (21.2-54.2); Mean Corpuscular HGB Conc 32.6 GM/DL (32-36); Mean Corpuscular Hemoglobin 30 PG (27-34); Mean Corpuscular Volume 92.2 FL (87-102); Mean Platelet Volume 12.3 FL (9.6-12.0); Monocytes # 1.7 10*3/uL (0.11-0.8); Monocytes % 7.6 % (1.7-12.7); Neutrophils # 19.4 10*3/uL (1.4-7.4); Neutrophils % 84.5 % (38.7-73.9); Platelet Count 167 T/CUMM (130-400); Red Blood Count 3.33 MC/CUMM (3.8-5.5); Red Cell Distribution Width 14.6 % (9.3-17.3); White Blood Count 22.9 T/CUMM (4-12)
[2016-10-17 05:34] LABS: Band Neutrophils 1 % (0-10); Hypochromasia 1+; Lymphocytes 6 % (20-55); Platelet Estimate Normal; Segmented Neutrophils 82 % (50-85); Total Cells Counted 100
[2016-10-17 05:39] LABS: Magnesium 1.8 MG/DL (1.8-2.4); Phosphorous 2.9 MG/DL (2.5-4.9)
[2016-10-17 05:40] LABS: Albumin 2.9 G/DL (3.4-5.0); Bilirubin,Total 1.4 MG/DL (0.2-1.0); Calcium 8.2 MG/DL (8.5-10.1); Osmolality,Calculated 288.3 MOS/KG (273-304); Potassium 4.1 MMOL/L (3.5-5.1); Total Protein 6.1 G/DL (6.4-8.3)
[2016-10-17] MEDS: PANTOPRAZOLE 40 MG VIAL IV SCH (08:37)
[2016-10-17] MEDS: APIXABAN 5 MG TABLET PO SCH (08:40)
[2016-10-17] MEDS: GABAPENTIN 100 MG CAPSULE PO SCH (08:40)
[2016-10-17] MEDS: ASPIRIN EC 325 MG TABLET PO SCH (08:40)
[2016-10-17] MEDS: DESITIN 4OZ/NYSTATIN 15 GRAM MIXTURE PASTE TOP SCH (08:41)
[2016-10-17] MEDS: CARVEDILOL 25 MG TABLET PO SCH (08:41)
[2016-10-17] MEDS: FERROUS SULFATE 325 MG TABLET PO SCH (08:41)
[2016-10-17] MEDS: AMIODARONE 200 MG TABLET PO SCH (08:41)
[2016-10-17] MEDS: INSULIN LISPRO 100 UNIT/ML SUBCUT SCH ×2 (09:45→12:24)
[2016-10-17] MEDS ORDERED: SPIRONOLACTONE 25 MG TABLET PO SCH (10:30)
[2016-10-17 11:55] VITALS: BP 124/75
[2016-10-17] MEDS ORDERED: FUROSEMIDE 20 MG TABLET PO SCH (12:00)
--- NOTE | 2016-10-17 12:40 | Cardiology Progress Note ---
<Maria Elena Rousseau - Last Filed: 10/17/16 12:33> Assessment and Plan (1) Postoperative atrial fibrillation Status: Acute Assessment and plan: Patient remains in atrial fibrillation with a controlled ventricular response. Eliquis was reinitiated for anticoagulation. Tolerating well. H&H remained stable today. Continue amiodarone and Coreg. Patient is stable for discharge per cardiology's standpoint. Recommend patient being discharged home with Eliquis 5 mg p.o. twice daily for anticoagulation and amiodarone and Coreg for rate control. Patient will follow up with Dr. Post October 24 at 1150 with EKG, CBC and CMP. Current Visit: No (2) Elevated liver enzymes Status: Acute Assessment and plan: GI is following. Current Visit: Yes (3) Acute renal failure Status: Resolved Assessment and plan: Creatinine has dramatically improved. Creatinine today is within normal limits at 1.2. Encouraged patient to avoid use of nonsteroidals at home. Patient verbalized understanding. Current Visit: Yes (4) Anemia Status: Resolved Assessment and plan: This has resolved. H&H is stable. Current Visit: Yes (5) Hypotension Status: Resolved Assessment and plan: This has resolved. Current Visit: Yes (6) Status post aorto-coronary artery bypass graft Status: Chronic Assessment and plan: Patient is status post CABG October 04, 2016 with RICHARDSON to LAD and SVG to PDA and OM. Current Visit: No (7) Type 2 diabetes mellitus Status: Chronic Current Visit: No Qualifiers: Diabetes mellitus complication status: without complication Diabetes mellitus terminologist insulin use: without terminologist use Qualified Code(s): E11.9 - Type 2 diabetes mellitus without complications (8) Hypokalemia Status: Acute Assessment and plan: Potassium is stable today after replacement yesterday. It is noted to be 4.1. Current Visit: Yes (9) Ischemic heart disease Status: Chronic Assessment and plan: Patient has been revascularized. He is status post CABG. Current Visit: Yes (10) Obstructive sleep apnea Status: Acute Assessment and plan: Patient apparently had a positive sleep study prior to being admitted at [place]. Sleep lab has been consulted to assist patient with CPAP machine. Current Visit: Yes (11) Back pain Status: Acute Assessment and plan: Encourage patient to avoid nonsteroidals at home. Defer further management to hospitalist. Current Visit: Yes Cardiology - PN: Subj Interval history: Patient was seen on telemetry. He did well overnight and is with any new cardiac complaints this morning. Patient denies chest pain, heaviness and tightness. He also denies shortness of breath and heart palpitations/heart racing. He is currently in normal sinus rhythm without any overt arrhythmias or ectopy noted. He has been started on Rocephinto cover for UTI. PT was also consulted to work with patient. He ambulated the halls well this morning. Exam (Progress Note) - Constitutional Vitals: Period Temp Pulse Resp BP Sys/Mehta Pulse Ox Last 24 Hr 96.1 F-99.1 F 74-117 16-20 120-140/67-75 92-98 Exam: General: Present: Appears Well, No Apparent Distress Neck: Present: Supple Neck, Midline Trachea, No JVD/HJR, No Masses, No Bruit, No Lymphadenopathy, No Thyromegaly Cardiac: Present: Regular rate and rhythm. Lungs: Present: Decreased Breath Sounds, Bibasilar Rales. Absent: Oxygen Abdomen: Present: Soft, Active Bowel Sounds, Distended, Non-Tender Skin: Present: Clear, Other (Surgical incisions healing well without signs of infection.). Absent: Rash, Suspicious Lesions, Ulceration Extremities: Present: Normal Gait, No Clubbing, No Cyanosis, No Edema, Normal Upper Extr. Pulses, Normal Lower Extr. Pulses Result/EKG - Labs CBC & BMP: 10/17/16 04:03 10/17/16 04:03 Labs: Laboratory Results - last 24 hr 10/16/16 10/16/16 10/16/16 11:02 15:41 20:57 WBC RBC Hgb Hct MCV MCH MCHC RDW Plt Count MPV Neut % (Auto) Lymph % (Auto) [place] % (Auto) Eos % (Auto) Baso % (Auto) Neut # (Auto) Lymph # (Auto) [place] # (Auto) Eos # (Auto) Baso # (Auto) Total Counted Immature Gran % Nucleated RBC % Immature Gran # Segmented Neutrophils Band Neutrophils Lymphocytes Monocytes Nucleated RBCs # Platelet Estimate Hypochromasia Morphology Comment Sodium Potassium Chloride Carbon Dioxide Anion Gap BUN Creatinine GFR Calculation BUN/Creatinine Ratio Glucose POC Glucose 252 H 230 H 250 H Calculated Osmolality Calcium Phosphorus Magnesium Total Bilirubin AST ALT Alkaline Phosphatase Total Protein Albumin Globulin Albumin/Globulin Ratio Urine Color Urine Appearance Urine pH Ur Specific [place] Urine Protein Urine Glucose (UA) Urine Ketones Urine Blood Urine Nitrate Urine Bilirubin Urine Urobilinogen Urine Leukocytes Urine RBC Urine WBC Ur Squamous Epith Cells Urine Bacteria Urine Mucus Ur Culture Indicated? 10/16/16 10/17/16 10/17/16 Unknown 04:03 04:03 WBC 22.9 H RBC 3.33 L Hgb 10.0 L Hct 30.7 L MCV 92.2 MCH 30 MCHC 32.6 RDW 14.6 Plt Count 167 MPV 12.3 H Neut % (Auto) 84.5 H Lymph % (Auto) 6.5 L [place] % (Auto) 7.6 Eos % (Auto) 0.0 Baso % (Auto) 0.2 Neut # (Auto) 19.4 H Lymph # (Auto) 1.5 [place] # (Auto) 1.7 H Eos # (Auto) 0.0 Baso # (Auto) 0.0 Total Counted 100 Immature Gran % 1.2 Nucleated RBC % 0.0 Immature Gran # 0.27 Segmented Neutrophils 82 Band Neutrophils 1 Lymphocytes 6 L Monocytes 11 Nucleated RBCs # 0.00 Platelet Estimate Normal Hypochromasia 1+ Morphology Comment Sodium 141 Potassium 4.1 Chloride 96 L Carbon Dioxide 32 Anion Gap 17.1 H BUN 25 H Creatinine 1.20 GFR Calculation 81 BUN/Creatinine Ratio 20.00 Glucose 173 H POC Glucose Calculated Osmolality 288.3 Calcium 8.2 L Phosphorus Magnesium Total Bilirubin 1.40 H AST 31 ALT 224 H Alkaline Phosphatase 58 Total Protein 6.1 L Albumin 2.9 L Globulin 3.2 Albumin/Globulin Ratio 0.9 L Urine Color Yellow Urine Appearance Slightly hazy Urine pH 5.0 Ur Specific [place] 1.016 Urine Protein 30 Urine Glucose (UA) 50 Urine Ketones Negative Urine Blood Negative Urine Nitrate Negative Urine Bilirubin Negative Urine Urobilinogen 4.0 H Urine Leukocytes Moderate H Urine RBC 5 Urine WBC 185 Ur Squamous Epith Cells Occasional Urine Bacteria Many Urine Mucus Occasional Ur Culture Indicated? Results to follow 10/17/16 10/17/16 10/17/16 04:03 07:18 11:50 WBC RBC Hgb Hct MCV MCH MCHC RDW Plt Count MPV Neut % (Auto) Lymph % (Auto) [place] % (Auto) Eos % (Auto) Baso % (Auto) Neut # (Auto) Lymph # (Auto) [place] # (Auto) Eos # (Auto) Baso # (Auto) Total Counted Immature Gran % Nucleated RBC % Immature Gran # Segmented Neutrophils Band Neutrophils Lymphocytes Monocytes Nucleated RBCs # Platelet Estimate Hypochromasia Morphology Comment Sodium Potassium Chloride Carbon Dioxide Anion Gap BUN Creatinine GFR Calculation BUN/Creatinine Ratio Glucose POC Glucose 168 H 251 H Calculated Osmolality Calcium Phosphorus 2.9 Magnesium 1.8 Total Bilirubin AST ALT Alkaline Phosphatase Total Protein Albumin Globulin Albumin/Globulin Ratio Urine Color Urine Appearance Urine pH Ur Specific [place] Urine Protein Urine Glucose (UA) Urine Ketones Urine Blood Urine Nitrate Urine Bilirubin Urine Urobilinogen Urine Leukocytes Urine RBC Urine WBC Ur Squamous Epith Cells Urine Bacteria Urine Mucus Ur Culture Indicated? Specialty Discharge - Follow Up or Referrals Follow up with: Diomedes Post MD [Physician] - (Please schedule patient a follow-up appointment with Dr. Post October 24 at 1150. This was requested part Dr. Post.) <Diomedes Post - Last Filed: 10/17/16 13:05> Exam (Progress Note) - Constitutional Vitals: Period Temp Pulse Resp BP Sys/Mehta Pulse Ox Last 24 Hr 96.1 F-99.1 F 74-117 16-20 120-140/67-75 92-98 Result/EKG - Labs CBC & BMP: 10/17/16 04:03 10/17/16 04:03 Labs: Laboratory Results - last 24 hr 10/16/16 10/16/16 10/16/16 11:02 15:41 20:57 WBC RBC Hgb Hct MCV MCH MCHC RDW Plt Count MPV Neut % (Auto) Lymph % (Auto) [place] % (Auto) Eos % (Auto) Baso % (Auto) Neut # (Auto) Lymph # (Auto) [place] # (Auto) Eos # (Auto) Baso # (Auto) Total Counted Immature Gran % Nucleated RBC % Immature Gran # Segmented Neutrophils Band Neutrophils Lymphocytes Monocytes Nucleated RBCs # Platelet Estimate Hypochromasia Morphology Comment Sodium Potassium Chloride Carbon Dioxide Anion Gap BUN Creatinine GFR Calculation BUN/Creatinine Ratio Glucose POC Glucose 252 H 230 H 250 H Calculated Osmolality Calcium Phosphorus Magnesium Total Bilirubin AST ALT Alkaline Phosphatase Total Protein Albumin Globulin Albumin/Globulin Ratio Urine Color Urine Appearance Urine pH Ur Specific [place] Urine Protein Urine Glucose (UA) Urine Ketones Urine Blood Urine Nitrate Urine Bilirubin Urine Urobilinogen Urine Leukocytes Urine RBC Urine WBC Ur Squamous Epith Cells Urine Bacteria Urine Mucus Ur Culture Indicated? 10/16/16 10/17/16 10/17/16 Unknown 04:03 04:03 WBC 22.9 H RBC 3.33 L Hgb 10.0 L Hct 30.7 L MCV 92.2 MCH 30 MCHC 32.6 RDW 14.6 Plt Count 167 MPV 12.3 H Neut % (Auto) 84.5 H Lymph % (Auto) 6.5 L [place] % (Auto) 7.6 Eos % (Auto) 0.0 Baso % (Auto) 0.2 Neut # (Auto) 19.4 H Lymph # (Auto) 1.5 [place] # (Auto) 1.7 H Eos # (Auto) 0.0 Baso # (Auto) 0.0 Total Counted 100 Immature Gran % 1.2 Nucleated RBC % 0.0 Immature Gran # 0.27 Segmented Neutrophils 82 Band Neutrophils 1 Lymphocytes 6 L Monocytes 11 Nucleated RBCs # 0.00 Platelet Estimate Normal Hypochromasia 1+ Morphology Comment Sodium 141 Potassium 4.1 Chloride 96 L Carbon Dioxide 32 Anion Gap 17.1 H BUN 25 H Creatinine 1.20 GFR Calculation 81 BUN/Creatinine Ratio 20.00 Glucose 173 H POC Glucose Calculated Osmolality 288.3 Calcium 8.2 L Phosphorus Magnesium Total Bilirubin 1.40 H AST 31 ALT 224 H Alkaline Phosphatase 58 Total Protein 6.1 L Albumin 2.9 L Globulin 3.2 Albumin/Globulin Ratio 0.9 L Urine Color Yellow Urine Appearance Slightly hazy Urine pH 5.0 Ur Specific [place] 1.016 Urine Protein 30 Urine Glucose (UA) 50 Urine Ketones Negative Urine Blood Negative Urine Nitrate Negative Urine Bilirubin Negative Urine Urobilinogen 4.0 H Urine Leukocytes Moderate H Urine RBC 5 Urine WBC 185 Ur Squamous Epith Cells Occasional Urine Bacteria Many Urine Mucus Occasional Ur Culture Indicated? Results to follow 10/17/16 10/17/16 10/17/16 04:03 07:18 11:50 WBC RBC Hgb Hct MCV MCH MCHC RDW Plt Count MPV Neut % (Auto) Lymph % (Auto) [place] % (Auto) Eos % (Auto) Baso % (Auto) Neut # (Auto) Lymph # (Auto) [place] # (Auto) Eos # (Auto) Baso # (Auto) Total Counted Immature Gran % Nucleated RBC % Immature Gran # Segmented Neutrophils Band Neutrophils Lymphocytes Monocytes Nucleated RBCs # Platelet Estimate Hypochromasia Morphology Comment Sodium Potassium Chloride Carbon Dioxide Anion Gap BUN Creatinine GFR Calculation BUN/Creatinine Ratio Glucose POC Glucose 168 H 251 H Calculated Osmolality Calcium Phosphorus 2.9 Magnesium 1.8 Total Bilirubin AST ALT Alkaline Phosphatase Total Protein Albumin Globulin Albumin/Globulin Ratio Urine Color Urine Appearance Urine pH Ur Specific [place] Urine Protein Urine Glucose (UA) Urine Ketones Urine Blood Urine Nitrate Urine Bilirubin Urine Urobilinogen Urine Leukocytes Urine RBC Urine WBC Ur Squamous Epith Cells Urine Bacteria Urine Mucus Ur Culture Indicated?
--- NOTE | 2016-10-17 13:58 | Discharge Summary ---
Hospital Course - Hospital Course Hospital Course: MR Bird returned to the hospital with weakness and rapid afib. His H&H had dropped significantly from the last one he had before discharge after CABG the day before. He was transfused and stabilized. No source of bleeding was identified on EGD and he has had a cscope recently. He had no blood in his stool. Dr Logan saw him and told him he had irondeficiency anemia. He can see him in clinic for follow up. Dr Post and Dr York and I discussed the best anticoagulation strategy for him and his Eliquis was restarted for stroke prophylaxis. His afib required adjustments in meds to get the rate under better control. It may be that this is only perioperative. He will follow up with GI also in the clinic if his H&H drop again. At that time he may need pill cam. His RAKESH inhibitor was stopped due to increase in creatinine that has resolved now. He is on lasix and aldactone now. He developed a UTI and was treated with Ceftriaxone. The culture is growing GNR. He will complete treatment with oral levaquin at home. He was also seen by Dr Sherwood who did his bypass. Mr Bird is feeling better today and ready to go home. He will burr picker his CPAP before discharge. He will follow up with DR Shepard in the next few days so that he can be sure the urine culture is covered by the levaquin. He will also see the consultants in clinic. - Time spent with patient Time with patient DS: Greater than 30 minutes (care coordination, documentation , medicine reconciliation) Diagnosis - Discharge Diagnosis (1) Anemia Status: Resolved (2) Status post aorto-coronary artery bypass graft Status: Chronic (3) Postoperative atrial fibrillation Status: Acute (4) Hypotension Status: Resolved (5) Uncontrolled type 2 diabetes mellitus with hyperglycemia Status: Chronic (6) Elevated liver enzymes Status: Resolved (7) Acute kidney injury Status: Resolved (8) Acute systolic (congestive) heart failure Status: Resolved Specialty Discharge - Follow Up or Referrals Follow up with: Maurene Sherwood [Physician] - 11/04/16 9:45 am (KEEP FOLLOW UP SCHEDULED) Renaldo Shepard [ACTIVE] - 10/21/16 1:00 pm (Friday- check for resolution of UTI) Diomedes Post MD [Physician] - 10/24/16 11:50 am () Nusrat Ugalde MD [Physician] - Marck York MD [Physician] - (as needed) Brenton Logan MD [Physician] - (as needed) Discharge Plan - Discharge Data Disposition: Disch To Home/Self Care Condition at Discharge: Stable Discharge Diet: diabetic diet, heart healthy, low fat, low cholesterol Activity: resume usual activities as tolerated - Discharge Medications New Spironolactone [Aldactone] 12.5 mg PO DAILY #30 tablet Ciprofloxacin Tab [Cipro Tab] 500 mg PO BID #10 tablet Furosemide Tab [Lasix Tab] 20 mg PO DAILY #30 tablet Continue Gabapentin Cap/Tab [Neurontin Cap/Tab] 100 mg PO BID Metformin HCl 1,000 mg PO BID Gemfibrozil 600 mg PO BID Doxepin HCl [Silenor] 3 mg PO BEDTIME Carvedilol [Coreg] 25 mg PO BID Bupropion HCl [Bupropion Xl] 300 mg PO QAM Tamsulosin [Flomax] 2 capsule PO BEDTIME Ferrous Gluconate 325 mg PO QAM Pioglitazone [Actos] 15 mg PO QAM glipiZIDE [Glipizide] 20 mg PO BID Aspirin EC Tab 325 mg PO DAILY tablet Omeprazole Magnesium [Prilosec Otc] 20 mg PO QAM [place]-3/Dha/Epa/Fish Oil [Fish Oil Conc 1,000 mg Softgel] 3,000 mg PO QAM Amiodarone Tab [Cordarone Tab] 200 mg PO BID #60 tablet Apixaban [Eliquis] 5 mg PO BID #60 tablet Ascorbic Acid Tab [Vitamin C Tab] 1,000 mg PO BID tablet Atorvastatin [Lipitor] 40 mg PO BEDTIME tablet traMADol TAB [Ultram] 50 mg PO Q6H PRN #40 tablet PRN Reason: Pain Moderate (4-7) Discontinued Lisinopril 20 mg PO QAM Metoprolol Tartrate Tab [Lopressor Tab] 25 mg PO BID tablet - Follow Up or Referral Follow Up: Maureen Sherwood [Physician] - 11/04/16 9:45 am (KEEP FOLLOW UP SCHEDULED) Renaldo Shepard [ACTIVE] - 10/21/16 1:00 pm (Friday- check for resolution of UTI) Diomedes Post MD [Physician] - 10/24/16 11:50 am () Nusrat Ugalde MD [Physician] - - Forms/Instructions Instructions: Hypotension (DC), Anemia (DC) Exam - Constitutional Vitals: Period Temp Pulse Resp BP Sys/Mehta Pulse Ox Last 24 Hr 96.1 F-99.1 F 74-117 16-20 120-140/67-75 92-98 General appearance: normal weight, no acute distress - Head Head exam: Present: normocephalic, atraumatic - Eye Eye exam: Present: EOMI. Absent: scleral icterus - Respiratory Respiratory exam: Present: clear to auscultation bilaterally - Cardiovascular Cardiovascular exam: Present: regular rate and rhythm - GI/Abdominal GI/Abdominal exam: Present: normal bowel sounds, soft. Absent: tenderness - Extremities Exam Extremities exam: Absent: edema Discharge Results Procedures and tests throughout hospitalization: Pending Orders 10/13/16 04:20 Blood Culture Stat 10/13/16 08:46 Red Blood Cells Leuko Red Stat 10/15/16 08:46 Occult Blood, Stool Routine 10/16/16 Urine Culture Routine Labs on day of discharge: Labs from last 24 hours 10/17/16 10/17/16 10/17/16 11:50 07:18 04:03 WBC RBC Hgb Hct MCV MCH MCHC RDW Plt Count MPV Neut % (Auto) Lymph % (Auto) Swisher % (Auto) Eos % (Auto) Baso % (Auto) Neut # (Auto) Lymph # (Auto) Swisher # (Auto) Eos # (Auto) Baso # (Auto) Total Counted Immature Gran % Nucleated RBC % Immature Gran # Segmented Neutrophils Band Neutrophils Lymphocytes Monocytes Nucleated RBCs # Platelet Estimate Hypochromasia Morphology Comment Sodium Potassium Chloride Carbon Dioxide Anion Gap BUN Creatinine GFR Calculation BUN/Creatinine Ratio Glucose POC Glucose 251 H 168 H Calculated Osmolality Calcium Phosphorus 2.9 Magnesium 1.8 Total Bilirubin AST ALT Alkaline Phosphatase Total Protein Albumin Globulin Albumin/Globulin Ratio Urine Color Urine Appearance Urine pH Ur Specific [place] Urine Protein Urine Glucose (UA) Urine Ketones Urine Blood Urine Nitrate Urine Bilirubin Urine Urobilinogen Urine Leukocytes Urine RBC Urine WBC Ur Squamous Epith Cells Urine Bacteria Urine Mucus Ur Culture Indicated? 10/17/16 10/17/16 10/16/16 04:03 04:03 Unknown WBC 22.9 H RBC 3.33 L Hgb 10.0 L Hct 30.7 L MCV 92.2 MCH 30 MCHC 32.6 RDW 14.6 Plt Count 167 MPV 12.3 H Neut % (Auto) 84.5 H Lymph % (Auto) 6.5 L Swisher % (Auto) 7.6 Eos % (Auto) 0.0 Baso % (Auto) 0.2 Neut # (Auto) 19.4 H Lymph # (Auto) 1.5 Swisher # (Auto) 1.7 H Eos # (Auto) 0.0 Baso # (Auto) 0.0 Total Counted 100 Immature Gran % 1.2 Nucleated RBC % 0.0 Immature Gran # 0.27 Segmented Neutrophils 82 Band Neutrophils 1 Lymphocytes 6 L Monocytes 11 Nucleated RBCs # 0.00 Platelet Estimate Normal Hypochromasia 1+ Morphology Comment Sodium 141 Potassium 4.1 Chloride 96 L Carbon Dioxide 32 Anion Gap 17.1 H BUN 25 H Creatinine 1.20 GFR Calculation 81 BUN/Creatinine Ratio 20.00 Glucose 173 H POC Glucose Calculated Osmolality 288.3 Calcium 8.2 L Phosphorus Magnesium Total Bilirubin 1.40 H AST 31 ALT 224 H Alkaline Phosphatase 58 Total Protein 6.1 L Albumin 2.9 L Globulin 3.2 Albumin/Globulin Ratio 0.9 L Urine Color Yellow Urine Appearance Slightly hazy Urine pH 5.0 Ur Specific [place] 1.016 Urine Protein 30 Urine Glucose (UA) 50 Urine Ketones Negative Urine Blood Negative Urine Nitrate Negative Urine Bilirubin Negative Urine Urobilinogen 4.0 H Urine Leukocytes Moderate H Urine RBC 5 Urine WBC 185 Ur Squamous Epith Cells Occasional Urine Bacteria Many Urine Mucus Occasional Ur Culture Indicated? Results to follow 10/16/16 10/16/16 10/16/16 20:57 15:41 11:02 WBC RBC Hgb Hct MCV MCH MCHC RDW Plt Count MPV Neut % (Auto) Lymph % (Auto) Swisher % (Auto) Eos % (Auto) Baso % (Auto) Neut # (Auto) Lymph # (Auto) Swisher # (Auto) Eos # (Auto) Baso # (Auto) Total Counted Immature Gran % Nucleated RBC % Immature Gran # Segmented Neutrophils Band Neutrophils Lymphocytes Monocytes Nucleated RBCs # Platelet Estimate Hypochromasia Morphology Comment Sodium Potassium Chloride Carbon Dioxide Anion Gap BUN Creatinine GFR Calculation BUN/Creatinine Ratio Glucose POC Glucose 250 H 230 H 252 H Calculated Osmolality Calcium Phosphorus Magnesium Total Bilirubin AST ALT Alkaline Phosphatase Total Protein Albumin Globulin Albumin/Globulin Ratio Urine Color Urine Appearance Urine pH Ur Specific [place] Urine Protein Urine Glucose (UA) Urine Ketones Urine Blood Urine Nitrate Urine Bilirubin Urine Urobilinogen Urine Leukocytes Urine RBC Urine WBC Ur Squamous Epith Cells Urine Bacteria Urine Mucus Ur Culture Indicated? Preliminary micro results at discharge 10/16/16 Unknown Urine Culture - Preliminary Urine,Voided Gram Negative Rods Gram Negative Rods#2 10/13/16 04:20 Blood Culture - Preliminary Blood No growth at 3 days 10/13/16 04:20 Blood Culture - Preliminary Blood No growth at 3 days DS: Provider Date of admission: 10/13/16 00:57 Primary care physician: . No PCP Attending physician on admission: Yelena Roa MD Consults: 10/13/16 02:44 Consult to Physician [CONS] Routine Comment: s/p CABG with hypotension Consulting Provider: Maureen Sherwood Consult to Specialist Group: Nephrology Consult to Physician [CONS] Routine Comment: s/p CABG with hypotension Consulting Provider: Diomedes Post Consult to Specialist Group: Urology 10/13/16 02:50 Consult to Pharmacy [CONS] Routine Reason for Pharmacy Consult: Adjust Meds Renal Funct 10/13/16 08:34 Consult to Physician [CONS] Routine Comment: ugi bleed post cabg patient Consulting Provider: Marck York When should Consulting Provider be notified: Now 10/13/16 09:40 Consult to Physician [CONS] Routine Comment: hemolytic anemia, Dr Celestino Valladares Consulting Provider: Brenton Logan Consulting Provider Notified: Yes When should Consulting Provider be notified: Now Person Notified: [address] Date Notified: 10/13/16 Time Notified: 10:35 Consult Notification Comment: Dr. Logan is on floor - will give message to him. 10/16/16 11:00 Consult to Sleep Center [CONS] Routine Reason for Sleep Center: Technologist Assist Consult Comment: Patient has positive sleep study. Needs assistance getting CPAP machine. 10/16/16 11:37 Consult to Occupational Therapy [CONS] Routine Reason for Occupational Therapy: Evaluate and Treat Consult to Physical Therapy [CONS] Routine Reason for Physical Therapy: Evaluate and Treat 10/16/16 15:32 Consult to Case Mgmt/Social Srvs [CONS] Routine Reason for Case Mgmt/Social Srvs: Swingbed/SNF/Fci 10/16/16 16:01 Consult to Case Mgmt/Social Srvs [CONS] Routine Reason for Case Mgmt/Social Srvs: Swingbed/SNF/Fci Consult to Physical Therapy [CONS] Routine Reason for Physical Therapy: Evaluate and Treat Discharging clinician: Nessa Avilez MD
--- NOTE | 2016-10-18 08:06 | EKG Report ---
Stationary ECG Study 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
== END 2016-10-17 15:31 | disposition home or self-care (01) | DRG 811 ==
LOC: EDBD → EDUNIT# → N.ED 21:04 → N.EDINP 10-13 00:57 → SUATTDRO 10-13 00:57 → N.TELEN 10-13 02:21 → N.CC 10-13 04:24 → N.TELEN 10-14 16:41
PROVIDERS: ADMIT Internal Medicine; ATTEND Internal Medicine

== ENCOUNTER 2016-10-17 22:39 | Inpatient (IN) ==
[2016-10-17] MEDS ORDERED: SODIUM CHLORIDE 0.9% 1,000 ML IV STA (23:12)
--- NOTE | 2016-10-17 23:17 | Emergency Department Note ---
ISade Kasabria, am scribing for, and in the presence of, Kristin De Guzman DO 23 :16. IGab Debra, DO, personally performed the services described in this documentation, ascribed by Serg Stuart in my presence, and it is both accurate and complete 317 . Arrival - Arrival Chief Complaint: Blood Pressure Stated Complaint: b/p low ED Nursing Triage Note: states they were disccharged from here today d/t low bp , triple bypass done on october 05. bp in triage 77/47 Mode of Arrival: Wheelchair Limitations: No Limitations Source: Patient - History of Present Illness HPI Narrative: This is a 66 y/o white male presenting to the ED with c/o low blood pressure. Pt was discharged from here CCU today after having a triple bypass done on October 05. Pt appears pale in color. He states he feel immensely weak but denies bleeding. The last time the pt had to receive two units of blood. He denies fever, chills, nausea, vomiting, diarrhea, abdominal pain, back pain, diaphoresis, and dysuria. Pt has a scar to the right lower leg that is healing and consistent with the bypass surgery. His PMHx consist of HTN, CAD, VT, and GERD. Consistency: constant Severity: moderate Allergies/Adverse Reactions: Allergies Allergy/AdvReac Type Severity Reaction Status Date / Time No Known Allergies Allergy Unverified 10/03/16 16:54 Home Medications: Home Medications Medication Instructions Recorded Confirmed Type Bupropion HCl [Bupropion Xl] 300 mg PO QAM 10/03/16 10/13/16 History Carvedilol [Coreg] 25 mg PO BID 10/03/16 10/13/16 History Doxepin HCl [Silenor] 3 mg PO BEDTIME 10/03/16 10/13/16 History Ferrous Gluconate 325 mg PO QAM 10/03/16 10/13/16 History Gabapentin Cap/Tab [Neurontin 100 mg PO BID 10/03/16 10/13/16 History Cap/Tab] Gemfibrozil 600 mg PO BID 10/03/16 10/13/16 History Metformin HCl 1,000 mg PO BID 10/03/16 10/13/16 History [place]-3/Dha/Epa/Fish Oil [Fish Oil 3,000 mg PO QAM 10/03/16 10/13/16 History Conc 1,000 mg Softgel] Omeprazole Magnesium [Prilosec Otc] 20 mg PO QAM 10/03/16 10/13/16 History Pioglitazone [Actos] 15 mg PO QAM 10/03/16 10/13/16 History Tamsulosin [Flomax] 2 capsule PO BEDTIME 10/03/16 10/13/16 History glipiZIDE [Glipizide] 20 mg PO BID 10/03/16 10/13/16 History Amiodarone Tab [Cordarone Tab] 200 mg PO BID #60 tablet 10/11/16 10/13/16 Rx Apixaban [Eliquis] 5 mg PO BID #60 tablet 10/11/16 10/13/16 Rx Ascorbic Acid Tab [Vitamin C Tab] 1,000 mg PO BID tablet 10/11/16 10/13/16 Rx Aspirin EC Tab 325 mg PO DAILY tablet 10/11/16 10/13/16 Rx Atorvastatin [Lipitor] 40 mg PO BEDTIME tablet 10/11/16 10/13/16 Rx traMADol TAB [Ultram] 50 mg PO Q6H PRN #40 tablet 10/11/16 10/13/16 Rx Ciprofloxacin Tab [Cipro Tab] 500 mg PO BID #10 tablet 10/17/16 Rx Furosemide Tab [Lasix Tab] 20 mg PO DAILY #30 tablet 10/17/16 Rx Spironolactone [Aldactone] 12.5 mg PO DAILY #30 tablet 10/17/16 Rx Review of System - Review of System 12 point system: reviewed and no additional remarkable complaints except as stated - Review of System Constitutional: Absent: chills, fever, weakness Eyes: Absent: vision change Head/Ears/Nose/Throat: Absent: earache, nasal drainage Respiratory: Absent: cough Cardiovascular: Absent: chest pain, dyspnea on exertion, syncope Gastrointestinal: Absent: abdominal pain, nausea, vomiting, diarrhea Genitourinary male: Absent: dysuria Musculoskeletal: Present: other (scar consistent with surgery to right lower leg ). Absent: arm pain, back pain, leg pain, neck pain Skin: Present: change in color (pale ). Absent: rash Neurological: Absent: headache, weakness, numbness, abnormal gait, vertigo Psychiatric: Absent: anxiety Endocrine: Absent: fatigue Hematological/Lymphatic: Absent: easy bleeding Allergic/Immunologic: Absent: facial swelling Medical,Surgical,& Family Hx - Medical History Cardio: History of: CAD, Hypertension, VT, Cardiovascular Problems (angioplasty 1995) Neurology: No history of: Seizures HEENT: History of: Ear Problem (Slight hearing loss) Endocrine: History of: Diabetes Mellitus (NIDDM), Dyslipidemia Genitourinary: History of: Prostate Problems (Enlarged) Gastrointestinal: History of: GERD - Surgical History Cardiac Surgeries: Sugical HX of: Cardiac Catheterization, Cardiac Surgery ( cabg 10/05/2016) Neurologic Surgeries: Patient denies: Neurologic Surgery Abdominal Surgeries: Surgical HX of: Abdominal Surgery, Appendectomy, EGD - Family History Family History: Reports;: Family Diabetes, Family Heart Disease, Family Stroke - Social History Smoking Status: Unknown if ever smoked Frequency of Alcohol Use: None Type of Drug Use: None Exam Vital Signs: Vital Signs Temperature 97.7 F 10/17/16 22:48 Pulse Rate 60 10/17/16 22:48 Respiratory Rate 20 10/17/16 22:48 Blood Pressure 77/47 10/17/16 22:48 O2 Sat by Pulse Oximetry 98 10/17/16 22:48 - General General appearance: alert, in no apparent distress - Head Head exam: Present: atraumatic, normocephalic, normal inspection - Eye Eye exam: Present: normal appearance, PERRL, EOMI - ENT ENT exam: Present: normal exam, normal oropharynx, mucous membranes moist, TM's normal bilaterally, normal external ear exam - Neck Neck exam: Present: normal inspection, full ROM, trachea midline. Absent: tenderness - Chest Chest inspection: Present: normal inspection, symmetric chest wall rise. Absent : tenderness - Respiratory Respiratory exam: Present: normal lung sounds bilaterally - Cardiovascular Cardiovascular exam: Present: normal rhythm, bradycardia, normal heart sounds. Absent: regular rate - Abdominal Exam Abdominal exam: Present: soft, normal bowel sounds. Absent: distention, tenderness - Extremities Exam Extremities exam: Present: normal inspection, full ROM, normal capillary refill. Absent: tenderness, pedal edema, calf tenderness - Expanded Lower Right Lower Lower leg exam: Present: other (scar consistent with surgery; erythematous but well healing ) - Back Exam Back exam: Present: normal inspection, full ROM. Absent: tenderness - Neurological Exam Neurological exam: Present: alert, oriented X3, CN II-XII intact, normal gait, reflexes normal - Psychiatric Psychiatric exam: Present: normal affect, normal mood - Skin Skin exam: Present: warm, dry, intact, pallor. Absent: normal color, rash, diaphoresis Course Course Narrative: spoke with Dr Barahona who will admit pt Results - Labs CBC & BMP: 10/17/16 00:18 10/17/16 00:18 Lab Results: I have reviewed the patients labs - EKG EKG results: interpreted by SANDID EKG shows: bradycardia - Diagnostic Findings Procedure: Chest x-ray: image reviewed by me Disposition Clinical Impression: Hypotension Case discussed with: patient, patient's family Disposition: Still a Patient Condition: Stable Time of Disposition: 01:25
[2016-10-18 00:40] LABS: Basophils % 0.1 % (0.0-0.8); Eosinophils # 0.1 10*3/uL (0.0-0.87); Eosinophils % 0.8 % (0.00-10.9); Hematocrit 29.9 VOL% (42.0-52.0); Hemoglobin 9.4 GM/DL (14.0-18.0); Immature Granulocytes % 0.6 %; Immature Granulocytes Absolute 0.08 #; Lymphocytes # 1.7 10*3/uL (1.4-4.0); Lymphocytes % 12.4 % (21.2-54.2); Mean Corpuscular HGB Conc 31.4 GM/DL (32-36); Mean Corpuscular Hemoglobin 30 PG (27-34); Mean Corpuscular Volume 94.6 FL (87-102); Mean Platelet Volume 12.2 FL (9.6-12.0); Monocytes # 1.2 10*3/uL (0.11-0.8); Monocytes % 8.8 % (1.7-12.7); Neutrophils # 10.6 10*3/uL (1.4-7.4); Neutrophils % 77.3 % (38.7-73.9); Platelet Count 150 T/CUMM (130-400); Red Blood Count 3.16 MC/CUMM (3.8-5.5); Red Cell Distribution Width 14.2 % (9.3-17.3); White Blood Count 13.7 T/CUMM (4-12)
[2016-10-18 00:41] LABS: INR 1.5; PT Patient Result 15.7 SECS; Partial Thromboplastin Time 39.7 SECS (0-40)
[2016-10-18 00:59] LABS: Albumin 3.1 G/DL (3.4-5.0); Bilirubin,Total 1.1 MG/DL (0.2-1.0); Calcium 8.1 MG/DL (8.5-10.1); Osmolality,Calculated 285.4 MOS/KG (273-304); Potassium 3.6 MMOL/L (3.5-5.1); Total Protein 6.2 G/DL (6.4-8.3)
[2016-10-18] MEDS ORDERED: ONDANSETRON 4 MG/2 ML VIAL IV PRN (01:05)
[2016-10-18] MEDS ORDERED: SODIUM CHLORIDE 0.9% 500 ML IV STA (01:08)
--- NOTE | 2016-10-18 01:53 | Hospitalist History & Physical ---
Assessment and Plan (1) Acute kidney injury (nontraumatic) Status: Acute Assessment and plan: Due to dehydration secondary to diuretic therapy. IV fluid hydration ordered. Hold diuretics and nephrotoxic medications. Baseline creatinine 1.2. Current Visit: Yes (2) Atrial fibrillation Status: Acute Assessment and plan: On Eliquis. Rate improved with IV fluids. Continue amiodarone. Current Visit: Yes Qualifiers: Atrial fibrillation type: persistent Qualified Code(s): I48.1 - Persistent atrial fibrillation (3) Chronic anticoagulation Status: Acute Assessment and plan: On Eliquis for atrial fibrillation. Cardiology following. Current Visit: Yes (4) Hypotension Status: Acute Current Visit: Yes Qualifiers: Hypotension type: hypotension due to drug Qualified Code(s): I95.2 - Hypotension due to drugs (5) Dehydration Status: Acute Current Visit: No (6) Status post aorto-coronary artery bypass graft Status: Chronic Current Visit: No (7) Type 2 diabetes mellitus Status: Chronic Current Visit: No Qualifiers: Diabetes mellitus complication status: without complication Diabetes mellitus roasterman insulin use: without mcc use Qualified Code(s): E11.9 - Type 2 diabetes mellitus without complications History of Present Illness Chief complaint: low blood pressure, shortness of breath History of present illness: Mr. Bird is a 66 year old male return to the emergency department this evening with low blood pressure and shortness of breath. He is known to our service from a recent hospitalization and discharge earlier today. His most recent hospitalization was for anemia requiring blood transfusion as well as pulmonary edema requiring Lasix and Aldactone. The patient is status post CABG. this evening he was at home with his and began to feel dizzy and lightheaded with shortness of breath. His blood pressure was low so they came to the emergency department. Upon arrival his heart rate was in the 110-120 range with a systolic blood pressure in the 70s. He received IV fluids and has made some improvements. He is noted to be in acute renal failure with a creatinine of 2. Most recent creatinine 1.2 at discharge. The patient was started on Lasix and Aldactone. I think the patient is volume depleted and dehydrated due to diuretic therapy. I have been asked to admit the patient for IV fluid hydration and repeat labs. Patient is being readmitted to Dr. Avilez service. The patient and his deny any chest pain, fever, loss of consciousness or syncope. Home Medications Medication Instructions Recorded Confirmed Type Bupropion HCl [Bupropion Xl] 300 mg PO QAM 10/03/16 10/13/16 History Carvedilol [Coreg] 25 mg PO BID 10/03/16 10/13/16 History Doxepin HCl [Silenor] 3 mg PO BEDTIME 10/03/16 10/13/16 History Ferrous Gluconate 325 mg PO QAM 10/03/16 10/13/16 History Gabapentin Cap/Tab [Neurontin 100 mg PO BID 10/03/16 10/13/16 History Cap/Tab] Gemfibrozil 600 mg PO BID 10/03/16 10/13/16 History Metformin HCl 1,000 mg PO BID 10/03/16 10/13/16 History [place]-3/Dha/Epa/Fish Oil [Fish Oil 3,000 mg PO QAM 10/03/16 10/13/16 History Conc 1,000 mg Softgel] Omeprazole Magnesium [Prilosec Otc] 20 mg PO QAM 10/03/16 10/13/16 History Pioglitazone [Actos] 15 mg PO QAM 10/03/16 10/13/16 History Tamsulosin [Flomax] 2 capsule PO BEDTIME 10/03/16 10/13/16 History glipiZIDE [Glipizide] 20 mg PO BID 10/03/16 10/13/16 History Amiodarone Tab [Cordarone Tab] 200 mg PO BID #60 tablet 10/11/16 10/13/16 Rx Apixaban [Eliquis] 5 mg PO BID #60 tablet 10/11/16 10/13/16 Rx Ascorbic Acid Tab [Vitamin C Tab] 1,000 mg PO BID tablet 10/11/16 10/13/16 Rx Aspirin EC Tab 325 mg PO DAILY tablet 10/11/16 10/13/16 Rx Atorvastatin [Lipitor] 40 mg PO BEDTIME tablet 10/11/16 10/13/16 Rx traMADol TAB [Ultram] 50 mg PO Q6H PRN #40 tablet 10/11/16 10/13/16 Rx Ciprofloxacin Tab [Cipro Tab] 500 mg PO BID #10 tablet 10/17/16 Rx Furosemide Tab [Lasix Tab] 20 mg PO DAILY #30 tablet 10/17/16 Rx Spironolactone [Aldactone] 12.5 mg PO DAILY #30 tablet 10/17/16 Rx Allergies Allergy/AdvReac Type Severity Reaction Status Date / Time No Known Allergies Allergy Unverified 10/03/16 16:54 Medical,Surgical,& Family Hx - Medical History Cardio: History of: Cardiac Dysrhythmia (afib), CAD, Hypertension, [place], Cardiovascular Problems (angioplasty 1995) Neurology: No history of: Seizures HEENT: History of: Ear Problem (Slight hearing loss) Endocrine: History of: Diabetes Mellitus (NIDDM), Dyslipidemia Genitourinary: History of: Prostate Problems (Enlarged) Gastrointestinal: History of: GERD - Surgical History Cardiac Surgeries: Sugical HX of: Cardiac Catheterization, Cardiac Surgery ( cabg 10/05/2016) Neurologic Surgeries: Patient denies: Neurologic Surgery Abdominal Surgeries: Surgical HX of: Abdominal Surgery, Appendectomy, EGD - Family History Family History: Reports;: Family Diabetes, Family Heart Disease, Family Stroke - Social History Smoking Status: Unknown if ever smoked Frequency of Alcohol Use: None Type of Drug Use: None Marital Status: Lives With:: Spouse Functional capacity: independent ambulation 12 point system: reviewed and no additional remarkable complaints except as stated - Cardiovascular Cardiovascular: Present: dyspnea, lightheadedness Exam - Constitutional Vitals: Period Temp Pulse Resp BP Sys/Mehta Pulse Ox Last 24 Hr 97.7 F 60 20 77/47 98 Exam: Constitutional System: Mild distress. No tremulousness. Head: Normocephalic, atraumatic. Ears, Nose and Throat System: No pain or tenderness. No epistaxis or discharge. Mucous membranes dry. Eyes System: Pupils equal, round, and reactive. Extraocular muscles intact. Neck: Supple, without adenopathy, No jugular venous distention. No thyromegaly, neck mass, or prior surgery apparent. Respiratory System: Chest clear to auscultation. Decreased breath sounds at the bases. Cardiovascular System: Heart with regular rate and rhythm. No murmur. Midline chest incision healing well. GI System: Abdomen soft, nontender. Normo active bowel sounds present. Musculoskeletal System: limbs with no pedal edema. Full distal pulses. Vein harvesting site is clean dry and intact and healing well. Neurological System: No discernable sensory deficit. No aphasia Psychiatric System: Conversation is rational Results - Labs CBC & BMP: 10/17/16 00:18 10/17/16 00:18 Lab Results: I have reviewed the past 24 hour labs - Diagnostic Findings Procedure: Chest x-ray: image reviewed by me Quality Measures - VTE Contraindication to Pharmacological VTE Prophylaxis: Already on Theraputic Agent , No Prophylaxis Needed
[2016-10-18] MEDS ORDERED: GLUCAGON 1 MG VIAL IM PRN (02:00)
[2016-10-18] MEDS ORDERED: DEXTROSE 50% 25 GM/50 ML VIAL IV PRN (02:00)
[2016-10-18] MEDS: SODIUM CHLORIDE 0.9% 1,000 ML IV SCH ×4 (04:18→23:42)
--- NOTE | 2016-10-18 07:02 | XRay Report ---
Portable chest Date: 10/17/2016 Clinical history: Status post CABG with hypotension Comparison: 10/16/2016 Technique: Portable AP sitting chest Findings: Persistent cardiomegaly with prior median sternotomy. Persistent diffuse parenchymal findings are noted with small left pleural effusion. Stable mediastinum with degenerative changes. Impression: Stable cardiomegaly with minimally progressive minimal edema/atelectasis with small left pleural effusion. Prior median sternotomy. PROCEDURE INTERPRETED AT [facility] DEPARTMENT OF RADIOLOGY Final Report Signed by: Dr. Kelley Peterson
[2016-10-18] MEDS ORDERED: CIPROFLOXACIN 500 MG TABLET PO SCH (09:00)
[2016-10-18] MEDS: INSULIN LISPRO 100 UNIT/ML SUBCUT SCH ×4 (09:09→21:18)
[2016-10-18] MEDS: APIXABAN 5 MG TABLET PO SCH ×2 (09:37→21:19)
[2016-10-18] MEDS: GABAPENTIN 100 MG CAPSULE PO SCH ×2 (09:37→21:19)
[2016-10-18] MEDS: FERROUS SULFATE 325 MG TABLET PO SCH (09:37)
[2016-10-18] MEDS: ASCORBIC ACID 500 MG TABLET PO SCH ×2 (09:38→21:19)
[2016-10-18] MEDS: glipiZIDE 10 MG TABLET PO SCH ×2 (09:38→21:19)
[2016-10-18] MEDS: AMIODARONE 200 MG TABLET PO SCH ×2 (09:38→21:19)
[2016-10-18] MEDS: GEMFIBROZIL 600 MG TABLET PO SCH ×2 (09:38→21:19)
[2016-10-18] MEDS: PIOGLITAZONE 15 MG TABLET PO SCH (09:38)
[2016-10-18] MEDS: ASPIRIN EC 325 MG TABLET PO SCH (09:38)
[2016-10-18] MEDS: buPROPion XL 150 MG TABLET PO SCH (09:38)
[2016-10-18] MEDS: OMEGA 3 ACID ETHYL ESTERS 1 GM CAPSULE PO SCH (09:39)
[2016-10-18] MEDS: PANTOPRAZOLE 40 MG TABLET PO SCH (09:39)
[2016-10-18] MEDS: traMADol 50 MG TABLET PO PRN ×3 (09:43→21:18)
--- NOTE | 2016-10-18 13:37 | Hospitalist Progress Note ---
Hospitalist: Subjective Interval history: Mr Pelon returned to the hospital last night after being discharged less than 12 hours before. He was at home and had done well but then started to feel short of breath. His took his BP and noted it was low and she brought him back. When labs were drawn in ER it showed improvement in the WBC which had been up due to UTI, but an increase in creatinine to 2.0. His SBP was 77 on arrival with HR or 120-130. HE was bolused and his SBP has increased to around 100. He recently started oral lasix and spironalactone a couple of days ago and had received IV lasix during last hospitalization (that started with anemia and hypotension after being home a day after discharge following CABG). He is dozing in bed, very sleepy. His mentions that he has started to have diarrhea several times at home and here. It has not yet been collected for study. No fevers. His is the one who primarily gave me the story. Before discharge yesterday he was up walking around, very alert and back to himself. Dr Post is consulted. A/P1)hypotension- may be due to diuresis- continue hydration. he was in more rapid afib when he arrived, but has slowed down without any medicine changes now. check cotrosyn stim test. could it be a reaction to one of the new meds he was given in last couple of days- aldactone or cipro? 2)LAURA- creatinine on the morning of 10/17 was 1.2, now 2.0 just after midnight- rehydrating, hold nephrotoxins, including change cipro to ceftriaxone in case it has caused a nephritis. 3)recent CABG 4)recent anemia- no sign of bleeding, H&H stable 5)UTI- culture with E coli, sensitive to Cipro and others. Since his renal function has worsened in last day, perhaps due to the cipro- change to ceftriaxone. culture results under last admit in micro. repeat UA 6)TOMMY- CPAP when brings his machine. 7)diarrhea- possible cdiff- this could explain hypotension and LAURA, though it just started on arrival at home. stool studies pending. Exam - Constitutional Vitals: Period Temp Pulse Resp BP Sys/Mehta Pulse Ox Last 24 Hr 97.1 F-97.4 F 58-63 16-20 81-105/48-57 94-99 General appearance: normal weight, no acute distress (drowsy) - Head Head exam: Present: normocephalic, atraumatic - Eye Eye exam: Present: EOMI. Absent: scleral icterus - Neck Neck exam: Present: normal inspection - Respiratory Respiratory exam: Present: clear to auscultation bilaterally - Cardiovascular Cardiovascular exam: Present: irregular rhythm - GI/Abdominal GI/Abdominal exam: Present: normal bowel sounds, soft. Absent: tenderness - Extremities Exam Extremities exam: Absent: edema - Neurological Exam Neurological exam: Present: oriented X3 (wakes, asks and answers questions then falls asleep) - Skin Skin exam: Present: warm, dry, other (scar from vein harvesting and chest scar are healing well, no purulence.). Absent: cyanosis, mottled, petechiae, rash Results - Labs CBC & BMP: 10/17/16 00:18 10/17/16 00:18 Lab Results: I have reviewed the past 24 hour labs Quality Measures - VTE Contraindication to Pharmacological VTE Prophylaxis: Already on Theraputic Agent , No Prophylaxis Needed
--- NOTE | 2016-10-18 13:38 | Cardiology Consult Note ---
Assessment and Plan (1) Status post aorto-coronary artery bypass graft Status: Chronic Assessment and plan: Patient is status post CABG October 04, 2016 with RICHARDSON to LAD and SVG to PDA and OM. Current Visit: No (2) Hypotension Status: Acute Assessment and plan: Blood pressure was noted to be 77/47 upon arrival to the ER. Patient was treated with IV fluids. Blood pressure is better today. His blood pressure of 105/56 currently. Will order orthostatic vital signs. Will continue to rehydrate with IVF's. Current Visit: Yes Qualifiers: Hypotension type: hypotension due to drug Qualified Code(s): I95.2 - Hypotension due to drugs (3) Acute kidney injury Status: Acute Assessment and plan: Patient was noted to be in acute renal failure upon arrival to the ER with a creatinine of 2.0. This was thought to be secondary to dehydration. He was treated with IV fluids. Today his creatinine is 2.9. Will continue to hydrate with IVF's and with daily BMP. Nephrotoxic medications have been discontinued. Current Visit: Yes (4) Elevated liver enzymes Status: Acute Assessment and plan: This has trended down since patient's last admission. We will continue to monitor these. Current Visit: No (5) Postoperative atrial fibrillation Status: Acute Assessment and plan: Patient is currently in normal sinus rhythm. Patient is on chronic anticoagulation with Eliquis 5 mg p.o. twice daily. For rate control he is on amiodarone 200 mg p.o. twice daily. We will continue these. Current Visit: No (6) Obstructive sleep apnea Status: Chronic Assessment and plan: CPAP machine at night when brings it to hospital. Current Visit: No (7) Type 2 diabetes mellitus Status: Chronic Assessment and plan: Defer management to hospitalist. Current Visit: No Qualifiers: Diabetes mellitus complication status: without complication Diabetes mellitus nursing home insulin use: without nursing home use Qualified Code(s): E11.9 - Type 2 diabetes mellitus without complications (8) Dyslipidemia Status: Chronic Assessment and plan: Continue current plan of care with statin. Current Visit: Yes (9) Diarrhea Status: Acute Assessment and plan: Stool is being checked for Cdiff. This could possibly be secondary to antibiotic therapy. Current Visit: Yes (10) Leukocytosis Status: Acute Assessment and plan: Patient has a UTI and is being treated with Cipro. We will also order blood cultures. Current Visit: Yes (11) Ischemic cardiomyopathy Status: Acute Assessment and plan: Recent echocardiogram revealed an ejection fraction of 35%. Will reinitiate patient's heart failure medications once blood pressure allows. Current Visit: Yes History of Present Illness - Data of Consult Patient: known to practice within the last 3 years Consult date: 10/18/16 Requesting Physician: Ellen Zamudio - Consult Narrative Reason for consult: hypotension, s/p cabg History of present illness: Mr. Bird is a 66 year old male with a known history of coronary artery disease , routinely followed by Dr. Post. Patient's primary care provider is Dr. Aristeo Shepard. Patient presented to the emergency room last night with complaints of weakness, shortness of breath, diarrhea and hypotension. Patient has a history of coronary artery disease with recent CABG October 04, 2016, atrial fibrillation, AAA, dyslipidemia, diabetes, BPH, GERD and hypertension. Patient is a former smoker (reports that he quit smoking cigarettes 6 years ago and quit smoking a cigarette 1 week ago). He has a past surgical history of CABG October 04, 2016 with RICHARDSON graft to LAD and vein graft to PDA and OM, appendectomy and abdominal surgery (small bowel obstruction status post resection). Patient confirms a family history of heart disease. Recent echocardiogram, October 13, 2016 revealed a left ventricular ejection fraction of 35-40%. Mild concentric left ventricular hypertrophy with diastolic dysfunction. Trace mitral regurgitation and moderate tricuspid valve regurgitation. He was just previously discharged yesterday afternoon. His most recent hospitalization was for anemia requiring blood transfusion. He was transfused and stabilized. No source of bleeding was identified on EGD and he has had a cscope recently. He had no blood in his stool. Dr Logan saw him and told him he had iron deficiency anemia. He developed a UTI and was treated with Ceftriaxone. The culture is growing gram-negative rods. He was discharged home on oral Cipro. He was also treated for heart failure and Lasix and Aldactone was initiated. Patient reports that he was doing well post discharge for the first several hours. His reports that he became hypotensive, fatigued and short of breath approximately 30 minutes after taking his evening medications. He is unable to tell me exactly what he took. However, his does tell me that she will bring his medications to hospital tomorrow so we can verify that he is taking the correct medications. He reports feeling week all over and lack of energy. Patient denies chest pain, heaviness or tightness. He does however confirm diarrhea for the past two days. This could possibly be related to antibiotic therapy. He denies bloody or dark stools. Denies fever, chills, nausea, vomiting, abdominal pain, orthopnea, and PND. He does report palpitations/heart racing. He tells me that his dysuria has gotten much better since initiation of antibiotics. Patient and his were extremely concerned with his blood pressure given his recent heart surgery. They presented to ER for further evaluation. Patient was admitted under hospitalists service. Cardiology has been consulted to follow. Patient was seen on telemetry. He is resting in bed in no acute distress. He is currently requiring oxygen at 2L NC. Patient remains without chest pain, heaviness or tightness. He reports that he is no longer short of breath. Surgical wounds continue to heal well. Chest xray reveals stable cardiomegaly with minimally progressive minimal edema/atelectasis with small pleural effusion. BNP 1503. H and H is stable. WBC is noted to be 22.9. Patient was diagnosed with UTI during his previous admission. Urine cultures are growing 2 separate gram-negative rods. The patient was treated with ciprofloxacin orally. This was continued on admission. Follow-up urine cultures pending. Patient has been afebrile. Blood pressures was low upon arrival to the ER. Systolic BP was around 70. This was thought to be secondary to dehydration, possibly secondary to new medications of Aldactone and Lasix. Blood pressure is much better after IVF's. Patient is currently in sinus rhythm without any overt arrhythmias or ectopy. CC: Nessa Avilez MD - Home Medications and Allergies Home Medications: Home Medications Medication Instructions Recorded Confirmed Type Bupropion HCl [Bupropion Xl] 300 mg PO QAM 10/03/16 10/18/16 History Carvedilol [Coreg] 25 mg PO BID 10/03/16 10/18/16 History Doxepin HCl [Silenor] 3 mg PO BEDTIME 10/03/16 10/18/16 History Ferrous Gluconate 325 mg PO QAM 10/03/16 10/18/16 History Gabapentin Cap/Tab [Neurontin 100 mg PO BID 10/03/16 10/18/16 History Cap/Tab] Gemfibrozil 600 mg PO BID 10/03/16 10/18/16 History Metformin HCl 1,000 mg PO BID 10/03/16 10/18/16 History [place]-3/Dha/Epa/Fish Oil [Fish Oil 3,000 mg PO QAM 10/03/16 10/18/16 History Conc 1,000 mg Softgel] Omeprazole Magnesium [Prilosec Otc] 20 mg PO QAM 10/03/16 10/18/16 History Pioglitazone [Actos] 15 mg PO QAM 10/03/16 10/18/16 History Tamsulosin [Flomax] 2 capsule PO BEDTIME 10/03/16 10/18/16 History glipiZIDE [Glipizide] 20 mg PO BID 10/03/16 10/18/16 History Amiodarone Tab [Cordarone Tab] 200 mg PO BID #60 tablet 10/11/16 10/18/16 Rx Apixaban [Eliquis] 5 mg PO BID #60 tablet 10/11/16 10/18/16 Rx Ascorbic Acid Tab [Vitamin C Tab] 1,000 mg PO BID tablet 10/11/16 10/18/16 Rx Aspirin EC Tab 325 mg PO DAILY tablet 10/11/16 10/18/16 Rx Atorvastatin [Lipitor] 40 mg PO BEDTIME tablet 10/11/16 10/18/16 Rx traMADol TAB [Ultram] 50 mg PO Q6H PRN #40 tablet 10/11/16 10/18/16 Rx Ciprofloxacin Tab [Cipro Tab] 500 mg PO BID #10 tablet 10/17/16 10/18/16 Rx Furosemide Tab [Lasix Tab] 20 mg PO DAILY #30 tablet 10/17/16 10/18/16 Rx Spironolactone [Aldactone] 12.5 mg PO DAILY #30 tablet 10/17/16 10/18/16 Rx Allergies/Adverse Reactions: Allergies Allergy/AdvReac Type Severity Reaction Status Date / Time No Known Allergies Allergy Unverified 10/03/16 16:54 - Constitutional Constitutional: Present: fatigue, malaise, weakness, weight gain. Absent: chills, fever(s), frequent falls - Cardiovascular Cardiovascular: Present: dyspnea, lightheadedness. Absent: chest pain at rest, chest pain with activity, claudication, diaphoresis, edema, radiating jaw, neck or arm pain, palpitations - Respiratory Respiratory: Present: dyspnea, dyspnea on exertion, snoring. Absent: cough, hemoptysis, pain on inspiration, change in phlegm color - Gastrointestinal Gastrointestinal: Present: diarrhea. Absent: abdominal pain, coffee ground emesis, constipation, cramping, heartburn, hematemesis, hematochezia, loose stools, melena, nausea, vomiting - Genitourinary Genitourinary: Present: dysuria. Absent: hematuria - Neurological Neurological: Present: dizziness. Absent: abnormal gait, abnormal speech, behavioral changes, confusion, frequent falls, headache(s), syncope - Psychiatric Psychiatric: Present: anxiety Medical,Surgical,& Family Hx - Medical History Cardio: History of: Aneurysm (AAA), Cardiac Dysrhythmia (afib), CHF, CAD, Hypertension, [place], Cardiovascular Problems (angioplasty 1995) Neurology: No history of: Seizures HEENT: History of: Ear Problem (Slight hearing loss) Endocrine: History of: Diabetes Mellitus (NIDDM), Dyslipidemia Genitourinary: History of: Prostate Problems (Enlarged) Gastrointestinal: History of: GERD - Surgical History Cardiac Surgeries: Sugical HX of: Cardiac Catheterization, Cardiac Surgery ( cabg 10/05/2016) Neurologic Surgeries: Patient denies: Neurologic Surgery Abdominal Surgeries: Surgical HX of: Abdominal Surgery, Appendectomy, EGD - Family History Family History: Reports;: Family Diabetes, Family Heart Disease, Family Stroke - Social History Smoking Status: Former smoker Frequency of Alcohol Use: None Type of Drug Use: None Physical Examination Vital Signs Temp Pulse Resp BP Pulse Ox 97.7 F 60 20 77/47 98 10/17/16 22:48 10/17/16 22:48 10/17/16 22:48 10/17/16 22:48 10/17/16 22:48 Other: General: Present: Appears Well, No Apparent Distress Neck: Present: Supple Neck, Midline Trachea, No JVD/HJR, No Masses, No Bruit, No Lymphadenopathy, No Thyromegaly Cardiac: Present: Regular rate and rhythm. Lungs: Present: Decreased Breath Sounds. Oxygen at 2 L via nasal cannula. Abdomen: Present: Soft, Active Bowel Sounds, Distended, Non-Tender Skin: Present: Clear, Other (Surgical incisions healing well). Absent: Rash, Suspicious Lesions, Ulceration Extremities: Present: Normal Gait, No Clubbing, No Cyanosis, Normal Upper Extr. Pulses, Normal Lower Extr. Pulses. Trace edema to bilateral lower extremities Result/EKG - Labs CBC & BMP: 10/18/16 13:50 10/18/16 13:50 Lab Results: I have reviewed the past 24 hour labs Labs: Laboratory Results - last 24 hr 10/18/16 10/18/16 07:48 11:51 POC Glucose 77 118 H Quality Measures - VTE Contraindication to Pharmacological VTE Prophylaxis: Already on Theraputic Agent , No Prophylaxis Needed
[2016-10-18 13:56] LABS: Basophils % 0.2 % (0.0-0.8); Eosinophils # 0.1 10*3/uL (0.0-0.87); Eosinophils % 0.9 % (0.00-10.9); Hematocrit 30.4 VOL% (42.0-52.0); Hemoglobin 9.4 GM/DL (14.0-18.0); Immature Granulocytes % 0.4 %; Immature Granulocytes Absolute 0.04 #; Lymphocytes # 1.5 10*3/uL (1.4-4.0); Lymphocytes % 14.8 % (21.2-54.2); Mean Corpuscular HGB Conc 30.9 GM/DL (32-36); Mean Corpuscular Hemoglobin 30 PG (27-34); Mean Corpuscular Volume 96.2 FL (87-102); Mean Platelet Volume 12.4 FL (9.6-12.0); Monocytes # 0.9 10*3/uL (0.11-0.8); Monocytes % 8.8 % (1.7-12.7); Neutrophils # 7.5 10*3/uL (1.4-7.4); Neutrophils % 74.9 % (38.7-73.9); Platelet Count 145 T/CUMM (130-400); Red Blood Count 3.16 MC/CUMM (3.8-5.5); Red Cell Distribution Width 14.6 % (9.3-17.3)
[2016-10-18] MEDS ORDERED: COSYNTROPIN 0.25 MG VIAL IV ONE (14:00)
[2016-10-18 14:16] LABS: Calcium 7.8 MG/DL (8.5-10.1); Osmolality,Calculated 292.4 MOS/KG (273-304); Potassium 4.2 MMOL/L (3.5-5.1)
[2016-10-18 14:47] LABS: ABG Base Excess 1.3 MMOL/L (-2.5-2.5); ABG HCO3 25.5 MMOL/L (20-26); ABG Oxygen Saturation 95.2 % (95-100); ABG PCO2 41.2 MM HG (35-48); ABG PH 7.409 (7.35-7.45); ABG PO2 74.2 MM HG (80-95); ABG TCO2 23.9 MMOL/L (23-27); Allen Test Positive; Pt O2 Delivery Device Room Air
[2016-10-18] MEDS: cefTRIAXone 1,000 MG in SODIUM CHLORIDE 0.9% 100 ML IV SCH (17:01)
[2016-10-18 17:17] LABS: Apearance,Urine CLOUDY (Clear); Bacteria,Urine Occasional /HPF (Few); Bilirubin,Urine Negative (Negative); Blood, Urine Negative (Negative); Glucose,Urine (UA) Negative (Negative); Hyaline Casts,Urine 15 /LPF (0-3); Ketones,Urine Negative (Negative); Mucus,Urine Occasional /LPF (Occasional); Nitrite,Urine Negative (Negative); Protein,Urine 30 MG/DL; RBC,Urine 10 /HPF (0-4); Squamous Epithelial Cell,Urine Occasional /HPF (0-10); Urine Color Amber (Yellow); Urine Specific Gravity 1.017 (1.001-1.035); WBC,Urine 190 /HPF (0-6)
--- NOTE | 2016-10-18 20:05 | Nephrology Consult Note ---
History of Present Illness Chief complaint: Acute renal failure History of present illness: Mr. Bird is a 66 year old male with a history of coronary artery disease status post CABG has had recurrent hospitalization for hypotension and anemia the patient has been admitted for hypotension and volume depletion. Patient serum creatinine has trended up from 2.0-2.9 today. Nephrology is been consulted for acute renal failure. The patient has been on diuretic medications for increased lower extremity swelling. At present he denies shortness of breath or chest pain. There is no history of NSAID use. Home Medications Medication Instructions Recorded Confirmed Type Bupropion HCl [Bupropion Xl] 300 mg PO QAM 10/03/16 10/18/16 History Carvedilol [Coreg] 25 mg PO BID 10/03/16 10/18/16 History Doxepin HCl [Silenor] 3 mg PO BEDTIME 10/03/16 10/18/16 History Ferrous Gluconate 325 mg PO QAM 10/03/16 10/18/16 History Gabapentin Cap/Tab [Neurontin 100 mg PO BID 10/03/16 10/18/16 History Cap/Tab] Gemfibrozil 600 mg PO BID 10/03/16 10/18/16 History Metformin HCl 1,000 mg PO BID 10/03/16 10/18/16 History [place]-3/Dha/Epa/Fish Oil [Fish Oil 3,000 mg PO QAM 10/03/16 10/18/16 History Conc 1,000 mg Softgel] Omeprazole Magnesium [Prilosec Otc] 20 mg PO QAM 10/03/16 10/18/16 History Pioglitazone [Actos] 15 mg PO QAM 10/03/16 10/18/16 History Tamsulosin [Flomax] 2 capsule PO BEDTIME 10/03/16 10/18/16 History glipiZIDE [Glipizide] 20 mg PO BID 10/03/16 10/18/16 History Amiodarone Tab [Cordarone Tab] 200 mg PO BID #60 tablet 10/11/16 10/18/16 Rx Apixaban [Eliquis] 5 mg PO BID #60 tablet 10/11/16 10/18/16 Rx Ascorbic Acid Tab [Vitamin C Tab] 1,000 mg PO BID tablet 10/11/16 10/18/16 Rx Aspirin EC Tab 325 mg PO DAILY tablet 10/11/16 10/18/16 Rx Atorvastatin [Lipitor] 40 mg PO BEDTIME tablet 10/11/16 10/18/16 Rx traMADol TAB [Ultram] 50 mg PO Q6H PRN #40 tablet 10/11/16 10/18/16 Rx Ciprofloxacin Tab [Cipro Tab] 500 mg PO BID #10 tablet 10/17/16 10/18/16 Rx Furosemide Tab [Lasix Tab] 20 mg PO DAILY #30 tablet 10/17/16 10/18/16 Rx Spironolactone [Aldactone] 12.5 mg PO DAILY #30 tablet 10/17/16 10/18/16 Rx Allergies Allergy/AdvReac Type Severity Reaction Status Date / Time No Known Allergies Allergy Unverified 10/03/16 16:54 Medical,Surgical,& Family Hx - Medical History Cardio: History of: Aneurysm (AAA), Cardiac Dysrhythmia (afib), CHF, CAD, Hypertension, [place], Cardiovascular Problems (angioplasty 1995) Neurology: No history of: Seizures HEENT: History of: Ear Problem (Slight hearing loss) Endocrine: History of: Diabetes Mellitus (NIDDM), Dyslipidemia Genitourinary: History of: Prostate Problems (Enlarged) Gastrointestinal: History of: GERD - Surgical History Cardiac Surgeries: Sugical HX of: Cardiac Catheterization, Cardiac Surgery ( cabg 10/05/2016) Neurologic Surgeries: Patient denies: Neurologic Surgery Abdominal Surgeries: Surgical HX of: Abdominal Surgery, Appendectomy, EGD - Family History Family History: Reports;: Family Diabetes, Family Heart Disease, Family Stroke - Social History Smoking Status: Former smoker Frequency of Alcohol Use: None Type of Drug Use: None Review of Systems Constitutional: malaise, no chills Cardiovascular: no chest pain at rest, no claudication Respiratory: no dyspnea Exam - Vital Signs Vital signs: Period Temp Pulse Resp BP Sys/Mehta Pulse Ox Last 24 Hr 97.1 F-97.4 F 58-71 16-20 81-130/48-90 94-99 - General Appearance General appearance: well-developed, well-nourished EENT: ATNC Neck: supple Respiratory: clear Cardiology: edema (2+), regular rate, regular rhythm Gastrointestinal: normoactive bowel sounds, no tenderness, no guarding Neurologic: alert and oriented x3 Musculoskeletal: no deformities, no clubbing Results - Labs CBC & BMP: 10/18/16 13:50 10/18/16 13:50 Assessment and Plan (1) Acute renal failure Status: Acute Assessment and plan: Avoid nephrotoxic agents. BMP in a.m. Current Visit: Yes (2) Elevated serum creatinine Status: Acute Assessment and plan: BMP in a.m. Avoid nephrotoxic agents. Renal ultrasound in a.m. Current Visit: No (3) Dehydration Status: Acute Current Visit: No
[2016-10-18] MEDS ORDERED: SILENOR 3 MG PO SCH (21:00)
[2016-10-18] MEDS: TAMSULOSIN 0.4 MG CAPSULE PO SCH (21:19)
[2016-10-18] MEDS: ATORVASTATIN 40 MG TABLET PO SCH (21:19)
[2016-10-19] MEDS: SODIUM CHLORIDE 0.9% 1,000 ML IV SCH ×4 (00:36→16:20)
[2016-10-19 05:45] LABS: Basophils % 0.2 % (0.0-0.8); Eosinophils % 0.4 % (0.00-10.9); Hematocrit 30.8 VOL% (42.0-52.0); Hemoglobin 9.7 GM/DL (14.0-18.0); Immature Granulocytes % 0.5 %; Immature Granulocytes Absolute 0.05 #; Lymphocytes # 1.4 10*3/uL (1.4-4.0); Lymphocytes % 13.8 % (21.2-54.2); Mean Corpuscular HGB Conc 31.5 GM/DL (32-36); Mean Corpuscular Hemoglobin 30 PG (27-34); Mean Corpuscular Volume 94.5 FL (87-102); Mean Platelet Volume 12.6 FL (9.6-12.0); Monocytes % 9.8 % (1.7-12.7); Neutrophils # 7.4 10*3/uL (1.4-7.4); Neutrophils % 75.3 % (38.7-73.9); Platelet Count 192 T/CUMM (130-400); Red Blood Count 3.26 MC/CUMM (3.8-5.5); Red Cell Distribution Width 14.7 % (9.3-17.3); White Blood Count 9.8 T/CUMM (4-12)
[2016-10-19 06:09] LABS: Calcium 7.8 MG/DL (8.5-10.1); Magnesium 2.1 MG/DL (1.8-2.4); Potassium 4.1 MMOL/L (3.5-5.1)
[2016-10-19] MEDS: INSULIN LISPRO 100 UNIT/ML SUBCUT SCH ×4 (08:10→21:12)
[2016-10-19] MEDS: traMADol 50 MG TABLET PO PRN ×2 (08:11→21:11)
[2016-10-19] MEDS: PIOGLITAZONE 15 MG TABLET PO SCH (08:11)
[2016-10-19] MEDS: OMEGA 3 ACID ETHYL ESTERS 1 GM CAPSULE PO SCH (08:11)
[2016-10-19] MEDS: ASPIRIN EC 325 MG TABLET PO SCH (08:12)
[2016-10-19] MEDS: FERROUS SULFATE 325 MG TABLET PO SCH (08:12)
[2016-10-19] MEDS: GABAPENTIN 100 MG CAPSULE PO SCH ×2 (08:12→21:10)
[2016-10-19] MEDS: APIXABAN 5 MG TABLET PO SCH ×2 (08:12→21:10)
[2016-10-19] MEDS: glipiZIDE 10 MG TABLET PO SCH ×2 (08:12→21:10)
[2016-10-19] MEDS: ASCORBIC ACID 500 MG TABLET PO SCH ×2 (08:12→21:11)
[2016-10-19] MEDS: AMIODARONE 200 MG TABLET PO SCH ×2 (08:13→21:11)
[2016-10-19] MEDS: GEMFIBROZIL 600 MG TABLET PO SCH ×2 (08:13→21:11)
[2016-10-19] MEDS: PANTOPRAZOLE 40 MG TABLET PO SCH (08:13)
[2016-10-19] MEDS: buPROPion XL 150 MG TABLET PO SCH (08:18)
--- NOTE | 2016-10-19 08:37 | XRay Report ---
Chest, 2 views History short of breath Comparison 10/17/2016 The heart and vessels are enlarged. There is slight increase in diffuse bilateral pulmonary edema with tiny bilateral effusions. No consolidative infiltrates seen. Impression: Slight worsening of pulmonary edema PROCEDURE INTERPRETED AT [facility] DEPARTMENT OF RADIOLOGY Final Report Signed by: Dr. Faby Li
--- NOTE | 2016-10-19 09:43 | Ultrasound Report ---
History is acute renal failure Right kidney is 11.3 cm in length Left kidney is 12.1 cm in length Cortical echogenicity is normal No hydronephrosis seen bilaterally There is arterial flow to both kidneys Impression: No acute pathology seen PROCEDURE INTERPRETED AT [facility] DEPARTMENT OF RADIOLOGY Final Report Signed by: Dr. Fayb Li
--- NOTE | 2016-10-19 10:22 | Hospitalist Progress Note ---
Assessment and Plan - Time spent with patient Time spent with patient: Less than 30 minutes (1) Acute renal failure Status: Resolved Assessment and plan: Patient presented with acute renal failure which is improved overnight. Nephrology and cardiology continue to follow and await further recommendations. Current Visit: No (2) UTI (urinary tract infection) Status: Acute Assessment and plan: Continuing IV antibiotics empirically while awaiting urine culture. Current Visit: Yes (3) Type 2 diabetes mellitus Status: Chronic Assessment and plan: Continue current medical regimen with Accu-Cheks and sliding scale insulin. Current Visit: No Qualifiers: Diabetes mellitus complication status: without complication Diabetes mellitus terminal manager insulin use: without correction use Qualified Code(s): E11.9 - Type 2 diabetes mellitus without complications (4) Obstructive sleep apnea Status: Chronic Assessment and plan: Continue to use CPAP at night. Current Visit: No (5) Congestive heart failure Status: Chronic Assessment and plan: Patient has evidence of congestive heart failure. Cardiology and nephrology continue to follow. Will await further recommendations and any adjustments in medical therapy is indicated. Current Visit: Yes (6) Status post aorto-coronary artery bypass graft Status: Chronic Current Visit: No (7) Anemia Status: Acute Assessment and plan: Patient is anemic. H&H is currently stable however stool specimen was Hemoccult positive. As he is on anticoagulant therapy will consult GI to give any further recommendations. Current Visit: No Exam - Constitutional Vitals: Period Temp Pulse Resp BP Sys/Mehta Pulse Ox Last 24 Hr 97.1 F-97.5 F 61-113 16-20 105-144/56-90 93-99 Results - Labs CBC & BMP: 10/19/16 04:58 10/19/16 04:58 Lab Results: I have reviewed the past 24 hour labs Quality Measures - VTE Contraindication to Pharmacological VTE Prophylaxis: Already on Theraputic Agent , No Prophylaxis Needed
--- NOTE | 2016-10-19 12:13 | Gastrointestinal Progress Note ---
Assessment and Plan (1) Anemia Status: Acute Assessment and plan: This patient does have a history of anemia this is been evaluated with upper endoscopy on last visit when his hematocrit was noted to be as low as 22%. The patient was transfused subsequently with 4 units of packed red blood cells and his hematocrit is remained in the 30% range since that time. He does continue to have guaiac positive stools which are noted in a setting of moderately severe diarrhea of unclear etiology. This may be secondary to medication reaction although he is not typically on medications would normally produce diarrhea i.e. magnesium and/or metformin for example. He has been noted on several occasions to be guaiac negative. I will be checking his stools to see if there is any evidence of salmonella shigella Campylobacter as well as looking for white blood cells that might be increased. He may have ischemic colitis from his previous hypotension, for example. The patient has had a negative upper endoscopy done last admission on 10/13/16 and is had a negative colonoscopy done for colorectal cancer in the last 1 year in [facility]. We are attempting to get the old results from the colonoscopy. Due to ongoing issues with guaiac positivity will be ordering a capsule endoscopy as had been the plan with Dr. York on the patient's previous admission. Will arrange for this for Friday. Current Visit: No (2) Guaiac positive stools Status: Acute Assessment and plan: Possible causes for the guaiac positive stool include but are not limited to: Small bowel AVMs, small bowel tumors, ischemic colitis, infectious colitis, diverticular bleeding, and bleeding from hemorrhoids. Recall there was no evidence of gastritis esophagitis or duodenitis on upper endoscopy done as recently as 6 days ago. Current Visit: Yes (3) Personal history of colonic polyps Status: Acute Assessment and plan: These were discovered on previous colonoscopy done in [facility] approximately 1 year ago. We are attempting to get a copy of the pathology and the old report for review. Current Visit: Yes (4) Diarrhea Status: Acute Assessment and plan: Patient states that this is 7-8 times per day and states this is a reason for his hypotension and dehydration. I will continue to check other stool studies including fecal white blood cells and stool culture as well as Cryptosporidium to see if these are abnormal. We will start the patient on Lomotil 1 capsule 3 times daily to see if this helps out with the diarrhea. Ischemic and infectious colitis remain in the differential. Current Visit: Yes Gastroenterology - PN: Subj Interval history: THIS IS A PATIENT WHO IS SEEN BY DR. YORK WITHIN THE LAST WEEK FOR HIS PRIOR ADMISSION, REPEAT CONSULTATION WILL NOT BE DICTATED. Glenn is a pleasant 66-year-old male who underwent treatment of his coronary artery disease with CABG done on 10/04/16 and has a history of atrial fibrillation on Eliquis who is presenting with his third admission with diarrhea and dehydration. He continues to have some mild anemia with hematocrit of 30% and guaiac positive stools. This has been worked up by Dr. Walter with upper endoscopy as recently as 10/13/16 with normal appearance. The patient had previously undergone colonoscopy by [facility] in [facility] through the [place] as recently as 1 year ago with the discovery of several polyps and was told to return again in 5 years for recheck. No bleeding source was seen on the colonoscopy by report. We are asking to have old records sent to us. Dr. York follow this patient up until 10/16/16 and had noted that he had guaiac negative stools and improving diarrhea that was noted to be C. difficile negative. His plan had been to obtain a capsule endoscopy as an outpatient in approximately 2 weeks. The patient was home for approximately a day and started having acute episodes of hypotension shortness of breath and elected to return immediately for rehospitalization. Although the patient received 4 units of packed red blood cells back on 10/13/16 for hematocrit of 22% he is now back up to 30% and is relatively stable at this level. He still is having 7-8 bowel movements per day and the nurses are concerned that he is passing some of his pills "unaltered " into the stool. Looking at his medication list there is nothing classically that would be producing his level of diarrhea, i.e. like metformin or magnesium , and he has been negative for C. difficile on multiple occasions although he is getting antibiotics now. He is negative for C. difficile this admission as well. Exam (Progress Note) - Constitutional Vitals: Period Temp Pulse Resp BP Sys/Mehta Pulse Ox Last 24 Hr 97.3 F-97.5 F 70-113 16-20 114-144/58-90 93-99 General appearance: no acute distress - Head Head exam: Present: normocephalic, atraumatic - Eye Eye exam: Present: EOMI. Absent: scleral icterus - Respiratory Respiratory exam: Present: clear to auscultation bilaterally. Absent: rhonchi, stridor, wheezes - Cardiovascular Cardiovascular exam: Present: irregular rhythm, systolic murmur - GI/Abdominal GI/Abdominal exam: Present: normal bowel sounds, distended, soft. Absent: guarding, tenderness, rebound - Extremities Exam Extremities exam: Present: edema (Saphenous vein harvest noted. +1 edema noted) - Neurological Exam Neurological exam: Present: alert, oriented X3, CN II-XII intact. Absent: motor sensory deficit - Psychiatric Psychiatric exam: Present: normal affect, normal mood - Skin Skin exam: Present: warm Results - Labs CBC & BMP: 10/19/16 04:58 10/19/16 04:58
--- NOTE | 2016-10-19 13:03 | Nephrology Progress Note ---
Nephrology - PN: Subj Interval history: The patient is resting comfortably. No acute changes. Serum creatinine is noted to be 2.2 which is improved. Hemodynamically he is stable. At this time continue current management will repeat BMP in the morning. Exam (PN)-Nephrology - Vital Signs Vital signs: Period Temp Pulse Resp BP Sys/Mehta Pulse Ox Last 24 Hr 97.3 F-97.6 F 70-125 16-20 114-144/58-90 93-99 - General Appearance General appearance: well-developed, well-nourished EENT: ATNC Neck: supple Respiratory: clear Cardiology: regular rate, regular rhythm Gastrointestinal: normoactive bowel sounds, no tenderness Neurologic: alert and oriented x3, CN 3-12 intact Musculoskeletal: no deformities, no clubbing Psychiatric: mood/affect appropriate - Lab 10/19/16 04:58 10/19/16 04:58 Most recent lab results ABG pH 7.409 (7.35-7.45) 10/18/16 14:42 ABG pCO2 41.2 MM HG (35-48) 10/18/16 14:42 ABG pO2 74.2 MM HG (80-95) L 10/18/16 14:42 ABG HCO3 25.5 MMOL/L (20-26) 10/18/16 14:42 ABG O2 Saturation 95.2 % (95-100) 10/18/16 14:42 Calcium 7.8 MG/DL (8.5-10.1) L 10/19/16 04:58 Magnesium 2.1 MG/DL (1.8-2.4) 10/19/16 04:58 Assessment and Plan (1) Acute renal failure Status: Acute Assessment and plan: Avoid nephrotoxic agents. BMP in a.m. Current Visit: Yes (2) Elevated serum creatinine Status: Acute Assessment and plan: BMP in a.m. Avoid nephrotoxic agents. Renal ultrasound is pending Current Visit: No (3) Dehydration Status: Acute Current Visit: No
[2016-10-19] MEDS ORDERED: AMIODARONE 200 MG TABLET PO ONE (13:46)
[2016-10-19] MEDS: cefTRIAXone 1,000 MG in SODIUM CHLORIDE 0.9% 100 ML IV SCH (16:16)
[2016-10-19] MEDS: DIPHENOXYLATE/ATROPINE 2.5-0.025 MG TABLET PO SCH ×2 (16:16→21:11)
--- NOTE | 2016-10-19 18:11 | Cardiology Progress Note ---
Assessment and Plan - Time spent with patient Time spent with patient: Greater than 30 minutes (1) Postoperative atrial fibrillation Status: Acute Assessment and plan: Assessment/plan/recommendation: Patient had some more atrial fibrillation with rapid response. He did not feel it. It could have been what happened at home which decompensated him. We are looking other possibilities. Have given extra amiodarone. He converted back to sinus rhythm. Will increase amiodarone to 400 mg p.o. twice daily for now, trying to keep him in sinus rhythm.. Regarding blood in his stool, we have stopped the anticoagulation. Dr. Quan is evaluating. Regarding his hypotension is better. Regarding his acute renal failure. His creatinine has peak and is resolving. Prognosis remains guarded. He and his have been using his CPAP at night. Current Visit: No (2) Acute kidney injury Status: Acute Current Visit: Yes (3) Acute renal failure Status: Acute Current Visit: Yes (4) Atrial fibrillation Status: Acute Current Visit: Yes Qualifiers: Atrial fibrillation type: persistent Qualified Code(s): I48.1 - Persistent atrial fibrillation (5) Chronic anticoagulation Status: Acute Current Visit: Yes (6) Diarrhea Status: Acute Current Visit: Yes (7) Guaiac positive stools Status: Acute Current Visit: Yes (8) Hypotension Status: Acute Current Visit: Yes Qualifiers: Hypotension type: hypotension due to drug Qualified Code(s): I95.2 - Hypotension due to drugs (9) Ischemic cardiomyopathy Status: Acute Current Visit: Yes (10) Leukocytosis Status: Acute Current Visit: Yes (11) Personal history of colonic polyps Status: Acute Current Visit: Yes (12) Elevated serum creatinine Status: Acute Current Visit: No (13) Ischemic heart disease Status: Chronic Current Visit: No (14) Obesity Status: Chronic Current Visit: No (15) Obstructive sleep apnea Status: Chronic Current Visit: No (16) Status post aorto-coronary artery bypass graft Status: Chronic Current Visit: No (17) Type 2 diabetes mellitus Status: Chronic Current Visit: No Qualifiers: Diabetes mellitus complication status: without complication Diabetes mellitus care home insulin use: without care home use Qualified Code(s): E11.9 - Type 2 diabetes mellitus without complications Cardiology - PN: Subj Interval history: No chest pain, shortness breath, or feelings of tachycardia palpitations. Has had some blood in his stool. Exam (Progress Note) - Constitutional Vitals: Period Temp Pulse Resp BP Sys/Mehta Pulse Ox Last 24 Hr 97.4 F-97.6 F 71-125 16-20 115-144/58-76 93-99 Exam: HEENT: Pupils equal, reactive to light and accommodation Neck: NoJVD or bruit Lungs clear to auscultation Heart: Irregularly irregular rhythm rate with normal S1 and S2. Abdomen: No hepatosplenomegaly Spine/extremities: No clubbing, cyanosis, or edema Neuro: Nonfocal Psych: No depression or anxiety Result/EKG - Labs CBC & BMP: 10/19/16 04:58 10/19/16 04:58 Lab Results: I have reviewed the past 24 hour labs Labs: Laboratory Results - last 24 hr 10/18/16 10/19/16 10/19/16 20:10 04:58 04:58 WBC 9.8 RBC 3.26 L Hgb 9.7 L Hct 30.8 L MCV 94.5 MCH 30 MCHC 31.5 L RDW 14.7 Plt Count 192 D MPV 12.6 H Neut % (Auto) 75.3 H Lymph % (Auto) 13.[address] [place] % (Auto) 9.8 Eos % (Auto) 0.4 Baso % (Auto) 0.2 Neut # (Auto) 7.4 Lymph # (Auto) 1.4 [place] # (Auto) 1.0 H Eos # (Auto) 0.0 Baso # (Auto) 0.0 Immature Gran % 0.5 Nucleated RBC % 0.0 Immature Gran # 0.05 Nucleated RBCs # 0.00 Sodium 143 Potassium 4.1 Chloride 103 Carbon Dioxide 27 Anion Gap 17.1 H BUN 44 H Creatinine 2.20 H GFR Calculation 37 BUN/Creatinine Ratio 20.00 Glucose 176 H POC Glucose 280 H Calculated Osmolality 299.0 Calcium 7.8 L Magnesium 2.1 10/19/16 10/19/16 10/19/16 07:47 12:07 15:52 WBC RBC Hgb Hct MCV MCH MCHC RDW Plt Count MPV Neut % (Auto) Lymph % (Auto) [place] % (Auto) Eos % (Auto) Baso % (Auto) Neut # (Auto) Lymph # (Auto) [place] # (Auto) Eos # (Auto) Baso # (Auto) Immature Gran % Nucleated RBC % Immature Gran # Nucleated RBCs # Sodium Potassium Chloride Carbon Dioxide Anion Gap BUN Creatinine GFR Calculation BUN/Creatinine Ratio Glucose POC Glucose 128 H 194 H 262 H Calculated Osmolality Calcium Magnesium - EKG EKG results: interpreted by me Quality Measures - VTE Contraindication to Pharmacological VTE Prophylaxis: Already on Theraputic Agent , No Prophylaxis Needed
[2016-10-19] MEDS: ATORVASTATIN 40 MG TABLET PO SCH (21:11)
[2016-10-19] MEDS: TAMSULOSIN 0.4 MG CAPSULE PO SCH (21:11)
[2016-10-20] MEDS: SODIUM CHLORIDE 0.9% 1,000 ML IV SCH (00:26)
[2016-10-20] MEDS ORDERED: DILTIAZEM 100 MG VIAL.ADD IV ONE (01:27)
[2016-10-20] MEDS: DILTIAZEM INJ 100 MG in SODIUM CHLORIDE 0.9% 100 ML IV SCH (01:41)
[2016-10-20] MEDS: traMADol 50 MG TABLET PO PRN ×4 (04:37→22:28)
[2016-10-20 05:45] LABS: Basophils % 0.4 % (0.0-0.8); Eosinophils # 0.1 10*3/uL (0.0-0.87); Eosinophils % 1.2 % (0.00-10.9); Hematocrit 32.3 VOL% (42.0-52.0); Hemoglobin 10.2 GM/DL (14.0-18.0); Immature Granulocytes % 0.3 %; Immature Granulocytes Absolute 0.02 #; Lymphocytes # 1.3 10*3/uL (1.4-4.0); Lymphocytes % 18.7 % (21.2-54.2); Mean Corpuscular HGB Conc 31.6 GM/DL (32-36); Mean Corpuscular Hemoglobin 30 PG (27-34); Mean Corpuscular Volume 94.7 FL (87-102); Mean Platelet Volume 12.6 FL (9.6-12.0); Monocytes # 0.9 10*3/uL (0.11-0.8); Monocytes % 13.5 % (1.7-12.7); Neutrophils # 4.5 10*3/uL (1.4-7.4); Neutrophils % 65.9 % (38.7-73.9); Platelet Count 190 T/CUMM (130-400); Red Blood Count 3.41 MC/CUMM (3.8-5.5); White Blood Count 6.8 T/CUMM (4-12)
[2016-10-20 05:59] LABS: Calcium 8.3 MG/DL (8.5-10.1); Osmolality,Calculated 294.6 MOS/KG (273-304); Potassium 4.3 MMOL/L (3.5-5.1)
--- NOTE | 2016-10-20 08:22 | Nephrology Progress Note ---
Nephrology - PN: Subj Interval history: The patient is resting comfortably. Serum creatinine is trended down to 1.2. Renal ultrasound was unremarkable. At this time patient is stable we will add back Lasix 20 mg by mouth daily. Also discontinuing IV fluids. No further recommendations will sign off please call if needed. Exam (PN)-Nephrology - Vital Signs Vital signs: Period Temp Pulse Resp BP Sys/Mehta Pulse Ox Last 24 Hr 97.4 F-98.3 F 96-136 16-20 115-143/72-81 90-98 - General Appearance General appearance: well-developed, well-nourished EENT: ATNC Neck: supple Respiratory: clear Cardiology: edema (2+), regular rate, regular rhythm Gastrointestinal: normoactive bowel sounds, no tenderness Neurologic: alert and oriented x3, CN 3-12 intact Musculoskeletal: no clubbing Psychiatric: mood/affect appropriate - Lab 10/20/16 05:34 10/20/16 05:34 Most recent lab results ABG pH 7.409 (7.35-7.45) 10/18/16 14:42 ABG pCO2 41.2 MM HG (35-48) 10/18/16 14:42 ABG pO2 74.2 MM HG (80-95) L 10/18/16 14:42 ABG HCO3 25.5 MMOL/L (20-26) 10/18/16 14:42 ABG O2 Saturation 95.2 % (95-100) 10/18/16 14:42 Calcium 8.3 MG/DL (8.5-10.1) L 10/20/16 05:34 Magnesium 2.1 MG/DL (1.8-2.4) 10/19/16 04:58 Assessment and Plan (1) Acute renal failure Status: Resolved Assessment and plan: This issue has resolved. Current Visit: Yes (2) Elevated serum creatinine Status: Resolved Assessment and plan: Renal function is back to normal. Serum creatinine is 1.2. Discontinue IV fluids. Restart Lasix 20 mg by mouth daily. Current Visit: No (3) Dehydration Status: Resolved Current Visit: No
[2016-10-20] MEDS: OMEGA 3 ACID ETHYL ESTERS 1 GM CAPSULE PO SCH (08:48)
[2016-10-20] MEDS: INSULIN LISPRO 100 UNIT/ML SUBCUT SCH ×4 (08:48→21:56)
--- NOTE | 2016-10-20 08:48 | Hospitalist Progress Note ---
Assessment and Plan (1) Acute renal failure Status: Resolved Assessment and plan: Patient presented with acute renal failure which is improved overnight. Nephrology and cardiology continue to follow and await further recommendations. 10/20/16: Creatinine is now down to 1.2. Low-dose Lasix has been started by nephrology and IV fluids have been discontinued. We will continue to follow creatinine and optimize medical therapy. Current Visit: No (2) UTI (urinary tract infection) Status: Acute Assessment and plan: Continuing IV antibiotics empirically while awaiting urine culture. Urine culture is negative thus far. Current Visit: Yes (3) Type 2 diabetes mellitus Status: Chronic Assessment and plan: Continue current medical regimen with Accu-Cheks and sliding scale insulin. Current Visit: No Qualifiers: Diabetes mellitus complication status: without complication Diabetes mellitus nursing home insulin use: without nursing home use Qualified Code(s): E11.9 - Type 2 diabetes mellitus without complications (4) Obstructive sleep apnea Status: Chronic Assessment and plan: Continue to use CPAP at night. Current Visit: No (5) Congestive heart failure Status: Chronic Assessment and plan: Patient has evidence of congestive heart failure. Cardiology and nephrology continue to follow. Will await further recommendations and any adjustments in medical therapy is indicated. Current Visit: Yes (6) Status post aorto-coronary artery bypass graft Status: Chronic Current Visit: No (7) Anemia Status: Acute Assessment and plan: Patient is anemic. H&H is currently stable however stool specimen was Hemoccult positive. As he is on anticoagulant therapy will consult GI to give any further recommendations. 10/20/16: Appreciate gastroenterology assistance. No complaints have been reviewed. Current Visit: No Hospitalist: Subjective Interval history: Patient primarily complains of back pain this morning. He also complains of increased swelling of his lower extremities. He is already been seen by Dr. Corey and his creatinine is improved from 1.2 and low-dose Lasix has been reinitiated and his IV fluids have been discontinued. Exam - Constitutional Vitals: Period Temp Pulse Resp BP Sys/Mehta Pulse Ox Last 24 Hr 97.4 F-98.9 F 96-136 16-20 115-143/72-85 90-98 General appearance: no acute distress - Head Head exam: Present: normocephalic, atraumatic - Eye Eye exam: Present: EOMI Pupils: Present: YENNY - ENT ENT exam: Present: normal exam - Neck Neck exam: Present: normal inspection - Respiratory Respiratory exam: Present: clear to auscultation bilaterally - Cardiovascular Cardiovascular exam: Present: irregular rhythm - GI/Abdominal GI/Abdominal exam: Present: normal bowel sounds. Absent: tenderness, rebound, soft - Extremities Exam Extremities exam: Present: edema. Absent: calf tenderness - Neurological Exam Neurological exam: Present: alert, oriented X3, CN II-XII intact. Absent: motor sensory deficit - Psychiatric Psychiatric exam: Present: normal affect, normal mood. Absent: agitated, anxious - Skin Skin exam: Present: warm, dry. Absent: erythema, rash Results - Labs CBC & BMP: 10/20/16 05:34 10/20/16 05:34 Lab Results: I have reviewed the past 24 hour labs Quality Measures - VTE Contraindication to Pharmacological VTE Prophylaxis: Already on Theraputic Agent , No Prophylaxis Needed
[2016-10-20] MEDS: APIXABAN 5 MG TABLET PO SCH ×2 (08:49→21:58)
[2016-10-20] MEDS: AMIODARONE 200 MG TABLET PO SCH ×2 (08:49→22:01)
[2016-10-20] MEDS: PANTOPRAZOLE 40 MG TABLET PO SCH (08:49)
[2016-10-20] MEDS: PIOGLITAZONE 15 MG TABLET PO SCH (08:49)
[2016-10-20] MEDS: GEMFIBROZIL 600 MG TABLET PO SCH ×2 (08:49→22:00)
[2016-10-20] MEDS: buPROPion XL 150 MG TABLET PO SCH (08:49)
[2016-10-20] MEDS: ASCORBIC ACID 500 MG TABLET PO SCH ×2 (08:49→22:00)
[2016-10-20] MEDS: ASPIRIN EC 325 MG TABLET PO SCH (08:49)
[2016-10-20] MEDS: FERROUS SULFATE 325 MG TABLET PO SCH (08:49)
[2016-10-20] MEDS: DIPHENOXYLATE/ATROPINE 2.5-0.025 MG TABLET PO SCH (08:49)
[2016-10-20] MEDS: glipiZIDE 10 MG TABLET PO SCH ×2 (08:49→21:59)
[2016-10-20] MEDS: GABAPENTIN 100 MG CAPSULE PO SCH ×2 (08:50→22:00)
[2016-10-20] MEDS ORDERED: CARVEDILOL 3.125 MG TABLET PO SCH (09:00)
[2016-10-20] MEDS: FUROSEMIDE 20 MG TABLET PO SCH (09:48)
[2016-10-20] MEDS: DILTIAZEM 60 MG TABLET PO SCH ×2 (11:30→17:40)
--- NOTE | 2016-10-20 11:34 | Gastrointestinal Progress Note ---
Assessment and Plan (1) Anemia Status: Acute Assessment and plan: THIS IS A PATIENT OF DR. YORK'Kobi. This patient does have a history of anemia this is been evaluated with upper endoscopy on last visit when his hematocrit was noted to be as low as 22%. The patient was transfused subsequently with 4 units of packed red blood cells and his hematocrit is remained in the 30% range since that time. He does continue to have guaiac positive stools which are noted in a setting of moderately severe diarrhea of unclear etiology. This may be secondary to medication reaction although he is not typically on medications would normally produce diarrhea i.e. magnesium and/ or metformin for example. He has been noted on several occasions to be guaiac negative. I will be checking his stools to see if there is any evidence of salmonella shigella Campylobacter as well as looking for white blood cells that might be increased. He may have ischemic colitis from his previous hypotension , for example. The patient has had a negative upper endoscopy done last admission on 10/13/16 and is had a negative colonoscopy done for colorectal cancer in the last 1 year in [facility]. We are attempting to get the old results from the colonoscopy. Due to ongoing issues with guaiac positivity will be ordering a capsule endoscopy as had been the plan with Dr. York on the patient's previous admission. Will arrange for this for Friday. 10/20/16--the patient will be n.p.o. for the upcoming capsule endoscopy to be done tomorrow given his rectal bleeding and prior negative upper endoscope as well as negative colonoscopy done in the past 1 year. The patient's , Brigida , should be obtaining report of this. We have asked medical records to also have the patient sign a release of information to obtain this report. Supposedly, the patient had 2 polyps removed at that time it is unclear whether routine biopsies were taken but I doubt it has his diarrheal issues have been recent. He has not had any further diarrhea since arrival but was placed on Lomotil and now feels quite bloated. I will cut back the dose of Lomotil from 3 times a day to once a day in response to this. Stool studies for the diarrhea been negative. His hematocrit is improved slightly from 30-->32%. Current Visit: No (2) Guaiac positive stools Status: Acute Assessment and plan: Possible causes for the guaiac positive stool include but are not limited to: Small bowel AVMs, small bowel tumors, ischemic colitis, infectious colitis, diverticular bleeding, and bleeding from hemorrhoids. Recall there was no evidence of gastritis esophagitis or duodenitis on upper endoscopy done as recently as 6 days ago. 10/20/16--capsule endoscopy with Dr. York tomorrow. Current Visit: Yes (3) Personal history of colonic polyps Status: Acute Assessment and plan: These were discovered on previous colonoscopy done in [facility] approximately 1 year ago. We are attempting to get a copy of the pathology and the old report for review. 10/20/16--As mentioned previously above, awaiting report. Current Visit: Yes (4) Diarrhea Status: Acute Assessment and plan: Patient states that this is 7-8 times per day and states this is a reason for his hypotension and dehydration. I will continue to check other stool studies including fecal white blood cells and stool culture as well as Cryptosporidium to see if these are abnormal. We will start the patient on Lomotil 1 capsule 3 times daily to see if this helps out with the diarrhea. Ischemic and infectious colitis remain in the differential. 10/20/16--The Lomotil unfortunately is working too well--we need to cut back on the dosage at this point, also consider use of Viberzi if he fails the medication. Review capsule endoscopy for evidence of celiac sprue and other bleeding sources. We Cryptosporidium stool testing as well. Current Visit: Yes Gastroenterology - PN: Subj Interval history: THIS PATIENT IS BEING SEEN FOR DR. YORK WHILE HE IS OFF ON THE WEEKEND. Patient has not had any further bowel movement since arriving. The Lomotil is making him feel bloated, I will cut this back from 3 times a day to once a day. Stool cultures thus far have not shown any C. difficile, stool pathogens, fecal white blood cells but do show +4 occult blood. The patient has been set up for Dr. York to do a capsule endoscopy on Friday morning. Exam (Progress Note) - Constitutional Vitals: Period Temp Pulse Resp BP Sys/Mehta Pulse Ox Last 24 Hr 97.4 F-98.9 F 96-136 16-20 115-143/72-85 90-98 General appearance: mild distress (Due mostly to his back pain.) - Head Head exam: Present: normal inspection, normocephalic - Eye Eye exam: Present: EOMI - Respiratory Respiratory exam: Present: clear to auscultation bilaterally - Cardiovascular Cardiovascular exam: Present: regular rate and rhythm - GI/Abdominal GI/Abdominal exam: Present: normal bowel sounds, distended, soft. Absent: tenderness, rebound - Extremities Exam Extremities exam: Present: edema (+1 his distal extremities) - Neurological Exam Neurological exam: Present: alert, oriented X3 - Psychiatric Psychiatric exam: Present: normal affect, normal mood - Skin Skin exam: Present: warm Results - Labs CBC & BMP: 10/20/16 05:34 10/20/16 05:34
--- NOTE | 2016-10-20 14:40 | Cardiology Progress Note ---
Assessment and Plan (1) Postoperative atrial fibrillation Status: Acute Assessment and plan: Assessment/plan/recommendation: Patient had some more atrial fibrillation with rapid response. He did not feel it. It could have been what happened at home which decompensated him. We are looking other possibilities. Have given extra amiodarone. He converted back to sinus rhythm. Will increase amiodarone to 400 mg p.o. twice daily for now, trying to keep him in sinus rhythm.. Regarding blood in his stool, we have stopped the anticoagulation. Dr. Quan is evaluating. Regarding his hypotension is better. Regarding his acute renal failure. His creatinine has peak and is resolving. Prognosis remains guarded. He and his have been using his CPAP at night. 10/20/16-assessment/plan/recommendation: Atrial fib continues. Rate is not controlled. IV Cardizem had to be started last night. Will change his IV Cardizem to Cardizem 90 mg p.o. every 6 hours. The patient could not tolerate his current mask with CPAP. The patient is to have bring a different mask to try for CPAP. Hopefully will be tolerable. I will get Dr. Gilmore to see to troubleshoot for reasons of mask noncompliance. He will have the PillCam in the morning. Apparently guaiac positive stool but his hematocrit is stable, even on Eliquis. We will asked Dr. Nguyen to see patient about the left chest wall stitch, see if it needs to be removed. Acute renal failure has resolved. Current Visit: No (2) Acute kidney injury Status: Acute Current Visit: Yes (3) Acute renal failure Status: Resolved Current Visit: Yes (4) Atrial fibrillation Status: Acute Current Visit: Yes Qualifiers: Atrial fibrillation type: persistent Qualified Code(s): I48.1 - Persistent atrial fibrillation (5) Chronic anticoagulation Status: Acute Current Visit: Yes (6) Diarrhea Status: Acute Current Visit: Yes (7) Guaiac positive stools Status: Acute Current Visit: Yes (8) Hypotension Status: Acute Current Visit: Yes Qualifiers: Hypotension type: hypotension due to drug Qualified Code(s): I95.2 - Hypotension due to drugs (9) Ischemic cardiomyopathy Status: Acute Current Visit: Yes (10) Leukocytosis Status: Acute Current Visit: Yes (11) Personal history of colonic polyps Status: Acute Current Visit: Yes (12) Elevated serum creatinine Status: Resolved Current Visit: No (13) Ischemic heart disease Status: Chronic Current Visit: No (14) Obesity Status: Chronic Current Visit: No (15) Obstructive sleep apnea Status: Chronic Current Visit: No (16) Status post aorto-coronary artery bypass graft Status: Chronic Current Visit: No (17) Type 2 diabetes mellitus Status: Chronic Current Visit: No Qualifiers: Diabetes mellitus complication status: without complication Diabetes mellitus prison insulin use: without prison use Qualified Code(s): E11.9 - Type 2 diabetes mellitus without complications Cardiology - PN: Subj Interval history: No chest pain or shortness of breath. He feels better. However, he was not able to tolerate the CPAP mask last night. Exam (Progress Note) - Constitutional Vitals: Period Temp Pulse Resp BP Sys/Mehta Pulse Ox Last 24 Hr 96.7 F-98.9 F 96-136 16-20 118-143/71-85 90-98 Exam: HEENT: Pupils equal, reactive to light and accommodation Neck: NoJVD or bruit Lungs clear to auscultation Heart: Irregularly irregular rhythm rate with normal S1 and S2. Abdomen: No hepatosplenomegaly Spine/extremities: No clubbing, cyanosis, or edema Neuro: Nonfocal Psych: No depression or anxiety Result/EKG - Labs CBC & BMP: 10/20/16 05:34 10/20/16 05:34 Lab Results: I have reviewed the past 24 hour labs Labs: Laboratory Results - last 24 hr 10/19/16 10/19/16 10/20/16 15:52 19:37 05:34 WBC 6.8 D RBC 3.41 L Hgb 10.2 L Hct 32.3 L MCV 94.7 MCH 30 MCHC 31.6 L RDW 15.0 Plt Count 190 MPV 12.6 H Neut % (Auto) 65.9 Lymph % (Auto) 18.7 L [place] % (Auto) 13.5 H Eos % (Auto) 1.2 Baso % (Auto) 0.4 Neut # (Auto) 4.5 Lymph # (Auto) 1.3 L [place] # (Auto) 0.9 H Eos # (Auto) 0.1 Baso # (Auto) 0.0 Immature Gran % 0.3 Nucleated RBC % 0.0 Immature Gran # 0.02 Nucleated RBCs # 0.00 Sodium Potassium Chloride Carbon Dioxide Anion Gap BUN Creatinine GFR Calculation BUN/Creatinine Ratio Glucose POC Glucose 262 H 181 H Calculated Osmolality Calcium 10/20/16 10/20/16 10/20/16 05:34 08:03 12:09 WBC RBC Hgb Hct MCV MCH MCHC RDW Plt Count MPV Neut % (Auto) Lymph % (Auto) [place] % (Auto) Eos % (Auto) Baso % (Auto) Neut # (Auto) Lymph # (Auto) [place] # (Auto) Eos # (Auto) Baso # (Auto) Immature Gran % Nucleated RBC % Immature Gran # Nucleated RBCs # Sodium 146 H Potassium 4.3 Chloride 108 H Carbon Dioxide 27 Anion Gap 15.3 H BUN 23 H Creatinine 1.20 GFR Calculation 76 BUN/Creatinine Ratio 19.00 Glucose 121 H POC Glucose 119 H 140 H Calculated Osmolality 294.6 Calcium 8.3 L - Diagnostic Findings Procedure: Chest x-ray: report reviewed by me Quality Measures - VTE Contraindication to Pharmacological VTE Prophylaxis: Already on Theraputic Agent , No Prophylaxis Needed
[2016-10-20] MEDS: CARVEDILOL 12.5 MG TABLET PO SCH ×2 (15:30→21:58)
[2016-10-20] MEDS: cefTRIAXone 1,000 MG in SODIUM CHLORIDE 0.9% 100 ML IV SCH (15:34)
[2016-10-20] MEDS ORDERED: MAGNESIUM CITRATE 300 ML BOTTLE PO ONE (18:00)
[2016-10-20] MEDS: TAMSULOSIN 0.4 MG CAPSULE PO SCH (21:59)
[2016-10-20] MEDS: ATORVASTATIN 40 MG TABLET PO SCH (21:59)
[2016-10-21] MEDS: DILTIAZEM 60 MG TABLET PO SCH ×4 (00:44→18:25)
[2016-10-21] MEDS: DILTIAZEM INJ 100 MG in SODIUM CHLORIDE 0.9% 100 ML IV SCH (02:00)
[2016-10-21] MEDS: INSULIN LISPRO 100 UNIT/ML SUBCUT SCH ×4 (08:22→21:58)
[2016-10-21] MEDS ORDERED: FUROSEMIDE 40 MG/4 ML VIAL IV ONE (09:29)
--- NOTE | 2016-10-21 09:33 | Hospitalist Progress Note ---
Assessment and Plan (1) Atrial fibrillation with rapid ventricular response Status: Acute Assessment and plan: off cardizem drip, cont po dilt and amiodarone , cont eliquis Current Visit: No (2) Hypertension associated with diabetes Status: Chronic Assessment and plan: controlled, cont coreg and dilt Current Visit: No (3) Type 2 diabetes mellitus Status: Chronic Assessment and plan: cotn glipizide 20 po bid Current Visit: No Qualifiers: Diabetes mellitus complication status: without complication Diabetes mellitus chcf insulin use: without manager terminal use Qualified Code(s): E11.9 - Type 2 diabetes mellitus without complications (4) Status post aorto-coronary artery bypass graft Status: Chronic Assessment and plan: recent cabg doing well Current Visit: No (5) Anemia Status: Acute Assessment and plan: pillcam today, cont to monitor, check cbc in am Current Visit: No (6) Congestive heart failure Status: Chronic Assessment and plan: echo ef 35% restarted diuresis, needs his cpap machine Current Visit: Yes (7) Acute renal failure Status: Resolved Assessment and plan: improving Current Visit: Yes (8) UTI (urinary tract infection) Status: Acute Assessment and plan: urine cx negative, cont rocephin day 3 Current Visit: Yes Hospitalist: Subjective Interval history: Patient is off the Cardizem drip. He reports being short of breath this morning and could not lay flat. The swelling in his right lower extremity is worse today. There is some mild erythema around the surgical site where they harvested the vein. Does not look actively infected. Patient has not been walking around with physical therapy. We will give him high dose of Lasix to see if we can get some extra fluid off and help him to breathe easier. Patient has had a PillCam Exam - Constitutional Vitals: Period Temp Pulse Resp BP Sys/Mehta Pulse Ox Last 24 Hr 96.7 F-98 F 68-123 16-20 113-138/64-88 90-97 Exam: Heart Rate-[IRR] Lungs-[CTAB but diminished ] GI-[+bs soft, NT] Ext-[2+ edema in RLE] Neuro [Motor 5/5], [alert and oriented times 3] psych [normal mood and affect] General [no acute distress] Results - Labs CBC & BMP: 10/20/16 05:34 10/20/16 05:34 Lab Results: I have reviewed the past 24 hour labs Labs: Blood cultures negative no growth, stool for C. difficile negative, stool for pathogens negative, stool for blood positive Quality Measures - VTE Contraindication to Pharmacological VTE Prophylaxis: Already on Theraputic Agent , No Prophylaxis Needed
[2016-10-21] MEDS: PIOGLITAZONE 15 MG TABLET PO SCH (09:50)
[2016-10-21] MEDS: FUROSEMIDE 20 MG TABLET PO SCH (09:51)
--- NOTE | 2016-10-21 10:01 | Gastrointestinal Progress Note ---
Assessment and Plan (1) Anemia Status: Acute Assessment and plan: 10/21-recent history of anemia, requiring blood transfusions on last hospital stay. Negative EGD. Colonoscopy in past year negative. Hemoglobin stable at 10.2 with stools positive for occult blood. Request records from the [facility] regarding last colonoscopy. Small bowel PillCam initiated today,await results of this. Plan an addendum to followed by Dr. York Current Visit: No (2) Guaiac positive stools Status: Acute Assessment and plan: 10/21-4+ positive stools for occult blood noted on 10/18. Continues on Eliquis at this time. See above. Plan an addendum to followed by Dr. York Current Visit: Yes Gastroenterology - PN: Subj Interval history: CC: Anemia, heme positive stool Patient seen sitting up in bed with at bedside. Readmitted following discharge on 323 after an extended inpatient stay for atrial fibrillation following CABG. Patient was discharged home and was feeling well however the next day he presented back to the ER with low blood pressure and shortness of breath. Patient was seen by Dr. York on his last hospitalization for anemia and underwent EGD by Dr. Bonner with no acute findings. Patient has had colonoscopy in the past year done through the [facility] with negative findings per patient. He was to have outpatient smile bowel PillCam as an outpatient in the next week to complete his workup for anemia. He is being treated currently for his CHF and continues on his Eliquis for his atrial fib. He is reported to have some frequent stools however no reports of melena or hematochezia. He is noted 3 days ago to have 4+ positive stools for occult blood. He denies any abdominal pain, nausea, or vomiting, tolerating his diet well. He has had the small bowel PillCam initiated this morning he has not required any further transfusions since his last hospital stay. Hematocrit is currently stable at 10.2. ROS: No acute distress or shortness of breath Exam (Progress Note) - Constitutional Vitals: Period Temp Pulse Resp BP Sys/Mehta Pulse Ox Last 24 Hr 96.7 F-98 F 68-123 16-20 113-138/64-88 90-97 General appearance: normal weight, no acute distress - Head Head exam: Present: normal inspection, normocephalic - Eye Eye exam: Present: other (Lids and conjunctivae unremarkable). Absent: scleral icterus - ENT ENT exam: Present: normal exam, normal oropharynx - Neck Neck exam: Present: normal inspection - Respiratory Respiratory exam: Present: clear to auscultation bilaterally. Absent: rales, rhonchi, wheezes - Cardiovascular Cardiovascular exam: Present: regular rate and rhythm. Absent: diastolic murmur , JVD, systolic murmur - GI/Abdominal GI/Abdominal exam: Present: normal bowel sounds, soft. Absent: ascites, distended, mass, organomegaly, tenderness - Extremities Exam Extremities exam: Present: normal inspection, full ROM - Back Exam Back exam: Present: normal inspection - Neurological Exam Neurological exam: Present: alert, oriented X3 - Psychiatric Psychiatric exam: Present: normal affect, normal mood - Skin Skin exam: Present: normal color, warm, dry Results - Labs CBC & BMP: 10/20/16 05:34 10/20/16 05:34 Lab Results: I have reviewed the past 24 hour labs
[2016-10-21] MEDS: glipiZIDE 10 MG TABLET PO SCH ×2 (11:11→21:44)
[2016-10-21] MEDS: OMEGA 3 ACID ETHYL ESTERS 1 GM CAPSULE PO SCH (11:12)
[2016-10-21] MEDS: GEMFIBROZIL 600 MG TABLET PO SCH ×2 (11:12→21:44)
[2016-10-21] MEDS: ASCORBIC ACID 500 MG TABLET PO SCH ×2 (11:15→21:46)
[2016-10-21] MEDS: buPROPion XL 150 MG TABLET PO SCH (11:16)
[2016-10-21] MEDS: GABAPENTIN 100 MG CAPSULE PO SCH ×2 (11:16→21:45)
[2016-10-21] MEDS: APIXABAN 5 MG TABLET PO SCH ×2 (11:17→21:43)
[2016-10-21] MEDS: PANTOPRAZOLE 40 MG TABLET PO SCH (11:17)
[2016-10-21] MEDS: FERROUS SULFATE 325 MG TABLET PO SCH (11:17)
[2016-10-21] MEDS: ASPIRIN EC 325 MG TABLET PO SCH (11:18)
[2016-10-21] MEDS: CARVEDILOL 12.5 MG TABLET PO SCH ×2 (11:18→21:43)
[2016-10-21] MEDS: AMIODARONE 200 MG TABLET PO SCH ×2 (11:18→21:43)
[2016-10-21] MEDS: traMADol 50 MG TABLET PO PRN ×2 (11:26→21:45)
[2016-10-21] MEDS: DIPHENOXYLATE/ATROPINE 2.5-0.025 MG TABLET PO SCH (12:58)
--- NOTE | 2016-10-21 14:55 | Sleep Medicine Consult ---
Assessment and Plan (1) Obstructive sleep apnea Status: Chronic Assessment and plan: He now has a CPAP device. I will have sleep attacks, been refit him with a full facemask and will see if we can get him better compliant with CPAP. Will obtain a download from his device on therapy and monitor those results. Current Visit: No (2) Hypertension associated with diabetes Status: Chronic Assessment and plan: The prevalence rate for obstructive sleep apnea patients with hypertension is 35 %. That rate can be as high as 80% in patients who require 4 or more medications for blood pressure control. Current Visit: No (3) Atrial fibrillation with rapid ventricular response Status: Acute Assessment and plan: The prevalence for obstructive sleep apnea patients with atrial fibrillation is as high as 80%. Controlling the underlying sleep apnea can help decrease recurrence of atrial fib. Current Visit: No History of Present Illness Chief complaint: Obstructive sleep apnea History of present illness: Mr. Bird is a 66 year old male from the [place] [facility] who I have never seen. I actually read sleep studies that he had done at [facility] [place]. He had a diagnostic sleep study done on 06/05/2016 and was found to have moderate obstructive sleep apnea, having an AHI of 25. He was brought back on 07/10/2016 and underwent CPAP titration and was placed on 8 cm of CPAP with excellent results. Per contract, his follow-up and CPAP therapy is to be done by the [place]. He just received his CPAP therapy this past weekend and slept with it a couple of nights but states that his mask fit is uncomfortable. He thinks he breathes through his mouth. He has a nasal mask. He has had repetitive admissions in the past month related to heart disease, GI bleeding, and now atrial fibrillation. Sleep medicine was consulted to assist in his care. Home Medications Medication Instructions Recorded Confirmed Type Bupropion HCl [Bupropion Xl] 300 mg PO QAM 10/03/16 10/18/16 History Carvedilol [Coreg] 25 mg PO BID 10/03/16 10/18/16 History Doxepin HCl [Silenor] 3 mg PO BEDTIME 10/03/16 10/18/16 History Ferrous Gluconate 325 mg PO QAM 10/03/16 10/18/16 History Gabapentin Cap/Tab [Neurontin 100 mg PO BID 10/03/16 10/18/16 History Cap/Tab] Gemfibrozil 600 mg PO BID 10/03/16 10/18/16 History Metformin HCl 1,000 mg PO BID 10/03/16 10/18/16 History [place]-3/Dha/Epa/Fish Oil [Fish Oil 3,000 mg PO QAM 10/03/16 10/18/16 History Conc 1,000 mg Softgel] Omeprazole Magnesium [Prilosec Otc] 20 mg PO QAM 10/03/16 10/18/16 History Pioglitazone [Actos] 15 mg PO QAM 10/03/16 10/18/16 History Tamsulosin [Flomax] 2 capsule PO BEDTIME 10/03/16 10/18/16 History glipiZIDE [Glipizide] 20 mg PO BID 10/03/16 10/18/16 History Amiodarone Tab [Cordarone Tab] 200 mg PO BID #60 tablet 10/11/16 10/18/16 Rx Apixaban [Eliquis] 5 mg PO BID #60 tablet 10/11/16 10/18/16 Rx Ascorbic Acid Tab [Vitamin C Tab] 1,000 mg PO BID tablet 10/11/16 10/18/16 Rx Aspirin EC Tab 325 mg PO DAILY tablet 10/11/16 10/18/16 Rx Atorvastatin [Lipitor] 40 mg PO BEDTIME tablet 10/11/16 10/18/16 Rx traMADol TAB [Ultram] 50 mg PO Q6H PRN #40 tablet 10/11/16 10/18/16 Rx Ciprofloxacin Tab [Cipro Tab] 500 mg PO BID #10 tablet 10/17/16 10/18/16 Rx Furosemide Tab [Lasix Tab] 20 mg PO DAILY #30 tablet 10/17/16 10/18/16 Rx Spironolactone [Aldactone] 12.5 mg PO DAILY #30 tablet 10/17/16 10/18/16 Rx Allergies Allergy/AdvReac Type Severity Reaction Status Date / Time No Known Allergies Allergy Unverified 10/03/16 16:54 Review of systems: Otherwise unremarkable other than notable for shortness of breath and palpitations and lower extremity swelling. Exam (Pulmonay) H&P - Constitutional Vitals: Period Temp Pulse Resp BP Sys/Mehta Pulse Ox Last 24 Hr 97 F-98 F 68-123 18-20 113-151/64-88 90-96 Exam: He is alert and responsive in no acute distress. Pupils equal round reactive to light and accommodation. Extraocular movements intact. Oropharynx with a class III Mallampati exam. Neck supple without adenopathy or thyromegaly. Chest with fair air movement with decreased breath sounds in the right base. Cardiac exam reveals a regular rhythm without murmur or gallop. Abdomen soft nontender. Extremities without significant edema. Neurologically, he is grossly intact. He ambulated with a normal gait. Medical,Surgical,& Family Hx - Medical History Cardio: History of: Aneurysm (AAA), Cardiac Dysrhythmia (afib), CHF, CAD, Hypertension, [place], Cardiovascular Problems (angioplasty 1995) Neurology: No history of: Seizures HEENT: History of: Ear Problem (Slight hearing loss) Endocrine: History of: Diabetes Mellitus (NIDDM), Dyslipidemia Genitourinary: History of: Prostate Problems (Enlarged) Gastrointestinal: History of: GERD - Surgical History Cardiac Surgeries: Sugical HX of: Cardiac Catheterization, Cardiac Surgery ( cabg 10/05/2016) Neurologic Surgeries: Patient denies: Neurologic Surgery Abdominal Surgeries: Surgical HX of: Abdominal Surgery, Appendectomy, EGD - Family History Family History: Reports;: Family Diabetes, Family Heart Disease, Family Stroke - Social History Smoking Status: Former smoker Frequency of Alcohol Use: None Type of Drug Use: None Results - Labs CBC & BMP: 10/20/16 05:34 10/20/16 05:34 Lab Results: I have reviewed the past 24 hour labs Quality Measures - VTE Contraindication to Pharmacological VTE Prophylaxis: Already on Theraputic Agent , No Prophylaxis Needed
[2016-10-21] MEDS: cefTRIAXone 1,000 MG in SODIUM CHLORIDE 0.9% 100 ML IV SCH (15:23)
--- NOTE | 2016-10-21 15:32 | Cardiology Progress Note ---
<Maria Elena Rousseau - Last Filed: 10/21/16 15:29> Assessment and Plan (1) Postoperative atrial fibrillation Status: Acute Assessment and plan: Patient remains in atrial fibrillation with controlled ventricular response. Rate is well controlled with amiodarone and diltiazem. Eliquis 5 mg p.o. twice daily for anticoagulation. H&H is stable this morning. Small bowel PillCam initiated today will await results. We will continue to monitor H&H closely on Eliquis. Current Visit: No (2) Status post aorto-coronary artery bypass graft Status: Chronic Assessment and plan: Patient is status post CABG October 04, 2016 with RICHARDSON to LAD and SVG to PDA and OM. Current Visit: No (3) Hypotension Status: Resolved Assessment and plan: This has resolved. Current Visit: Yes Qualifiers: Hypotension type: hypotension due to drug Qualified Code(s): I95.2 - Hypotension due to drugs (4) Obstructive sleep apnea Status: Chronic Assessment and plan: CPAP at night and as needed. Current Visit: No (5) Type 2 diabetes mellitus Status: Chronic Assessment and plan: Defer management to hospitalist. Current Visit: No Qualifiers: Diabetes mellitus complication status: without complication Diabetes mellitus long term care administrator insulin use: without long term care administrator use Qualified Code(s): E11.9 - Type 2 diabetes mellitus without complications (6) Dyslipidemia Status: Chronic Assessment and plan: Continue current plan of care with statin. Current Visit: Yes (7) Leukocytosis Status: Resolved Assessment and plan: Resolved Current Visit: Yes (8) Ischemic cardiomyopathy Status: Acute Assessment and plan: Recent echocardiogram revealed an ejection fraction of 35%. Current Visit: Yes (9) UTI (urinary tract infection) Status: Acute Assessment and plan: Most recent urine culture has been negative. Defer further management to attending. Current Visit: Yes (10) Acute renal failure Status: Resolved Assessment and plan: This has improved since admission. Creatinine yesterday was noted to be 1.2. BMP in the morning. Current Visit: No (11) Congestive heart failure Status: Chronic Assessment and plan: I will order a chest x-ray. Patient was given a one-time dose of Lasix 40 mg IV today. Current Visit: Yes (12) Anemia Status: Acute Assessment and plan: This is clinically stable today. PillCam results pending. Will monitor CBC daily. Gastroenterology is following. Current Visit: No Cardiology - PN: Subj Interval history: Patient was seen on telemetry. Patient is currently sitting up in bed wearing CPAP mask. Patient complains of shortness of breath and orthopnea this afternoon. Will order a chest x-ray at this time. Patient received a one-time dose of Lasix 40 mg IV earlier today. Patient reports that this slightly improved his breathing. Patient denies chest pain, heaviness and tightness. Patient remains in atrial fibrillation with a controlled ventricular response. Heart rate is currently in the 60s. Rate is well controlled with amiodarone, beta-man and diltiazem p.o. Currently on Eliquis 5 mg p.o. twice daily for anticoagulation. H&H is stable today. Small bowel PillCam initiated today will await results. Acute renal failure has improved most recent creatinine is noted to be 1.2. BMP tomorrow. Exam (Progress Note) - Constitutional Vitals: Period Temp Pulse Resp BP Sys/Mehta Pulse Ox Last 24 Hr 97 F-98 F 68-123 18-20 113-151/64-88 90-96 General appearance: no acute distress, over weight - Head Head exam: Present: normal inspection, normocephalic, atraumatic - Neck Neck exam: Present: normal inspection. Absent: lymphadenopathy, tenderness, thyromegaly - Respiratory Respiratory exam: Present: decreased breath sounds, rales (Bilateral lower lobes ). Absent: accessory muscle use, chest wall tenderness, rhonchi, wheezes - Cardiovascular Cardiovascular exam: Present: irregular rhythm. Absent: gallop, rubs - GI/Abdominal GI/Abdominal exam: Present: normal bowel sounds, soft. Absent: distended, firm , mass, tenderness - Extremities Exam Extremities exam: Present: normal capillary refill, edema (2+ edema noted to right lower extremity.), other (Normal bilateral lower extremity pulses.) - Neurological Exam Neurological exam: Present: alert, oriented X3 - Psychiatric Psychiatric exam: Present: normal affect, normal mood - Skin Skin exam: Present: normal color, warm, dry, other (Mild erythema noted to right lower extremity surgical site from vein harvest.). Absent: diaphoretic, erythema Result/EKG - Labs CBC & BMP: 10/20/16 05:34 10/20/16 05:34 Lab Results: I have reviewed the past 24 hour labs Labs: Laboratory Results - last 24 hr 10/20/16 10/20/16 10/21/16 15:56 21:55 07:39 POC Glucose 189 H 124 H 177 H 10/21/16 11:08 POC Glucose 176 H Quality Measures - VTE Contraindication to Pharmacological VTE Prophylaxis: Already on Theraputic Agent , No Prophylaxis Needed <Candace Morris - Last Filed: 10/21/16 17:02> Cardiology - PN: Subj Interval history: I have personally interviewed and evaluated the patient, reviewed the chart and discussed medical decision-making with Practitioner Soham. I have read this note and agree with her documentation herein. We will follow-up his chest x- ray to determine whether or not to resume diuretics. Exam (Progress Note) - Constitutional Vitals: Period Temp Pulse Resp BP Sys/Mehta Pulse Ox Last 24 Hr 97 F-98 F 68-123 20-20 113-151/69-88 95-97 - Eye Eye exam: Present: EOMI. Absent: periorbital swelling, scleral icterus Pupils: Absent: dilated, fixed, irregular - ENT ENT exam: Present: normal exam, normal external ear exam - Back Exam Back exam: Present: normal inspection. Absent: vertebral tenderness Result/EKG - Labs CBC & BMP: 10/20/16 05:34 10/20/16 05:34 Labs: Laboratory Results - last 24 hr 10/20/16 10/21/16 10/21/16 21:55 07:39 11:08 POC Glucose 124 H 177 H 176 H 10/21/16 16:29 POC Glucose 240 H
--- NOTE | 2016-10-21 17:47 | XRay Report ---
Exam: Chest 2 views Date: October 21, 2016 at 5:07 PM Comparison: Chest 2 views October 19, 2016 Reason: Shortness of breath Findings: The cardiac silhouette is again enlarged, and the patient is status post sternotomy. Mild bibasilar opacities are present and likely represent atelectasis. However, there could also be mild pulmonary edema, and pneumonia is not excluded at the left lung base. There is also mild bilateral pleural fluid. The osseous structures appear stable. Impression: 1. Cardiomegaly. 2. Mild basilar opacities are present, mainly on the left. This is most consistent with atelectasis, but pneumonia is not excluded at the left lung base. There could also be mild pulmonary edema. 3. Mild bilateral pleural fluid. The pleural fluid has slightly increased. PROCEDURE INTERPRETED AT [facility] DEPARTMENT OF RADIOLOGY Final Report Signed by: Dr. Viji Culver
[2016-10-21] MEDS: TAMSULOSIN 0.4 MG CAPSULE PO SCH (21:43)
[2016-10-21] MEDS: ATORVASTATIN 40 MG TABLET PO SCH (21:45)
[2016-10-22] MEDS: DILTIAZEM 60 MG TABLET PO SCH ×3 (00:05→13:26)
[2016-10-22 03:25] LABS: Basophils % 0.4 % (0.0-0.8); Eosinophils # 0.1 10*3/uL (0.0-0.87); Eosinophils % 1.4 % (0.00-10.9); Hematocrit 30.6 VOL% (42.0-52.0); Hemoglobin 9.4 GM/DL (14.0-18.0); Immature Granulocytes % 0.4 %; Immature Granulocytes Absolute 0.03 #; Lymphocytes # 1.5 10*3/uL (1.4-4.0); Lymphocytes % 19.3 % (21.2-54.2); Mean Corpuscular HGB Conc 30.7 GM/DL (32-36); Mean Corpuscular Hemoglobin 29 PG (27-34); Mean Corpuscular Volume 95.3 FL (87-102); Neutrophils % 65.5 % (38.7-73.9); Platelet Count 228 T/CUMM (130-400); Red Blood Count 3.21 MC/CUMM (3.8-5.5); Red Cell Distribution Width 14.8 % (9.3-17.3); White Blood Count 7.7 T/CUMM (4-12)
[2016-10-22] MEDS: traMADol 50 MG TABLET PO PRN (03:45)
[2016-10-22 03:59] LABS: Calcium 8.5 MG/DL (8.5-10.1); Magnesium 1.9 MG/DL (1.8-2.4)
[2016-10-22 04:00] LABS: Calcium 8.5 MG/DL (8.5-10.1); Osmolality,Calculated 290.1 MOS/KG (273-304); Potassium 4.1 MMOL/L (3.5-5.1)
--- NOTE | 2016-10-22 08:23 | XRay Report ---
Exam: Chest 2 views Date: October 22, 2016 at 8:02 AM Comparison: Chest 2 views October 21, 2016 Reason: Shortness of breath Findings: The cardiac silhouette is again enlarged, and the patient is status post sternotomy. Calcified hilar lymph nodes are noted. There are mild scattered opacities within the left lower lung zone and minimal opacities within the right lower lung zone. This likely represents atelectasis and possibly mild pulmonary edema. However, there could also be pneumonia at the left lower lung zone. No pneumothorax is identified, but there is mild bilateral pleural fluid. The osseous structures appear stable. Impression: There has been no significant change. PROCEDURE INTERPRETED AT [facility] DEPARTMENT OF RADIOLOGY Final Report Signed by: Dr. Viji Culver
[2016-10-22] MEDS ORDERED: FUROSEMIDE 40 MG/4 ML VIAL IV ONE (09:06)
--- NOTE | 2016-10-22 09:31 | Gastrointestinal Progress Note ---
<JeffKrystle Abelardo - Last Filed: 10/22/16 09:29> Assessment and Plan (1) Anemia Status: Acute Assessment and plan: 10/22-small bowel PillCam results pending. Hemoglobin stable. For possible discharge home today. Plan an addendum to followed by Dr. York. 10/21-recent history of anemia, requiring blood transfusions on last hospital stay. Negative EGD. Colonoscopy in past year negative. Hemoglobin stable at 10.2 with stools positive for occult blood. Request records from [facility] regarding last colonoscopy. Small bowel PillCam initiated today,await results of this. Plan an addendum to followed by Dr. York Current Visit: No (2) Guaiac positive stools Status: Acute Assessment and plan: 10/21-4+ positive stools for occult blood noted on 10/18. Continues on Eliquis at this time. See above. Plan an addendum to followed by Dr. York Current Visit: Yes Gastroenterology - PN: Subj Interval history: CC: Anemia, heme positive stools Patient is seen awake and alert sitting up in chair eating breakfast. States he is feeling well today. Abdomen is soft, nontender. Patient has good appetite. Denies any overt bleeding. Hemoglobin is stable at 9.4. Still awaiting small bowel PillCam results. Patient states he is for discharge home today. ROS: Denies shortness of breath or chest pain Exam (Progress Note) - Constitutional Vitals: Period Temp Pulse Resp BP Sys/Mehta Pulse Ox Last 24 Hr 97 F-98 F 65-76 18-20 118-151/66-76 92-100 General appearance: normal weight, no acute distress - Head Head exam: Present: normal inspection, normocephalic - Eye Eye exam: Present: other (Lids and conjunctivae unremarkable). Absent: scleral icterus - ENT ENT exam: Present: normal exam, normal oropharynx - Neck Neck exam: Present: normal inspection - Respiratory Respiratory exam: Present: clear to auscultation bilaterally. Absent: rales, rhonchi, wheezes - Cardiovascular Cardiovascular exam: Present: regular rate and rhythm. Absent: diastolic murmur , JVD, systolic murmur - GI/Abdominal GI/Abdominal exam: Present: normal bowel sounds, soft. Absent: ascites, distended, mass, organomegaly, tenderness - Extremities Exam Extremities exam: Present: normal inspection, full ROM - Back Exam Back exam: Present: normal inspection - Neurological Exam Neurological exam: Present: alert, oriented X3 - Psychiatric Psychiatric exam: Present: normal affect, normal mood - Skin Skin exam: Present: normal color, warm, dry Results - Labs CBC & BMP: 10/22/16 02:29 10/22/16 02:29 Lab Results: I have reviewed the past 24 hour labs Specialty Discharge - Follow Up or Referrals Follow up with: Dr. FÁTIMA [Other] - 1 Week Maureen Sherwood [Physician] - 1 Week Diomedes Post MD [Physician] - 10/24/16 11:50 am Marck York MD [Physician] - 2 Weeks Nusrat Ugalde MD [Physician] - 2 Weeks Kevin Hendrickson Jr., MD [Physician] - 2 Weeks <Marck York - Last Filed: 10/22/16 13:56> Exam (Progress Note) - Constitutional Vitals: Period Temp Pulse Resp BP Sys/Mehta Pulse Ox Last 24 Hr 97.1 F-98 F 65-76 18-20 118-132/62-72 92-100 Results - Labs CBC & BMP: 10/22/16 02:29 10/22/16 02:29
[2016-10-22] MEDS: OMEGA 3 ACID ETHYL ESTERS 1 GM CAPSULE PO SCH (10:01)
[2016-10-22] MEDS: ASPIRIN EC 325 MG TABLET PO SCH (10:01)
[2016-10-22] MEDS: glipiZIDE 10 MG TABLET PO SCH (10:01)
[2016-10-22] MEDS: GABAPENTIN 100 MG CAPSULE PO SCH (10:02)
[2016-10-22] MEDS: APIXABAN 5 MG TABLET PO SCH (10:02)
[2016-10-22] MEDS: ASCORBIC ACID 500 MG TABLET PO SCH (10:02)
[2016-10-22] MEDS: FERROUS SULFATE 325 MG TABLET PO SCH (10:02)
[2016-10-22] MEDS: AMIODARONE 200 MG TABLET PO SCH (10:02)
[2016-10-22] MEDS: DIPHENOXYLATE/ATROPINE 2.5-0.025 MG TABLET PO SCH (10:03)
[2016-10-22] MEDS: CARVEDILOL 12.5 MG TABLET PO SCH (10:03)
[2016-10-22] MEDS: PANTOPRAZOLE 40 MG TABLET PO SCH (10:03)
[2016-10-22] MEDS: INSULIN LISPRO 100 UNIT/ML SUBCUT SCH ×2 (10:04→12:14)
[2016-10-22] MEDS: GEMFIBROZIL 600 MG TABLET PO SCH (10:06)
--- NOTE | 2016-10-22 10:15 | Discharge Summary ---
<Bruce Liaoolman - Last Filed: 10/22/16 10:35> Hospital Course - Hospital Course Hospital Course: Mr. Bird is a 66 year old male patient that was admitted on 10/17 with hypotension and shortness of breath. He was known to the hospitalist service from a recent hospitalization - patient had only been discharged less than 12 hrs before returning. On that admission, he was treated for anemia requiring blood transfusion as well as pulmonary edema. The patient has a hx of recent CAB (10/04/16), htn, dm, afib, AAA, and gerd. Upon arrival to ED, pt. was found to be dehydrated and in acute renal failure with a creatinine of 2 (discharge creatinine was 1.2). Discharge Plan - Discharge Data Disposition: Home Health Service - Discharge Medications New Aspirin EC Tab 81 mg PO DAILY #30 tablet Cefuroxime Tab [Ceftin] 250 mg PO BID #4 tablet Diltiazem Tab [Cardizem Tab] 60 mg PO TID #90 tablet Pantoprazole Tab [Protonix Tab] 40 mg PO QAM #30 tablet Continue Gabapentin Cap/Tab [Neurontin Cap/Tab] 100 mg PO BID Metformin HCl 1,000 mg PO BID Gemfibrozil 600 mg PO BID Doxepin HCl [Silenor] 3 mg PO BEDTIME Bupropion HCl [Bupropion Xl] 300 mg PO QAM Tamsulosin [Flomax] 2 capsule PO BEDTIME Ferrous Gluconate 325 mg PO QAM glipiZIDE [Glipizide] 20 mg PO BID Amiodarone Tab [Cordarone Tab] 200 mg PO BID #60 tablet Atorvastatin [Lipitor] 40 mg PO BEDTIME #30 tablet [place]-3/Dha/Epa/Fish Oil [Fish Oil Conc 1,000 mg Softgel] 3,000 mg PO QAM Ascorbic Acid Tab [Vitamin C Tab] 1,000 mg PO BID tablet traMADol TAB [Ultram] 50 mg PO Q6H PRN #40 tablet PRN Reason: Pain Moderate (4-7) Apixaban [Eliquis] 5 mg PO BID #60 tablet Changed Carvedilol [Coreg] 12.5 mg PO BID #0 Discontinued Pioglitazone [Actos] 15 mg PO QAM Aspirin EC Tab 325 mg PO DAILY tablet Spironolactone [Aldactone] 12.5 mg PO DAILY #30 tablet Omeprazole Magnesium [Prilosec Otc] 20 mg PO QAM Ciprofloxacin Tab [Cipro Tab] 500 mg PO BID #10 tablet Furosemide Tab [Lasix Tab] 20 mg PO DAILY #30 tablet - Follow Up or Referral Follow Up: Dr. FÁTIMA [Other] - 1 Week Kevin Hendrickson Jr., MD [Physician] - 2 Weeks Nusrat Ugalde MD [Physician] - 2 Weeks Diomedes Post MD [Physician] - 10/24/16 11:50 am El-Maureen Valladares [Physician] - 1 Week Marck York MD [Physician] - 2 Weeks - Forms/Instructions Exam - Constitutional Vitals: Period Temp Pulse Resp BP Sys/Mehta Pulse Ox Last 24 Hr 97.1 F-98 F 65-76 18-20 118-132/62-72 92-100 Discharge Results Procedures and tests throughout hospitalization: Pending Orders 10/18/16 15:33 Blood Culture Routine 10/19/16 12:03 Cryptosporidium Antigen Stool Routine 10/23/16 04:00 BMP [Basic Metabolic Panel] IN AM BMP w/ Mg [Basic Metabolic Panel w/Mg] IN AM Comp Blood Count Auto Diff IN AM 10/24/16 04:00 BMP [Basic Metabolic Panel] IN AM BMP w/ Mg [Basic Metabolic Panel w/Mg] IN AM Comp Blood Count Auto Diff IN AM Labs on day of discharge: Labs from last 24 hours 10/22/16 10/22/16 10/22/16 11:44 07:45 02:29 WBC RBC Hgb Hct MCV MCH MCHC RDW Plt Count MPV Neut % (Auto) Lymph % (Auto) Walker % (Auto) Eos % (Auto) Baso % (Auto) Neut # (Auto) Lymph # (Auto) Walker # (Auto) Eos # (Auto) Baso # (Auto) Immature Gran % Nucleated RBC % Immature Gran # Nucleated RBCs # Sodium 143 Potassium 4.0 Chloride 103 Carbon Dioxide 29 Anion Gap 15.0 BUN 21 H Creatinine 1.30 GFR Calculation 70 BUN/Creatinine Ratio 16.00 Glucose 196 H POC Glucose 244 H 167 H Calculated Osmolality 292.0 Calcium 8.5 Magnesium 1.9 10/22/16 10/22/16 10/21/16 02:29 02:29 21:39 WBC 7.7 RBC 3.21 L Hgb 9.4 L Hct 30.6 L MCV 95.3 MCH 29 MCHC 30.7 L RDW 14.8 Plt Count 228 MPV 12.0 Neut % (Auto) 65.5 Lymph % (Auto) 19.3 L Walker % (Auto) 13.0 H Eos % (Auto) 1.4 Baso % (Auto) 0.4 Neut # (Auto) 5.0 Lymph # (Auto) 1.5 Walker # (Auto) 1.0 H Eos # (Auto) 0.1 Baso # (Auto) 0.0 Immature Gran % 0.4 Nucleated RBC % 0.0 Immature Gran # 0.03 Nucleated RBCs # 0.00 Sodium 142 Potassium 4.1 Chloride 103 Carbon Dioxide 29 Anion Gap 14.1 BUN 22 H Creatinine 1.30 GFR Calculation 70 BUN/Creatinine Ratio 16.00 Glucose 194 H POC Glucose 210 H Calculated Osmolality 290.1 Calcium 8.5 Magnesium 10/21/16 16:29 WBC RBC Hgb Hct MCV MCH MCHC RDW Plt Count MPV Neut % (Auto) Lymph % (Auto) Walker % (Auto) Eos % (Auto) Baso % (Auto) Neut # (Auto) Lymph # (Auto) Walker # (Auto) Eos # (Auto) Baso # (Auto) Immature Gran % Nucleated RBC % Immature Gran # Nucleated RBCs # Sodium Potassium Chloride Carbon Dioxide Anion Gap BUN Creatinine GFR Calculation BUN/Creatinine Ratio Glucose POC Glucose 240 H Calculated Osmolality Calcium Magnesium Preliminary micro results at discharge 10/18/16 15:33 Blood Culture - Preliminary Blood No growth at 3 days 10/18/16 15:32 Blood Culture - Preliminary Blood No growth at 3 days DS: Provider Date of admission: 10/18/16 01:05 Primary care physician: . No PCP Attending physician on admission: Nessa Avilez MD Consults: 10/18/16 01:10 Consult to Pharmacy [CONS] Routine Reason for Pharmacy Consult: Adjust Meds Renal Funct 10/18/16 15:16 Consult to Physician [CONS] Routine Comment: rapid renal failure, ?interstitial nephritis-meds? Consulting Provider: Consult to Specialist Group: Nephrology When should Consulting Provider be notified: Now Person Notified: jessie Date Notified: 10/18/16 Time Notified: 15:36 10/18/16 16:05 Consult to Physician [CONS] Routine Comment: for stitch removal from prior cabg. Consulting Provider: Consult to Specialist Group: Cardiothoracic Surgery Person Notified: Dr. Sheldon Date Notified: 10/18/16 Time Notified: 16:25 10/19/16 10:22 Consult to Physician [CONS] Routine Comment: anemia, heme pos stool Consulting Provider: Sebastian Reagan Person Notified: dr. reagan Date Notified: 10/19/16 Time Notified: 11:26 10/20/16 11:13 Consult to Physician [CONS] Routine Comment: FOR CPAP RECOMMENDATIONS. Consulting Provider: Nusrat Ugalde When should Consulting Provider be notified: In am When should Consulting Provider be notified: In am 10/20/16 12:58 Consult to Physician [CONS] Routine Comment: anemia/diarrhea, last seen 09/2016 Consulting Provider: Marck York Consulting Provider Notified: Yes Consult to Specialist Group: Gastroenterology Person Notified: ALCON Date Notified: 06/12/16 Time Notified: 08:30 Consult Notification Comment: SPOKE WITH WHITNEY AT 0845 ON 10/21/[address] YORK 10/20/16 14:41 Consult to Physician [CONS] Routine Comment: Consulting Provider: Maureen Sherwood Consulting Provider Notified: No When should Consulting Provider be notified: In am Consult Notification Comment: Patient had a bypass grafting a few weeks ago and has a stitch in his left chest wall which may have been where the prior chest tube was placed. Remove it if you think it should be removed at this time, 14 days after the surgery, which I think he likely will think he needs to be removed. Thank you 10/21/16 08:14 Consult to Sleep Center [CONS] Routine Reason for Sleep Center: Sleep Center Physician Consult Comment: FOR C-PAP REC.'S 10/21/16 09:30 Consult to Physical Therapy [CONS] Routine Reason for Physical Therapy: Evaluate and Treat 10/22/16 09:06 Consult to Case Mgmt/Social Srvs [CONS] Routine Reason for Case Mgmt/Social Srvs: Home Health Consult Comment: pt, nurse, oxygen if qualifies, cpap compliance Discharging clinician: Larry Liao NP <Yelena Roa - Last Filed: 10/22/16 13:40> Hospital Course - Hospital Course Hospital Course: Patient seen and examined. Hospital course reviewed and edited. Patient recently under went a CABG. Patient has difficulty understanding instructions. Patient was noted to be in acute renal failure on admission with a creatinine of 2. Dr. Hendrickson was consulted. His diuretics were held and he was given gentle hydration bringing his creatinine down to 1.3 on discharge. Patient still chronically feels short of breath but his sats on with ambulation have been good. Due to the renal failure we will avoid sending him home on an RAKESH or ARB at this time. Patient developed a UTI growing E. coli sensitive to Rocephin this is been treated with 3 days of IV antibiotics and will finish up 2 more days of p.o. Ceftin. His diabetes is not well controlled he is on maximum dose of glipizide 20 mg p.o. twice daily. His renal function on admission was poor and his metformin had to be held but this can now be resumed as his creatinine is down to 1.2. Patient does have congestive heart failure with an ejection fraction of only 35%. Patient had has obstructive sleep apnea and needs to be compliant with his CPAP in order for his congestive heart failure to remain treated. Dr. Post does not want to put him on any diuretics to go home on at this point even though his creatinine has returned to 1.2. [address] Post feels he needs to be compliant with his CPAP. Dr. Nusrat Ugalde is been up to see him and has given him a machine and he tolerated it okay last night. He seems to be obsessed with the need for oxygen. He does not meet the criteria for needing oxygen at home even with ambulation. Due to sleep apnea patient went into A. fib with rapid ventricular response. He is rate was difficult to control but is now controlled on amiodarone, Coreg and diltiazem. Patient was placed on Eliquis to prevent any strokes as associated with atrial fib. He is currently in sinus rhythm. Patient does have anemia but the source of his anemia is not known. He is already had a pretty extensive workup including a colonoscopy and an EGD in the past. A PillCam was performed the other day by Dr. York the results of which are still pending. Dr. York and I spoke and he is going to call the patient with the results of the PillCam. His hemoglobin on admission was 12.7 came down to 7.4 patient has received a total of 4 units of blood in his hemoglobin is stabilized at 9.4. Patient will be discharged home today with extensive followup and home health - Time spent with patient Time with patient DS: Greater than 30 minutes (60 min) Diagnosis - Discharge Diagnosis (1) Atrial fibrillation with rapid ventricular response Status: Acute (2) Hypertension associated with diabetes Status: Chronic (3) Type 2 diabetes mellitus Status: Chronic (4) Status post aorto-coronary artery bypass graft Status: Chronic (5) Anemia Status: Acute (6) Congestive heart failure Status: Chronic (7) Acute renal failure Status: Resolved (8) UTI (urinary tract infection) Status: Acute Discharge Plan - Discharge Data Condition at Discharge: Stable Discharge Diet: diabetic diet, low fat, low cholesterol, low salt diet Activity: resume usual activities as tolerated Hygiene: no restrictions Weight Bearing at Discharge: full weight bearing - Forms/Instructions Additional Discharge Instructions: cpap at night. Must wear every night to keep out of heart failure. Home health with nurse, and PT. Needs alot of education. Free water restriction 2000 ml daily. NO SALT Exam - Constitutional General appearance: normal weight, no acute distress - Respiratory Respiratory exam: Present: clear to auscultation bilaterally. Absent: rales, wheezes - Cardiovascular Cardiovascular exam: Present: regular rate and rhythm. Absent: systolic murmur - GI/Abdominal GI/Abdominal exam: Present: normal bowel sounds, soft. Absent: tenderness, rebound - Extremities Exam Extremities exam: Present: edema
[2016-10-22] MEDS: buPROPion XL 150 MG TABLET PO SCH (12:15)
--- NOTE | 2016-10-22 13:56 | Operative Note ---
Date of procedure: 10/21/16 Pre-op diagnosis: Recurrent GI bleeding Procedure: Procedure: Small bowel PillCam Brief clinical abstract: Patient is a 66-year-old male who has had recurrent anemia with documented blood in his stool. This has required transfusion. He has had EGD and colonoscopy with no source identified for this. Procedure findings: Small bowel PillCam was swallowed by patient. Images were obtained in the usual manner and then reviewed. No abnormalities were noted in the stomach. The PillCam passed into the duodenum after 6 minutes. There were 3 1-2 mm vascular malformations noted in the proximal small bowel felt to be probably proximal jejunum. These were not bleeding. Distal to this no other abnormalities were seen. The PillCam passed into the cecum at 2 hours and 12 minutes. There was quite a bit of stool in the cecum which limited visibility there and no gross abnormalities were noted. Impression: Small bowel vascular malformations-could be source of recurrent bleeding, especially on antiplatelet therapy Recommendations: Check hemoglobin/hematocrit next week as outpatient. I will see him in follow-up in 1 month. Anesthesia: none Surgeon / Physician: Marck York Estimated blood loss: none Specimens: none sent Condition: stable Disposition: no change Results - Labs CBC & BMP: 10/22/16 02:29 10/22/16 02:29 Discharge Plan - Discharge Data Disposition: Home Health Service - Discharge Medications New Aspirin EC Tab 81 mg PO DAILY #30 tablet Cefuroxime Tab [Ceftin] 250 mg PO BID #4 tablet Diltiazem Tab [Cardizem Tab] 60 mg PO TID #90 tablet Pantoprazole Tab [Protonix Tab] 40 mg PO QAM #30 tablet Continue Gabapentin Cap/Tab [Neurontin Cap/Tab] 100 mg PO BID Metformin HCl 1,000 mg PO BID Gemfibrozil 600 mg PO BID Doxepin HCl [Silenor] 3 mg PO BEDTIME Bupropion HCl [Bupropion Xl] 300 mg PO QAM Tamsulosin [Flomax] 2 capsule PO BEDTIME Ferrous Gluconate 325 mg PO QAM glipiZIDE [Glipizide] 20 mg PO BID Amiodarone Tab [Cordarone Tab] 200 mg PO BID #60 tablet Atorvastatin [Lipitor] 40 mg PO BEDTIME #30 tablet [place]-3/Dha/Epa/Fish Oil [Fish Oil Conc 1,000 mg Softgel] 3,000 mg PO QAM Ascorbic Acid Tab [Vitamin C Tab] 1,000 mg PO BID tablet traMADol TAB [Ultram] 50 mg PO Q6H PRN #40 tablet PRN Reason: Pain Moderate (4-7) Apixaban [Eliquis] 5 mg PO BID #60 tablet Changed Carvedilol [Coreg] 12.5 mg PO BID #0 Discontinued Pioglitazone [Actos] 15 mg PO QAM Aspirin EC Tab 325 mg PO DAILY tablet Spironolactone [Aldactone] 12.5 mg PO DAILY #30 tablet Omeprazole Magnesium [Prilosec Otc] 20 mg PO QAM Ciprofloxacin Tab [Cipro Tab] 500 mg PO BID #10 tablet Furosemide Tab [Lasix Tab] 20 mg PO DAILY #30 tablet - Follow Up or Referral Follow Up: Dr. FÁTIMA [Other] - 1 Week Maureen Sherwood [Physician] - 1 Week Diomedes Post MD [Physician] - 10/24/16 11:50 am Marck York MD [Physician] - 2 Weeks Nusrat Ugalde MD [Physician] - 2 Weeks Kevin Hendrickson Jr., MD [Physician] - 2 Weeks - Forms/Instructions
[2016-10-22 15:34] VITALS: BP 116/60
--- NOTE | 2016-10-22 16:13 | Sleep Medicine Progress Note ---
Assessment and Plan (1) Obstructive sleep apnea Status: Chronic Current Visit: No (2) Hypertension associated with diabetes Status: Chronic Current Visit: No (3) Atrial fibrillation with rapid ventricular response Status: Acute Current Visit: No Sleep Medicine Subjective Interval history: Patient was refitted with a new type of mask last night and did much better. He is encouraged by this better fit. I think he needs follow-up in the sleep clinic in 1 month. We will set this up. [facility] and [facility] had [facility] for [facility] 3 month follow-up. I have asked him to come see me in a month. Exam (Progress Note) - Constitutional Vitals: Period Temp Pulse Resp BP Sys/Mehta Pulse Ox Last 24 Hr 97.1 F-98 F 65-76 18-20 116-132/60-72 92-100 Results - Labs CBC & BMP: 10/22/16 02:29 10/22/16 02:29 Specialty Discharge - Follow Up or Referrals Follow up with: Dr. FÁTIMA [Other] - 1 Week (MAKE FOLLOW UP) Maureen Sherwood [Physician] - 11/04/16 9:45 am Diomedes Post MD [Physician] - 10/24/16 11:50 am Marck York MD [Physician] - 10/31/16 2:00 pm () Nusrat Ugalde MD [Physician] - 2 Weeks ([facility]) Kevin Hendrickson Jr., MD [Physician] - 11/06/16 10:45 am
== END 2016-10-22 16:23 | disposition home health service (06) | DRG 683 ==
LOC: N.ED 22:39 → N.EDINP 10-18 01:05 → SUATTDRO 10-18 01:05 → N.TELEN 10-18 02:33
PROVIDERS: ADMIT Internal Medicine; ATTEND Internal Medicine

== ENCOUNTER 2016-12-23 15:55 | Inpatient (IN) ==
--- NOTE | 2016-12-23 16:40 | EKG Report ---
Stationary ECG Study [facility] ER Test Date: 12/23/2016 4:24:25 PM Pat Name: NIKA COVERT Department: Room: Gender: M Can Runner: CHECO Saenz : 1950 Requested by: Salvador Vanegas Order Number: [id number] Reading MD: MORELIA RAMIREZ Intervals [place] Rate: 79 P: 65 GA: 190 QRS: 104 QRSD: 93 T: 91 QT: 389 QTc: 423 Interpretive Statements SINUS RHYTHM POSSIBLE LEFT ATRIALABNORMALITY RIGHT AXIS DEVIATION LOW QRS VOLTAGE ANTERIOR MYOCARDIAL INFARCTION PREVIOUSLY CITED Electronically Signed On 12-25-16 20:24:15 CDT by MORELIA RAMIREZ [email or web address]
--- NOTE | 2016-12-23 17:10 | XRay Report ---
Portable chest Date: 12/23/2016 Clinical history: Shortness of breath Comparison: 10/25/2016 Technique: Portable AP sitting chest Findings: Persistent cardiomegaly with prior median sternotomy. Progressive diffuse parenchymal findings in the right lung and left midlung zone. Decreased pleural-parenchymal findings at the left lung base. Stable mediastinum with degenerative changes. Impression: Status post median sternotomy with chronic scarring. Progressive diffuse edema/infiltration in the right lung and in left mid lung zone. Similar decreased findings of the left lung base with smaller left pleural effusion. PROCEDURE INTERPRETED AT [facility] DEPARTMENT OF RADIOLOGY Final Report Signed by: Dr. Kelley Peterson
[2016-12-23 17:17] LABS: Basophils % 0.1 % (0.0-0.8); Eosinophils # 0.1 10*3/uL (0.0-0.87); Eosinophils % 0.9 % (0.00-10.9); Hematocrit 30.2 VOL% (42.0-52.0); Hemoglobin 10.1 GM/DL (14.0-18.0); Immature Granulocytes % 0.4 %; Immature Granulocytes Absolute 0.03 #; Lymphocytes # 0.8 10*3/uL (1.4-4.0); Lymphocytes % 11.8 % (21.2-54.2); Mean Corpuscular HGB Conc 33.4 GM/DL (32-36); Mean Corpuscular Hemoglobin 29 PG (27-34); Mean Corpuscular Volume 87.3 FL (87-102); Mean Platelet Volume 11.8 FL (9.6-12.0); Monocytes # 0.7 10*3/uL (0.11-0.8); Monocytes % 10.4 % (1.7-12.7); Neutrophils # 5.4 10*3/uL (1.4-7.4); Neutrophils % 76.4 % (38.7-73.9); Platelet Count 201 T/CUMM (130-400); Red Blood Count 3.46 MC/CUMM (3.8-5.5); Red Cell Distribution Width 15.1 % (9.3-17.3)
[2016-12-23] MEDS ORDERED: FUROSEMIDE 40 MG/4 ML VIAL IV STA (17:21)
[2016-12-23 17:26] LABS: INR 1.2; PT Patient Result 13.3 SECS
[2016-12-23] MEDS ORDERED: FUROSEMIDE 40 MG/4 ML VIAL ONE (17:27)
[2016-12-23 17:48] LABS: Alanine Aminotransferase 15 U/L (16-61); Alkaline Phosphatase 51 U/L (45-117); Aspartate Amino Transferase 26 U/L (0-37); Blood Urea Nitrogen 21 MG/DL (7-18); Calcium 8.5 MG/DL (8.5-10.1); Glucose 222 MG/DL (74-106); Osmolality,Calculated 290.3 MOS/KG (273-304); Potassium 2.9 MMOL/L (3.5-5.1); Sodium 141 MMOL/L (136-145); Total Protein 6.6 G/DL (6.4-8.3); Troponin I Only < 0.015 NG/ML (0.00-0.045)
--- NOTE | 2016-12-23 18:36 | Emergency Department Note ---
ISade Kasabria, am scribing for, and in the presence of, Salvador Vanegas Jr., MD 16:41. IGuilherme Marvin Jr., MD, personally performed the services described in this documentation, ascribed by Serg Stuart in my presence, and it is both accurate and complete 737 . Arrival - Arrival Chief Complaint: Shortness of Breath Stated Complaint: SOB ED Nursing Triage Note: Pt c/o increased SOB since Fri denies CP. Pt is on home O2 in triage. Mode of Arrival: Wheelchair Limitations: No Limitations Source: Patient Time Seen by Provider: 12/23/16 16:36 - History of Present Illness HPI Narrative: This is a 66 y/o white male presenting to the ED with c/o SOB that onset Friday. Pt states he has become increasingly SOB. He noticed it while doing a cardiac regiment for the past three weeks. He has been able to successfully performed the regiment but Friday he noticed he was SOB and could not finish half of the regiment. He has had renal failure and states his urine output has not matched his water intake. Pt denies CP, fever, chills, nausea, vomiting, diarrhea, abdominal pain, back pain, hematuria, and dysuria. His PMHx is consistent with HTN, [place], CHF, CAD, diabetes, dyslipidemia,GERD, and BPH. Pt wears oxygen at home. Consistency: constant Severity: moderate Allergies/Adverse Reactions: Allergies Allergy/AdvReac Type Severity Reaction Status Date / Time No Known Allergies Allergy Verified 10/25/16 12:46 Home Medications: Home Medications Medication Instructions Recorded Confirmed Type Doxepin HCl [Silenor] 3 mg PO BEDTIME 10/03/16 10/25/16 History Ferrous Gluconate 325 mg PO QAM 10/03/16 10/25/16 History Gabapentin Cap/Tab [Neurontin 100 mg PO BID 10/03/16 10/25/16 History Cap/Tab] Gemfibrozil 600 mg PO BID 10/03/16 10/25/16 History Metformin HCl 1,000 mg PO BID 10/03/16 10/25/16 History [place]-3/Dha/Epa/Fish Oil [Fish Oil 3,000 mg PO QAM 10/03/16 10/25/16 History Conc 1,000 mg Softgel] Tamsulosin [Flomax] 2 capsule PO BEDTIME 10/03/16 10/25/16 History Ascorbic Acid Tab [Vitamin C Tab] 1,000 mg PO BID tablet 10/11/16 10/25/16 Rx traMADol TAB [Ultram] 50 mg PO Q6H PRN #40 tablet 10/11/16 10/25/16 Rx Amiodarone Tab [Cordarone Tab] 200 mg PO BID #60 tablet 10/22/16 10/25/16 Rx Apixaban [Eliquis] 5 mg PO BID #60 tablet 10/22/16 10/25/16 Rx Atorvastatin [Lipitor] 40 mg PO BEDTIME #30 tablet 10/22/16 10/25/16 Rx Pantoprazole Tab [Protonix Tab] 40 mg PO QAM #30 tablet 10/22/16 10/25/16 Rx Carvedilol [Coreg] 3.125 mg PO BID 10/25/16 10/25/16 History Furosemide Tab [Lasix Tab] 40 mg PO BID #120 tablet 10/25/16 Rx Potassium Chloride Cap/Tab [K Dur] 20 meq PO DAILY #30 tablet 10/25/16 Rx buPROPion XL [Wellbutrin Xl] 300 mg PO QAM 10/25/16 10/25/16 History glipiZIDE [Glipizide] 20 mg PO BID 10/25/16 10/25/16 History Review of System - Review of System 12 point system: reviewed and no additional remarkable complaints except as stated - Review of System Constitutional: Absent: chills, fever, weakness Eyes: Absent: vision change Head/Ears/Nose/Throat: Absent: nasal drainage Respiratory: Absent: cough, wheezing Cardiovascular: Present: dyspnea on exertion. Absent: chest pain Gastrointestinal: Absent: abdominal pain, nausea, vomiting, diarrhea Genitourinary male: Absent: dysuria Musculoskeletal: Absent: arm pain, back pain Skin: Absent: rash Neurological: Absent: headache, weakness, numbness, confusion, vertigo Psychiatric: Absent: anxiety Endocrine: Absent: fatigue Hematological/Lymphatic: Absent: easy bleeding Allergic/Immunologic: Absent: facial swelling Medical,Surgical,& Family Hx - Medical History Cardio: History of: Aneurysm (AAA), Cardiac Dysrhythmia (afib), CHF, CAD, Hypertension, [place], Cardiovascular Problems (angioplasty 1995) Neurology: No history of: Seizures HEENT: History of: Ear Problem (Slight hearing loss) Endocrine: History of: Diabetes Mellitus (NIDDM), Dyslipidemia Genitourinary: History of: Prostate Problems (BPH) Gastrointestinal: History of: GERD - Surgical History Cardiac Surgeries: Sugical HX of: Cardiac Catheterization, Cardiac Surgery ( cabg 10/05/2016) Neurologic Surgeries: Patient denies: Neurologic Surgery Abdominal Surgeries: Surgical HX of: Abdominal Surgery, Appendectomy, EGD - Family History Family History: Reports;: Family Diabetes, Family Heart Disease, Family Stroke - Social History Smoking Status: Never smoker Exam Physical Examination: General: Well-developed well-nourished, no apparent distress. Slightly anxious Head: Normocephalic, atraumatic. Eyes: PERRLA, EOMI. Nose: No obvious acute deformities or discharge. Mouth: No obvious acute injury. Neck: Full range of motion without obvious pain. No midline tender to palpation. Lymphatic: no significant lymphadenopathy noted. Lungs: Clear to auscultation bilaterally, normal and equal air movement bilaterally, no obvious rales or wheezing. Heart: regular rate and rhythm, no obvious mummers. Minimal peripheral edema noted. Abdomen: Soft nontender, nondistended, normal active bowel sounds. Skin: No obivous acute lesions noted Musculoskeletal: No gross deformities. Neurological: No focal findings, cranial nerves II through XII grossly normal. Psychiatric: Slightly anxious : Deferred Vital Signs: Vital Signs Temperature 97.7 F 12/23/16 16:29 Pulse Rate 77 12/23/16 18:31 Respiratory Rate 18 12/23/16 18:31 Blood Pressure 132/64 12/23/16 18:31 O2 Sat by Pulse Oximetry 89 L 12/23/16 18:31 Course Course Narrative: Differential diagnosis: Congestive heart failure exacerbation, pulmonary edema, pleural effusion, - Reevaluation(s) Reevaluation #1: Patient with congestive heart failure exacerbation. Dr. Aleah Mays is in the ER to admit this patient. Time: 18:16 Results - Labs CBC & BMP: 12/23/16 16:53 12/23/16 16:53 Lab Results: I have reviewed the patients labs Labs: Laboratory Tests 12/23/16 12/23/16 16:53 16:53 WBC 7.0 RBC 3.46 L Hgb 10.1 L Hct 30.2 L MCV 87.3 MCH 29 MCHC 33.4 RDW 15.1 Plt Count 201 MPV 11.8 Neut % (Auto) 76.4 H Lymph % (Auto) 11.8 L [place] % (Auto) 10.4 Eos % (Auto) 0.9 Baso % (Auto) 0.1 Neut # (Auto) 5.4 Lymph # (Auto) 0.8 L [place] # (Auto) 0.7 Eos # (Auto) 0.1 Baso # (Auto) 0.0 Immature Gran % 0.4 Nucleated RBC % 0.0 Immature Gran # 0.03 Nucleated RBCs # 0.00 INR 1.2 PT Patient/Control Mix 13.3 Laboratory Tests 12/23/16 16:53 Sodium 141 Potassium 2.9 L Chloride 100 Carbon Dioxide 31 Anion Gap 12.9 BUN 21 H Creatinine 1.20 GFR Calculation 74 BUN/Creatinine Ratio 17.00 Glucose 222 H Calculated Osmolality 290.3 Calcium 8.5 Total Bilirubin 0.80 AST 26 ALT 15 L Alkaline Phosphatase 51 Troponin I < 0.015 Total Protein 6.6 Albumin 3.0 L Globulin 3.6 H Albumin/Globulin Ratio 0.8 L - EKG EKG results: interpreted by ERMD (Heart rate 79, narrow complex QRS complexes without obvious acute ST changes, normal sinus rhythm,) - Diagnostic Findings Procedure: Chest x-ray: report reviewed by me, image reviewed by me ( Status post median sternotomy with chronic scarring. Progressive diffuse edema/ infiltration int he right lung and in left mid lung zone. Similar decreased findings of the left lung base with left pleural effusion. ) Disposition Clinical Impression: Acute exacerbation of congestive heart failure, Anemia, Hypokalemia, Hyperglycemia Case discussed with: patient, patient's family Disposition: Still a Patient Condition: Stable Time of Disposition: 18:17
[2016-12-23] MEDS ORDERED: DEXTROSE 50% 25 GM/50 ML VIAL IV PRN ×2 (19:05→19:08)
[2016-12-23] MEDS ORDERED: MAGNESIUM SULF RIDER 4 GM in PREMIX 1 EACH IV PRN (19:05)
[2016-12-23] MEDS ORDERED: MAGNESIUM SULF RIDER 2 GM in PREMIX 1 EACH IV PRN (19:05)
[2016-12-23] MEDS ORDERED: ACETAMINOPHEN 325 MG TABLET PO PRN (19:05)
[2016-12-23] MEDS ORDERED: ONDANSETRON 4 MG/2 ML VIAL IV PRN (19:05)
[2016-12-23] MEDS ORDERED: POTASSIUM CHLORIDE 20 MEQ TABLET PO PRN (19:05)
[2016-12-23] MEDS ORDERED: GLUCAGON 1 MG VIAL IM PRN ×2 (19:05→19:08)
--- NOTE | 2016-12-23 19:17 | Cardiology History & Physical ---
Assessment and Plan - Time spent with patient Time spent with patient: Greater than 30 minutes (Chart review film review documentation and orders interview) (1) Paroxysmal atrial fibrillation Status: Chronic Current Visit: Yes (2) Uncontrolled diabetes mellitus Status: Chronic Current Visit: Yes Qualifiers: Diabetes mellitus type: type 2 Diabetes mellitus complication status: with circulatory complication Diabetes mellitus complication detail: with other circulatory complications Diabetes mellitus shelter insulin use: without shelter use Qualified Code(s): E11.59 - Type 2 diabetes mellitus with other circulatory complications; E11.65 - Type 2 diabetes mellitus with hyperglycemia (3) Acute exacerbation of congestive heart failure Status: Acute Assessment and plan: Ischemic cardiomyopathy Current Visit: Yes Qualifiers: Congestive heart failure type: combined Qualified Code(s): I50.43 - Acute on chronic combined systolic (congestive) and diastolic (congestive) heart failure (4) Anemia Status: Chronic Current Visit: Yes (5) Hypokalemia Status: Acute Current Visit: Yes (6) Acute systolic CHF (congestive heart failure) Status: Acute Current Visit: No (7) CHF (congestive heart failure), NYHA class III Status: Acute Current Visit: No Qualifiers: Congestive heart failure type: combined (8) Chest pain Status: Acute Current Visit: No Qualifiers: Chest pain type: other chest pain Qualified Code(s): R07.89 - Other chest pain; R07.8 - Other chest pain (9) Coronary artery disease Problem details: Just discharged from the hospital after CABG Patient denies chest pain Very hesitant to stop his anticoagulants given no proven source of bleeding Continue aspirin, Eliquis, follow-up CT abdomen read Continue statin His surgeon has been made aware, requested hospitalist admission Consult cardiology Status: Chronic Current Visit: No Qualifiers: Coronary Disease-Associated Artery/Lesion type: lime artery [place] vs. transplanted heart: lime heart Associated angina: without angina Qualified Code(s): I25.10 - Atherosclerotic heart disease of lime coronary artery without angina pectoris (10) Status post aorto-coronary artery bypass graft Status: Chronic Current Visit: No History of Present Illness Chief complaint: Shortness of breath and chest pain History of present illness: Mr. Bird is a 66 year old male with history of ischemic cardiomyopathy ejection fraction 35-40% followed by Dr. Diomedes post. The patient had three -vessel coronary bypass grafting on 10/04/2016 with reverse saphenous vein graft to the PDA was reverse saphenous vein graft OM 2 and a RICHARDSON to the LAD by Dr. Celestino Cotto. The patient states he has been in cardiac rehab and has been fatigued and cannot do very much. He states on Friday he had a very poor day than Friday night he had some chest discomfort that was short-lived he did not take a nitroglycerin. He called our answering service liat while I was in the [employer] and said that he was having chest pain shortness of breath they got a message to me while scrubbed in the lab that the patient Dr. Post's was having shortness of breath and chest pain I recommended that he come to the emergency room. He came was evaluated by Dr. Vanegas and I was called to admit the patient. The patient states the only sleeps on one pillow at night but states he props himself where he sitting almost straight up this is been progressive over the last several weeks. He denies any exertional chest pain at cardiac rehab states he had pain on Friday night that sounded atypical is very difficult to get a straight answer when even asking close ended questions. Patient is slightly obtuse. He denies any nausea vomiting or diaphoresis. He is not currently having chest pain. He is dyspneic. He has a cough whenever he lies back at night. He denies any significant lower extremity edema. The patient does not know his home medications and they have not been reconciled. I reviewed the old chart and tried estimate what they are and resume those I have asked him to bring his medications. Home Medications Medication Instructions Recorded Confirmed Type Doxepin HCl [Silenor] 3 mg PO BEDTIME 10/03/16 10/25/16 History Ferrous Gluconate 325 mg PO QAM 10/03/16 10/25/16 History Gabapentin Cap/Tab [Neurontin 100 mg PO BID 10/03/16 10/25/16 History Cap/Tab] Gemfibrozil 600 mg PO BID 10/03/16 10/25/16 History Metformin HCl 1,000 mg PO BID 10/03/16 10/25/16 History [place]-3/Dha/Epa/Fish Oil [Fish Oil 3,000 mg PO QAM 10/03/16 10/25/16 History Conc 1,000 mg Softgel] Tamsulosin [Flomax] 2 capsule PO BEDTIME 10/03/16 10/25/16 History Ascorbic Acid Tab [Vitamin C Tab] 1,000 mg PO BID tablet 10/11/16 10/25/16 Rx traMADol TAB [Ultram] 50 mg PO Q6H PRN #40 tablet 10/11/16 10/25/16 Rx Amiodarone Tab [Cordarone Tab] 200 mg PO BID #60 tablet 10/22/16 10/25/16 Rx Apixaban [Eliquis] 5 mg PO BID #60 tablet 10/22/16 10/25/16 Rx Atorvastatin [Lipitor] 40 mg PO BEDTIME #30 tablet 10/22/16 10/25/16 Rx Pantoprazole Tab [Protonix Tab] 40 mg PO QAM #30 tablet 10/22/16 10/25/16 Rx Carvedilol [Coreg] 3.125 mg PO BID 10/25/16 10/25/16 History Furosemide Tab [Lasix Tab] 40 mg PO BID #120 tablet 10/25/16 Rx Potassium Chloride Cap/Tab [K Dur] 20 meq PO DAILY #30 tablet 10/25/16 Rx buPROPion XL [Wellbutrin Xl] 300 mg PO QAM 10/25/16 10/25/16 History glipiZIDE [Glipizide] 20 mg PO BID 10/25/16 10/25/16 History Allergies Allergy/AdvReac Type Severity Reaction Status Date / Time No Known Allergies Allergy Verified 10/25/16 12:46 - Constitutional Constitutional: Present: daytime sleepiness, lethargy, malaise - EENT Eyes: Absent: blurry vision, diplopia Ears: Absent: decreased hearing, ear discharge Nose, mouth and throat: Absent: dysphagia - Cardiovascular Cardiovascular: Present: chest pain at rest, dyspnea, dyspnea on exertion, edema , orthopnea, palpitations. Absent: chest pain with activity - Respiratory Respiratory: Present: cough, dyspnea, dyspnea on exertion - Gastrointestinal Gastrointestinal: Absent: abdominal pain, bloating - Genitourinary Genitourinary: Absent: difficulty urinating, hematuria - Musculoskeletal Musculoskeletal: Present: back pain. Absent: joint swelling - Neurological Neurological: Absent: abnormal gait, disequilibrium, dizziness, focal weakness - Psychiatric Psychiatric: Present: depression. Absent: anxiety - Endocrine Endocrine: Present: heat intolerance. Absent: cold intolerance - Hematologic/Lymphatic Hematologic/Lymphatic: Absent: easy bleeding, easy bruising Medical,Surgical,& Family Hx - Medical History Cardio: History of: Aneurysm (AAA), Cardiac Dysrhythmia (afib), CHF, CAD, Hypertension, [place], Cardiovascular Problems (angioplasty 1995) Neurology: No history of: Seizures HEENT: History of: Ear Problem (Slight hearing loss) Endocrine: History of: Diabetes Mellitus (NIDDM), Dyslipidemia Genitourinary: History of: Prostate Problems (BPH) Gastrointestinal: History of: GERD - Surgical History Cardiac Surgeries: Sugical HX of: Cardiac Catheterization, Cardiac Surgery ( cabg 10/05/2016 2 vein grafts and RICHARDSON to the LAD) Neurologic Surgeries: Patient denies: Neurologic Surgery Abdominal Surgeries: Surgical HX of: Abdominal Surgery, Appendectomy, EGD - Family History Family History: Reports;: Family Diabetes, Family Heart Disease, Family Stroke - Social History Smoking Status: Never smoker Frequency of Alcohol Use: None Type of Drug Use: None Marital Status: Lives With:: Spouse Functional capacity: independent ambulation Cardiology Physical Exam - Constitutional Vitals: Vital Signs Temp Pulse Resp BP Pulse Ox 97.7 F 77 18 132/64 89 L 12/23/16 16:29 12/23/16 18:31 12/23/16 18:31 12/23/16 18:31 12/23/16 18:31 Intake and Output 12/23/16 12/23/16 12/23/16 07:59 15:59 23:59 Other: Weight 83.915 kg Patient Weight 12/23/16 23:59 Weight 83.915 kg General appearance: normal weight - Head Head exam: Present: normal inspection - Eye Eye exam: Present: EOMI Pupils: Present: YENNY - Neck Neck exam: Present: normal inspection - Respiratory Respiratory exam: Present: rales (Bibasilar scant) - Cardiovascular Cardiovascular exam: Present: regular rate and rhythm (PMI is laterally displaced he has an S3 he has a murmur what sounds like aortic sclerosis) - GI/Abdominal GI/Abdominal exam: Present: normal bowel sounds - Extremities Exam Extremities exam: Present: normal inspection - Back Exam Back exam: Present: normal inspection - Neurological Exam Neurological exam: Present: alert, oriented X3 - Psychiatric Psychiatric exam: Present: depressed, flat affect - Skin Skin exam: Present: normal color, warm Result/EKG - Labs CBC & BMP: 12/23/16 16:53 12/23/16 16:53 Labs: Laboratory Results - last 24 hr 12/23/16 12/23/16 12/23/16 16:53 16:53 16:53 WBC 7.0 RBC 3.46 L Hgb 10.1 L Hct 30.2 L MCV 87.3 MCH 29 MCHC 33.4 RDW 15.1 Plt Count 201 MPV 11.8 Neut % (Auto) 76.4 H Lymph % (Auto) 11.8 L [place] % (Auto) 10.4 Eos % (Auto) 0.9 Baso % (Auto) 0.1 Neut # (Auto) 5.4 Lymph # (Auto) 0.8 L [place] # (Auto) 0.7 Eos # (Auto) 0.1 Baso # (Auto) 0.0 Immature Gran % 0.4 Nucleated RBC % 0.0 Immature Gran # 0.03 Nucleated RBCs # 0.00 INR 1.2 PT Patient/Control Mix 13.3 Sodium 141 Potassium 2.9 L Chloride 100 Carbon Dioxide 31 Anion Gap 12.9 BUN 21 H Creatinine 1.20 GFR Calculation 74 BUN/Creatinine Ratio 17.00 Glucose 222 H Calculated Osmolality 290.3 Calcium 8.5 Total Bilirubin 0.80 AST 26 ALT 15 L Alkaline Phosphatase 51 Troponin I < 0.015 Total Protein 6.6 Albumin 3.0 L Globulin 3.6 H Albumin/Globulin Ratio 0.8 L - EKG EKG results: interpreted by me (Low voltage tracing. Biatrial enlargement nonspecific intraventricular conduction delay and nonspecific ST segment changes )
[2016-12-23] MEDS ORDERED: ENOXAPARIN 40 MG/0.4 ML SYRINGE SUBCUT SCH (19:30)
[2016-12-23] MEDS ORDERED: ATORVASTATIN 40 MG TABLET PO SCH (21:00)
[2016-12-23] MEDS ORDERED: TAMSULOSIN 0.4 MG CAPSULE PO SCH (21:00)
[2016-12-23] MEDS: ASCORBIC ACID 500 MG TABLET PO SCH (21:02)
[2016-12-23] MEDS: INSULIN REGULAR 100 UNIT/ML SUBCUT SCH (21:03)
[2016-12-23] MEDS: MAGNESIUM OXIDE 400 MG TABLET PO SCH (21:03)
[2016-12-23] MEDS: POTASSIUM CHLORIDE 20 MEQ TABLET PO SCH (21:03)
[2016-12-23] MEDS: APIXABAN 5 MG TABLET PO SCH (21:03)
[2016-12-23] MEDS: CARVEDILOL 3.125 MG TABLET PO SCH (21:03)
[2016-12-23] MEDS: DOCUSATE SODIUM 100 MG CAPSULE PO SCH (21:03)
[2016-12-24 02:39] LABS: Albumin 2.8 G/DL (3.4-5.0); Bilirubin,Total 0.8 MG/DL (0.2-1.0); Calcium 8.3 MG/DL (8.5-10.1); Magnesium 1.8 MG/DL (1.8-2.4); Osmolality,Calculated 281.4 MOS/KG (273-304); Potassium 2.6 MMOL/L (3.5-5.1); Thyroid Stimulating Hormone 0.834 uIU/ml (0.358-3.74)
[2016-12-24] MEDS: POTASSIUM CHLORIDE RIDER 10 MEQ in PREMIX 1 EACH IV PRN ×5 (03:09→10:27)
[2016-12-24] MEDS: traMADol 50 MG TABLET PO PRN ×2 (04:23→18:29)
--- NOTE | 2016-12-24 06:19 | EKG Report ---
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
--- NOTE | 2016-12-24 07:25 | XRay Report ---
XR chest 2V Indication: Shortness of breath. Comparison: Chest x-ray 12/23/2016 Technique: PA and lateral chest x-ray was performed. Findings: Worsened airspace opacities are demonstrated bilaterally most noticeably within the mid to lower right lung as well as left lung base. Mild cardiomegaly is stable. Chest otherwise demonstrates little change. Impression: 1. Worsening pulmonary edema with worsening alveolar component of pulmonary edema is suggested. 12/24/2016 7:22 AM PROCEDURE INTERPRETED AT [facility] DEPARTMENT OF RADIOLOGY Final Report Signed by: Dr. Adrian Pryor
[2016-12-24] MEDS ORDERED: GEMFIBROZIL 600 MG TABLET PO SCH (07:30)
[2016-12-24] MEDS ORDERED: glipiZIDE 10 MG TABLET PO SCH (07:30)
[2016-12-24] MEDS ORDERED: metFORMIN 500 MG TABLET PO SCH (08:00)
[2016-12-24] MEDS: ASCORBIC ACID 500 MG TABLET PO SCH ×2 (08:19→20:55)
[2016-12-24] MEDS: POTASSIUM CHLORIDE 20 MEQ TABLET PO SCH (08:20)
[2016-12-24] MEDS: MAGNESIUM OXIDE 400 MG TABLET PO SCH ×2 (08:20→20:55)
[2016-12-24] MEDS: DOCUSATE SODIUM 100 MG CAPSULE PO SCH ×2 (08:20→20:56)
[2016-12-24] MEDS: APIXABAN 5 MG TABLET PO SCH ×2 (08:20→20:57)
[2016-12-24] MEDS: CARVEDILOL 3.125 MG TABLET PO SCH ×2 (08:20→20:57)
[2016-12-24] MEDS: FUROSEMIDE 40 MG/4 ML VIAL IV SCH ×2 (08:23→15:23)
[2016-12-24] MEDS: INSULIN REGULAR 100 UNIT/ML SUBCUT SCH ×4 (08:26→20:58)
[2016-12-24] MEDS ORDERED: AMIODARONE 200 MG TABLET PO SCH (09:00)
[2016-12-24] MEDS ORDERED: PANTOPRAZOLE 40 MG TABLET PO SCH (09:00)
--- NOTE | 2016-12-24 11:39 | Cardiology Progress Note ---
<Maria Elena Rousseau - Last Filed: 12/24/16 13:39> Assessment and Plan (1) Acute systolic CHF (congestive heart failure) Status: Acute Assessment and plan: See plan of care listed below. Current Visit: No (2) Diabetes Status: Chronic Assessment and plan: See plan of care listed below. Current Visit: Yes (3) Hypokalemia Status: Acute Assessment and plan: See plan of care listed below. Current Visit: Yes (4) Paroxysmal atrial fibrillation Status: Chronic Assessment and plan: See plan of care listed below. Current Visit: Yes (5) Anemia Status: Chronic Assessment and plan: See plan of care listed below. Current Visit: No (6) CHF (congestive heart failure), NYHA class III Status: Chronic Assessment and plan: See plan of care listed below. Current Visit: No Qualifiers: Congestive heart failure type: combined (7) Coronary artery disease Problem details: Just discharged from the hospital after CABG Patient denies chest pain Very hesitant to stop his anticoagulants given no proven source of bleeding Continue aspirin, Eliquis, follow-up CT abdomen read Continue statin His surgeon has been made aware, requested hospitalist admission Consult cardiology Status: Chronic Assessment and plan: See plan of care listed below. Current Visit: No Qualifiers: Coronary Disease-Associated Artery/Lesion type: [place] artery [place] vs. transplanted heart: [place] heart Associated angina: without angina Qualified Code(s): I25.10 - Atherosclerotic heart disease of [place] coronary artery without angina pectoris (8) Dyslipidemia Status: Chronic Assessment and plan: See plan of care listed below. Current Visit: No Cardiology - PN: Subj Interval history: Conservation Assistant: Dr. Post PCP: Dr. Aristeo Shepard SUMMARY - Mr. Virgen is a 66 year old male with history of ischemic cardiomyopathy ejection fraction 35-40% followed by Dr. Diomedes Post. Patient has a history of coronary artery disease with recent CABG October 04, 2016 , atrial fibrillation, AAA, dyslipidemia, diabetes, BPH, GERD and hypertension. Patient is a former smoker. Patient does wear oxygen at home. The patient had three-vessel coronary bypass grafting on 10/04/2016 with saphenous vein graft to the PDA, saphenous vein graft to OM 2 and a RICHARDSON to the LAD by Dr. Cris Valladares. The patient states he has been in cardiac rehab and has been fatigued and short of breath. He then presented to [facility] for further evaluation. DECEMBER 24, 2016 UPDATE - Patient was seen and examined on the telemetry unit. He is currently resting in bed in no acute distress. Requiring oxygen at 2 L via nasal cannula. He reports that his dyspnea is slowly improving. Potassium today continues to trend down, today 2.6. Will increase patient's dose of daily Potassium. Currently on replacement protocol. BNP 857. Vital signs stable. Currently in normal sinus rhythm with heart rates in the 80's. Assessment/plan: 1. ACUTE CONGESTIVE HEART FAILURE - This is acute on chronic. Systolic. Continue current plan of care with Lasix. Strict I's and O's and Daily weights. Further recommendations to follow per Dr. Bauer. 2. PAROXYSMAL ATRIAL FIBRILLATION - Currently in normal sinus rhythm. Anticoagulated with Eliquis. Continue amiodarone and beta-man. 3. CORONARY ARTERY DISEASE - This is clinically stable at present. Without chest pain, heaviness and tightness. Cardiac biomarkers negative. Continue aspirin, beta-man and lipid lowering agent. 4. ISCHEMIC CARDIOMYOPATHY - Will initiate low dose RAKESH inhibitor at this time. Daily BMP. Continue beta man. 5. DYSLIPIDEMIA - Continue current plan of care with lipid lowering agent. 6. DIABETES - Clinically stable. Continue current plan of care with sliding scale insulin. 7. HYPERTENSION - This is clinically stable. Continue current plan of care. 8. GERD - Clinically stable, continue PPI. 9. HYPOKALEMIA - Potassium 2.6. Asymptomatic. Will increase Potassium dose. Also added low dose RAKESH-Inhibitor in hopes to increase potassium. Continue to replace per protocol. 10. ANEMIA - This is chronic. No overt bleeding. Stable with H & H of 10 and 30. Monitor with Daily CBC. Exam (Progress Note) - Constitutional Vitals: Period Temp Pulse Resp BP Sys/Mehta Pulse Ox Last 24 Hr 97.2 F-98.9 F 74-87 14-24 112-133/45-64 85-100 Exam: General: Appears well with no apparent distress. Pleasant and cooperative. Appears comfortable. HEENT: PERRL, normocephalic, atraumatic. Mucous membranes moist. No jaundice noted. Conjunctiva moist and clear, sclerae anicteric Neck: No JVD/HJR, no thyromegaly or lymphadenopathy noted. No carotid bruit appreciated Cardiac: Regular rate and rhythm. PMI is laterally displaced he has an S3 he has a murmur what sounds like aortic sclerosis. Lungs: Bibasilar rales without accessory muscle use to assist the respiratory pattern. Oxygen in use. Abdomen: Soft, bowel sounds normoactive. Nontender and nondistended. No abdominal bruit or thrill noted. No masses noted. Extremities: No clubbing, cyanosis noted. No edema noted. Upper extremity pulses 2+. Lower extremity pulses 2+. Capillary refill less than 3 seconds. Skin: No unusual lesions or rashes. No skin breakdown appreciated. Neuro: Awake, alert and oriented 3. Moves all extremities well without hemiparesis or paralysis. No essential tremor is appreciated. Result/EKG - Labs CBC & BMP: 12/23/16 16:53 12/24/16 01:39 Lab Results: I have reviewed the past 24 hour labs Labs: Laboratory Results - last 24 hr 12/23/16 12/23/16 12/23/16 16:53 16:53 16:53 WBC 7.0 RBC 3.46 L Hgb 10.1 L Hct 30.2 L MCV 87.3 MCH 29 MCHC 33.4 RDW 15.1 Plt Count 201 MPV 11.8 Neut % (Auto) 76.4 H Lymph % (Auto) 11.8 L [place] % (Auto) 10.4 Eos % (Auto) 0.9 Baso % (Auto) 0.1 Neut # (Auto) 5.4 Lymph # (Auto) 0.8 L [place] # (Auto) 0.7 Eos # (Auto) 0.1 Baso # (Auto) 0.0 Immature Gran % 0.4 Nucleated RBC % 0.0 Immature Gran # 0.03 Nucleated RBCs # 0.00 INR 1.2 PT Patient/Control Mix 13.3 Sodium 141 Potassium 2.9 L Chloride 100 Carbon Dioxide 31 Anion Gap 12.9 BUN 21 H Creatinine 1.20 GFR Calculation 74 BUN/Creatinine Ratio 17.00 Glucose 222 H POC Glucose Calculated Osmolality 290.3 Calcium 8.5 Magnesium Total Bilirubin 0.80 AST 26 ALT 15 L Alkaline Phosphatase 51 Troponin I < 0.015 Total Protein 6.6 Albumin 3.0 L Globulin 3.6 H Albumin/Globulin Ratio 0.8 L Free T4 TSH 3rd Generation 12/23/16 12/23/16 12/23/16 20:37 20:37 22:34 WBC RBC Hgb Hct MCV MCH MCHC RDW Plt Count MPV Neut % (Auto) Lymph % (Auto) [place] % (Auto) Eos % (Auto) Baso % (Auto) Neut # (Auto) Lymph # (Auto) [place] # (Auto) Eos # (Auto) Baso # (Auto) Immature Gran % Nucleated RBC % Immature Gran # Nucleated RBCs # INR PT Patient/Control Mix Sodium Potassium Chloride Carbon Dioxide Anion Gap BUN Creatinine GFR Calculation BUN/Creatinine Ratio Glucose POC Glucose Calculated Osmolality Calcium Magnesium Total Bilirubin AST ALT Alkaline Phosphatase Troponin I 0.018 0.018 Total Protein Albumin Globulin Albumin/Globulin Ratio Free T4 1.97 H TSH 3rd Generation 12/23/16 12/24/16 12/24/16 22:45 01:39 01:39 WBC RBC Hgb Hct MCV MCH MCHC RDW Plt Count MPV Neut % (Auto) Lymph % (Auto) [place] % (Auto) Eos % (Auto) Baso % (Auto) Neut # (Auto) Lymph # (Auto) [place] # (Auto) Eos # (Auto) Baso # (Auto) Immature Gran % Nucleated RBC % Immature Gran # Nucleated RBCs # INR PT Patient/Control Mix Sodium 140 Potassium 2.6 L Chloride 99 Carbon Dioxide 31 Anion Gap 12.6 BUN 17 Creatinine 1.10 GFR Calculation 83 BUN/Creatinine Ratio 15.00 Glucose 109 H POC Glucose 153 H Calculated Osmolality 281.4 Calcium 8.3 L Magnesium 1.8 Total Bilirubin 0.80 AST 25 ALT 15 L Alkaline Phosphatase 46 Troponin I 0.032 Total Protein 6.0 L Albumin 2.8 L Globulin 3.2 Albumin/Globulin Ratio 0.8 L Free T4 TSH 3rd Generation 0.834 12/24/16 08:20 WBC RBC Hgb Hct MCV MCH MCHC RDW Plt Count MPV Neut % (Auto) Lymph % (Auto) [place] % (Auto) Eos % (Auto) Baso % (Auto) Neut # (Auto) Lymph # (Auto) [place] # (Auto) Eos # (Auto) Baso # (Auto) Immature Gran % Nucleated RBC % Immature Gran # Nucleated RBCs # INR PT Patient/Control Mix Sodium Potassium Chloride Carbon Dioxide Anion Gap BUN Creatinine GFR Calculation BUN/Creatinine Ratio Glucose POC Glucose 119 H Calculated Osmolality Calcium Magnesium Total Bilirubin AST ALT Alkaline Phosphatase Troponin I Total Protein Albumin Globulin Albumin/Globulin Ratio Free T4 TSH 3rd Generation Specialty Discharge - Follow Up or Referrals <Aleah Bauer - Last Filed: 12/24/16 14:31> Assessment and Plan (1) Paroxysmal atrial fibrillation Status: Chronic Assessment and plan: Continue current therapy Current Visit: Yes (2) Uncontrolled diabetes mellitus Status: Chronic Current Visit: Yes Qualifiers: Diabetes mellitus type: type 2 Diabetes mellitus complication status: with circulatory complication Diabetes mellitus complication detail: with other circulatory complications Diabetes mellitus marketing technology coordinator insulin use: without snf use Qualified Code(s): E11.59 - Type 2 diabetes mellitus with other circulatory complications; E11.65 - Type 2 diabetes mellitus with hyperglycemia (3) Acute exacerbation of congestive heart failure Status: Acute Assessment and plan: This appears to be more than a straightforward heart failure exacerbation to me. Current Visit: Yes Qualifiers: Congestive heart failure type: combined Qualified Code(s): I50.43 - Acute on chronic combined systolic (congestive) and diastolic (congestive) heart failure (4) Anemia Status: Chronic Current Visit: Yes (5) Hypokalemia Status: Acute Current Visit: Yes (6) Acute systolic CHF (congestive heart failure) Status: Acute Assessment and plan: Add Entresto Current Visit: No (7) CHF (congestive heart failure), NYHA class III Status: Chronic Current Visit: No Qualifiers: Congestive heart failure type: combined (8) Chest pain Status: Acute Assessment and plan: This sounds noncardiac and is related to inspiratory effort. Also significant amount of cough intermittently Current Visit: No Qualifiers: Chest pain type: other chest pain Qualified Code(s): R07.89 - Other chest pain; R07.8 - Other chest pain (9) Coronary artery disease Problem details: Just discharged from the hospital after CABG Patient denies chest pain Very hesitant to stop his anticoagulants given no proven source of bleeding Continue aspirin, Eliquis, follow-up CT abdomen read Continue statin His surgeon has been made aware, requested hospitalist admission Consult cardiology Status: Chronic Current Visit: No Qualifiers: Coronary Disease-Associated Artery/Lesion type: [place] artery [place] vs. transplanted heart: [place] heart Associated angina: without angina Qualified Code(s): I25.10 - Atherosclerotic heart disease of [place] coronary artery without angina pectoris (10) Status post aorto-coronary artery bypass graft Status: Chronic Current Visit: No Cardiology - PN: Subj Interval history: Mr. virgen has not had much improvement since last night. I reviewed his chest x-ray and to me it looks like more than pulmonary edema he has more increased peripheral then hilar areas of radio opacity. This brings up an interesting differential that this may all be edema but I think I would like to see if pulmonary has any suggestions. We will asked Dr. Schroeder to see I reviewed the electronic health record I do not see that he is ever seen another eeg technician. He saw Dr. Maira Ugalde for sleep medicine but no other note was seen. The patient is unaware having seen a eeg technician before his white count is normal he is having a dry cough he is on amiodarone not had any fevers or chills his potassium remains low where repleting it by "protocol" we are also having magnesium replaced IV. Unfortunately the protocol requires that the patient received IV potassium rather than oral I will stop protocol. Awaiting repeat labs this evening Exam (Progress Note) - Constitutional Vitals: Period Temp Pulse Resp BP Sys/Mehta Pulse Ox Last 24 Hr 97.2 F-98.9 F 74-87 14-24 112-133/45-64 85-100 General appearance: normal weight - Head Head exam: Present: normal inspection - Eye Eye exam: Present: EOMI Pupils: Present: YENNY - Respiratory Respiratory exam: Present: decreased breath sounds, rales. Absent: wheezes - Cardiovascular Cardiovascular exam: Present: regular rate and rhythm - GI/Abdominal GI/Abdominal exam: Present: normal bowel sounds Result/EKG - Labs CBC & BMP: 12/23/16 16:53 12/24/16 01:39 Labs: Laboratory Results - last 24 hr 12/23/16 12/23/16 12/23/16 16:53 16:53 16:53 WBC 7.0 RBC 3.46 L Hgb 10.1 L Hct 30.2 L MCV 87.3 MCH 29 MCHC 33.4 RDW 15.1 Plt Count 201 MPV 11.8 Neut % (Auto) 76.4 H Lymph % (Auto) 11.8 L [place] % (Auto) 10.4 Eos % (Auto) 0.9 Baso % (Auto) 0.1 Neut # (Auto) 5.4 Lymph # (Auto) 0.8 L [place] # (Auto) 0.7 Eos # (Auto) 0.1 Baso # (Auto) 0.0 Immature Gran % 0.4 Nucleated RBC % 0.0 Immature Gran # 0.03 Nucleated RBCs # 0.00 INR 1.2 PT Patient/Control Mix 13.3 Sodium 141 Potassium 2.9 L Chloride 100 Carbon Dioxide 31 Anion Gap 12.9 BUN 21 H Creatinine 1.20 GFR Calculation 74 BUN/Creatinine Ratio 17.00 Glucose 222 H POC Glucose Calculated Osmolality 290.3 Calcium 8.5 Magnesium Total Bilirubin 0.80 AST 26 ALT 15 L Alkaline Phosphatase 51 Troponin I < 0.015 B-Natriuretic Peptide Total Protein 6.6 Albumin 3.0 L Globulin 3.6 H Albumin/Globulin Ratio 0.8 L Free T4 TSH 3rd Generation 12/23/16 12/23/16 12/23/16 20:37 20:37 22:34 WBC RBC Hgb Hct MCV MCH MCHC RDW Plt Count MPV Neut % (Auto) Lymph % (Auto) [place] % (Auto) Eos % (Auto) Baso % (Auto) Neut # (Auto) Lymph # (Auto) [place] # (Auto) Eos # (Auto) Baso # (Auto) Immature Gran % Nucleated RBC % Immature Gran # Nucleated RBCs # INR PT Patient/Control Mix Sodium Potassium Chloride Carbon Dioxide Anion Gap BUN Creatinine GFR Calculation BUN/Creatinine Ratio Glucose POC Glucose Calculated Osmolality Calcium Magnesium Total Bilirubin AST ALT Alkaline Phosphatase Troponin I 0.018 0.018 B-Natriuretic Peptide Total Protein Albumin Globulin Albumin/Globulin Ratio Free T4 1.97 H TSH 3rd Generation 12/23/16 12/24/16 12/24/16 22:45 01:39 01:39 WBC RBC Hgb Hct MCV MCH MCHC RDW Plt Count MPV Neut % (Auto) Lymph % (Auto) [place] % (Auto) Eos % (Auto) Baso % (Auto) Neut # (Auto) Lymph # (Auto) [place] # (Auto) Eos # (Auto) Baso # (Auto) Immature Gran % Nucleated RBC % Immature Gran # Nucleated RBCs # INR PT Patient/Control Mix Sodium 140 Potassium 2.6 L Chloride 99 Carbon Dioxide 31 Anion Gap 12.6 BUN 17 Creatinine 1.10 GFR Calculation 83 BUN/Creatinine Ratio 15.00 Glucose 109 H POC Glucose 153 H Calculated Osmolality 281.4 Calcium 8.3 L Magnesium 1.8 Total Bilirubin 0.80 AST 25 ALT 15 L Alkaline Phosphatase 46 Troponin I 0.032 B-Natriuretic Peptide Total Protein 6.0 L Albumin 2.8 L Globulin 3.2 Albumin/Globulin Ratio 0.8 L Free T4 TSH 3rd Generation 0.834 12/24/16 12/24/16 08:20 11:31 WBC RBC Hgb Hct MCV MCH MCHC RDW Plt Count MPV Neut % (Auto) Lymph % (Auto) [place] % (Auto) Eos % (Auto) Baso % (Auto) Neut # (Auto) Lymph # (Auto) [place] # (Auto) Eos # (Auto) Baso # (Auto) Immature Gran % Nucleated RBC % Immature Gran # Nucleated RBCs # INR PT Patient/Control Mix Sodium Potassium Chloride Carbon Dioxide Anion Gap BUN Creatinine GFR Calculation BUN/Creatinine Ratio Glucose POC Glucose 119 H Calculated Osmolality Calcium Magnesium Total Bilirubin AST ALT Alkaline Phosphatase Troponin I B-Natriuretic Peptide 857 H Total Protein Albumin Globulin Albumin/Globulin Ratio Free T4 TSH 3rd Generation
[2016-12-24] MEDS ORDERED: POTASSIUM CHLORIDE 20 MEQ TABLET PO SCH (13:45)
[2016-12-24] MEDS ORDERED: MAGNESIUM SULF RIDER 2 GM in PREMIX 1 EACH IV ONE (13:50)
[2016-12-24] MEDS ORDERED: POTASSIUM CHLORIDE 20 MEQ TABLET PO ONE ×4 (14:50→17:50)
[2016-12-24] MEDS: DILTIAZEM 60 MG TABLET PO SCH ×2 (15:22→20:54)
--- NOTE | 2016-12-24 16:11 | ECHO Report ---
Glenn Bird 12/24/2016 Exam Date: 09:29 Referring Physician: Harleen WolfeTechnologist: Age: 66 Ht (in): 71 Wt (lb): 185 MExam [facility] Gender: Echo [id number]: Atrial fibrillation, CHF, HyperglycIndications:cr, Anemia BP: 130 / 60 HR: 84 SinusRhythm: Technical Quality: IMPRESSIONS The overall ejection fraction is moderately to severely depressed estimated approximately 25-30% there is distal hypokinesis in the anterior lateral inferior owens. Diastolic parameters are most consistent with grade 3 diastolic dysfunction or restriction. Tricuspid regurgitation velocities suggest a RVSP of 48 mmHg plus the right atrial pressure. MEASUREMENTS (Male / Female) Normal Values 2D ECHO LV Diastolic Diameter PLAX 5.4 cm 4.2 - 5.9 / 3.9 - 5.3 cm LV Systolic Diameter PLAX 4.1 cm LV Fractional Shortening PLAX 23.9 % IVS Diastolic Thickness 0.9 cm 0.6 - 1.0 / 0.6 - 0.9 cm LVPW Diastolic Thickness 1.0 cm 0.6 - 1.0 / 0.6 - 0.9 cm RV Internal Dim ED PLAX 3.4 cm Aortic Root Diameter 2.8 cm LA Systolic Diameter LX 3.8 cm 3.0 - 4.0 / 2.7 - 3.8 cm DOPPLER TR Peak Velocity 346.0 cm/s TR Peak Gradient 47.9 mmHg FINDINGS Left Ventricle The overall ejection fraction is moderately to severely depressed estimated approximately 25-30% there is distal hypokinesis in the anterior lateral inferior owens. There is less than compensatory contraction of the basal and mid segments. Diastolic parameters are most consistent with grade 3 diastolic dysfunction or restriction. Right Ventricle The right ventricle is normal in size and function. Right Atrium The right atrium is normal in size. Left Atrium The left atrium is normal in size. Mitral Valve Mild mitral annular and leaflet calcification with mild mitral regurgitation. Aortic Valve Morphologically normal aortic valve without significant sclerosis or stenosis. There is no aortic regurgitation. Tricuspid Valve Morphologically normal tricuspid valve. Mild tricuspid valve regurgitation. Tricuspid regurgitation velocities suggest a RVSP of 48 mmHg plus the right atrial pressure. Pulmonic Valve Morphologically normal pulmonic valve. Trace pulmonary valve regurgitation. Pericardium Normal pericardium without effusion. Aorta Normal ascending aorta dimension. Aleah Bauer (Electronically Signed) 24 Dec 2016 16:10Final Date:
--- NOTE | 2016-12-24 16:51 | Pulmonology Consult Note ---
Assessment and Plan (1) Community acquired pneumonia Status: Acute Assessment and plan: For the most part this looks like congestive heart failure. He has an elevated BNP reduced LV ejection fraction and [place] type pulmonary edema. However he has had one day of some fever and is coughing up yellow sputum. His white blood count is normal. I will empirically add Levaquin and get cultures. Current Visit: Yes (2) Acute exacerbation of congestive heart failure Status: Acute Assessment and plan: Acute systolic heart failure with ejection fraction 25-30%. Ischemic heart disease. Agree with diuresis. Current Visit: Yes Qualifiers: Congestive heart failure type: combined Qualified Code(s): I50.43 - Acute on chronic combined systolic (congestive) and diastolic (congestive) heart failure (3) Paroxysmal atrial fibrillation Status: Chronic Assessment and plan: Patient is on amiodarone 200 mg twice a day. Need to be sure that he does not have amiodarone toxicity. We will see if a chest CT will help us there. Current Visit: Yes History of Present Illness Chief complaint: Cough shortness of breath History of present illness: Mr. Bird is a 66 year old male who had coronary bypass surgery 2 months ago. He has a cardiomyopathy with ejection fraction 25-30%. He was doing cardiac rehab and became increasingly short of breath starting about 6 days ago. He felt feverish for a few minutes but that is all. He is just started coughing up some yellowish sputum in the last day or so. He was admitted here with [place] type pulmonary edema. He was found to have an elevated BNP in the 800s. He has been given Lasix but his x-ray does not look better and he has not lost weight. He is also on amiodarone. He is a former smoker but no history of COPD. Home Medications Medication Instructions Recorded Confirmed Type Doxepin HCl [Silenor] 3 mg PO BEDTIME 10/03/16 12/23/16 History Ferrous Gluconate 325 mg PO BID 10/03/16 12/23/16 History Gabapentin Cap/Tab [Neurontin 100 mg PO BID 10/03/16 12/23/16 History Cap/Tab] Gemfibrozil 600 mg PO BID 10/03/16 12/23/16 History [place]-3/Dha/Epa/Fish Oil [Fish Oil 3,000 mg PO QAM 10/03/16 12/23/16 History Conc 1,000 mg Softgel] Tamsulosin [Flomax] 2 capsule PO BEDTIME 10/03/16 12/23/16 History Ascorbic Acid Tab [Vitamin C Tab] 1,000 mg PO BID tablet 10/11/16 12/23/16 Rx Amiodarone Tab [Cordarone Tab] 200 mg PO BID #60 tablet 10/22/16 12/23/16 Rx Apixaban [Eliquis] 5 mg PO BID #60 tablet 10/22/16 12/23/16 Rx Atorvastatin [Lipitor] 40 mg PO BEDTIME #30 tablet 10/22/16 12/23/16 Rx Pantoprazole Tab [Protonix Tab] 40 mg PO QAM #30 tablet 10/22/16 12/23/16 Rx Carvedilol [Coreg] 3.125 mg PO BID 10/25/16 12/23/16 History Furosemide Tab [Lasix Tab] 40 mg PO BID #120 tablet 10/25/16 12/23/16 Rx Potassium Chloride Cap/Tab [K Dur] 20 meq PO DAILY #30 tablet 10/25/16 12/23/16 Rx buPROPion XL [Wellbutrin Xl] 300 mg PO QAM 10/25/16 12/23/16 History glipiZIDE [Glipizide] 20 mg PO BID 10/25/16 12/23/16 History Aspirin 81 mg PO DAILY 12/23/16 12/23/16 History Diltiazem Tab [Cardizem Tab] 60 mg PO TID 12/23/16 12/23/16 History sitaGLIPtin [Januvia] 100 mg PO DAILY 12/23/16 12/23/16 History Allergies Allergy/AdvReac Type Severity Reaction Status Date / Time No Known Allergies Allergy Verified 10/25/16 12:46 12 point system: reviewed and no additional remarkable complaints except as stated - Constitutional Constitutional: Present: fatigue - Cardiovascular Cardiovascular: Present: dyspnea, dyspnea on exertion - Respiratory Respiratory: Present: cough, dyspnea on exertion, change in phlegm color Exam (Pulmonay) H&P - Constitutional Vitals: Period Temp Pulse Resp BP Sys/Mehta Pulse Ox Last 24 Hr 98.0 F-98.9 F 74-85 14-24 112-137/54-64 84-100 Exam: Vital signs normal except for oxygen saturation of 86% on 4 L. Pupils react to light. Throat is clear. Neck supple no bruits. Chest reveals some crackles bilaterally in the bases. I do not hear any wheezes. Heart normal rate and rhythm no murmurs. Sternal wound is healing nicely. Abdomen soft nontender no masses. Extremities no clubbing cyanosis edema. Donor graft sites look clean. Medical,Surgical,& Family Hx - Medical History Cardio: History of: Aneurysm (AAA), Cardiac Dysrhythmia (afib), CHF, CAD, Hypertension, [place], Cardiovascular Problems (angioplasty 1995) Neurology: No history of: Seizures HEENT: History of: Ear Problem (Slight hearing loss) Endocrine: History of: Diabetes Mellitus (NIDDM), Dyslipidemia Genitourinary: History of: Prostate Problems (BPH) Gastrointestinal: History of: GERD - Surgical History Cardiac Surgeries: Sugical HX of: Cardiac Catheterization, Cardiac Surgery ( cabg 10/05/2016 2 vein grafts and RICHARDSON to the LAD) Neurologic Surgeries: Patient denies: Neurologic Surgery Abdominal Surgeries: Surgical HX of: Abdominal Surgery, Appendectomy, EGD - Family History Family History: Reports;: Family Diabetes, Family Heart Disease, Family Stroke - Social History Smoking Status: Never smoker Frequency of Alcohol Use: None Type of Drug Use: None Results - Labs CBC & BMP: 12/23/16 16:53 12/24/16 14:41 Lab Results: I have reviewed the past 24 hour labs - Diagnostic Findings Procedure: Chest x-ray: image reviewed by me (Pulmonary edema. Heart size is only slightly increased) Specialty Discharge - Follow Up or Referrals
[2016-12-24] MEDS: LEVOFLOXACIN INJ 500 MG in PREMIX 1 EACH IV SCH (17:10)
[2016-12-24 18:07] LABS: ABG Base Excess 8.7 MMOL/L (-2.5-2.5); ABG HCO3 32.8 MMOL/L (20-26); ABG Oxygen Saturation 91.1 % (95-100); ABG PCO2 43.1 MM HG (35-48); ABG PH 7.499 (7.35-7.45); ABG PO2 58.8 MM HG (80-95); ABG TCO2 34.1 MMOL/L (23-27)
[2016-12-24 18:31] LABS: Calcium 8.3 MG/DL (8.5-10.1)
[2016-12-24 18:32] LABS: Magnesium 2.5 MG/DL (1.8-2.4); Osmolality,Calculated 279.7 MOS/KG (273-304); Potassium 3.1 MMOL/L (3.5-5.1)
[2016-12-24] MEDS ORDERED: methylPREDNISolone SOD SUC 125 MG/2 ML VIAL IV ONE (18:37)
[2016-12-24] MEDS: FERROUS SULFATE 325 MG TABLET PO SCH (20:54)
[2016-12-24] MEDS: glipiZIDE 10 MG TABLET PO SCH (20:54)
[2016-12-24] MEDS: SACUBITRIL/VALSARTAN 49-51 MG TABLET PO SCH (20:55)
[2016-12-24] MEDS: GABAPENTIN 100 MG CAPSULE PO SCH (20:55)
[2016-12-24] MEDS: ATORVASTATIN 40 MG TABLET PO SCH (20:55)
[2016-12-24] MEDS: GEMFIBROZIL 600 MG TABLET PO SCH (20:55)
[2016-12-24] MEDS: TAMSULOSIN 0.4 MG CAPSULE PO SCH (20:56)
[2016-12-24] MEDS: AMIODARONE 200 MG TABLET PO SCH (20:56)
[2016-12-24] MEDS ORDERED: NON-FORMULARY MEDICATION (Doxepin Hcl [Silenor] 3 MG) PO SCH (21:00)
[2016-12-24] MEDS: ZALEPLON 5 MG CAPSULE PO PRN (21:07)
[2016-12-25 05:44] LABS: Hematocrit 32.8 VOL% (42.0-52.0); Immature Granulocytes % 0.6 %; Immature Granulocytes Absolute 0.04 #; Lymphocytes # 0.4 10*3/uL (1.4-4.0); Lymphocytes % 6.7 % (21.2-54.2); Mean Corpuscular HGB Conc 33.5 GM/DL (32-36); Mean Corpuscular Hemoglobin 30 PG (27-34); Mean Corpuscular Volume 87.9 FL (87-102); Mean Platelet Volume 11.3 FL (9.6-12.0); Monocytes # 0.1 10*3/uL (0.11-0.8); Monocytes % 1.8 % (1.7-12.7); Neutrophils # 5.9 10*3/uL (1.4-7.4); Neutrophils % 90.9 % (38.7-73.9); Platelet Count 215 T/CUMM (130-400); Red Blood Count 3.73 MC/CUMM (3.8-5.5); Red Cell Distribution Width 14.6 % (9.3-17.3); White Blood Count 6.5 T/CUMM (4-12)
[2016-12-25 06:04] LABS: Band Neutrophils 2 % (0-10); Hypochromasia 1+; Lymphocytes 3 % (20-55); Segmented Neutrophils 94 % (50-85); Total Cells Counted 100
[2016-12-25 06:05] LABS: Microcytosis 1+; Ovalocytes Slight
[2016-12-25 06:06] LABS: Platelet Estimate Normal
--- NOTE | 2016-12-25 06:11 | XRay Report ---
XR chest 2V Indication: Shortness of breath. Comparison: Chest x-ray 12/24/2016 Technique: PA and lateral chest x-ray was performed. Findings: Interval partial clearing of the lung parenchyma is demonstrated. The chest is otherwise stable. Impression: 1. Improvement in the chest is most suggestive of improving pulmonary edema. 12/25/2016 6:07 AM PROCEDURE INTERPRETED AT [facility] DEPARTMENT OF RADIOLOGY Final Report Signed by: Dr. Adrian Pryor
[2016-12-25 06:23] LABS: Albumin 2.5 G/DL (3.4-5.0); Bilirubin,Total 0.9 MG/DL (0.2-1.0); Calcium 8.5 MG/DL (8.5-10.1); Magnesium 2.4 MG/DL (1.8-2.4); Osmolality,Calculated 285.8 MOS/KG (273-304); Potassium 3.3 MMOL/L (3.5-5.1); Total Protein 6.1 G/DL (6.4-8.3)
--- NOTE | 2016-12-25 06:25 | CT Report ---
CT chest wo con Indication: CHF. Pneumonia. History of amiodarone. Comparison: None. Technique: CT chest was performed without administration of intravenous contrast. In addition to multiple contiguous axial source images, coronal and sagittal MPR series were provided. The CT examination was performed using one or more of the following dose reduction techniques: Automatic exposure control, adjustment of the mA and kV according to patient size, use of acute or iterative reconstruction techniques. Findings: No fibrotic changes are demonstrated within the lung. Bilaterally, there are diffusely distributed areas of groundglass attenuation superimposed on thickened septal lines with some focal areas of airspace attenuation additionally present. Also, small bilateral pleural effusions are present. Minimal prominence of the pulmonary venous structures is noted. Heart size is borderline. Moderate to severe diffuse coronary artery calcifications demonstrated. Prior sternotomy is demonstrated. Trace pericardial fluid is present. Numerous partially calcified subcarinal and bilateral hilar lymph nodes are present. The aorta demonstrates intimal calcification. High attenuation material within the gallbladder could reflect sludge. No inflammatory changes are present. Liver attenuation is greater than that of the spleen. Average attenuation of the right hepatic lobe 70 Hounsfield units with spleen averaging 57 Hounsfield units. This could reflect sequelae of amiodarone therapy. Spleen contains punctate calcifications compatible with prior granulomatous disease. Bony structures demonstrate no acute findings. Soft tissues and musculature of the chest wall demonstrate no acute findings. Impression: 1. Partial calcification of hilar or mediastinal lymph nodes as well as punctate calcifications present within the spleen are considered compatible with prior granulomatous disease. 2. Appearance of the lung parenchyma is most suggestive of pulmonary edema. Small bilateral pleural effusions additionally present. 3. Liver demonstrates increased attenuation compared to that of the spleen. This could reflect sequelae of amiodarone therapy. No specific fibrotic change of the lung parenchyma or scarring is present to suggest amiodarone toxicity and otherwise given the presence of suggested pulmonary edema, underlying attenuation of lung is difficult to ascertain. 12/25/2016 6:16 AM PROCEDURE INTERPRETED AT [facility] DEPARTMENT OF RADIOLOGY Final Report Signed by: Dr. Adrian Pryor
[2016-12-25] MEDS: ASCORBIC ACID 500 MG TABLET PO SCH ×2 (08:08→20:34)
[2016-12-25] MEDS: APIXABAN 5 MG TABLET PO SCH ×2 (08:09→20:37)
[2016-12-25] MEDS: DILTIAZEM 60 MG TABLET PO SCH ×3 (08:09→20:33)
[2016-12-25] MEDS: DOCUSATE SODIUM 100 MG CAPSULE PO SCH ×2 (08:09→20:38)
[2016-12-25] MEDS: GEMFIBROZIL 600 MG TABLET PO SCH ×2 (08:09→20:35)
[2016-12-25] MEDS: CARVEDILOL 3.125 MG TABLET PO SCH ×2 (08:09→20:37)
[2016-12-25] MEDS: glipiZIDE 10 MG TABLET PO SCH ×2 (08:09→20:34)
[2016-12-25] MEDS: FERROUS SULFATE 325 MG TABLET PO SCH ×2 (08:10→20:34)
[2016-12-25] MEDS: SACUBITRIL/VALSARTAN 49-51 MG TABLET PO SCH ×2 (08:10→20:33)
[2016-12-25] MEDS: MAGNESIUM OXIDE 400 MG TABLET PO SCH ×2 (08:10→20:37)
[2016-12-25] MEDS: SPIRONOLACTONE 25 MG TABLET PO SCH (08:10)
[2016-12-25] MEDS: ASPIRIN CHEW 81 MG TABLET PO SCH (08:10)
[2016-12-25] MEDS: PANTOPRAZOLE 40 MG TABLET PO SCH (08:10)
[2016-12-25] MEDS: GABAPENTIN 100 MG CAPSULE PO SCH ×2 (08:10→20:38)
[2016-12-25] MEDS: AMIODARONE 200 MG TABLET PO SCH ×2 (08:10→20:38)
[2016-12-25] MEDS: sitaGLIPtin 100 MG TABLET PO SCH (08:10)
[2016-12-25] MEDS: INSULIN REGULAR 100 UNIT/ML SUBCUT SCH ×4 (08:19→20:39)
[2016-12-25] MEDS: FUROSEMIDE 40 MG/4 ML VIAL IV SCH ×2 (08:22→16:40)
--- NOTE | 2016-12-25 08:24 | Pulmonology Progress Note ---
Pulmonary - PN: Subj Interval history: This 66-year-old white male came in with congestive heart failure. He has pulmonary edema. He is on amiodarone. We obtained a CT scan that showed findings consistent with pulmonary edema. There were no high density areas on the CT. He does have increased density in his liver and spleen, and this just suggest that he is taking amiodarone. His chest x-ray today looks a little better. Diuresing him has helped. He still requiring a good bit of oxygen. He likes taking his oxygen off. He has obstructive sleep apnea and uses CPAP at night here. We did have him on BiPAP last night. Exam (Progress Note) - Constitutional Vitals: Period Temp Pulse Resp BP Sys/Mehta Pulse Ox Last 24 Hr 97.0 F-100.2 F 75-86 18-20 91-146/50-70 84-93 Exam: Patient is alert. Vital signs normal. Pupils react to light. Throat is clear. Neck supple no bruits. Chest shows minimal crackles in the bases. Heart normal rate rhythm no murmurs. Abdomen soft nontender no masses. Extremities no clubbing cyanosis or edema. Calves nontender. Results - Labs CBC & BMP: 12/25/16 05:12 12/25/16 05:12 Lab Results: I have reviewed the past 24 hour labs - Diagnostic Findings Procedure: Chest x-ray: image reviewed by me (X-ray is improved. Less pulmonary edema.), CT - chest: image reviewed by me (Groundglass infiltrates bilaterally consistent with pulmonary edema. Nothing to indicate amiodarone lung.) Assessment and Plan (1) Community acquired pneumonia Status: Acute Assessment and plan: For the most part this looks like congestive heart failure. He has an elevated BNP reduced LV ejection fraction and [place] type pulmonary edema. However he has had one day of some fever and is coughing up yellow sputum. His white blood count is normal. I will empirically add Levaquin and get cultures. 12/25/2016 he is on empiric antibiotics for pneumonia considering that he had yellow sputum production and 1 day of fever. I still feel his primary problem is congestive heart failure. Current Visit: Yes (2) Acute exacerbation of congestive heart failure Status: Acute Assessment and plan: Acute systolic heart failure with ejection fraction 25-30%. Ischemic heart disease. Agree with diuresis. 12/25/2016 continuing diuresis. Current Visit: Yes Qualifiers: Congestive heart failure type: combined Qualified Code(s): I50.43 - Acute on chronic combined systolic (congestive) and diastolic (congestive) heart failure (3) Paroxysmal atrial fibrillation Status: Chronic Assessment and plan: Patient is on amiodarone 200 mg twice a day. Need to be sure that he does not have amiodarone toxicity. We will see if a chest CT will help us there. 12/25/2016 no sign of amiodarone long. Current Visit: Yes Specialty Discharge - Follow Up or Referrals
[2016-12-25] MEDS ORDERED: LISINOPRIL 10 MG TABLET PO SCH (09:00)
[2016-12-25] MEDS ORDERED: ASPIRIN EC 81 MG TABLET PO SCH (09:00)
[2016-12-25] MEDS: OMEGA 3 ACID ETHYL ESTERS 1 GM CAPSULE PO SCH (09:12)
[2016-12-25] MEDS: POTASSIUM CHLORIDE RIDER 10 MEQ in PREMIX 1 EACH IV PRN ×2 (10:21→12:31)
--- NOTE | 2016-12-25 10:31 | Physician Query Form ---
CLICK EDIT DOCUMENT TO SELECT QUERY ANSWER --> OK --> SIGN Lucia Guillen RN Clinical Typing Section Chief W) [phone] (f) [phone] [email or web address] PROVIDERS: Make your selection(s) from the choices in EACH section by typing an "x" and enter comments in the comment section. Please use your independent medical judgment in providing your response. This request does not imply that any particular answer is desired or expected. CLINICAL INDICATORS: (Providers should not edit this section) Based on documentation of "Wears oxygen at home" Acute exacerbation of CHF" "Pulmonary edema" "Uses CPAP at night here. have him on BIPAP last night" SATS as low as 84% on 2L/NC. oxygen increased to 3L/NC. If possible, please further clarify the type and acuity of respiratory diagnosis : ACUITY: ( ) Acute ( ) Chronic (x ) Acute on Chronic TYPE: ( ) Respiratory failure with hypoxia ( ) Respiratory failure with hypercapnia ( ) Respiratory Arrest ( ) Postprocedural/postoperative respiratory failure ( ) Respiratory Insufficiency ( ) ARDS (Adult/Acute Respiratory Distress Syndrome) ( ) Other, please specify: (x ) Clinically unable to determine Recognized criteria for respiratory failure PH <7.35 or >7.45 PO2 <60 PCO2 >50 RR >24 O2 Sat <90% on RA or <95% on O2 Use of accessory muscles Unable to speak in full sentences Intubation is not required COMMENTS: PLEASE ALSO DOCUMENT RESPONSE IN PROGRESS NOTES AND/OR DISCHARGE SUMMARY Use of terms such as suspected, likely, or probable (associated with a specific diagnosis that is being evaluated, monitored, or treated as if it exists) are acceptable and can be restated in the discharge summary if not ruled out. MTDD
--- NOTE | 2016-12-25 13:49 | Cardiology Progress Note ---
<Maria Elena Rousseau - Last Filed: 12/25/16 13:51> Assessment and Plan (1) Acute systolic CHF (congestive heart failure) Status: Acute Assessment and plan: See plan of care listed below. Current Visit: No (2) Diabetes Status: Chronic Assessment and plan: See plan of care listed below. Current Visit: Yes (3) Hypokalemia Status: Acute Assessment and plan: See plan of care listed below. Current Visit: Yes (4) Paroxysmal atrial fibrillation Status: Chronic Assessment and plan: See plan of care listed below. Current Visit: Yes (5) Anemia Status: Chronic Assessment and plan: See plan of care listed below. Current Visit: No (6) CHF (congestive heart failure), NYHA class III Status: Chronic Assessment and plan: See plan of care listed below. Current Visit: No Qualifiers: Congestive heart failure type: combined (7) Coronary artery disease Problem details: Just discharged from the hospital after CABG Patient denies chest pain Very hesitant to stop his anticoagulants given no proven source of bleeding Continue aspirin, Eliquis, follow-up CT abdomen read Continue statin His surgeon has been made aware, requested hospitalist admission Consult cardiology Status: Chronic Assessment and plan: See plan of care listed below. Current Visit: No Qualifiers: Coronary Disease-Associated Artery/Lesion type: [place] artery [place] vs. transplanted heart: [place] heart Associated angina: without angina Qualified Code(s): I25.10 - Atherosclerotic heart disease of [place] coronary artery without angina pectoris (8) Dyslipidemia Status: Chronic Assessment and plan: See plan of care listed below. Current Visit: No (9) Pneumonia Status: Acute Assessment and plan: See plan of care listed below. Current Visit: Yes Cardiology - PN: Subj Interval history: [place]: Dr. Post PCP: Dr. Aristeo Shepard SUMMARY - Mr. Covert is a 66 year old male with history of ischemic cardiomyopathy ejection fraction 35-40% followed by Dr. Diomedes Post. Patient has a history of coronary artery disease with recent CABG October 04, 2016 , atrial fibrillation, AAA, dyslipidemia, diabetes, BPH, GERD and hypertension. Patient is a former smoker. Patient does wear oxygen at home. The patient had three-vessel coronary bypass grafting on 10/04/2016 with saphenous vein graft to the PDA, saphenous vein graft to OM 2 and a RICHARDSON to the LAD by Dr. Cris Valladares. The patient states he has been in cardiac rehab and has been fatigued and short of breath. He then presented to [facility] for further evaluation. BNP on admission was 857. Chest x-ray is consistent with acute on chronic congestive heart failure. Patient is currently being diuresed. Patient has been admitted under cardiology service and housed on the telemetry unit. DECEMBER 25, 2016 UPDATE - Patient was seen and examined on the telemetry unit. He is currently resting in bed in no acute distress. Requiring oxygen at 2 L via nasal cannula. He reports that he feels much better today and his breathing has greatly improved. Dr. Schroeder was consulted yesterday. He feels that this is majority congestive heart failure. CT chest was performed which is consistent with pulmonary edema. He is also being treated empirically for pneumonia as he has reported a one-day history of fever and coughing of yellow sputum. Chest x-ray this morning looks better after being diuresed. Potassium today has improved, 3.3. Will continue to replace per protocol. Vital signs stable. Currently in normal sinus rhythm with heart rates in the 80's. Assessment/plan: 1. ACUTE CONGESTIVE HEART FAILURE - Improved. This is acute on chronic. Systolic. Continue current plan of care with Lasix as he is diuresing well. Strict I's and O's and Daily weights. Further recommendations to follow per Dr. Bauer. 2. PAROXYSMAL ATRIAL FIBRILLATION - Currently in normal sinus rhythm. Anticoagulated with Eliquis. Continue amiodarone and beta-man. 3. CORONARY ARTERY DISEASE - This is clinically stable at present. Without chest pain, heaviness and tightness. Cardiac biomarkers negative. Continue aspirin, beta-man and lipid lowering agent. 4. ISCHEMIC CARDIOMYOPATHY - Continue diuretics, beta-man and RAKESH inhibitor. 5. DYSLIPIDEMIA - Continue current plan of care with lipid lowering agent. 6. DIABETES - Patient has been hyperglycemic. I have increased patient's sliding scale insulin to the high regimen. 7. HYPERTENSION - This is clinically stable. Continue current plan of care. 8. GERD - Clinically stable, continue PPI. 9. HYPOKALEMIA - Improved, today it is 3.3. Continue to replace per protocol. 10. ANEMIA - This is chronic. No overt bleeding. Stable with H & H of 11 and 32. Monitor with Daily CBC. 11. PNEUMONIA - He is being treated empirically for pneumonia as he had a 1 day history of fever and coughing up yellow sputum. White blood cell count is normal. Management per Dr. Schroeder. Exam (Progress Note) - Constitutional Vitals: Period Temp Pulse Resp BP Sys/Mehta Pulse Ox Last 24 Hr 97.0 F-100.2 F 74-86 18-20 91-146/50-70 84-93 Exam: General: Appears well with no apparent distress. Pleasant and cooperative. Appears comfortable. HEENT: PERRL, normocephalic, atraumatic. Mucous membranes moist. No jaundice noted. Conjunctiva moist and clear, sclerae anicteric Neck: No JVD/HJR, no thyromegaly or lymphadenopathy noted. No carotid bruit appreciated Cardiac: Regular rate and rhythm. PMI is laterally displaced he has an S3 he has a murmur what sounds like aortic sclerosis. Lungs: Minimal crackles auscultated without accessory muscle use to assist the respiratory pattern. Oxygen in use. Abdomen: Soft, bowel sounds normoactive. Nontender and nondistended. No abdominal bruit or thrill noted. No masses noted. Extremities: No clubbing, cyanosis noted. No edema noted. Upper extremity pulses 2+. Lower extremity pulses 2+. Capillary refill less than 3 seconds. Skin: No unusual lesions or rashes. No skin breakdown appreciated. Neuro: Awake, alert and oriented 3. Moves all extremities well without hemiparesis or paralysis. No essential tremor is appreciated. Result/EKG - Labs CBC & BMP: 12/25/16 05:12 12/25/16 05:12 Lab Results: I have reviewed the past 24 hour labs Labs: Laboratory Results - last 24 hr 12/24/16 12/24/16 12/24/16 11:15 14:41 15:36 WBC RBC Hgb Hct MCV MCH MCHC RDW Plt Count MPV Neut % (Auto) Lymph % (Auto) [place] % (Auto) Eos % (Auto) Baso % (Auto) Neut # (Auto) Lymph # (Auto) [place] # (Auto) Eos # (Auto) Baso # (Auto) Total Counted Immature Gran % Nucleated RBC % Immature Gran # Segmented Neutrophils Band Neutrophils Lymphocytes Monocytes Nucleated RBCs # Platelet Estimate Hypochromasia Microcytosis Ovalocytes Morphology Comment ABG pH ABG pCO2 ABG pO2 ABG HCO3 ABG Total CO2 ABG O2 Saturation ABG Base Excess Sodium Potassium 3.2 L Chloride Carbon Dioxide Anion Gap BUN Creatinine GFR Calculation BUN/Creatinine Ratio Glucose POC Glucose 218 H 249 H Calculated Osmolality Calcium Magnesium Total Bilirubin AST ALT Alkaline Phosphatase Total Protein Albumin Globulin Albumin/Globulin Ratio 12/24/16 12/24/16 12/24/16 17:42 17:53 19:18 WBC RBC Hgb Hct MCV MCH MCHC RDW Plt Count MPV Neut % (Auto) Lymph % (Auto) [place] % (Auto) Eos % (Auto) Baso % (Auto) Neut # (Auto) Lymph # (Auto) [place] # (Auto) Eos # (Auto) Baso # (Auto) Total Counted Immature Gran % Nucleated RBC % Immature Gran # Segmented Neutrophils Band Neutrophils Lymphocytes Monocytes Nucleated RBCs # Platelet Estimate Hypochromasia Microcytosis Ovalocytes Morphology Comment ABG pH 7.499 H ABG pCO2 43.1 ABG pO2 58.8 L ABG HCO3 32.8 H ABG Total CO2 34.1 H ABG O2 Saturation 91.1 L ABG Base Excess 8.7 H Sodium 138 Potassium 3.1 L Chloride 97 L Carbon Dioxide 34 H Anion Gap 10.1 BUN 15 Creatinine 1.00 GFR Calculation 93 BUN/Creatinine Ratio 15.00 Glucose 177 H POC Glucose 131 H Calculated Osmolality 279.7 Calcium 8.3 L Magnesium 2.5 H Total Bilirubin AST ALT Alkaline Phosphatase Total Protein Albumin Globulin Albumin/Globulin Ratio 12/25/16 12/25/16 12/25/16 05:12 05:12 07:22 WBC 6.5 RBC 3.73 L Hgb 11.0 L Hct 32.8 L MCV 87.9 MCH 30 MCHC 33.5 RDW 14.6 Plt Count 215 MPV 11.3 Neut % (Auto) 90.9 H Lymph % (Auto) 6.7 L [place] % (Auto) 1.8 Eos % (Auto) 0.0 Baso % (Auto) 0.0 Neut # (Auto) 5.9 Lymph # (Auto) 0.4 L [place] # (Auto) 0.1 L Eos # (Auto) 0.0 Baso # (Auto) 0.0 Total Counted 100 Immature Gran % 0.6 Nucleated RBC % 0.0 Immature Gran # 0.04 Segmented Neutrophils 94 H Band Neutrophils 2 Lymphocytes 3 L Monocytes 1 L Nucleated RBCs # 0.00 Platelet Estimate Normal Hypochromasia 1+ Microcytosis 1+ Ovalocytes Slight Morphology Comment ABG pH ABG pCO2 ABG pO2 ABG HCO3 ABG Total CO2 ABG O2 Saturation ABG Base Excess Sodium 137 Potassium 3.3 L Chloride 96 L Carbon Dioxide 27 Anion Gap 17.3 H BUN 22 H Creatinine 1.10 GFR Calculation 83 BUN/Creatinine Ratio 20.00 Glucose 274 H POC Glucose 428 H Calculated Osmolality 285.8 Calcium 8.5 Magnesium 2.4 Total Bilirubin 0.90 AST 21 ALT 12 L Alkaline Phosphatase 45 Total Protein 6.1 L Albumin 2.5 L Globulin 3.6 H Albumin/Globulin Ratio 0.6 L 12/25/16 12/25/16 10:23 11:34 WBC RBC Hgb Hct MCV MCH MCHC RDW Plt Count MPV Neut % (Auto) Lymph % (Auto) [place] % (Auto) Eos % (Auto) Baso % (Auto) Neut # (Auto) Lymph # (Auto) [place] # (Auto) Eos # (Auto) Baso # (Auto) Total Counted Immature Gran % Nucleated RBC % Immature Gran # Segmented Neutrophils Band Neutrophils Lymphocytes Monocytes Nucleated RBCs # Platelet Estimate Hypochromasia Microcytosis Ovalocytes Morphology Comment ABG pH ABG pCO2 ABG pO2 ABG HCO3 ABG Total CO2 ABG O2 Saturation ABG Base Excess Sodium Potassium Chloride Carbon Dioxide Anion Gap BUN Creatinine GFR Calculation BUN/Creatinine Ratio Glucose POC Glucose 468 H 427 H Calculated Osmolality Calcium Magnesium Total Bilirubin AST ALT Alkaline Phosphatase Total Protein Albumin Globulin Albumin/Globulin Ratio Specialty Discharge - Follow Up or Referrals <Aleah Bauer - Last Filed: 12/25/16 14:45> Assessment and Plan (1) Paroxysmal atrial fibrillation Status: Chronic Current Visit: Yes (2) Uncontrolled diabetes mellitus Status: Chronic Current Visit: Yes Qualifiers: Diabetes mellitus type: type 2 Diabetes mellitus complication status: with circulatory complication Diabetes mellitus complication detail: with other circulatory complications Diabetes mellitus watermaster insulin use: without watermaster use Qualified Code(s): E11.59 - Type 2 diabetes mellitus with other circulatory complications; E11.65 - Type 2 diabetes mellitus with hyperglycemia (3) Acute exacerbation of congestive heart failure Status: Acute Current Visit: Yes Qualifiers: Congestive heart failure type: combined Qualified Code(s): I50.43 - Acute on chronic combined systolic (congestive) and diastolic (congestive) heart failure (4) Anemia Status: Chronic Current Visit: Yes (5) Hypokalemia Status: Acute Current Visit: Yes (6) Acute systolic CHF (congestive heart failure) Status: Acute Current Visit: No (7) CHF (congestive heart failure), NYHA class III Status: Chronic Current Visit: No Qualifiers: Congestive heart failure type: combined (8) Chest pain Status: Acute Current Visit: No Qualifiers: Chest pain type: other chest pain Qualified Code(s): R07.89 - Other chest pain; R07.8 - Other chest pain (9) Coronary artery disease Problem details: Just discharged from the hospital after CABG Patient denies chest pain Very hesitant to stop his anticoagulants given no proven source of bleeding Continue aspirin, Eliquis, follow-up CT abdomen read Continue statin His surgeon has been made aware, requested hospitalist admission Consult cardiology Status: Chronic Current Visit: No Qualifiers: Coronary Disease-Associated Artery/Lesion type: [place] artery [place] vs. transplanted heart: [place] heart Associated angina: without angina Qualified Code(s): I25.10 - Atherosclerotic heart disease of [place] coronary artery without angina pectoris (10) Status post aorto-coronary artery bypass graft Status: Chronic Current Visit: No Cardiology - PN: Subj Interval history: The help of Dr. Schroeder greatly appreciated. The patient subjectively much better. His ejection fraction looks little worse today but transthoracic echocardiogram that I read last night and previously documented. We adjusted his medications significantly his potassium is up slightly and is much better overall. He states his breathing is better his oxygen requirements are still present but he overall feels dramatically better. I will try to further correct his potassium today we have added Entresto as well as Aldactone to his regimen for his heart failure. He seems to be doing better overall. Exam (Progress Note) - Constitutional Vitals: Period Temp Pulse Resp BP Sys/Mehta Pulse Ox Last 24 Hr 97.0 F-100.2 F 74-86 18-20 91-146/50-70 84-93 Exam: I agree with above physical exam patient seems to be doing better his exam is relatively stable. He is concerned about swelling in his feet when he got a shower he has BRENDAN hose on the no edema in the pretibial region he states he is primarily concerned about his feet. There is none there at this time. Result/EKG - Labs CBC & BMP: 12/25/16 05:12 12/25/16 05:12 Labs: Laboratory Results - last 24 hr 12/24/16 12/24/16 12/24/16 14:41 15:36 17:42 WBC RBC Hgb Hct MCV MCH MCHC RDW Plt Count MPV Neut % (Auto) Lymph % (Auto) [place] % (Auto) Eos % (Auto) Baso % (Auto) Neut # (Auto) Lymph # (Auto) [place] # (Auto) Eos # (Auto) Baso # (Auto) Total Counted Immature Gran % Nucleated RBC % Immature Gran # Segmented Neutrophils Band Neutrophils Lymphocytes Monocytes Nucleated RBCs # Platelet Estimate Hypochromasia Microcytosis Ovalocytes Morphology Comment ABG pH ABG pCO2 ABG pO2 ABG HCO3 ABG Total CO2 ABG O2 Saturation ABG Base Excess Sodium 138 Potassium 3.2 L 3.1 L Chloride 97 L Carbon Dioxide 34 H Anion Gap 10.1 BUN 15 Creatinine 1.00 GFR Calculation 93 BUN/Creatinine Ratio 15.00 Glucose 177 H POC Glucose 249 H Calculated Osmolality 279.7 Calcium 8.3 L Magnesium 2.5 H Total Bilirubin AST ALT Alkaline Phosphatase Total Protein Albumin Globulin Albumin/Globulin Ratio 12/24/16 12/24/16 12/25/16 17:53 19:18 05:12 WBC 6.5 RBC 3.73 L Hgb 11.0 L Hct 32.8 L MCV 87.9 MCH 30 MCHC 33.5 RDW 14.6 Plt Count 215 MPV 11.3 Neut % (Auto) 90.9 H Lymph % (Auto) 6.7 L [place] % (Auto) 1.8 Eos % (Auto) 0.0 Baso % (Auto) 0.0 Neut # (Auto) 5.9 Lymph # (Auto) 0.4 L [place] # (Auto) 0.1 L Eos # (Auto) 0.0 Baso # (Auto) 0.0 Total Counted 100 Immature Gran % 0.6 Nucleated RBC % 0.0 Immature Gran # 0.04 Segmented Neutrophils 94 H Band Neutrophils 2 Lymphocytes 3 L Monocytes 1 L Nucleated RBCs # 0.00 Platelet Estimate Normal Hypochromasia 1+ Microcytosis 1+ Ovalocytes Slight Morphology Comment ABG pH 7.499 H ABG pCO2 43.1 ABG pO2 58.8 L ABG HCO3 32.8 H ABG Total CO2 34.1 H ABG O2 Saturation 91.1 L ABG Base Excess 8.7 H Sodium Potassium Chloride Carbon Dioxide Anion Gap BUN Creatinine GFR Calculation BUN/Creatinine Ratio Glucose POC Glucose 131 H Calculated Osmolality Calcium Magnesium Total Bilirubin AST ALT Alkaline Phosphatase Total Protein Albumin Globulin Albumin/Globulin Ratio 12/25/16 12/25/16 12/25/16 05:12 07:22 10:23 WBC RBC Hgb Hct MCV MCH MCHC RDW Plt Count MPV Neut % (Auto) Lymph % (Auto) [place] % (Auto) Eos % (Auto) Baso % (Auto) Neut # (Auto) Lymph # (Auto) [place] # (Auto) Eos # (Auto) Baso # (Auto) Total Counted Immature Gran % Nucleated RBC % Immature Gran # Segmented Neutrophils Band Neutrophils Lymphocytes Monocytes Nucleated RBCs # Platelet Estimate Hypochromasia Microcytosis Ovalocytes Morphology Comment ABG pH ABG pCO2 ABG pO2 ABG HCO3 ABG Total CO2 ABG O2 Saturation ABG Base Excess Sodium 137 Potassium 3.3 L Chloride 96 L Carbon Dioxide 27 Anion Gap 17.3 H BUN 22 H Creatinine 1.10 GFR Calculation 83 BUN/Creatinine Ratio 20.00 Glucose 274 H POC Glucose 428 H 468 H Calculated Osmolality 285.8 Calcium 8.5 Magnesium 2.4 Total Bilirubin 0.90 AST 21 ALT 12 L Alkaline Phosphatase 45 Total Protein 6.1 L Albumin 2.5 L Globulin 3.6 H Albumin/Globulin Ratio 0.6 L 12/25/16 11:34 WBC RBC Hgb Hct MCV MCH MCHC RDW Plt Count MPV Neut % (Auto) Lymph % (Auto) [place] % (Auto) Eos % (Auto) Baso % (Auto) Neut # (Auto) Lymph # (Auto) [place] # (Auto) Eos # (Auto) Baso # (Auto) Total Counted Immature Gran % Nucleated RBC % Immature Gran # Segmented Neutrophils Band Neutrophils Lymphocytes Monocytes Nucleated RBCs # Platelet Estimate Hypochromasia Microcytosis Ovalocytes Morphology Comment ABG pH ABG pCO2 ABG pO2 ABG HCO3 ABG Total CO2 ABG O2 Saturation ABG Base Excess Sodium Potassium Chloride Carbon Dioxide Anion Gap BUN Creatinine GFR Calculation BUN/Creatinine Ratio Glucose POC Glucose 427 H Calculated Osmolality Calcium Magnesium Total Bilirubin AST ALT Alkaline Phosphatase Total Protein Albumin Globulin Albumin/Globulin Ratio
[2016-12-25] MEDS ORDERED: POTASSIUM CHLORIDE 20 MEQ TABLET PO ONE ×3 (13:56→15:55)
[2016-12-25] MEDS: LEVOFLOXACIN INJ 500 MG in PREMIX 1 EACH IV SCH (16:45)
[2016-12-25] MEDS: ATORVASTATIN 40 MG TABLET PO SCH (20:36)
[2016-12-25] MEDS: TAMSULOSIN 0.4 MG CAPSULE PO SCH (20:37)
[2016-12-25] MEDS: ZALEPLON 5 MG CAPSULE PO PRN (20:46)
[2016-12-26 04:42] LABS: Basophils % 0.1 % (0.0-0.8); Eosinophils % 0.2 % (0.00-10.9); Hematocrit 30.4 VOL% (42.0-52.0); Hemoglobin 10.3 GM/DL (14.0-18.0); Immature Granulocytes % 0.6 %; Immature Granulocytes Absolute 0.08 #; Lymphocytes # 1.3 10*3/uL (1.4-4.0); Lymphocytes % 10.1 % (21.2-54.2); Mean Corpuscular HGB Conc 33.9 GM/DL (32-36); Mean Corpuscular Hemoglobin 29 PG (27-34); Mean Corpuscular Volume 85.6 FL (87-102); Mean Platelet Volume 11.4 FL (9.6-12.0); Monocytes % 8.3 % (1.7-12.7); Neutrophils # 10.2 10*3/uL (1.4-7.4); Neutrophils % 80.7 % (38.7-73.9); Platelet Count 254 T/CUMM (130-400); Red Blood Count 3.55 MC/CUMM (3.8-5.5); Red Cell Distribution Width 14.7 % (9.3-17.3); White Blood Count 12.6 T/CUMM (4-12)
[2016-12-26 05:07] LABS: Albumin 2.6 G/DL (3.4-5.0); Bilirubin,Total 0.9 MG/DL (0.2-1.0); Calcium 8.6 MG/DL (8.5-10.1); Osmolality,Calculated 287.4 MOS/KG (273-304); Potassium 3.6 MMOL/L (3.5-5.1)
[2016-12-26 05:14] LABS: Calcium 8.6 MG/DL (8.5-10.1); Magnesium 2.6 MG/DL (1.8-2.4); Osmolality,Calculated 287.4 MOS/KG (273-304); Potassium 3.7 MMOL/L (3.5-5.1)
[2016-12-26 05:55] LABS: Hypochromasia 1+; Lymphocytes 9 % (20-55); Ovalocytes Slight; Platelet Estimate Adequate; Segmented Neutrophils 85 % (50-85); Total Cells Counted 100
[2016-12-26 05:56] LABS: Microcytosis 1+
--- NOTE | 2016-12-26 08:03 | Pulmonology Progress Note ---
Pulmonary - PN: Subj Interval history: This 66-year-old white male came in with congestive heart failure. He has pulmonary edema. He is on amiodarone. We obtained a CT scan that showed findings consistent with pulmonary edema. There were no high density areas on the CT. He does have increased density in his liver and spleen, and this just suggest that he is taking amiodarone. His chest x-ray today looks a little better. Diuresing him has helped. He still requiring a good bit of oxygen. He likes taking his oxygen off. He has obstructive sleep apnea and uses CPAP at night here. We did have him on BiPAP last night. 12/26/2016 patient feeling much better. O2 sat 100% on 2 L. Patient has oxygen at home. He was on CPAP prior to admission for his obstructive sleep apnea and uses oxygen with that. It appears that his congestive heart failure is now under control. He was empirically put on Levaquin because of yellow sputum and 1 day of reported fever prior to coming to the hospital. With his x-ray clearing up this rapidly think it is unlikely that he actually has pneumonia. We will change him to oral Levaquin and give him that for about 3 more days. From pulmonary standpoint he should be ready for discharge. Exam (Progress Note) - Constitutional Vitals: Period Temp Pulse Resp BP Sys/Mehta Pulse Ox Last 24 Hr 96.6 F-98.1 F 68-78 16-20 92-112/50-63 89-100 Exam: Patient is alert. Vital signs normal. Pupils react to light. Throat is clear. Neck supple no bruits. Chest sounds clear today. Heart normal rate rhythm no murmurs. Abdomen soft nontender no masses. Extremities no clubbing cyanosis or edema. Calves nontender. Results - Labs CBC & BMP: 12/26/16 03:54 12/26/16 03:54 Lab Results: I have reviewed the past 24 hour labs Assessment and Plan (1) Community acquired pneumonia Status: Acute Assessment and plan: For the most part this looks like congestive heart failure. He has an elevated BNP reduced LV ejection fraction and batwing type pulmonary edema. However he has had one day of some fever and is coughing up yellow sputum. His white blood count is normal. I will empirically add Levaquin and get cultures. 12/25/2016 he is on empiric antibiotics for pneumonia considering that he had yellow sputum production and 1 day of fever. I still feel his primary problem is congestive heart failure. 12/26/2016 changing to oral Levaquin. Again I feel his primary problem was congestive heart failure. Being treated with antibiotics because he had yellow sputum and 1 day of reported fever at home prior to admission. I do not think he had a kraig pneumonia. May have had a superimposed bronchitis. Current Visit: Yes (2) Acute exacerbation of congestive heart failure Status: Acute Assessment and plan: Acute systolic heart failure with ejection fraction 25-30%. Ischemic heart disease. Agree with diuresis. 12/25/2016 continuing diuresis. 12/26/2016 much improved with diuresis. Still on IV Lasix per Dr. Mays's order. Defer to cardiology. Current Visit: Yes Qualifiers: Congestive heart failure type: combined Qualified Code(s): I50.43 - Acute on chronic combined systolic (congestive) and diastolic (congestive) heart failure (3) Paroxysmal atrial fibrillation Status: Chronic Assessment and plan: Patient is on amiodarone 200 mg twice a day. Need to be sure that he does not have amiodarone toxicity. We will see if a chest CT will help us there. 12/25/2016 no sign of amiodarone long. Current Visit: Yes Specialty Discharge - Follow Up or Referrals
[2016-12-26] MEDS: GEMFIBROZIL 600 MG TABLET PO SCH (08:57)
[2016-12-26] MEDS: DOCUSATE SODIUM 100 MG CAPSULE PO SCH (08:58)
[2016-12-26] MEDS: MAGNESIUM OXIDE 400 MG TABLET PO SCH (08:58)
[2016-12-26] MEDS: DILTIAZEM 60 MG TABLET PO SCH (08:58)
[2016-12-26] MEDS: ASCORBIC ACID 500 MG TABLET PO SCH (08:58)
[2016-12-26] MEDS: FERROUS SULFATE 325 MG TABLET PO SCH (08:59)
[2016-12-26] MEDS: GABAPENTIN 100 MG CAPSULE PO SCH (08:59)
[2016-12-26] MEDS: OMEGA 3 ACID ETHYL ESTERS 1 GM CAPSULE PO SCH (08:59)
[2016-12-26] MEDS: SPIRONOLACTONE 25 MG TABLET PO SCH (09:00)
[2016-12-26] MEDS ORDERED: LEVOFLOXACIN 500 MG TABLET PO SCH (09:00)
[2016-12-26] MEDS: SACUBITRIL/VALSARTAN 49-51 MG TABLET PO SCH (09:00)
[2016-12-26] MEDS: CARVEDILOL 3.125 MG TABLET PO SCH (09:00)
[2016-12-26] MEDS: ASPIRIN CHEW 81 MG TABLET PO SCH (09:00)
[2016-12-26] MEDS ORDERED: POTASSIUM CHLORIDE 20 MEQ TABLET PO SCH (09:00)
[2016-12-26] MEDS: AMIODARONE 200 MG TABLET PO SCH (09:01)
[2016-12-26] MEDS: FUROSEMIDE 40 MG/4 ML VIAL IV SCH (09:01)
[2016-12-26] MEDS: sitaGLIPtin 100 MG TABLET PO SCH (09:01)
[2016-12-26] MEDS: PANTOPRAZOLE 40 MG TABLET PO SCH (09:01)
[2016-12-26] MEDS: INSULIN REGULAR 100 UNIT/ML SUBCUT SCH ×2 (09:02→11:45)
[2016-12-26] MEDS: glipiZIDE 10 MG TABLET PO SCH (09:10)
[2016-12-26] MEDS: APIXABAN 5 MG TABLET PO SCH (09:10)
--- NOTE | 2016-12-26 10:04 | Discharge Summary ---
<Maria Elena Rousseau - Last Filed: 12/26/16 11:25> Hospital Course - Hospital Course Hospital Course: Safety Attendant: Dr. Post PCP: Dr. Aristeo Shepard Mr. Bird is a 66 year old male with history of ischemic cardiomyopathy ejection fraction 25-30% followed by Dr. Diomedes Post. Patient has a history of coronary artery disease with recent CABG October 04, 2016, paroxysmal atrial fibrillation (anticoagulated with Eliquis), AAA, dyslipidemia, diabetes, BPH, GERD, obstructive sleep apnea and hypertension. Patient is a former smoker , without history of COPD. Patient does wear oxygen at home intermittently, CPAP nightly. The patient had three-vessel coronary bypass grafting on 2016 with saphenous vein graft to the PDA, saphenous vein graft to OM 2 and a RICHARDSON to the LAD by Dr. Sherwood. Patient presented to with complaints of fatigue and shortness of breath while in cardiac rehab. Patient was admitted under cardiology service and housed on the telemetry floor. Patient was treated for acute on chronic congestive heart failure, mixed diastolic and systolic. Echocardiogram was performed which revealed a worsening ejection fraction of 25-30% with grade 3 diastolic dysfunction. Admission BNP at 857. Patient was diuresed well and his medications were adjusted and his medication regimen was optimized. Entresto as well as Aldactone was added to his medication regimen for treatment of his heart failure as well as to improve his hypokalemia. Dr. Schroeder also saw the patient in consultation. He felt as if patient's symptoms are most consistent with congestive heart failure. However, patient did report a 1 day history of fever and yellow sputum production. Subsequently, Dr. Schroeder treated patient empirically for community acquired pneumonia he will be discharged home with p.o. Levaquin per Dr. Schroeder recommendation. He also received a one-time dose of steroids. His leukocytosis with left shift this morning is thought to be secondary to steroid therapy as patient is afebrile. Labs have been reviewed. Creatinine is stable at 1.3. This will be rechecked at patient's outpatient appointment Dr. Post as patient was just started on Entresto and Aldactone. Patient has remained in normal sinus rhythm throughout this admission. Patient is feeling much better today and is anxious for discharge home. Reports that his breathing is back to baseline. He felt that patient has met maximal medical therapy, he will be discharged home in stable condition. Instructed the patient that he is to return to cardiac rehab post discharge. Patient has been given a follow-up appointment with Dr. Post in 1 week with CBC, BMP, magnesium and EKG. Patient will be discharged home on his preadmission medications. His potassium dose was decreased to 10 mEq daily as Aldactone was added to his medication regimen. BMP will be rechecked in [address] Post's office and he can make further adjustments at that time if needed. He will be given a prescription for Levaquin, Entresto, potassium 10 mEq and Aldactone. Patient verbalizes understanding of discharge instructions and discharge medications. I seen and examined the patient. The patient looks dramatically better he has no lower extremity edema. His potassium is 3.6 today he is hemodynamically stable. His labs look good. Has mild increase in his white count as above but is received steroids. His ejection fraction with a little worse on this admission but he overall is better we made significant adjustments to his medications we anticipate discharge today follow-up in [address] Post with appropriate lab work. - Time spent with patient Time with patient DS: Greater than 30 minutes Diagnosis - Discharge Diagnosis (1) Diabetes Status: Chronic (2) Hypokalemia Status: Resolved (3) Paroxysmal atrial fibrillation Status: Chronic (4) Anemia Status: Chronic (5) CHF (congestive heart failure), NYHA class III Status: Chronic (6) Coronary artery disease Status: Chronic (7) Dyslipidemia Status: Chronic (8) Acute on chronic congestive heart failure Status: Chronic (9) Community acquired pneumonia Status: Acute Specialty Discharge - Follow Up or Referrals Follow up with: Diomedes Post MD [Physician] - 01/14/17 8:20 am (Patient will need to follow-up with Dr. Post in 1 week with CBC, BMP, magnesium and EKG. he needs lab in 1 week but he is to follow with Dr. post on 01/14/2017 this is clarification this will require 2 trips to the office. 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.) Discharge Plan - Discharge Data Disposition: Disch To Home/Self Care Condition at Discharge: Stable Discharge Diet: heart healthy, low fat, low cholesterol, low salt diet Activity: resume usual activities as tolerated Hygiene: no restrictions Weight Bearing at Discharge: weight bear as tolerated Driving: not until seen by doctor Contact your physician if you experience:: fever over 101, Difficulty voiding, Redness or swelling, Nausea/Vomiting, Shortness of breath, Bleeding, pain uncontrolled by pain medications - Discharge Medications New Sacubitril/Valsartan [Entresto 49 mg-51 mg Tablet] 0.5 tablet PO BID #60 tablet Spironolactone [Aldactone] 25 mg PO DAILY #30 tablet Levofloxacin Tab [Levaquin Tab] 500 mg PO Q24H #4 tablet Potassium Chloride 10 meq PO DAILY #30 tablet Continue Gabapentin Cap/Tab [Neurontin Cap/Tab] 100 mg PO BID Gemfibrozil 600 mg PO BID Doxepin HCl [Silenor] 3 mg PO BEDTIME Tamsulosin [Flomax] 2 capsule PO BEDTIME Ferrous Gluconate 325 mg PO BID Pantoprazole Tab [Protonix Tab] 40 mg PO QAM #30 tablet Amiodarone Tab [Cordarone Tab] 200 mg PO BID #60 tablet Atorvastatin [Lipitor] 40 mg PO BEDTIME #30 tablet Carvedilol [Coreg] 3.125 mg PO BID buPROPion XL [Wellbutrin Xl] 300 mg PO QAM sitaGLIPtin [Januvia] 100 mg PO DAILY Diltiazem Tab [Cardizem Tab] 60 mg PO TID Aspirin 81 mg PO DAILY [place]-3/Dha/Epa/Fish Oil [Fish Oil Conc 1,000 mg Softgel] 3,000 mg PO QAM Ascorbic Acid Tab [Vitamin C Tab] 1,000 mg PO BID tablet Apixaban [Eliquis] 5 mg PO BID #60 tablet glipiZIDE [Glipizide] 20 mg PO BID Furosemide Tab [Lasix Tab] 40 mg PO BID #120 tablet Discontinued Potassium Chloride Cap/Tab [K Dur] 20 meq PO DAILY #30 tablet - Follow Up or Referral Follow Up: Diomedes Post MD [Physician] - 01/14/17 8:20 am (Patient will need to follow- up with Dr. Post in 1 week with CBC, BMP, magnesium and EKG.) - Forms/Instructions Instructions: Heart Failure (GEN), Coronary Artery Disease (GEN), Heart Healthy Diet (GEN) Exam - Constitutional Vitals: Period Temp Pulse Resp BP Sys/Mehta Pulse Ox Last 24 Hr 96.6 F-98.1 F 67-78 16-20 92-124/50-63 89-100 Exam: General: Appears well with no apparent distress. Pleasant and cooperative. Appears comfortable. HEENT: PERRL, normocephalic, atraumatic. Mucous membranes moist. No jaundice noted. Conjunctiva moist and clear, sclerae anicteric Neck: No JVD/HJR, no thyromegaly or lymphadenopathy noted. No carotid bruit appreciated Cardiac: Regular rate and rhythm. PMI is laterally displaced he has an S3 he has a murmur what sounds like aortic sclerosis. Lungs: Clear to auscultation without accessory muscle use to assist the respiratory pattern. Oxygen in use. Abdomen: Soft, bowel sounds normoactive. Nontender and nondistended. No abdominal bruit or thrill noted. No masses noted. Extremities: No clubbing, cyanosis noted. No edema noted. Upper extremity pulses 2+. Lower extremity pulses 2+. Capillary refill less than 3 seconds. Skin: No unusual lesions or rashes. No skin breakdown appreciated. Neuro: Awake, alert and oriented 3. Moves all extremities well without hemiparesis or paralysis. No essential tremor is appreciated. Discharge Results Procedures and tests throughout hospitalization: Pending Orders 12/24/16 16:46 Sputum Culture and Gram Stain Routine 12/24/16 17:42 Blood Culture Routine 12/27/16 04:00 BMP w/ Mg [Basic Metabolic Panel w/Mg] IN AM CBC [Comp Blood Count Auto Diff] IN AM Labs on day of discharge: Labs from last 24 hours 12/26/16 12/26/16 12/26/16 11:14 07:27 03:54 WBC RBC Hgb Hct MCV MCH MCHC RDW Plt Count MPV Neut % (Auto) Lymph % (Auto) [place] % (Auto) Eos % (Auto) Baso % (Auto) Neut # (Auto) Lymph # (Auto) [place] # (Auto) Eos # (Auto) Baso # (Auto) Total Counted Immature Gran % Nucleated RBC % Immature Gran # Segmented Neutrophils Lymphocytes Monocytes Nucleated RBCs # Platelet Estimate Hypochromasia Microcytosis Ovalocytes Morphology Comment Sodium 140 Potassium 3.6 Chloride 98 Carbon Dioxide 30 Anion Gap 15.6 H BUN 34 H Creatinine 1.30 GFR Calculation 68 BUN/Creatinine Ratio 26.00 H Glucose 112 H POC Glucose 255 H 112 H Calculated Osmolality 287.4 Calcium 8.6 Magnesium Total Bilirubin 0.90 AST 19 ALT 14 L Alkaline Phosphatase 42 L Total Protein 6.0 L Albumin 2.6 L Globulin 3.4 Albumin/Globulin Ratio 0.7 L 12/26/16 12/26/16 12/25/16 03:54 03:54 19:01 WBC 12.6 H D RBC 3.55 L Hgb 10.3 L Hct 30.4 L MCV 85.6 L MCH 29 MCHC 33.9 RDW 14.7 Plt Count 254 MPV 11.4 Neut % (Auto) 80.7 H Lymph % (Auto) 10.1 L [place] % (Auto) 8.3 Eos % (Auto) 0.2 Baso % (Auto) 0.1 Neut # (Auto) 10.2 H Lymph # (Auto) 1.3 L [place] # (Auto) 1.0 H Eos # (Auto) 0.0 Baso # (Auto) 0.0 Total Counted 100 Immature Gran % 0.6 Nucleated RBC % 0.0 Immature Gran # 0.08 Segmented Neutrophils 85 Lymphocytes 9 L Monocytes 6 Nucleated RBCs # 0.00 Platelet Estimate Adequate Hypochromasia 1+ Microcytosis 1+ Ovalocytes Slight Morphology Comment Sodium 140 Potassium 3.7 Chloride 98 Carbon Dioxide 29 Anion Gap 16.7 H BUN 34 H D Creatinine 1.30 GFR Calculation 68 BUN/Creatinine Ratio 26.00 H Glucose 110 H POC Glucose 223 H Calculated Osmolality 287.4 Calcium 8.6 Magnesium 2.6 H Total Bilirubin AST ALT Alkaline Phosphatase Total Protein Albumin Globulin Albumin/Globulin Ratio 12/25/16 15:30 WBC RBC Hgb Hct MCV MCH MCHC RDW Plt Count MPV Neut % (Auto) Lymph % (Auto) [place] % (Auto) Eos % (Auto) Baso % (Auto) Neut # (Auto) Lymph # (Auto) [place] # (Auto) Eos # (Auto) Baso # (Auto) Total Counted Immature Gran % Nucleated RBC % Immature Gran # Segmented Neutrophils Lymphocytes Monocytes Nucleated RBCs # Platelet Estimate Hypochromasia Microcytosis Ovalocytes Morphology Comment Sodium Potassium Chloride Carbon Dioxide Anion Gap BUN Creatinine GFR Calculation BUN/Creatinine Ratio Glucose POC Glucose 301 H Calculated Osmolality Calcium Magnesium Total Bilirubin AST ALT Alkaline Phosphatase Total Protein Albumin Globulin Albumin/Globulin Ratio Preliminary micro results at discharge 12/24/16 17:42 Blood Culture - Preliminary Blood No growth at 1 day 12/24/16 17:42 Blood Culture - Preliminary Blood No growth at 1 day - Imaging and Cardiology Procedure: Chest x-ray: report reviewed by me, CT - chest: report reviewed by me , Ultrasound: report reviewed by me DS: Provider Date of admission: 12/23/16 19:05 Primary care physician: Graciela Huerta M.D. Attending physician on admission: Aleah Bauer DO Consults: 12/23/16 19:05 Consult to Cardiac Rehabilitation [CONS] Routine Reason for Cardiac Rehabilitation: Risk Factor Modification 12/24/16 14:26 Consult to Physician [CONS] Routine Comment: sob/abnormal CXR Consulting Provider: Renaldo Schroeder Consult Notification Comment: LEFT MESSAGE OF CONSULT AT 1445 12/26/16 10:32 Consult to Cardiac Rehabilitation [CONS] Routine Reason for Cardiac Rehabilitation: Appt Out Pt Cardiac Rehab Consult Comment: Patient is able to resume cardiac rehab at discharge. Discharging clinician: Maria Elena Rousseau NP Expected date of discharge: 12/26/16 <Aleah Bauer - Last Filed: 12/26/16 12:20> Diagnosis - Discharge Diagnosis (1) Paroxysmal atrial fibrillation Status: Chronic (2) Uncontrolled diabetes mellitus Status: Chronic (3) Acute exacerbation of congestive heart failure Status: Acute (4) Anemia Status: Chronic (5) Hypokalemia Status: Resolved (6) Acute systolic CHF (congestive heart failure) Status: Acute (7) CHF (congestive heart failure), NYHA class III Status: Chronic (8) Chest pain Status: Acute (9) Coronary artery disease Status: Chronic (10) Status post aorto-coronary artery bypass graft Status: Chronic Discharge Plan - Discharge Data Condition at Discharge: Stable Discharge Diet: heart healthy, low fat, low cholesterol, low salt diet Activity: resume usual activities as tolerated Hygiene: no restrictions Weight Bearing at Discharge: weight bear as tolerated Driving: not until seen by doctor Contact your physician if you experience:: fever over 101, Difficulty voiding, Redness or swelling, Nausea/Vomiting, Shortness of breath, Bleeding, pain uncontrolled by pain medications Exam - Constitutional Exam: No lower extremity edema he has an S3 his murmur of aortic sclerosis his lungs are dramatically improved he still has some scattered rhonchi.
[2016-12-26 11:28] VITALS: BP 124/57
== END 2016-12-26 13:09 | disposition home or self-care (01) | DRG 291 ==
LOC: N.ED 15:55 → N.EDINP 19:05 → N.TELEN 19:57
PROVIDERS: ADMIT Internal Medicine Cardiovascular Disease; ATTEND Internal Medicine Cardiovascular Disease

== ENCOUNTER 2017-10-13 15:02 | Observation (INO) ==
[2017-10-13 15:40] LABS: Basophils % 0.6 % (0.0-0.8); Eosinophils # 0.1 10*3/uL (0.0-0.87); Eosinophils % 0.8 % (0.00-10.9); Hematocrit 38.5 VOL% (42.0-52.0); Hemoglobin 13.3 GM/DL (14.0-18.0); Immature Granulocytes % 0.5 %; Immature Granulocytes Absolute 0.03 #; Lymphocytes # 1.2 10*3/uL (1.4-4.0); Lymphocytes % 18.9 % (21.2-54.2); Mean Corpuscular HGB Conc 34.5 GM/DL (32-36); Mean Corpuscular Hemoglobin 33 PG (27-34); Mean Corpuscular Volume 95.5 FL (87-102); Mean Platelet Volume 11.9 FL (9.6-12.0); Monocytes # 0.6 10*3/uL (0.11-0.8); Monocytes % 9.8 % (1.7-12.7); Neutrophils # 4.4 10*3/uL (1.4-7.4); Neutrophils % 69.4 % (38.7-73.9); Platelet Count 184 T/CUMM (130-400); Red Blood Count 4.03 MC/CUMM (3.8-5.5); Red Cell Distribution Width 12.9 % (9.3-17.3); White Blood Count 6.3 T/CUMM (4-12)
[2017-10-13 15:51] LABS: PT Patient Result 10.9 SECS
[2017-10-13 16:39] LABS: Bilirubin,Total 0.7 MG/DL (0.2-1.0); Calcium 9.1 MG/DL (8.5-10.1); Osmolality,Calculated 295.1 MOS/KG (273-304); Potassium 4.4 MMOL/L (3.5-5.1); Total Protein 7.5 G/DL (6.4-8.3)
[2017-10-13] MEDS ORDERED: SODIUM CHLORIDE 0.9% 1,000 ML IV STA (19:40)
[2017-10-13 22:07] LABS: Apearance,Urine CLEAR (Clear); Bilirubin,Urine Negative (Negative); Blood, Urine Negative (Negative); Glucose,Urine (UA) Negative (Negative); Hyaline Casts,Urine 9 /LPF (0-3); Ketones,Urine Negative (Negative); Mucus,Urine Occasional /LPF (Occasional); Nitrite,Urine Negative (Negative); Protein,Urine Negative; RBC,Urine <1 /HPF (0-4); Urine Color Straw (Yellow); Urine Specific Gravity 1.009 (1.001-1.035); Urine Urobilinogen < 2.0 EU/DL (0.2-1.0); WBC,Urine <1 /HPF (0-6)
[2017-10-13 22:08] LABS: Barbiturates Screen,Urine Negative (Negative); Benzodiazepines Screen,Urine Negative (Negative); Cannabinoid Screen,Urine Negative (Negative); Opiate Screen,Urine Negative (Negative); Phencyclidine Screen,Urine Negative (Negative)
[2017-10-13] MEDS ORDERED: GLUCAGON 1 MG VIAL IM PRN (23:17)
[2017-10-13] MEDS ORDERED: DEXTROSE 50% 25 GM/50 ML VIAL IV PRN (23:17)
[2017-10-14 05:54] LABS: Risk Ratio 3.38; VLDL CHOLESTEROL 28.4 MG/DL
[2017-10-14] MEDS ORDERED: SACUBITRIL/VALSARTAN 49-51 MG TABLET PO SCH (09:00)
[2017-10-14] MEDS: PANTOPRAZOLE 40 MG TABLET PO SCH (09:14)
[2017-10-14] MEDS: ASPIRIN EC 81 MG TABLET PO SCH (09:14)
[2017-10-14] MEDS: FERROUS GLUCONATE 324 MG TABLET PO SCH (09:14)
[2017-10-14] MEDS: ASCORBIC ACID 500 MG TABLET PO SCH ×2 (09:14→20:56)
[2017-10-14] MEDS: POTASSIUM CHLORIDE 20 MEQ TABLET PO SCH (09:14)
[2017-10-14] MEDS: AMIODARONE 200 MG TABLET PO SCH ×2 (09:14→20:57)
[2017-10-14] MEDS: GABAPENTIN 100 MG CAPSULE PO SCH ×2 (09:15→20:56)
[2017-10-14] MEDS: glipiZIDE 10 MG TABLET PO SCH ×2 (09:15→17:07)
[2017-10-14] MEDS: OMEGA 3 ACID ETHYL ESTERS 1 GM CAPSULE PO SCH (09:15)
[2017-10-14] MEDS: sitaGLIPtin 25 MG TABLET PO SCH (09:15)
[2017-10-14] MEDS: GEMFIBROZIL 600 MG TABLET PO SCH ×2 (09:16→20:56)
[2017-10-14] MEDS: APIXABAN 5 MG TABLET PO SCH ×2 (09:16→20:56)
[2017-10-14] MEDS: FINASTERIDE 5 MG TABLET PO SCH (09:16)
[2017-10-14] MEDS: PIOGLITAZONE 15 MG TABLET PO SCH (09:19)
[2017-10-14] MEDS: INSULIN LISPRO 100 UNIT/ML SUBCUT SCH ×5 (09:23→22:48)
[2017-10-14 13:02] LABS: Troponin I Only < 0.015 NG/ML (0.00-0.045)
[2017-10-14] MEDS ORDERED: NON-FORMULARY MEDICATION (Doxepin Hcl [Silenor] 3 MG) PO SCH (21:00)
[2017-10-14] MEDS ORDERED: OMEGA 3 ACID ETHYL ESTERS 1 GM CAPSULE PO SCH (21:00)
[2017-10-15 05:45] LABS: Basophils % 0.4 % (0.0-0.8); Eosinophils # 0.1 10*3/uL (0.0-0.87); Eosinophils % 1.3 % (0.00-10.9); Hematocrit 39.4 VOL% (42.0-52.0); Hemoglobin 13.1 GM/DL (14.0-18.0); Immature Granulocytes % 0.6 %; Immature Granulocytes Absolute 0.04 #; Lymphocytes # 2.3 10*3/uL (1.4-4.0); Mean Corpuscular HGB Conc 33.2 GM/DL (32-36); Mean Corpuscular Hemoglobin 32 PG (27-34); Mean Corpuscular Volume 95.6 FL (87-102); Monocytes # 0.9 10*3/uL (0.11-0.8); Monocytes % 12.3 % (1.7-12.7); Neutrophils # 3.8 10*3/uL (1.4-7.4); Neutrophils % 53.4 % (38.7-73.9); Platelet Count 178 T/CUMM (130-400); Red Blood Count 4.12 MC/CUMM (3.8-5.5); Red Cell Distribution Width 12.7 % (9.3-17.3); White Blood Count 7.1 T/CUMM (4-12)
[2017-10-15 06:03] LABS: Calcium 8.9 MG/DL (8.5-10.1); Osmolality,Calculated 288.4 MOS/KG (273-304); Potassium 4.6 MMOL/L (3.5-5.1)
[2017-10-15] MEDS: AMIODARONE 200 MG TABLET PO SCH (08:49)
[2017-10-15] MEDS: glipiZIDE 10 MG TABLET PO SCH (08:49)
[2017-10-15] MEDS: OMEGA 3 ACID ETHYL ESTERS 1 GM CAPSULE PO SCH (08:49)
[2017-10-15] MEDS: FINASTERIDE 5 MG TABLET PO SCH (08:50)
[2017-10-15] MEDS: PANTOPRAZOLE 40 MG TABLET PO SCH (08:50)
[2017-10-15] MEDS: GABAPENTIN 100 MG CAPSULE PO SCH (08:50)
[2017-10-15] MEDS: POTASSIUM CHLORIDE 20 MEQ TABLET PO SCH (08:50)
[2017-10-15] MEDS: sitaGLIPtin 25 MG TABLET PO SCH (08:50)
[2017-10-15] MEDS: ASPIRIN EC 81 MG TABLET PO SCH (08:50)
[2017-10-15] MEDS: APIXABAN 5 MG TABLET PO SCH (08:50)
[2017-10-15] MEDS: ASCORBIC ACID 500 MG TABLET PO SCH (08:50)
[2017-10-15] MEDS: GEMFIBROZIL 600 MG TABLET PO SCH (08:50)
[2017-10-15] MEDS: PIOGLITAZONE 15 MG TABLET PO SCH (09:12)
[2017-10-15] MEDS: FERROUS GLUCONATE 324 MG TABLET PO SCH (09:12)
[2017-10-15] MEDS: INSULIN LISPRO 100 UNIT/ML SUBCUT SCH (09:17)
[2017-10-15 12:23] VITALS: BP 146/70
== END 2017-10-15 14:06 | disposition home or self-care (01) ==
LOC: N.EDINP 15:02 → N.ED 15:02 → SUATTDRO 23:17 → N.EDINP 10-14 01:12 → N.TELEN 10-14 01:16
PROVIDERS: ADMIT Family Medicine; ATTEND Internal Medicine

== ENCOUNTER 2018-01-30 14:07 | Inpatient (IN) ==
[2018-01-30] MEDS ORDERED: SODIUM CHLORIDE 0.9% 1,000 ML IV STA (14:58)
[2018-01-30 15:09] LABS: Basophils % 0.2 % (0.0-0.8); Eosinophils # 0.1 10*3/uL (0.0-0.87); Eosinophils % 1.2 % (0.00-10.9); Hematocrit 32.6 VOL% (42.0-52.0); Hemoglobin 10.6 GM/DL (14.0-18.0); Immature Granulocytes % 0.7 %; Immature Granulocytes Absolute 0.03 #; Lymphocytes # 0.8 10*3/uL (1.4-4.0); Lymphocytes % 18.7 % (21.2-54.2); Mean Corpuscular HGB Conc 32.5 GM/DL (32-36); Mean Corpuscular Hemoglobin 31 PG (27-34); Mean Corpuscular Volume 93.7 FL (87-102); Mean Platelet Volume 11.2 FL (9.6-12.0); Monocytes # 0.5 10*3/uL (0.11-0.8); Monocytes % 10.7 % (1.7-12.7); Neutrophils # 2.9 10*3/uL (1.4-7.4); Neutrophils % 68.5 % (38.7-73.9); Platelet Count 183 T/CUMM (130-400); Red Blood Count 3.48 MC/CUMM (3.8-5.5); White Blood Count 4.3 T/CUMM (4-12)
[2018-01-30 15:19] LABS: PT Patient Result 10.8 SECS
[2018-01-30] MEDS ORDERED: PHENYLEPHRINE DRIP 40 MG/250 ML PREMIX IV PRN (15:22)
[2018-01-30] MEDS ORDERED: FUROSEMIDE 20 MG/2 ML VIAL IV STA (15:22)
[2018-01-30 15:31] LABS: Alanine Aminotransferase 31 U/L (16-61); Albumin 3.2 G/DL (3.4-5.0); Alkaline Phosphatase 37 U/L (45-117); Aspartate Amino Transferase 18 U/L (0-37); Blood Urea Nitrogen 73 MG/DL (7-18); Calcium 8.6 MG/DL (8.5-10.1); Glucose 270 MG/DL (74-106); Osmolality,Calculated 304.8 MOS/KG (273-304); Potassium 4.9 MMOL/L (3.5-5.1); Sodium 137 MMOL/L (136-145); Troponin I Only < 0.015 NG/ML (0.00-0.045)
[2018-01-30 16:38] LABS: Apearance,Urine CLEAR (Clear); Bilirubin,Urine Negative (Negative); Blood, Urine Negative (Negative); Glucose,Urine (UA) Negative (Negative); Hyaline Casts,Urine 21 /LPF (0-3); Ketones,Urine Negative (Negative); Mucus,Urine Occasional /LPF (Occasional); Nitrite,Urine Negative (Negative); Protein,Urine Negative; RBC,Urine 2 /HPF (0-4); Squamous Epithelial Cell,Urine Occasional /HPF (0-10); Urine Color Yellow (Yellow); Urine Specific Gravity 1.009 (1.001-1.035); Urine Urobilinogen < 2.0 EU/DL (0.2-1.0); WBC,Urine 1 /HPF (0-6)
[2018-01-30] MEDS ORDERED: ONDANSETRON 4 MG/2 ML VIAL IV PRN (17:03)
[2018-01-30] MEDS ORDERED: ACETAMINOPHEN 325 MG TABLET PO PRN (17:03)
[2018-01-30] MEDS ORDERED: NOREPINEPHRINE 8 MG in SODIUM CHLORIDE 0.9% 242 ML IV SCH (17:30)
[2018-01-30] MEDS ORDERED: GLUCAGON 1 MG VIAL IM PRN (17:57)
[2018-01-30] MEDS ORDERED: DEXTROSE 50% 25 GM/50 ML VIAL IV PRN (17:57)
[2018-01-30] MEDS: SODIUM CHLORIDE 0.9% 1,000 ML IV SCH (17:58)
[2018-01-30] MEDS: PANTOPRAZOLE 40 MG VIAL IV SCH (17:58)
[2018-01-30] MEDS ORDERED: ALBUTEROL 2.5 MG/3 ML NEB RESP TX PRN (19:00)
[2018-01-30] MEDS: INSULIN LISPRO 100 UNIT/ML SUBCUT SCH (20:43)
[2018-01-30] MEDS: OMEGA 3 ACID ETHYL ESTERS 1 GM CAPSULE PO SCH (20:43)
[2018-01-30] MEDS: FERROUS GLUCONATE 324 MG TABLET PO SCH (20:43)
[2018-01-30] MEDS: TAMSULOSIN 0.4 MG CAPSULE PO SCH (20:43)
[2018-01-30] MEDS: ATORVASTATIN 80 MG TABLET PO SCH (20:43)
[2018-01-30] MEDS: GABAPENTIN 300 MG CAPSULE PO SCH (20:43)
[2018-01-30 22:41] LABS: Hematocrit 32.8 VOL% (42.0-52.0); Hemoglobin 10.8 GM/DL (14.0-18.0)
[2018-01-31] MEDS: SODIUM CHLORIDE 0.9% 1,000 ML IV SCH ×2 (04:02→15:29)
[2018-01-31 04:35] LABS: Hematocrit 31.4 VOL% (42.0-52.0); Hemoglobin 10.1 GM/DL (14.0-18.0)
[2018-01-31 04:38] LABS: Basophils % 0.3 % (0.0-0.8); Eosinophils # 0.1 10*3/uL (0.0-0.87); Hematocrit 31.6 VOL% (42.0-52.0); Hemoglobin 10.3 GM/DL (14.0-18.0); Immature Granulocytes % 0.7 %; Immature Granulocytes Absolute 0.05 #; Lymphocytes # 1.5 10*3/uL (1.4-4.0); Lymphocytes % 20.1 % (21.2-54.2); Mean Corpuscular HGB Conc 32.6 GM/DL (32-36); Mean Corpuscular Hemoglobin 31 PG (27-34); Mean Corpuscular Volume 93.5 FL (87-102); Mean Platelet Volume 11.2 FL (9.6-12.0); Monocytes % 13.1 % (1.7-12.7); Neutrophils # 4.7 10*3/uL (1.4-7.4); Neutrophils % 64.8 % (38.7-73.9); Platelet Count 190 T/CUMM (130-400); Red Blood Count 3.38 MC/CUMM (3.8-5.5); White Blood Count 7.3 T/CUMM (4-12)
[2018-01-31 07:08] LABS: Calcium 8.4 MG/DL (8.5-10.1); Osmolality,Calculated 301.1 MOS/KG (273-304); Potassium 4.1 MMOL/L (3.5-5.1)
[2018-01-31] MEDS: INSULIN LISPRO 100 UNIT/ML SUBCUT SCH ×4 (07:50→21:23)
[2018-01-31] MEDS: GABAPENTIN 300 MG CAPSULE PO SCH ×2 (08:34→21:23)
[2018-01-31] MEDS: OMEGA 3 ACID ETHYL ESTERS 1 GM CAPSULE PO SCH ×2 (08:34→21:23)
[2018-01-31] MEDS: FERROUS GLUCONATE 324 MG TABLET PO SCH ×2 (08:34→21:23)
[2018-01-31] MEDS: FINASTERIDE 5 MG TABLET PO SCH (08:34)
[2018-01-31] MEDS: glipiZIDE 10 MG TABLET PO SCH ×2 (08:34→17:02)
[2018-01-31] MEDS: MULTIVITAMIN (CENTRUM) TABLET PO SCH (08:34)
[2018-01-31] MEDS ORDERED: NOREPINEPHRINE 8 MG in SODIUM CHLORIDE 0.9% 242 ML IV PRN (10:30)
[2018-01-31 10:55] LABS: Hematocrit 30.7 VOL% (42.0-52.0); Hemoglobin 10.1 GM/DL (14.0-18.0)
[2018-01-31] MEDS: PANTOPRAZOLE 40 MG VIAL IV SCH (17:02)
[2018-01-31] MEDS: TAMSULOSIN 0.4 MG CAPSULE PO SCH (21:22)
[2018-01-31] MEDS: ATORVASTATIN 80 MG TABLET PO SCH (21:23)
[2018-02-01] MEDS: SODIUM CHLORIDE 0.9% 1,000 ML IV SCH (00:33)
[2018-02-01 03:44] LABS: Basophils % 0.5 % (0.0-0.8); Eosinophils # 0.1 10*3/uL (0.0-0.87); Eosinophils % 1.8 % (0.00-10.9); Hematocrit 30.4 VOL% (42.0-52.0); Hemoglobin 9.6 GM/DL (14.0-18.0); Immature Granulocytes % 0.5 %; Immature Granulocytes Absolute 0.02 #; Lymphocytes # 1.4 10*3/uL (1.4-4.0); Lymphocytes % 32.1 % (21.2-54.2); Mean Corpuscular HGB Conc 31.6 GM/DL (32-36); Mean Corpuscular Hemoglobin 30 PG (27-34); Mean Corpuscular Volume 95.6 FL (87-102); Mean Platelet Volume 10.9 FL (9.6-12.0); Monocytes # 0.5 10*3/uL (0.11-0.8); Monocytes % 11.6 % (1.7-12.7); Neutrophils # 2.4 10*3/uL (1.4-7.4); Neutrophils % 53.5 % (38.7-73.9); Platelet Count 162 T/CUMM (130-400); Red Blood Count 3.18 MC/CUMM (3.8-5.5); Red Cell Distribution Width 16.3 % (9.3-17.3); White Blood Count 4.4 T/CUMM (4-12)
[2018-02-01 04:06] LABS: Calcium 8.4 MG/DL (8.5-10.1); Osmolality,Calculated 297.8 MOS/KG (273-304); Potassium 4.3 MMOL/L (3.5-5.1)
[2018-02-01 08:19] VITALS: BP 101/67
[2018-02-01] MEDS: OMEGA 3 ACID ETHYL ESTERS 1 GM CAPSULE PO SCH (08:43)
[2018-02-01] MEDS: FERROUS GLUCONATE 324 MG TABLET PO SCH (08:43)
[2018-02-01] MEDS: glipiZIDE 10 MG TABLET PO SCH (08:44)
[2018-02-01] MEDS: FINASTERIDE 5 MG TABLET PO SCH (08:44)
[2018-02-01] MEDS: INSULIN LISPRO 100 UNIT/ML SUBCUT SCH (08:44)
[2018-02-01] MEDS: GABAPENTIN 300 MG CAPSULE PO SCH (08:44)
[2018-02-01] MEDS: MULTIVITAMIN (CENTRUM) TABLET PO SCH (08:44)
== END 2018-02-01 11:03 | disposition home or self-care (01) | DRG 312 ==
LOC: EDBD → EDUNIT# → N.ED 14:07 → SUATTDRO 16:04 → N.EDINP 16:04 → N.CC 17:15 → N.3E 01-31 15:41
PROVIDERS: ADMIT Internal Medicine; ATTEND Hospitalist

== ENCOUNTER 2018-09-12 00:32 | Inpatient (IN) ==
[2018-09-12] MEDS ORDERED: ALBUTEROL/IPRATROPIUM 3 ML NEB RESP TX STA (00:54)
[2018-09-12] MEDS ORDERED: CEFEPIME 2,000 MG in SODIUM CHLORIDE 0.9% 100 ML IV STA (01:03)
[2018-09-12 01:24] LABS: Albumin 3.8 G/DL (3.4-5.0); Calcium 8.9 MG/DL (8.5-10.1); Osmolality,Calculated 280.4 MOS/KG (273-304); Potassium 3.7 MMOL/L (3.5-5.1); Total Protein 7.9 G/DL (6.4-8.3)
[2018-09-12 02:10] LABS: Basophils % 0.1 % (0.0-0.8); Eosinophils % 0.3 % (0.00-10.9); Hematocrit 38.8 VOL% (42.0-52.0); Hemoglobin 12.6 GM/DL (14.0-18.0); Immature Granulocytes % 0.5 %; Immature Granulocytes Absolute 0.06 #; Lymphocytes # 0.7 10*3/uL (1.4-4.0); Lymphocytes % 6.1 % (21.2-54.2); Mean Corpuscular HGB Conc 32.5 GM/DL (32-36); Mean Corpuscular Hemoglobin 31 PG (27-34); Mean Corpuscular Volume 93.9 FL (87-102); Mean Platelet Volume 12.7 FL (9.6-12.0); Monocytes % 8.9 % (1.7-12.7); Neutrophils # 9.2 10*3/uL (1.4-7.4); Neutrophils % 84.1 % (38.7-73.9); Platelet Count 131 T/CUMM (130-400); Red Blood Count 4.13 MC/CUMM (3.8-5.5); Red Cell Distribution Width 13.2 % (9.3-17.3)
[2018-09-12] MEDS ORDERED: ACETAMINOPHEN 500 MG TABLET PO STA (02:24)
[2018-09-12] MEDS ORDERED: ACETAMINOPHEN 500 MG TABLET ONE (02:25)
[2018-09-12] MEDS ORDERED: SODIUM CHLORIDE 0.9% 1,000 ML IV STA (02:26)
[2018-09-12] MEDS ORDERED: LEVOFLOXACIN INJ 750 MG in PREMIX 1 EACH IV SCH (03:00)
[2018-09-12] MEDS: AZITHROMYCIN INJ 500 MG in SODIUM CHLORIDE 0.9% 250 ML IV SCH (04:22)
[2018-09-12] MEDS: OSELTAMIVIR 75 MG CAPSULE PO SCH ×3 (04:24→21:36)
[2018-09-12] MEDS: DILTIAZEM 60 MG TABLET PO SCH ×2 (06:00→14:12)
[2018-09-12] MEDS ORDERED: ALBUTEROL/IPRATROPIUM 3 ML NEB RESP TX SCH (07:00)
[2018-09-12 07:46] LABS: Albumin 2.9 G/DL (3.4-5.0); Bilirubin,Total 0.7 MG/DL (0.2-1.0); Calcium 8.1 MG/DL (8.5-10.1); Osmolality,Calculated 277.8 MOS/KG (273-304); Potassium 3.8 MMOL/L (3.5-5.1); Total Protein 6.5 G/DL (6.4-8.3)
[2018-09-12 07:53] LABS: Basophils % 0.1 % (0.0-0.8); Eosinophils % 0.2 % (0.00-10.9); Hematocrit 30.6 VOL% (42.0-52.0); Immature Granulocytes % 0.6 %; Immature Granulocytes Absolute 0.07 #; Mean Corpuscular HGB Conc 32.4 GM/DL (32-36); Mean Corpuscular Hemoglobin 31 PG (27-34); Mean Corpuscular Volume 94.4 FL (87-102); Mean Platelet Volume 12.1 FL (9.6-12.0); Monocytes # 1.1 10*3/uL (0.11-0.8); Neutrophils # 9.1 10*3/uL (1.4-7.4); Neutrophils % 80.1 % (38.7-73.9); Platelet Count 118 T/CUMM (130-400); Red Blood Count 3.24 MC/CUMM (3.8-5.5); Red Cell Distribution Width 13.2 % (9.3-17.3); White Blood Count 11.4 T/CUMM (4-12)
[2018-09-12 07:55] LABS: Hemoglobin 9.9 GM/DL (14.0-18.0)
[2018-09-12 08:32] LABS: Anisocytosis Slight; Band Neutrophils 12 % (0-10); Lymphocytes 9 % (20-55); Platelet Estimate Adequate; Segmented Neutrophils 73 % (50-85); Total Cells Counted 100
[2018-09-12] MEDS ORDERED: APIXABAN 5 MG TABLET PO SCH (09:00)
[2018-09-12] MEDS ORDERED: FUROSEMIDE 40 MG TABLET PO SCH (09:00)
[2018-09-12] MEDS ORDERED: AMIODARONE 200 MG TABLET PO SCH (09:00)
[2018-09-12] MEDS: ASPIRIN EC 81 MG TABLET PO SCH (09:23)
[2018-09-12] MEDS: ASCORBIC ACID 500 MG TABLET PO SCH ×2 (09:24→21:36)
[2018-09-12] MEDS: OMEGA 3 ACID ETHYL ESTERS 1 GM CAPSULE PO SCH (09:24)
[2018-09-12] MEDS: FINASTERIDE 5 MG TABLET PO SCH (09:24)
[2018-09-12] MEDS: FERROUS GLUCONATE 324 MG TABLET PO SCH ×2 (09:24→17:24)
[2018-09-12] MEDS: glipiZIDE 10 MG TABLET PO SCH ×2 (09:25→17:24)
[2018-09-12] MEDS: POTASSIUM CHLORIDE 20 MEQ TABLET PO SCH (09:25)
[2018-09-12] MEDS: MULTIVITAMIN (CENTRUM) TABLET PO SCH (09:25)
[2018-09-12] MEDS: GABAPENTIN 300 MG CAPSULE PO SCH ×2 (09:25→21:36)
[2018-09-12] MEDS: PANTOPRAZOLE 40 MG TABLET PO SCH (09:25)
[2018-09-12] MEDS: CARVEDILOL 25 MG TABLET PO SCH ×2 (09:25→18:22)
[2018-09-12] MEDS: SPIRONOLACTONE 25 MG TABLET PO SCH (09:26)
[2018-09-12] MEDS: GEMFIBROZIL 600 MG TABLET PO SCH ×2 (09:26→17:26)
[2018-09-12] MEDS: guaiFENesin/DM ER 600-30 MG TABLET PO SCH ×2 (11:58→21:35)
[2018-09-12] MEDS ORDERED: cefTRIAXone 1,000 MG in SYRINGE 1 EACH IV SCH ×2 (12:00→12:30)
[2018-09-12] MEDS ORDERED: FUROSEMIDE 40 MG/4 ML VIAL IV ONE (12:09)
[2018-09-12] MEDS ORDERED: FUROSEMIDE 20 MG/2 ML VIAL ONE (12:11)
[2018-09-12] MEDS: ALBUTEROL/IPRATROPIUM 3 ML NEB RESP TX SCH ×3 (12:12→19:36)
[2018-09-12] MEDS ORDERED: FUROSEMIDE 40 MG/4 ML VIAL IV SCH ×2 (12:30→21:00)
[2018-09-12 13:04] LABS: ABG Base Excess -1.8 MMOL/L (-2.5-2.5); ABG HCO3 22.6 MMOL/L (20-26); ABG PCO2 35.4 MM HG (35-48); ABG PH 7.408 (7.35-7.45); ABG PO2 42.6 MM HG (80-95); ABG TCO2 19.9 MMOL/L (23-27)
[2018-09-12] MEDS: ACETAMINOPHEN 325 MG TABLET PO PRN (14:12)
[2018-09-12] MEDS: BENZONATATE 100 MG CAPSULE PO SCH ×2 (15:30→21:36)
[2018-09-12] MEDS: PIPERACILLIN/TAZOBACTAM 3,375 MG in SODIUM CHLORIDE 0.9% 100 ML IV SCH ×2 (15:30→22:55)
[2018-09-12 15:43] LABS: Apearance,Urine CLEAR (Clear); Bilirubin,Urine Negative (Negative); Blood, Urine Negative (Negative); Glucose,Urine (UA) Negative (Negative); Ketones,Urine Negative (Negative); Nitrite,Urine Negative (Negative); Protein,Urine Negative; RBC,Urine <1 /HPF (0-4); Urine Color Yellow (Yellow); Urine Specific Gravity 1.008 (1.001-1.035); Urine Urobilinogen < 2.0 EU/DL (0.2-1.0); WBC,Urine <1 /HPF (0-6)
[2018-09-12] MEDS: CLINDAMYCIN INJ 900 MG in PREMIX 1 EACH IV SCH (18:22)
[2018-09-12 19:47] LABS: HIV Antigen/Antibody Result Nonreactive (Nonreactive)
[2018-09-12] MEDS: FUROSEMIDE 40 MG/4 ML VIAL IV SCH (20:02)
[2018-09-12] MEDS: VANCOMYCIN INJ 1,250 MG in SODIUM CHLORIDE 0.9% 250 ML IV SCH (20:06)
[2018-09-12] MEDS ORDERED: Doxepin Hcl [Silenor] 3 MG PO SCH (21:00)
[2018-09-12] MEDS: INSULIN REGULAR 100 UNIT/ML SUBCUT SCH (21:33)
[2018-09-12] MEDS: TAMSULOSIN 0.4 MG CAPSULE PO SCH (21:35)
[2018-09-12] MEDS: ATORVASTATIN 80 MG TABLET PO SCH (21:35)
[2018-09-12] MEDS: ISOSORBIDE DINITRATE 20 MG TABLET PO SCH (21:35)
[2018-09-13] MEDS: ALBUTEROL/IPRATROPIUM 3 ML NEB RESP TX SCH ×7 (00:03→23:20)
[2018-09-13 02:24] LABS: Calcium 8.2 MG/DL (8.5-10.1); Osmolality,Calculated 282.7 MOS/KG (273-304); Potassium 3.8 MMOL/L (3.5-5.1)
[2018-09-13] MEDS: CLINDAMYCIN INJ 900 MG in PREMIX 1 EACH IV SCH ×3 (02:24→18:18)
[2018-09-13 02:29] LABS: Troponin I 0.544 NG/ML (0.00-0.045)
[2018-09-13] MEDS: AZITHROMYCIN INJ 500 MG in SODIUM CHLORIDE 0.9% 250 ML IV SCH (03:31)
[2018-09-13] MEDS: FUROSEMIDE 40 MG/4 ML VIAL IV SCH ×3 (04:30→20:28)
[2018-09-13] MEDS: ACETAMINOPHEN 325 MG TABLET PO PRN ×3 (04:40→18:20)
[2018-09-13] MEDS: PIPERACILLIN/TAZOBACTAM 3,375 MG in SODIUM CHLORIDE 0.9% 100 ML IV SCH ×3 (06:41→22:55)
[2018-09-13] MEDS: ENOXAPARIN 40 MG/0.4 ML SYRINGE SUBCUT SCH (08:41)
[2018-09-13] MEDS: INSULIN REGULAR 100 UNIT/ML SUBCUT SCH ×4 (08:41→20:31)
[2018-09-13] MEDS: CHOLECALCIFEROL 1,000 UNIT TABLET PO SCH (08:42)
[2018-09-13] MEDS: PANTOPRAZOLE 40 MG TABLET PO SCH (08:42)
[2018-09-13] MEDS: FINASTERIDE 5 MG TABLET PO SCH (08:42)
[2018-09-13] MEDS: MULTIVITAMIN (CENTRUM) TABLET PO SCH (08:42)
[2018-09-13] MEDS: OMEGA 3 ACID ETHYL ESTERS 1 GM CAPSULE PO SCH (08:42)
[2018-09-13] MEDS: guaiFENesin/DM ER 600-30 MG TABLET PO SCH ×2 (08:42→20:27)
[2018-09-13] MEDS: glipiZIDE 10 MG TABLET PO SCH (08:42)
[2018-09-13] MEDS: BENZONATATE 100 MG CAPSULE PO SCH ×3 (08:42→20:30)
[2018-09-13] MEDS: CARVEDILOL 25 MG TABLET PO SCH ×2 (08:42→18:14)
[2018-09-13] MEDS: GEMFIBROZIL 600 MG TABLET PO SCH ×2 (08:42→18:14)
[2018-09-13] MEDS: ASCORBIC ACID 500 MG TABLET PO SCH ×2 (08:43→20:27)
[2018-09-13] MEDS: SPIRONOLACTONE 25 MG TABLET PO SCH (08:43)
[2018-09-13] MEDS: FERROUS GLUCONATE 324 MG TABLET PO SCH ×2 (08:43→18:16)
[2018-09-13] MEDS: GABAPENTIN 300 MG CAPSULE PO SCH ×2 (08:43→20:26)
[2018-09-13] MEDS: OSELTAMIVIR 75 MG CAPSULE PO SCH ×2 (08:43→20:27)
[2018-09-13] MEDS: POTASSIUM CHLORIDE 20 MEQ TABLET PO SCH (08:43)
[2018-09-13] MEDS: ASPIRIN EC 81 MG TABLET PO SCH (08:50)
[2018-09-13] MEDS ORDERED: LEVOFLOXACIN 500 MG TABLET PO SCH (09:00)
[2018-09-13 10:25] LABS: Basophils % 0.1 % (0.0-0.8); Hematocrit 28.9 VOL% (42.0-52.0); Hemoglobin 9.6 GM/DL (14.0-18.0); Immature Granulocytes % 0.7 %; Immature Granulocytes Absolute 0.08 #; Lymphocytes # 0.6 10*3/uL (1.4-4.0); Mean Corpuscular HGB Conc 33.2 GM/DL (32-36); Mean Corpuscular Hemoglobin 31 PG (27-34); Mean Corpuscular Volume 92.9 FL (87-102); Mean Platelet Volume 11.8 FL (9.6-12.0); Monocytes % 8.5 % (1.7-12.7); Neutrophils # 9.9 10*3/uL (1.4-7.4); Neutrophils % 85.7 % (38.7-73.9); Platelet Count 111 T/CUMM (130-400); Red Blood Count 3.11 MC/CUMM (3.8-5.5); Red Cell Distribution Width 13.2 % (9.3-17.3); White Blood Count 11.6 T/CUMM (4-12)
[2018-09-13] MEDS: ISOSORBIDE DINITRATE 20 MG TABLET PO SCH ×3 (10:42→20:27)
[2018-09-13 11:02] LABS: Anisocytosis Slight; Band Neutrophils 4 % (0-10); Lymphocytes 4 % (20-55); Platelet Estimate Adequate; Segmented Neutrophils 88 % (50-85); Total Cells Counted 100
[2018-09-13] MEDS ORDERED: GLUCAGON 1 MG VIAL IM PRN (13:15)
[2018-09-13] MEDS ORDERED: DEXTROSE 50% 25 GM/50 ML SYRINGE IV PRN (13:15)
[2018-09-13] MEDS: VANCOMYCIN INJ 1,250 MG in SODIUM CHLORIDE 0.9% 250 ML IV SCH (13:47)
[2018-09-13] MEDS: INSULIN LISPRO 100 UNIT/ML SUBCUT SCH ×2 (16:50→20:29)
[2018-09-13] MEDS: TAMSULOSIN 0.4 MG CAPSULE PO SCH (20:26)
[2018-09-13] MEDS: ATORVASTATIN 80 MG TABLET PO SCH (20:27)
[2018-09-13] MEDS: INSULIN GLARGINE 100 UNIT/ML SUBCUT SCH (20:27)
[2018-09-14] MEDS: CLINDAMYCIN INJ 900 MG in PREMIX 1 EACH IV SCH (02:32)
[2018-09-14] MEDS: AZITHROMYCIN INJ 500 MG in SODIUM CHLORIDE 0.9% 250 ML IV SCH (03:25)
[2018-09-14] MEDS: FUROSEMIDE 40 MG/4 ML VIAL IV SCH ×3 (03:26→21:34)
[2018-09-14] MEDS: ALBUTEROL/IPRATROPIUM 3 ML NEB RESP TX SCH ×6 (04:17→23:54)
[2018-09-14 05:03] LABS: Basophils % 0.1 % (0.0-0.8); Hematocrit 28.2 VOL% (42.0-52.0); Immature Granulocytes % 0.8 %; Immature Granulocytes Absolute 0.08 #; Lymphocytes # 0.4 10*3/uL (1.4-4.0); Lymphocytes % 4.5 % (21.2-54.2); Mean Corpuscular HGB Conc 31.9 GM/DL (32-36); Mean Corpuscular Hemoglobin 30 PG (27-34); Mean Corpuscular Volume 93.7 FL (87-102); Mean Platelet Volume 12.5 FL (9.6-12.0); Monocytes # 0.8 10*3/uL (0.11-0.8); Monocytes % 8.2 % (1.7-12.7); Neutrophils # 8.2 10*3/uL (1.4-7.4); Neutrophils % 86.4 % (38.7-73.9); Platelet Count 113 T/CUMM (130-400); Red Blood Count 3.01 MC/CUMM (3.8-5.5); Red Cell Distribution Width 13.2 % (9.3-17.3); White Blood Count 9.5 T/CUMM (4-12)
[2018-09-14 05:24] LABS: Calcium 8.3 MG/DL (8.5-10.1); Osmolality,Calculated 284.5 MOS/KG (273-304); Potassium 3.9 MMOL/L (3.5-5.1)
[2018-09-14 05:27] LABS: Band Neutrophils 1 % (0-10); Hypochromasia 1+; Lymphocytes 7 % (20-55); Segmented Neutrophils 79 % (50-85); Total Cells Counted 100
[2018-09-14 05:28] LABS: Microcytosis 1+; Ovalocytes Slight; Platelet Estimate Adequate
[2018-09-14] MEDS: PIPERACILLIN/TAZOBACTAM 3,375 MG in SODIUM CHLORIDE 0.9% 100 ML IV SCH ×3 (06:36→23:25)
[2018-09-14] MEDS ORDERED: CLINDAMYCIN INJ 600 MG in PREMIX 1 EACH IV SCH (08:30)
[2018-09-14] MEDS: CHOLECALCIFEROL 1,000 UNIT TABLET PO SCH (09:19)
[2018-09-14] MEDS: FINASTERIDE 5 MG TABLET PO SCH (09:19)
[2018-09-14] MEDS: MULTIVITAMIN (CENTRUM) TABLET PO SCH (09:20)
[2018-09-14] MEDS: OSELTAMIVIR 75 MG CAPSULE PO SCH ×2 (09:20→21:40)
[2018-09-14] MEDS: guaiFENesin/DM ER 600-30 MG TABLET PO SCH ×2 (09:20→21:40)
[2018-09-14] MEDS: BENZONATATE 100 MG CAPSULE PO SCH ×3 (09:20→21:40)
[2018-09-14] MEDS: INSULIN LISPRO 100 UNIT/ML SUBCUT SCH ×4 (09:20→23:25)
[2018-09-14] MEDS: PANTOPRAZOLE 40 MG TABLET PO SCH (09:21)
[2018-09-14] MEDS: ASPIRIN EC 81 MG TABLET PO SCH (09:21)
[2018-09-14] MEDS: GEMFIBROZIL 600 MG TABLET PO SCH ×2 (09:21→17:26)
[2018-09-14] MEDS: OMEGA 3 ACID ETHYL ESTERS 1 GM CAPSULE PO SCH (09:23)
[2018-09-14] MEDS: ISOSORBIDE DINITRATE 20 MG TABLET PO SCH ×3 (09:24→21:35)
[2018-09-14] MEDS: CARVEDILOL 25 MG TABLET PO SCH ×2 (09:24→17:26)
[2018-09-14] MEDS: POTASSIUM CHLORIDE 20 MEQ TABLET PO SCH (09:24)
[2018-09-14] MEDS: ASCORBIC ACID 500 MG TABLET PO SCH ×2 (09:25→21:40)
[2018-09-14] MEDS: GABAPENTIN 300 MG CAPSULE PO SCH ×2 (09:25→21:40)
[2018-09-14] MEDS: ENOXAPARIN 40 MG/0.4 ML SYRINGE SUBCUT SCH (09:26)
[2018-09-14] MEDS: FERROUS GLUCONATE 324 MG TABLET PO SCH ×2 (10:48→17:26)
[2018-09-14] MEDS ORDERED: ONDANSETRON 4 MG/2 ML VIAL IV PRN (11:39)
[2018-09-14] MEDS: VANCOMYCIN INJ 1,250 MG in SODIUM CHLORIDE 0.9% 250 ML IV SCH (15:07)
[2018-09-14] MEDS: TAMSULOSIN 0.4 MG CAPSULE PO SCH (21:35)
[2018-09-14] MEDS: INSULIN GLARGINE 100 UNIT/ML SUBCUT SCH (21:35)
[2018-09-14] MEDS: ATORVASTATIN 80 MG TABLET PO SCH (21:40)
[2018-09-15] MEDS: FUROSEMIDE 40 MG/4 ML VIAL IV SCH ×2 (03:33→17:24)
[2018-09-15] MEDS: ALBUTEROL/IPRATROPIUM 3 ML NEB RESP TX SCH ×5 (04:11→19:38)
[2018-09-15 05:17] LABS: Basophils % 0.1 % (0.0-0.8); Hematocrit 29.1 VOL% (42.0-52.0); Hemoglobin 9.3 GM/DL (14.0-18.0); Immature Granulocytes % 0.9 %; Lymphocytes # 0.4 10*3/uL (1.4-4.0); Lymphocytes % 3.3 % (21.2-54.2); Mean Corpuscular Hemoglobin 30 PG (27-34); Mean Corpuscular Volume 93.9 FL (87-102); Mean Platelet Volume 13.2 FL (9.6-12.0); Monocytes # 1.1 10*3/uL (0.11-0.8); Monocytes % 9.9 % (1.7-12.7); Neutrophils # 9.2 10*3/uL (1.4-7.4); Neutrophils % 85.8 % (38.7-73.9); Platelet Count 115 T/CUMM (130-400); Red Cell Distribution Width 13.4 % (9.3-17.3); White Blood Count 10.8 T/CUMM (4-12)
[2018-09-15 05:43] LABS: Calcium 8.5 MG/DL (8.5-10.1); Potassium 4.4 MMOL/L (3.5-5.1)
[2018-09-15 05:44] LABS: Calcium 8.7 MG/DL (8.5-10.1); Potassium 4.5 MMOL/L (3.5-5.1)
[2018-09-15 06:08] LABS: Hypochromasia 1+; Lymphocytes 2 % (20-55); Microcytosis 1+; Ovalocytes Slight; Platelet Estimate Decreased; Segmented Neutrophils 93 % (50-85); Total Cells Counted 100
[2018-09-15] MEDS: PIPERACILLIN/TAZOBACTAM 3,375 MG in SODIUM CHLORIDE 0.9% 100 ML IV SCH ×2 (07:00→15:47)
[2018-09-15] MEDS ORDERED: LOPERAMIDE 2 MG CAPSULE PO PRN (08:36)
[2018-09-15] MEDS: ENOXAPARIN 40 MG/0.4 ML SYRINGE SUBCUT SCH (09:39)
[2018-09-15] MEDS: PANTOPRAZOLE 40 MG TABLET PO SCH (09:40)
[2018-09-15] MEDS: metroNIDAZOLE 500 MG TABLET PO SCH ×2 (09:41→17:32)
[2018-09-15] MEDS: guaiFENesin/DM ER 600-30 MG TABLET PO SCH (09:41)
[2018-09-15] MEDS: ASPIRIN EC 81 MG TABLET PO SCH (09:41)
[2018-09-15] MEDS: CARVEDILOL 25 MG TABLET PO SCH ×2 (09:41→17:32)
[2018-09-15] MEDS: ISOSORBIDE DINITRATE 20 MG TABLET PO SCH ×2 (09:42→17:32)
[2018-09-15] MEDS: GABAPENTIN 300 MG CAPSULE PO SCH (09:42)
[2018-09-15] MEDS: INSULIN LISPRO 100 UNIT/ML SUBCUT SCH ×3 (09:51→17:32)
[2018-09-15] MEDS: MULTIVITAMIN (CENTRUM) TABLET PO SCH (09:51)
[2018-09-15] MEDS: GEMFIBROZIL 600 MG TABLET PO SCH ×2 (09:51→17:32)
[2018-09-15] MEDS: FERROUS GLUCONATE 324 MG TABLET PO SCH ×2 (09:51→17:32)
[2018-09-15] MEDS: OMEGA 3 ACID ETHYL ESTERS 1 GM CAPSULE PO SCH (09:51)
[2018-09-15] MEDS: POTASSIUM CHLORIDE 20 MEQ TABLET PO SCH (09:51)
[2018-09-15] MEDS: CHOLECALCIFEROL 1,000 UNIT TABLET PO SCH (09:52)
[2018-09-15] MEDS: ASCORBIC ACID 500 MG TABLET PO SCH (09:52)
[2018-09-15] MEDS: BENZONATATE 100 MG CAPSULE PO SCH ×2 (09:52→17:32)
[2018-09-15] MEDS: OSELTAMIVIR 75 MG CAPSULE PO SCH (13:23)
[2018-09-15] MEDS ORDERED: VANCOMYCIN INJ 1,250 MG in SODIUM CHLORIDE 0.9% 250 ML IV SCH (15:00)
[2018-09-15] MEDS: FINASTERIDE 5 MG TABLET PO SCH (17:32)
[2018-09-15] MEDS ORDERED: PROPOFOL 1,000 MG/100 ML BOTTLE IV ONE (22:24)
[2018-09-15] MEDS ORDERED: PROPOFOL 200 MG/20 ML VIAL IV ONE (22:27)
[2018-09-15] MEDS ORDERED: NOREPINEPHRINE 4 MG/4 ML VIAL IV ONE (22:28)
[2018-09-15] MEDS ORDERED: DOPamine 800 MG/250 ML PREMIX IV PRN (22:31)
[2018-09-15 22:51] LABS: Basophils % 0.1 % (0.0-0.8); Eosinophils % 0.1 % (0.00-10.9); Hematocrit 29.7 VOL% (42.0-52.0); Hemoglobin 9.2 GM/DL (14.0-18.0); Immature Granulocytes % 2.5 %; Immature Granulocytes Absolute 0.22 #; Lymphocytes # 1.5 10*3/uL (1.4-4.0); Lymphocytes % 17.1 % (21.2-54.2); Mean Corpuscular Hemoglobin 30 PG (27-34); Mean Corpuscular Volume 97.7 FL (87-102); Mean Platelet Volume 13.6 FL (9.6-12.0); Monocytes # 0.7 10*3/uL (0.11-0.8); Monocytes % 8.4 % (1.7-12.7); NRBC # 0.15 10*3/uL; Neutrophils # 6.3 10*3/uL (1.4-7.4); Neutrophils % 71.8 % (38.7-73.9); Platelet Count 56 T/CUMM (130-400); Red Blood Count 3.04 MC/CUMM (3.8-5.5); Red Cell Distribution Width 13.5 % (9.3-17.3); White Blood Count 8.8 T/CUMM (4-12)
[2018-09-15 23:02] LABS: ABG Base Excess -9.8 MMOL/L (-2.5-2.5); ABG HCO3 16.5 MMOL/L (20-26); ABG PCO2 49.3 MM HG (35-48); ABG TCO2 17.4 MMOL/L (23-27); Allen Test Positive; Pt O2 Delivery Device Ventilator
[2018-09-15 23:03] LABS: ABG PH 7.182 (7.35-7.45)
[2018-09-15 23:12] LABS: Band Neutrophils 4 % (0-10); Lymphocytes 12 % (20-55); Nucleated Red Blood Cells 2 (0-5); Segmented Neutrophils 76 % (50-85)
[2018-09-15 23:13] LABS: Hypochromasia Slight; Platelet Estimate Decreased
[2018-09-15 23:14] LABS: Anisocytosis Slight; Polychromasia Slight
[2018-09-15 23:15] LABS: Total Cells Counted 100
[2018-09-15 23:17] LABS: Troponin I 0.265 NG/ML (0.00-0.045)
[2018-09-15] MEDS: PROPOFOL 1,000 MG/100 ML BOTTLE IV SCH (23:19)
[2018-09-15] MEDS ORDERED: SODIUM BICARBONATE 50 MEQ/50 ML SYRINGE IV ONE (23:19)
[2018-09-15 23:29] LABS: Albumin 2.5 G/DL (3.4-5.0); Bilirubin,Total 1.4 MG/DL (0.2-1.0); Potassium 4.2 MMOL/L (3.5-5.1); Total Protein 6.4 G/DL (6.4-8.3)
[2018-09-15] MEDS ORDERED: NOREPINEPHRINE 8 MG in SODIUM CHLORIDE 0.9% 242 ML IV PRN (23:57)
[2018-09-16] MEDS ORDERED: metroNIDAZOLE INJ 500 MG in PREMIX 1 EACH IV SCH
[2018-09-16] MEDS: ALBUTEROL/IPRATROPIUM 3 ML NEB RESP TX SCH ×7 (00:25→23:28)
[2018-09-16 01:23] LABS: Allen Test Positive; Pt O2 Delivery Device Ventilator
[2018-09-16] MEDS: ISOSORBIDE DINITRATE 20 MG TABLET PO SCH ×2 (01:23→10:19)
[2018-09-16 01:24] LABS: ABG Base Excess -1.6 MMOL/L (-2.5-2.5); ABG HCO3 23.1 MMOL/L (20-26)
[2018-09-16] MEDS: guaiFENesin/DM ER 600-30 MG TABLET PO SCH (01:24)
[2018-09-16] MEDS: BENZONATATE 100 MG CAPSULE PO SCH (01:24)
[2018-09-16] MEDS: TAMSULOSIN 0.4 MG CAPSULE PO SCH ×2 (01:35→21:51)
[2018-09-16] MEDS: ATORVASTATIN 80 MG TABLET PO SCH ×2 (01:35→21:52)
[2018-09-16] MEDS: INSULIN LISPRO 100 UNIT/ML SUBCUT SCH ×4 (01:36→18:11)
[2018-09-16] MEDS: OSELTAMIVIR 75 MG CAPSULE PO SCH (01:36)
[2018-09-16] MEDS: GABAPENTIN 300 MG CAPSULE PO SCH (01:36)
[2018-09-16] MEDS: ASCORBIC ACID 500 MG TABLET PO SCH ×3 (01:36→21:51)
[2018-09-16] MEDS: INSULIN GLARGINE 100 UNIT/ML SUBCUT SCH ×2 (01:37→21:52)
[2018-09-16] MEDS: PIPERACILLIN/TAZOBACTAM 3,375 MG in SODIUM CHLORIDE 0.9% 100 ML IV SCH ×3 (01:37→17:08)
[2018-09-16] MEDS ORDERED: MICAFUNGIN 100 MG in SODIUM CHLORIDE 0.9% 100 ML IV ONE (02:30)
[2018-09-16 02:34] LABS: Apearance,Urine CLOUDY (Clear); Bilirubin,Urine Negative (Negative); Blood, Urine Negative (Negative); Glucose,Urine (UA) 50 mg/dL (Negative); Hyaline Casts,Urine 27 /LPF (0-3); Ketones,Urine 5 mg/dL (Negative); Mucus,Urine Few /LPF (Occasional); Nitrite,Urine Negative (Negative); Protein,Urine 100 MG/DL; RBC,Urine 4 /HPF (0-4); Renal Epithelial Cells,Urine Occasional /HPF (<1); Urine Color Amber (Yellow); Urine Specific Gravity 1.014 (1.001-1.035); Urine Urobilinogen < 2.0 EU/DL (0.2-1.0); WBC,Urine 5 /HPF (0-6)
[2018-09-16] MEDS: metroNIDAZOLE 500 MG TABLET PO SCH (03:08)
[2018-09-16 04:11] LABS: Calcium 7.5 MG/DL (8.5-10.1); Osmolality,Calculated 305.7 MOS/KG (273-304); Potassium 3.8 MMOL/L (3.5-5.1)
[2018-09-16 04:27] LABS: Troponin I 0.307 NG/ML (0.00-0.045)
[2018-09-16] MEDS ORDERED: INSULIN LISPRO 100 UNIT/ML SUBCUT SCH (08:00)
[2018-09-16 08:33] LABS: Troponin I 0.531 NG/ML (0.00-0.045)
[2018-09-16 09:04] LABS: Basophils % 0.1 % (0.0-0.8); Hematocrit 26.9 VOL% (42.0-52.0); Hemoglobin 8.8 GM/DL (14.0-18.0); Immature Granulocytes % 1.1 %; Immature Granulocytes Absolute 0.09 #; Lymphocytes # 0.3 10*3/uL (1.4-4.0); Lymphocytes % 3.4 % (21.2-54.2); Mean Corpuscular HGB Conc 32.7 GM/DL (32-36); Mean Corpuscular Hemoglobin 30 PG (27-34); Mean Corpuscular Volume 92.1 FL (87-102); Mean Platelet Volume 12.8 FL (9.6-12.0); Monocytes # 0.7 10*3/uL (0.11-0.8); Monocytes % 8.5 % (1.7-12.7); NRBC # 0.03 10*3/uL; Neutrophils # 7.4 10*3/uL (1.4-7.4); Neutrophils % 86.9 % (38.7-73.9); Red Blood Count 2.92 MC/CUMM (3.8-5.5); Red Cell Distribution Width 13.2 % (9.3-17.3); White Blood Count 8.5 T/CUMM (4-12)
[2018-09-16 09:05] LABS: Platelet Count 68 T/CUMM (130-400)
[2018-09-16 09:27] LABS: Band Neutrophils 5 % (0-10); Lymphocytes 3 % (20-55); Microcytosis 1+; Nucleated Red Blood Cells 1 (0-5); Ovalocytes Slight; Segmented Neutrophils 86 % (50-85); Total Cells Counted 100
[2018-09-16 09:28] LABS: Platelet Estimate Decreased
[2018-09-16] MEDS: POTASSIUM CHLORIDE 20 MEQ/15 ML UDCUP PO SCH (09:48)
[2018-09-16] MEDS: ENOXAPARIN 40 MG/0.4 ML SYRINGE SUBCUT SCH (09:48)
[2018-09-16] MEDS: FUROSEMIDE 40 MG/4 ML VIAL IV SCH ×2 (09:48→17:07)
[2018-09-16] MEDS: LACTOBACILLUS ACIDOPHILUS/BULGARICUS CAPLET PER TUBE SCH (09:49)
[2018-09-16] MEDS: LANSOPRAZOLE ODT 30 MG TABLET PER TUBE SCH (09:49)
[2018-09-16] MEDS: CHOLECALCIFEROL 1,000 UNIT TABLET PO SCH (09:49)
[2018-09-16] MEDS: FINASTERIDE 5 MG TABLET PO SCH (09:49)
[2018-09-16] MEDS: buPROPion 75 MG TABLET PER TUBE SCH ×2 (09:49→21:51)
[2018-09-16] MEDS: OMEGA 3 ACID ETHYL ESTERS 1 GM CAPSULE PO SCH (09:49)
[2018-09-16] MEDS: ASPIRIN CHEW 81 MG TABLET PO SCH (09:50)
[2018-09-16] MEDS: FERROUS GLUCONATE 324 MG TABLET PO SCH (09:51)
[2018-09-16] MEDS: POTASSIUM CHLORIDE 20 MEQ TABLET PO SCH (09:51)
[2018-09-16] MEDS: MULTIVITAMIN LIQUID (CENTRUM) 60 ML BOTTLE PER TUBE SCH (09:52)
[2018-09-16] MEDS: GEMFIBROZIL 600 MG TABLET PO SCH ×2 (09:56→17:07)
[2018-09-16] MEDS: CARVEDILOL 25 MG TABLET PO SCH (10:19)
[2018-09-16] MEDS: CARVEDILOL 12.5 MG TABLET PO SCH ×2 (13:07→21:51)
[2018-09-16 15:13] LABS: Troponin I 0.449 NG/ML (0.00-0.045)
[2018-09-16] MEDS: FERROUS SULFATE 300 MG/5 ML UDCUP PER TUBE SCH (17:15)
[2018-09-16] MEDS: PROPOFOL 1,000 MG/100 ML BOTTLE IV SCH (21:53)
[2018-09-16] MEDS: INSULIN REGULAR 100 UNIT/ML SUBCUT SCH ×2 (21:54→22:57)
[2018-09-17] MEDS: PIPERACILLIN/TAZOBACTAM 3,375 MG in SODIUM CHLORIDE 0.9% 100 ML IV SCH ×3 (00:01→16:02)
[2018-09-17] MEDS: INSULIN LISPRO 100 UNIT/ML SUBCUT SCH ×5 (00:01→23:44)
[2018-09-17] MEDS: ALBUTEROL/IPRATROPIUM 3 ML NEB RESP TX SCH ×6 (03:19→23:42)
[2018-09-17 04:42] LABS: ABG Base Excess 7.3 MMOL/L (-2.5-2.5); ABG HCO3 31.1 MMOL/L (20-26); ABG Oxygen Saturation 99.8 % (95-100); ABG PCO2 34.2 MM HG (35-48); ABG PH 7.547 (7.35-7.45); ABG TCO2 25.3 MMOL/L (23-27); Allen Test Positive; Pt O2 Delivery Device Ventilator
[2018-09-17 05:46] LABS: Hematocrit 27.6 VOL% (42.0-52.0); Hemoglobin 9.1 GM/DL (14.0-18.0); Immature Granulocytes % 1.1 %; Immature Granulocytes Absolute 0.09 #; Lymphocytes # 0.3 10*3/uL (1.4-4.0); Lymphocytes % 3.5 % (21.2-54.2); Mean Corpuscular Hemoglobin 30 PG (27-34); Mean Platelet Volume 12.6 FL (9.6-12.0); Monocytes # 0.7 10*3/uL (0.11-0.8); Monocytes % 7.6 % (1.7-12.7); NRBC # 0.05 10*3/uL; Neutrophils # 7.5 10*3/uL (1.4-7.4); Neutrophils % 87.8 % (38.7-73.9); Platelet Count 103 T/CUMM (130-400); Red Cell Distribution Width 13.4 % (9.3-17.3); White Blood Count 8.6 T/CUMM (4-12)
[2018-09-17 06:00] LABS: Osmolality,Calculated 309.7 MOS/KG (273-304); Potassium 2.8 MMOL/L (3.5-5.1)
[2018-09-17 06:04] LABS: Troponin I 0.318 NG/ML (0.00-0.045)
[2018-09-17 06:14] LABS: Hypochromasia Slight; Lymphocytes 2 % (20-55); Microcytosis 1+; Nucleated Red Blood Cells 1 (0-5); Segmented Neutrophils 91 % (50-85); Total Cells Counted 100
[2018-09-17 06:15] LABS: Ovalocytes Slight; Platelet Estimate Decreased
[2018-09-17] MEDS: POTASSIUM CHLORIDE RIDER 20 MEQ in PREMIX 1 EACH IV PRN ×3 (06:28→15:24)
[2018-09-17] MEDS: FUROSEMIDE 40 MG/4 ML VIAL IV SCH ×2 (08:45→15:01)
[2018-09-17] MEDS: POTASSIUM CHLORIDE RIDER 10 MEQ in PREMIX 1 EACH IV PRN ×2 (08:45→17:30)
[2018-09-17] MEDS: POTASSIUM CHLORIDE 20 MEQ/15 ML UDCUP PO SCH (09:01)
[2018-09-17] MEDS: CARVEDILOL 12.5 MG TABLET PO SCH ×2 (09:02→16:02)
[2018-09-17] MEDS: ENOXAPARIN 40 MG/0.4 ML SYRINGE SUBCUT SCH (09:02)
[2018-09-17] MEDS: OMEGA 3 ACID ETHYL ESTERS 1 GM CAPSULE PO SCH (09:02)
[2018-09-17] MEDS: LANSOPRAZOLE ODT 30 MG TABLET PER TUBE SCH (09:02)
[2018-09-17] MEDS: FERROUS SULFATE 300 MG/5 ML UDCUP PER TUBE SCH ×2 (09:02→16:02)
[2018-09-17] MEDS: FINASTERIDE 5 MG TABLET PO SCH (09:02)
[2018-09-17] MEDS: ASPIRIN CHEW 81 MG TABLET PO SCH (09:02)
[2018-09-17] MEDS: CHOLECALCIFEROL 1,000 UNIT TABLET PO SCH (09:02)
[2018-09-17] MEDS: GEMFIBROZIL 600 MG TABLET PO SCH ×2 (09:02→16:01)
[2018-09-17] MEDS: LACTOBACILLUS ACIDOPHILUS/BULGARICUS CAPLET PER TUBE SCH (09:03)
[2018-09-17] MEDS: MULTIVITAMIN LIQUID (CENTRUM) 60 ML BOTTLE PER TUBE SCH (09:03)
[2018-09-17] MEDS: ASCORBIC ACID 500 MG TABLET PO SCH ×2 (09:04→20:17)
[2018-09-17] MEDS: buPROPion 75 MG TABLET PER TUBE SCH ×2 (09:33→20:17)
[2018-09-17] MEDS: TAMSULOSIN 0.4 MG CAPSULE PO SCH (20:16)
[2018-09-17] MEDS: ATORVASTATIN 80 MG TABLET PO SCH (20:17)
[2018-09-17] MEDS: INSULIN GLARGINE 100 UNIT/ML SUBCUT SCH (20:35)
[2018-09-17] MEDS: PROPOFOL 1,000 MG/100 ML BOTTLE IV SCH (21:30)
[2018-09-18] MEDS: PIPERACILLIN/TAZOBACTAM 3,375 MG in SODIUM CHLORIDE 0.9% 100 ML IV SCH ×3 (00:34→18:09)
[2018-09-18] MEDS: ALBUTEROL/IPRATROPIUM 3 ML NEB RESP TX SCH ×5 (04:14→18:30)
[2018-09-18 04:18] LABS: ABG Base Excess 8.1 MMOL/L (-2.5-2.5); ABG HCO3 31.9 MMOL/L (20-26); ABG Oxygen Saturation 99.7 % (95-100); ABG PCO2 31.1 MM HG (35-48); ABG TCO2 26.9 MMOL/L (23-27); Allen Test Positive; Pt O2 Delivery Device Ventilator
[2018-09-18 04:20] LABS: ABG PH 7.591 (7.35-7.45)
[2018-09-18] MEDS: dilTIAZem Drip 125 MG/125 ML PREMIX IV SCH (04:45)
[2018-09-18 05:26] LABS: Basophils % 0.1 % (0.0-0.8); Eosinophils % 0.1 % (0.00-10.9); Hematocrit 31.8 VOL% (42.0-52.0); Hemoglobin 10.2 GM/DL (14.0-18.0); Immature Granulocytes % 0.9 %; Lymphocytes # 0.6 10*3/uL (1.4-4.0); Lymphocytes % 5.2 % (21.2-54.2); Mean Corpuscular HGB Conc 32.1 GM/DL (32-36); Mean Corpuscular Hemoglobin 30 PG (27-34); Mean Corpuscular Volume 94.1 FL (87-102); Mean Platelet Volume 12.3 FL (9.6-12.0); Monocytes # 1.3 10*3/uL (0.11-0.8); Monocytes % 10.7 % (1.7-12.7); NRBC # 0.04 10*3/uL; Neutrophils # 9.7 10*3/uL (1.4-7.4); Platelet Count 160 T/CUMM (130-400); Red Blood Count 3.38 MC/CUMM (3.8-5.5); Red Cell Distribution Width 13.8 % (9.3-17.3); White Blood Count 11.7 T/CUMM (4-12)
[2018-09-18 05:41] LABS: Calcium 8.3 MG/DL (8.5-10.1); Osmolality,Calculated 318.7 MOS/KG (273-304); Potassium 3.1 MMOL/L (3.5-5.1)
[2018-09-18] MEDS: POTASSIUM CHLORIDE RIDER 20 MEQ in PREMIX 1 EACH IV PRN ×3 (06:22→10:54)
[2018-09-18] MEDS: INSULIN LISPRO 100 UNIT/ML SUBCUT SCH ×3 (06:22→18:34)
[2018-09-18] MEDS: FERROUS SULFATE 300 MG/5 ML UDCUP PER TUBE SCH ×2 (09:59→18:08)
[2018-09-18] MEDS: LACTOBACILLUS ACIDOPHILUS/BULGARICUS CAPLET PER TUBE SCH (09:59)
[2018-09-18] MEDS: CHOLECALCIFEROL 1,000 UNIT TABLET PO SCH (10:00)
[2018-09-18] MEDS: OMEGA 3 ACID ETHYL ESTERS 1 GM CAPSULE PO SCH (10:01)
[2018-09-18] MEDS: MULTIVITAMIN LIQUID (CENTRUM) 60 ML BOTTLE PER TUBE SCH (10:02)
[2018-09-18] MEDS: FUROSEMIDE 40 MG/4 ML VIAL IV SCH ×2 (10:03→18:07)
[2018-09-18] MEDS: ENOXAPARIN 40 MG/0.4 ML SYRINGE SUBCUT SCH (10:03)
[2018-09-18] MEDS: POTASSIUM CHLORIDE 20 MEQ/15 ML UDCUP PO SCH (10:03)
[2018-09-18] MEDS: ASCORBIC ACID 500 MG TABLET PO SCH ×2 (10:04→22:15)
[2018-09-18] MEDS: FINASTERIDE 5 MG TABLET PO SCH (10:04)
[2018-09-18] MEDS: GEMFIBROZIL 600 MG TABLET PO SCH ×2 (10:04→18:07)
[2018-09-18] MEDS: CARVEDILOL 12.5 MG TABLET PO SCH ×2 (10:04→18:08)
[2018-09-18] MEDS: ASPIRIN CHEW 81 MG TABLET PO SCH (10:04)
[2018-09-18] MEDS: buPROPion 75 MG TABLET PER TUBE SCH ×2 (10:04→22:14)
[2018-09-18] MEDS: LANSOPRAZOLE ODT 30 MG TABLET PER TUBE SCH (10:05)
[2018-09-18] MEDS: MICAFUNGIN 100 MG in SODIUM CHLORIDE 0.9% 100 ML IV SCH (14:18)
[2018-09-18] MEDS: VANCOMYCIN INJ 1,000 MG in SODIUM CHLORIDE 0.9% 250 ML IV SCH (15:25)
[2018-09-18] MEDS: DILTIAZEM 30 MG TABLET PO SCH ×2 (18:07→22:15)
[2018-09-18] MEDS: INSULIN GLARGINE 100 UNIT/ML SUBCUT SCH (22:14)
[2018-09-18] MEDS: TAMSULOSIN 0.4 MG CAPSULE PO SCH (22:15)
[2018-09-18] MEDS: ATORVASTATIN 80 MG TABLET PO SCH (22:15)
[2018-09-19] MEDS: ALBUTEROL/IPRATROPIUM 3 ML NEB RESP TX SCH ×7 (00:22→23:41)
[2018-09-19] MEDS: INSULIN LISPRO 100 UNIT/ML SUBCUT SCH ×4 (00:48→18:23)
[2018-09-19] MEDS: PIPERACILLIN/TAZOBACTAM 3,375 MG in SODIUM CHLORIDE 0.9% 100 ML IV SCH ×3 (00:49→18:20)
[2018-09-19 03:03] LABS: ABG Base Excess 6.2 MMOL/L (-2.5-2.5); ABG HCO3 28.7 MMOL/L (20-26); ABG Oxygen Saturation 97.9 % (95-100); ABG PCO2 33.8 MM HG (35-48); ABG PH 7.547 (7.35-7.45); ABG PO2 126.7 MM HG (80-95); ABG TCO2 29.7 MMOL/L (23-27); Pt O2 Delivery Device Ventilator
[2018-09-19] MEDS: dilTIAZem Drip 125 MG/125 ML PREMIX IV SCH ×3 (04:43→23:01)
[2018-09-19] MEDS: VANCOMYCIN INJ 1,000 MG in SODIUM CHLORIDE 0.9% 250 ML IV SCH (06:21)
[2018-09-19 07:39] LABS: Calcium 8.2 MG/DL (8.5-10.1); Osmolality,Calculated 323.3 MOS/KG (273-304); Potassium 3.6 MMOL/L (3.5-5.1)
[2018-09-19] MEDS: POTASSIUM CHLORIDE RIDER 20 MEQ in PREMIX 1 EACH IV PRN (08:56)
[2018-09-19] MEDS: POTASSIUM CHLORIDE 20 MEQ/15 ML UDCUP PO SCH (08:57)
[2018-09-19] MEDS: FUROSEMIDE 40 MG/4 ML VIAL IV SCH ×2 (08:57→18:15)
[2018-09-19] MEDS: ENOXAPARIN 40 MG/0.4 ML SYRINGE SUBCUT SCH (08:57)
[2018-09-19] MEDS: buPROPion 75 MG TABLET PER TUBE SCH ×2 (08:58→21:42)
[2018-09-19] MEDS: ASCORBIC ACID 500 MG TABLET PO SCH ×2 (08:58→21:42)
[2018-09-19] MEDS: CHOLECALCIFEROL 1,000 UNIT TABLET PO SCH (08:58)
[2018-09-19] MEDS: GEMFIBROZIL 600 MG TABLET PO SCH ×2 (08:58→18:18)
[2018-09-19] MEDS: LANSOPRAZOLE ODT 30 MG TABLET PER TUBE SCH (08:58)
[2018-09-19] MEDS: CARVEDILOL 12.5 MG TABLET PO SCH ×2 (08:58→18:18)
[2018-09-19] MEDS: FERROUS SULFATE 300 MG/5 ML UDCUP PER TUBE SCH ×2 (08:58→18:18)
[2018-09-19] MEDS: LACTOBACILLUS ACIDOPHILUS/BULGARICUS CAPLET PER TUBE SCH (08:58)
[2018-09-19] MEDS: FINASTERIDE 5 MG TABLET PO SCH (08:59)
[2018-09-19] MEDS: OMEGA 3 ACID ETHYL ESTERS 1 GM CAPSULE PO SCH (08:59)
[2018-09-19] MEDS: ASPIRIN CHEW 81 MG TABLET PO SCH (08:59)
[2018-09-19] MEDS: DILTIAZEM 30 MG TABLET PO SCH ×4 (09:10→21:43)
[2018-09-19] MEDS: MULTIVITAMIN LIQUID (CENTRUM) 60 ML BOTTLE PER TUBE SCH (09:11)
[2018-09-19] MEDS ORDERED: DEXTROSE 5% 1,000 ML IV SCH (11:00)
[2018-09-19] MEDS: MICAFUNGIN 100 MG in SODIUM CHLORIDE 0.9% 100 ML IV SCH (11:25)
[2018-09-19] MEDS: POTASSIUM CHLORIDE INJ 30 MEQ in DEXTROSE 5% 1,000 ML IV SCH (13:27)
[2018-09-19] MEDS: INSULIN GLARGINE 100 UNIT/ML SUBCUT SCH (21:42)
[2018-09-19] MEDS: ATORVASTATIN 80 MG TABLET PO SCH (21:43)
[2018-09-19] MEDS: TAMSULOSIN 0.4 MG CAPSULE PO SCH (21:43)
[2018-09-20] MEDS: VANCOMYCIN INJ 1,000 MG in SODIUM CHLORIDE 0.9% 250 ML IV SCH ×2 (01:00→21:50)
[2018-09-20] MEDS: INSULIN LISPRO 100 UNIT/ML SUBCUT SCH ×4 (01:00→18:43)
[2018-09-20] MEDS: PIPERACILLIN/TAZOBACTAM 3,375 MG in SODIUM CHLORIDE 0.9% 100 ML IV SCH (01:29)
[2018-09-20] MEDS: POTASSIUM CHLORIDE INJ 30 MEQ in DEXTROSE 5% 1,000 ML IV SCH ×2 (03:00→18:43)
[2018-09-20] MEDS: ALBUTEROL/IPRATROPIUM 3 ML NEB RESP TX SCH ×6 (03:47→23:04)
[2018-09-20 04:04] LABS: ABG Base Excess 3.8 MMOL/L (-2.5-2.5); ABG HCO3 27.8 MMOL/L (20-26); ABG Oxygen Saturation 98.9 % (95-100); ABG PCO2 34.9 MM HG (35-48); ABG PH 7.494 (7.35-7.45); ABG TCO2 23.7 MMOL/L (23-27); Allen Test Positive; Pt O2 Delivery Device Ventilator
[2018-09-20] MEDS: dilTIAZem Drip 125 MG/125 ML PREMIX IV SCH (04:13)
[2018-09-20 05:32] LABS: Albumin 2.2 G/DL (3.4-5.0); Calcium 7.8 MG/DL (8.5-10.1)
[2018-09-20] MEDS ORDERED: FUROSEMIDE 20 MG/2 ML VIAL ONE (08:19)
[2018-09-20] MEDS: ASPIRIN CHEW 81 MG TABLET PO SCH (08:34)
[2018-09-20] MEDS: CARVEDILOL 12.5 MG TABLET PO SCH ×2 (08:34→17:10)
[2018-09-20] MEDS: DILTIAZEM 60 MG TABLET PO SCH ×4 (08:34→21:54)
[2018-09-20] MEDS: buPROPion 75 MG TABLET PER TUBE SCH ×2 (08:34→21:55)
[2018-09-20] MEDS: LACTOBACILLUS ACIDOPHILUS/BULGARICUS CAPLET PER TUBE SCH (08:34)
[2018-09-20] MEDS: FINASTERIDE 5 MG TABLET PO SCH (08:34)
[2018-09-20] MEDS: CHOLECALCIFEROL 1,000 UNIT TABLET PO SCH (08:34)
[2018-09-20] MEDS: GEMFIBROZIL 600 MG TABLET PO SCH ×2 (08:35→17:10)
[2018-09-20] MEDS: FUROSEMIDE 40 MG/4 ML VIAL IV SCH ×2 (08:35→17:15)
[2018-09-20] MEDS: ENOXAPARIN 40 MG/0.4 ML SYRINGE SUBCUT SCH (08:35)
[2018-09-20] MEDS: FERROUS SULFATE 300 MG/5 ML UDCUP PER TUBE SCH ×2 (08:35→17:10)
[2018-09-20] MEDS: LANSOPRAZOLE ODT 30 MG TABLET PER TUBE SCH (08:35)
[2018-09-20] MEDS: OMEGA 3 ACID ETHYL ESTERS 1 GM CAPSULE PO SCH (08:35)
[2018-09-20] MEDS: POTASSIUM CHLORIDE 20 MEQ/15 ML UDCUP PO SCH (08:36)
[2018-09-20] MEDS: ASCORBIC ACID 500 MG TABLET PO SCH ×2 (08:37→21:55)
[2018-09-20] MEDS ORDERED: SODIUM CHLORIDE 0.9% 100 ML IV ONE (09:53)
[2018-09-20] MEDS: MULTIVITAMIN LIQUID (CENTRUM) 60 ML BOTTLE PER TUBE SCH (09:55)
[2018-09-20] MEDS: MICAFUNGIN 100 MG in SODIUM CHLORIDE 0.9% 100 ML IV SCH (10:08)
[2018-09-20] MEDS: INSULIN GLARGINE 100 UNIT/ML SUBCUT SCH (21:55)
[2018-09-20] MEDS: TAMSULOSIN 0.4 MG CAPSULE PO SCH (21:55)
[2018-09-20] MEDS: ATORVASTATIN 80 MG TABLET PO SCH (21:55)
[2018-09-21] MEDS: ALBUTEROL/IPRATROPIUM 3 ML NEB RESP TX SCH ×5 (03:30→19:54)
[2018-09-21] MEDS: dilTIAZem Drip 125 MG/125 ML PREMIX IV SCH (04:22)
[2018-09-21 04:27] LABS: ABG Base Excess 1.8 MMOL/L (-2.5-2.5); ABG Oxygen Saturation 99.2 % (95-100); ABG PCO2 36.2 MM HG (35-48); ABG PH 7.456 (7.35-7.45); ABG TCO2 23.2 MMOL/L (23-27); Allen Test Positive; Pt O2 Delivery Device Ventilator
[2018-09-21 05:43] LABS: Basophils % 0.1 % (0.0-0.8); Eosinophils # 0.1 10*3/uL (0.0-0.87); Eosinophils % 0.5 % (0.00-10.9); Hematocrit 31.8 VOL% (42.0-52.0); Hemoglobin 9.8 GM/DL (14.0-18.0); Immature Granulocytes % 0.8 %; Immature Granulocytes Absolute 0.14 #; Lymphocytes # 1.4 10*3/uL (1.4-4.0); Lymphocytes % 8.3 % (21.2-54.2); Mean Corpuscular HGB Conc 30.8 GM/DL (32-36); Mean Corpuscular Hemoglobin 30 PG (27-34); Mean Corpuscular Volume 97.5 FL (87-102); Mean Platelet Volume 12.9 FL (9.6-12.0); Monocytes # 1.1 10*3/uL (0.11-0.8); Monocytes % 6.7 % (1.7-12.7); Neutrophils # 13.9 10*3/uL (1.4-7.4); Neutrophils % 83.6 % (38.7-73.9); Platelet Count 136 T/CUMM (130-400); Red Blood Count 3.26 MC/CUMM (3.8-5.5); White Blood Count 16.6 T/CUMM (4-12)
[2018-09-21 05:58] LABS: Albumin 2.2 G/DL (3.4-5.0); Bilirubin,Total 1.1 MG/DL (0.2-1.0); Calcium 7.9 MG/DL (8.5-10.1); Osmolality,Calculated 308.6 MOS/KG (273-304); Potassium 4.4 MMOL/L (3.5-5.1); Prealbumin 16.4 MG/DL (20-40); Total Protein 6.1 G/DL (6.4-8.3)
[2018-09-21] MEDS: INSULIN LISPRO 100 UNIT/ML SUBCUT SCH ×4 (06:16→18:08)
[2018-09-21 06:19] LABS: Lymphocytes 7 % (20-55); Platelet Estimate Adequate; Polychromasia Few; Segmented Neutrophils 89 % (50-85); Total Cells Counted 100
[2018-09-21] MEDS: buPROPion 75 MG TABLET PER TUBE SCH ×2 (09:08→21:25)
[2018-09-21] MEDS: CHOLECALCIFEROL 1,000 UNIT TABLET PO SCH (09:08)
[2018-09-21] MEDS: POTASSIUM CHLORIDE 20 MEQ/15 ML UDCUP PO SCH (09:08)
[2018-09-21] MEDS: ASPIRIN CHEW 81 MG TABLET PO SCH (09:09)
[2018-09-21] MEDS: FERROUS SULFATE 300 MG/5 ML UDCUP PER TUBE SCH ×2 (09:09→16:00)
[2018-09-21] MEDS: FUROSEMIDE 40 MG/4 ML VIAL IV SCH ×2 (09:09→16:01)
[2018-09-21] MEDS: FINASTERIDE 5 MG TABLET PO SCH (09:09)
[2018-09-21] MEDS: CARVEDILOL 12.5 MG TABLET PO SCH (09:09)
[2018-09-21] MEDS: OMEGA 3 ACID ETHYL ESTERS 1 GM CAPSULE PO SCH (09:10)
[2018-09-21] MEDS: LACTOBACILLUS ACIDOPHILUS/BULGARICUS CAPLET PER TUBE SCH (09:10)
[2018-09-21] MEDS: DILTIAZEM 60 MG TABLET PO SCH ×4 (09:10→21:25)
[2018-09-21] MEDS: ASCORBIC ACID 500 MG TABLET PO SCH ×2 (09:11→21:29)
[2018-09-21] MEDS: GEMFIBROZIL 600 MG TABLET PO SCH ×2 (09:11→16:01)
[2018-09-21] MEDS: ENOXAPARIN 40 MG/0.4 ML SYRINGE SUBCUT SCH (09:11)
[2018-09-21] MEDS: LANSOPRAZOLE ODT 30 MG TABLET PER TUBE SCH (09:32)
[2018-09-21] MEDS: MICAFUNGIN 100 MG in SODIUM CHLORIDE 0.9% 100 ML IV SCH (11:48)
[2018-09-21] MEDS: POTASSIUM CHLORIDE INJ 30 MEQ in DEXTROSE 5% 1,000 ML IV SCH (11:50)
[2018-09-21] MEDS: MULTIVITAMIN LIQUID (CENTRUM) 60 ML BOTTLE PER TUBE SCH (14:40)
[2018-09-21] MEDS ORDERED: CARVEDILOL 12.5 MG TABLET PO ONE (15:00)
[2018-09-21] MEDS: FLUCONAZOLE INJ 200 MG in PREMIX 1 EACH IV SCH (16:00)
[2018-09-21] MEDS: CARVEDILOL 25 MG TABLET PO SCH (16:01)
[2018-09-21] MEDS: VANCOMYCIN INJ 1,000 MG in SODIUM CHLORIDE 0.9% 250 ML IV SCH (16:14)
[2018-09-21] MEDS: INSULIN GLARGINE 100 UNIT/ML SUBCUT SCH (21:24)
[2018-09-21] MEDS: TAMSULOSIN 0.4 MG CAPSULE PO SCH (21:25)
[2018-09-21] MEDS: ATORVASTATIN 80 MG TABLET PO SCH (21:25)
[2018-09-22] MEDS: ALBUTEROL/IPRATROPIUM 3 ML NEB RESP TX SCH ×6 (00:18→19:32)
[2018-09-22] MEDS: INSULIN LISPRO 100 UNIT/ML SUBCUT SCH ×4 (01:05→18:17)
[2018-09-22] MEDS: POTASSIUM CHLORIDE INJ 30 MEQ in DEXTROSE 5% 1,000 ML IV SCH ×2 (02:48→17:56)
[2018-09-22 04:07] LABS: Allen Test Positive; Pt O2 Delivery Device Ventilator
[2018-09-22 04:13] LABS: ABG Base Excess 3.1 MMOL/L (-2.5-2.5); ABG HCO3 26.6 MMOL/L (20-26); ABG Oxygen Saturation 98.7 % (95-100); ABG PCO2 36.5 MM HG (35-48); ABG PO2 179.3 MM HG (80-95); ABG TCO2 27.7 MMOL/L (23-27)
[2018-09-22] MEDS: dilTIAZem Drip 125 MG/125 ML PREMIX IV SCH (04:36)
[2018-09-22 04:44] LABS: Basophils % 0.1 % (0.0-0.8); Eosinophils # 0.1 10*3/uL (0.0-0.87); Eosinophils % 0.5 % (0.00-10.9); Hematocrit 31.1 VOL% (42.0-52.0); Hemoglobin 9.4 GM/DL (14.0-18.0); Immature Granulocytes % 0.7 %; Immature Granulocytes Absolute 0.12 #; Lymphocytes # 1.2 10*3/uL (1.4-4.0); Lymphocytes % 6.9 % (21.2-54.2); Mean Corpuscular HGB Conc 30.2 GM/DL (32-36); Mean Corpuscular Hemoglobin 29 PG (27-34); Mean Corpuscular Volume 96.6 FL (87-102); Mean Platelet Volume 13.8 FL (9.6-12.0); Monocytes # 1.1 10*3/uL (0.11-0.8); Monocytes % 6.7 % (1.7-12.7); Neutrophils # 14.5 10*3/uL (1.4-7.4); Neutrophils % 85.1 % (38.7-73.9); Platelet Count 126 T/CUMM (130-400); Red Blood Count 3.22 MC/CUMM (3.8-5.5); Red Cell Distribution Width 13.4 % (9.3-17.3)
[2018-09-22 05:15] LABS: Lymphocytes 2 % (20-55); Platelet Estimate Decreased; Polychromasia Few; Segmented Neutrophils 97 % (50-85); Total Cells Counted 100
[2018-09-22 07:20] LABS: Albumin 2.2 G/DL (3.4-5.0); Bilirubin,Total 0.6 MG/DL (0.2-1.0); Calcium 7.8 MG/DL (8.5-10.1); Osmolality,Calculated 300.3 MOS/KG (273-304); Potassium 4.5 MMOL/L (3.5-5.1); Total Protein 6.2 G/DL (6.4-8.3)
[2018-09-22] MEDS: CHOLECALCIFEROL 1,000 UNIT TABLET PO SCH (09:32)
[2018-09-22] MEDS: ASPIRIN CHEW 81 MG TABLET PO SCH (09:33)
[2018-09-22] MEDS: POTASSIUM CHLORIDE 20 MEQ/15 ML UDCUP PO SCH (09:33)
[2018-09-22] MEDS: DILTIAZEM 60 MG TABLET PO SCH ×4 (09:33→20:29)
[2018-09-22] MEDS: LACTOBACILLUS ACIDOPHILUS/BULGARICUS CAPLET PER TUBE SCH (09:34)
[2018-09-22] MEDS: OMEGA 3 ACID ETHYL ESTERS 1 GM CAPSULE PO SCH (09:34)
[2018-09-22] MEDS: GEMFIBROZIL 600 MG TABLET PO SCH ×2 (09:34→16:24)
[2018-09-22] MEDS: FINASTERIDE 5 MG TABLET PO SCH (09:34)
[2018-09-22] MEDS: FERROUS SULFATE 300 MG/5 ML UDCUP PER TUBE SCH ×2 (09:35→16:24)
[2018-09-22] MEDS: CARVEDILOL 25 MG TABLET PO SCH ×2 (09:35→16:24)
[2018-09-22] MEDS: LANSOPRAZOLE ODT 30 MG TABLET PER TUBE SCH (09:35)
[2018-09-22] MEDS: buPROPion 75 MG TABLET PER TUBE SCH ×2 (09:35→20:29)
[2018-09-22] MEDS: ENOXAPARIN 40 MG/0.4 ML SYRINGE SUBCUT SCH (09:47)
[2018-09-22] MEDS: MULTIVITAMIN LIQUID (CENTRUM) 60 ML BOTTLE PER TUBE SCH (09:47)
[2018-09-22] MEDS: FUROSEMIDE 40 MG/4 ML VIAL IV SCH ×2 (09:47→15:00)
[2018-09-22] MEDS: ASCORBIC ACID 500 MG TABLET PO SCH ×2 (12:06→20:29)
[2018-09-22] MEDS: FLUCONAZOLE INJ 200 MG in PREMIX 1 EACH IV SCH (14:57)
[2018-09-22] MEDS: INSULIN GLARGINE 100 UNIT/ML SUBCUT SCH (20:28)
[2018-09-22] MEDS: ATORVASTATIN 80 MG TABLET PO SCH (20:29)
[2018-09-22] MEDS: TAMSULOSIN 0.4 MG CAPSULE PO SCH (20:29)
[2018-09-23] MEDS: INSULIN LISPRO 100 UNIT/ML SUBCUT SCH ×4 (00:05→18:15)
[2018-09-23] MEDS: POTASSIUM CHLORIDE INJ 30 MEQ in DEXTROSE 5% 1,000 ML IV SCH ×3 (00:16→13:36)
[2018-09-23] MEDS: ALBUTEROL/IPRATROPIUM 3 ML NEB RESP TX SCH ×7 (00:23→22:25)
[2018-09-23 04:23] LABS: ABG Base Excess 3.5 MMOL/L (-2.5-2.5); ABG HCO3 27.5 MMOL/L (20-26); ABG Oxygen Saturation 98.9 % (95-100); ABG PH 7.464 (7.35-7.45); ABG TCO2 24.1 MMOL/L (23-27); Allen Test Positive; Pt O2 Delivery Device Ventilator
[2018-09-23 04:54] LABS: Osmolality,Calculated 296.5 MOS/KG (273-304); Potassium 4.6 MMOL/L (3.5-5.1)
[2018-09-23] MEDS: dilTIAZem Drip 125 MG/125 ML PREMIX IV SCH (04:56)
[2018-09-23] MEDS: FINASTERIDE 5 MG TABLET PO SCH (08:40)
[2018-09-23] MEDS: LACTOBACILLUS ACIDOPHILUS/BULGARICUS CAPLET PER TUBE SCH (08:40)
[2018-09-23] MEDS: LANSOPRAZOLE ODT 30 MG TABLET PER TUBE SCH (08:40)
[2018-09-23] MEDS: GEMFIBROZIL 600 MG TABLET PO SCH ×2 (08:41→17:04)
[2018-09-23] MEDS: CHOLECALCIFEROL 1,000 UNIT TABLET PO SCH (08:41)
[2018-09-23] MEDS: buPROPion 75 MG TABLET PER TUBE SCH ×2 (08:42→22:01)
[2018-09-23] MEDS: DILTIAZEM 60 MG TABLET PO SCH ×4 (08:42→21:01)
[2018-09-23] MEDS: CARVEDILOL 25 MG TABLET PO SCH ×2 (08:43→17:03)
[2018-09-23] MEDS: OMEGA 3 ACID ETHYL ESTERS 1 GM CAPSULE PO SCH (08:44)
[2018-09-23] MEDS: FERROUS SULFATE 300 MG/5 ML UDCUP PER TUBE SCH ×2 (08:45→17:03)
[2018-09-23] MEDS: ASPIRIN CHEW 81 MG TABLET PO SCH (08:45)
[2018-09-23] MEDS: FUROSEMIDE 40 MG/4 ML VIAL IV SCH ×2 (08:50→17:04)
[2018-09-23] MEDS: ENOXAPARIN 40 MG/0.4 ML SYRINGE SUBCUT SCH (08:54)
[2018-09-23] MEDS: POTASSIUM CHLORIDE 20 MEQ/15 ML UDCUP PO SCH (08:55)
[2018-09-23] MEDS: ASCORBIC ACID 500 MG TABLET PO SCH ×2 (09:38→22:00)
[2018-09-23] MEDS: MULTIVITAMIN LIQUID (CENTRUM) 60 ML BOTTLE PER TUBE SCH (09:38)
[2018-09-23] MEDS ORDERED: INSULIN GLARGINE 100 UNIT/ML SUBCUT ONE (14:00)
[2018-09-23] MEDS: FLUCONAZOLE INJ 200 MG in PREMIX 1 EACH IV SCH (16:50)
[2018-09-23] MEDS: TAMSULOSIN 0.4 MG CAPSULE PO SCH (22:01)
[2018-09-23] MEDS: ATORVASTATIN 80 MG TABLET PO SCH (22:01)
[2018-09-23] MEDS: INSULIN GLARGINE 100 UNIT/ML SUBCUT SCH (22:01)
[2018-09-24] MEDS: INSULIN LISPRO 100 UNIT/ML SUBCUT SCH ×4 (00:36→18:52)
[2018-09-24] MEDS: ALBUTEROL/IPRATROPIUM 3 ML NEB RESP TX SCH ×6 (02:28→23:38)
[2018-09-24 03:13] LABS: ABG Base Excess 4.1 MMOL/L (-2.5-2.5); ABG HCO3 28.1 MMOL/L (20-26); ABG Oxygen Saturation 99.3 % (95-100); ABG PH 7.449 (7.35-7.45); ABG TCO2 25.9 MMOL/L (23-27); Allen Test Positive; Pt O2 Delivery Device Ventilator
[2018-09-24] MEDS: dilTIAZem Drip 125 MG/125 ML PREMIX IV SCH (04:34)
[2018-09-24 05:25] LABS: Basophils % 0.1 % (0.0-0.8); Eosinophils % 0.2 % (0.00-10.9); Hematocrit 28.7 VOL% (42.0-52.0); Hemoglobin 8.9 GM/DL (14.0-18.0); Immature Granulocytes % 0.6 %; Immature Granulocytes Absolute 0.08 #; Lymphocytes # 0.8 10*3/uL (1.4-4.0); Lymphocytes % 6.6 % (21.2-54.2); Mean Corpuscular Hemoglobin 30 PG (27-34); Monocytes # 1.2 10*3/uL (0.11-0.8); Monocytes % 9.3 % (1.7-12.7); Neutrophils # 10.4 10*3/uL (1.4-7.4); Neutrophils % 83.2 % (38.7-73.9); Platelet Count 131 T/CUMM (130-400); Red Blood Count 3.02 MC/CUMM (3.8-5.5); White Blood Count 12.5 T/CUMM (4-12)
[2018-09-24 05:46] LABS: Calcium 8.2 MG/DL (8.5-10.1); Osmolality,Calculated 293.5 MOS/KG (273-304); Potassium 4.4 MMOL/L (3.5-5.1)
[2018-09-24 05:51] LABS: Hypochromasia 1+; Ovalocytes Slight; Platelet Estimate Adequate; Prealbumin 14.9 MG/DL (20-40)
[2018-09-24] MEDS: GEMFIBROZIL 600 MG TABLET PO SCH ×2 (09:34→16:34)
[2018-09-24] MEDS: CARVEDILOL 25 MG TABLET PO SCH ×2 (09:34→18:52)
[2018-09-24] MEDS: ASPIRIN CHEW 81 MG TABLET PO SCH (09:34)
[2018-09-24] MEDS: FERROUS SULFATE 300 MG/5 ML UDCUP PER TUBE SCH ×2 (09:34→18:52)
[2018-09-24] MEDS: LACTOBACILLUS ACIDOPHILUS/BULGARICUS CAPLET PER TUBE SCH (09:35)
[2018-09-24] MEDS: DILTIAZEM 60 MG TABLET PO SCH ×4 (09:35→22:26)
[2018-09-24] MEDS: OMEGA 3 ACID ETHYL ESTERS 1 GM CAPSULE PO SCH (09:36)
[2018-09-24] MEDS: ENOXAPARIN 40 MG/0.4 ML SYRINGE SUBCUT SCH (09:37)
[2018-09-24] MEDS: POTASSIUM CHLORIDE 20 MEQ/15 ML UDCUP PO SCH (09:38)
[2018-09-24] MEDS: buPROPion 75 MG TABLET PER TUBE SCH ×2 (09:39→22:28)
[2018-09-24] MEDS: CHOLECALCIFEROL 1,000 UNIT TABLET PO SCH (09:39)
[2018-09-24] MEDS: LANSOPRAZOLE ODT 30 MG TABLET PER TUBE SCH (09:39)
[2018-09-24] MEDS: FINASTERIDE 5 MG TABLET PO SCH (09:40)
[2018-09-24] MEDS: ASCORBIC ACID 500 MG TABLET PO SCH ×2 (09:40→22:28)
[2018-09-24] MEDS: FUROSEMIDE 40 MG/4 ML VIAL IV SCH ×2 (09:41→16:34)
[2018-09-24] MEDS: INSULIN GLARGINE 100 UNIT/ML SUBCUT SCH ×2 (09:43→22:27)
[2018-09-24] MEDS: MULTIVITAMIN LIQUID (CENTRUM) 60 ML BOTTLE PER TUBE SCH (09:44)
[2018-09-24] MEDS: FLUCONAZOLE INJ 200 MG in PREMIX 1 EACH IV SCH (16:32)
[2018-09-24] MEDS: TAMSULOSIN 0.4 MG CAPSULE PO SCH (22:27)
[2018-09-24] MEDS: ATORVASTATIN 80 MG TABLET PO SCH (22:28)
[2018-09-25] MEDS: INSULIN LISPRO 100 UNIT/ML SUBCUT SCH ×4 (00:50→18:17)
[2018-09-25] MEDS: ALBUTEROL/IPRATROPIUM 3 ML NEB RESP TX SCH ×6 (03:48→23:24)
[2018-09-25 04:06] LABS: ABG HCO3 30.5 MMOL/L (20-26); ABG Oxygen Saturation 98.5 % (95-100); ABG PCO2 38.8 MM HG (35-48); ABG PH 7.513 (7.35-7.45); ABG PO2 175.5 MM HG (80-95); ABG TCO2 31.7 MMOL/L (23-27); Allen Test Positive; Pt O2 Delivery Device Ventilator
[2018-09-25] MEDS: dilTIAZem Drip 125 MG/125 ML PREMIX IV SCH (05:30)
[2018-09-25 05:44] LABS: Basophils % 0.3 % (0.0-0.8); Eosinophils # 0.1 10*3/uL (0.0-0.87); Eosinophils % 0.5 % (0.00-10.9); Hematocrit 29.3 VOL% (42.0-52.0); Hemoglobin 9.2 GM/DL (14.0-18.0); Immature Granulocytes % 0.8 %; Immature Granulocytes Absolute 0.09 #; Lymphocytes # 0.8 10*3/uL (1.4-4.0); Lymphocytes % 7.3 % (21.2-54.2); Mean Corpuscular HGB Conc 31.4 GM/DL (32-36); Mean Corpuscular Hemoglobin 30 PG (27-34); Mean Corpuscular Volume 94.5 FL (87-102); Mean Platelet Volume 14.7 FL (9.6-12.0); Monocytes % 9.1 % (1.7-12.7); Neutrophils # 9.2 10*3/uL (1.4-7.4); Platelet Count 163 T/CUMM (130-400); Red Cell Distribution Width 13.2 % (9.3-17.3); White Blood Count 11.3 T/CUMM (4-12)
[2018-09-25 06:02] LABS: Calcium 8.4 MG/DL (8.5-10.1); Osmolality,Calculated 294.5 MOS/KG (273-304)
[2018-09-25 06:05] LABS: Lymphocytes 4 % (20-55); Segmented Neutrophils 87 % (50-85); Total Cells Counted 100
[2018-09-25 06:06] LABS: Hypochromasia 1+; Ovalocytes Slight; Platelet Estimate Adequate
[2018-09-25] MEDS: CHOLECALCIFEROL 1,000 UNIT TABLET PO SCH (09:22)
[2018-09-25] MEDS: LACTOBACILLUS ACIDOPHILUS/BULGARICUS CAPLET PER TUBE SCH (09:22)
[2018-09-25] MEDS: INSULIN GLARGINE 100 UNIT/ML SUBCUT SCH ×2 (09:22→22:02)
[2018-09-25] MEDS: buPROPion 75 MG TABLET PER TUBE SCH ×2 (09:23→22:01)
[2018-09-25] MEDS: DILTIAZEM 60 MG TABLET PO SCH ×4 (09:23→22:01)
[2018-09-25] MEDS: FINASTERIDE 5 MG TABLET PO SCH (09:23)
[2018-09-25] MEDS: ASCORBIC ACID 500 MG TABLET PO SCH ×2 (09:24→22:01)
[2018-09-25] MEDS: FUROSEMIDE 40 MG/4 ML VIAL IV SCH ×2 (09:24→15:45)
[2018-09-25] MEDS: FERROUS SULFATE 300 MG/5 ML UDCUP PER TUBE SCH ×2 (09:24→16:58)
[2018-09-25] MEDS: ENOXAPARIN 40 MG/0.4 ML SYRINGE SUBCUT SCH (09:24)
[2018-09-25] MEDS: POTASSIUM CHLORIDE 20 MEQ/15 ML UDCUP PO SCH (09:24)
[2018-09-25] MEDS: OMEGA 3 ACID ETHYL ESTERS 1 GM CAPSULE PO SCH (09:24)
[2018-09-25] MEDS: ASPIRIN CHEW 81 MG TABLET PO SCH (09:31)
[2018-09-25] MEDS: CARVEDILOL 25 MG TABLET PO SCH ×2 (09:31→16:58)
[2018-09-25] MEDS: GEMFIBROZIL 600 MG TABLET PO SCH ×2 (09:32→16:58)
[2018-09-25] MEDS: MULTIVITAMIN LIQUID (CENTRUM) 60 ML BOTTLE PER TUBE SCH (09:32)
[2018-09-25] MEDS: LANSOPRAZOLE ODT 30 MG TABLET PER TUBE SCH (09:32)
[2018-09-25] MEDS: FLUCONAZOLE INJ 200 MG in PREMIX 1 EACH IV SCH (15:44)
[2018-09-25] MEDS: ATORVASTATIN 80 MG TABLET PO SCH (22:01)
[2018-09-25] MEDS: TAMSULOSIN 0.4 MG CAPSULE PO SCH (22:02)
[2018-09-26] MEDS: INSULIN LISPRO 100 UNIT/ML SUBCUT SCH ×4 (00:04→18:33)
[2018-09-26] MEDS: ALBUTEROL/IPRATROPIUM 3 ML NEB RESP TX SCH ×6 (03:28→22:50)
[2018-09-26 04:19] LABS: ABG Base Excess 6.8 MMOL/L (-2.5-2.5); ABG HCO3 30.7 MMOL/L (20-26); ABG Oxygen Saturation 99.3 % (95-100); ABG PCO2 37.9 MM HG (35-48); ABG TCO2 27.4 MMOL/L (23-27); Allen Test Positive; Pt O2 Delivery Device Ventilator
[2018-09-26 05:18] LABS: Basophils % 0.2 % (0.0-0.8); Eosinophils # 0.1 10*3/uL (0.0-0.87); Eosinophils % 0.9 % (0.00-10.9); Hematocrit 30.2 VOL% (42.0-52.0); Hemoglobin 9.5 GM/DL (14.0-18.0); Immature Granulocytes % 0.4 %; Immature Granulocytes Absolute 0.04 #; Mean Corpuscular HGB Conc 31.5 GM/DL (32-36); Mean Corpuscular Hemoglobin 30 PG (27-34); Mean Corpuscular Volume 94.4 FL (87-102); Mean Platelet Volume 14.6 FL (9.6-12.0); Monocytes % 9.2 % (1.7-12.7); Neutrophils # 9.1 10*3/uL (1.4-7.4); Neutrophils % 80.3 % (38.7-73.9); Platelet Count 207 T/CUMM (130-400); Red Cell Distribution Width 13.2 % (9.3-17.3); White Blood Count 11.3 T/CUMM (4-12)
[2018-09-26 05:31] LABS: Calcium 8.6 MG/DL (8.5-10.1)
[2018-09-26] MEDS: dilTIAZem Drip 125 MG/125 ML PREMIX IV SCH (05:48)
[2018-09-26] MEDS: GEMFIBROZIL 600 MG TABLET PO SCH ×2 (06:51→16:04)
[2018-09-26] MEDS: FERROUS SULFATE 300 MG/5 ML UDCUP PER TUBE SCH ×2 (07:58→16:48)
[2018-09-26] MEDS: INSULIN GLARGINE 100 UNIT/ML SUBCUT SCH ×2 (07:58→22:01)
[2018-09-26] MEDS: CARVEDILOL 25 MG TABLET PO SCH ×2 (07:58→16:48)
[2018-09-26] MEDS: DILTIAZEM 60 MG TABLET PO SCH ×4 (07:59→22:00)
[2018-09-26] MEDS: FUROSEMIDE 40 MG/4 ML VIAL IV SCH ×2 (08:01→16:04)
[2018-09-26] MEDS: LACTOBACILLUS ACIDOPHILUS/BULGARICUS CAPLET PER TUBE SCH (08:03)
[2018-09-26] MEDS: FINASTERIDE 5 MG TABLET PO SCH (08:03)
[2018-09-26] MEDS: ASPIRIN CHEW 81 MG TABLET PO SCH (08:03)
[2018-09-26] MEDS: ENOXAPARIN 40 MG/0.4 ML SYRINGE SUBCUT SCH (08:03)
[2018-09-26] MEDS: ASCORBIC ACID 500 MG TABLET PO SCH ×2 (08:04→22:00)
[2018-09-26] MEDS: buPROPion 75 MG TABLET PER TUBE SCH ×2 (08:04→22:00)
[2018-09-26] MEDS: LANSOPRAZOLE ODT 30 MG TABLET PER TUBE SCH (08:04)
[2018-09-26] MEDS: OMEGA 3 ACID ETHYL ESTERS 1 GM CAPSULE PO SCH (08:04)
[2018-09-26] MEDS: CHOLECALCIFEROL 1,000 UNIT TABLET PO SCH (08:04)
[2018-09-26] MEDS: POTASSIUM CHLORIDE 20 MEQ/15 ML UDCUP PO SCH (08:05)
[2018-09-26] MEDS: MULTIVITAMIN LIQUID (CENTRUM) 60 ML BOTTLE PER TUBE SCH (08:05)
[2018-09-26] MEDS: FLUCONAZOLE INJ 200 MG in PREMIX 1 EACH IV SCH (16:03)
[2018-09-26] MEDS: TAMSULOSIN 0.4 MG CAPSULE PO SCH (22:00)
[2018-09-26] MEDS: ATORVASTATIN 80 MG TABLET PO SCH (22:00)
[2018-09-27] MEDS: INSULIN LISPRO 100 UNIT/ML SUBCUT SCH ×5 (00:11→23:40)
[2018-09-27] MEDS: ALBUTEROL/IPRATROPIUM 3 ML NEB RESP TX SCH ×6 (02:30→23:15)
[2018-09-27 04:14] LABS: ABG HCO3 31.8 MMOL/L (20-26); ABG Oxygen Saturation 99.1 % (95-100); ABG PCO2 38.1 MM HG (35-48); ABG PH 7.523 (7.35-7.45); ABG TCO2 28.1 MMOL/L (23-27); Allen Test Positive; Pt O2 Delivery Device Ventilator
[2018-09-27 05:57] LABS: Basophils % 0.3 % (0.0-0.8); Eosinophils # 0.1 10*3/uL (0.0-0.87); Eosinophils % 0.7 % (0.00-10.9); Hematocrit 32.3 VOL% (42.0-52.0); Hemoglobin 10.2 GM/DL (14.0-18.0); Immature Granulocytes % 0.6 %; Immature Granulocytes Absolute 0.08 #; Lymphocytes # 1.1 10*3/uL (1.4-4.0); Lymphocytes % 8.4 % (21.2-54.2); Mean Corpuscular HGB Conc 31.6 GM/DL (32-36); Mean Corpuscular Hemoglobin 30 PG (27-34); Mean Corpuscular Volume 93.9 FL (87-102); Mean Platelet Volume 13.9 FL (9.6-12.0); Monocytes # 1.2 10*3/uL (0.11-0.8); Monocytes % 8.5 % (1.7-12.7); Neutrophils # 11.1 10*3/uL (1.4-7.4); Neutrophils % 81.5 % (38.7-73.9); Platelet Count 263 T/CUMM (130-400); Red Blood Count 3.44 MC/CUMM (3.8-5.5); Red Cell Distribution Width 13.2 % (9.3-17.3); White Blood Count 13.6 T/CUMM (4-12)
[2018-09-27 06:23] LABS: Calcium 8.7 MG/DL (8.5-10.1)
[2018-09-27 08:23] LABS: Lymphocytes 4 % (20-55); Platelet Estimate Normal; Polychromasia Slight; Segmented Neutrophils 85 % (50-85); Total Cells Counted 100
[2018-09-27] MEDS: buPROPion 75 MG TABLET PER TUBE SCH ×2 (08:38→20:24)
[2018-09-27] MEDS: LANSOPRAZOLE ODT 30 MG TABLET PER TUBE SCH (08:38)
[2018-09-27] MEDS: CHOLECALCIFEROL 1,000 UNIT TABLET PO SCH (08:38)
[2018-09-27] MEDS: ENOXAPARIN 40 MG/0.4 ML SYRINGE SUBCUT SCH (08:38)
[2018-09-27] MEDS: FUROSEMIDE 40 MG/4 ML VIAL IV SCH ×2 (08:39→15:31)
[2018-09-27] MEDS: GEMFIBROZIL 600 MG TABLET PO SCH ×2 (08:39→15:32)
[2018-09-27] MEDS: FERROUS SULFATE 300 MG/5 ML UDCUP PER TUBE SCH ×2 (08:39→16:54)
[2018-09-27] MEDS: ASCORBIC ACID 500 MG TABLET PO SCH ×2 (08:39→20:25)
[2018-09-27] MEDS: FINASTERIDE 5 MG TABLET PO SCH (08:39)
[2018-09-27] MEDS: DILTIAZEM 60 MG TABLET PO SCH ×4 (08:39→20:24)
[2018-09-27] MEDS: CARVEDILOL 25 MG TABLET PO SCH ×2 (08:39→16:54)
[2018-09-27] MEDS: LACTOBACILLUS ACIDOPHILUS/BULGARICUS CAPLET PER TUBE SCH (08:39)
[2018-09-27] MEDS: MULTIVITAMIN LIQUID (CENTRUM) 60 ML BOTTLE PER TUBE SCH (08:45)
[2018-09-27] MEDS: ASPIRIN CHEW 81 MG TABLET PO SCH (08:45)
[2018-09-27] MEDS: POTASSIUM CHLORIDE 20 MEQ/15 ML UDCUP PO SCH (08:45)
[2018-09-27] MEDS: INSULIN GLARGINE 100 UNIT/ML SUBCUT SCH ×2 (08:45→20:25)
[2018-09-27] MEDS: OMEGA 3 ACID ETHYL ESTERS 1 GM CAPSULE PO SCH (08:46)
[2018-09-27] MEDS: FLUCONAZOLE INJ 200 MG in PREMIX 1 EACH IV SCH (15:31)
[2018-09-27] MEDS: TAMSULOSIN 0.4 MG CAPSULE PO SCH (20:24)
[2018-09-27] MEDS: ATORVASTATIN 80 MG TABLET PO SCH (20:25)
[2018-09-28] MEDS: ALBUTEROL/IPRATROPIUM 3 ML NEB RESP TX SCH ×6 (03:15→23:44)
[2018-09-28 04:46] LABS: ABG Base Excess 7.5 MMOL/L (-2.5-2.5); ABG HCO3 31.3 MMOL/L (20-26); ABG Oxygen Saturation 99.5 % (95-100); ABG PCO2 43.6 MM HG (35-48); ABG PH 7.473 (7.35-7.45); ABG TCO2 28.8 MMOL/L (23-27)
[2018-09-28 05:35] LABS: Basophils % 0.2 % (0.0-0.8); Eosinophils # 0.1 10*3/uL (0.0-0.87); Eosinophils % 0.8 % (0.00-10.9); Hematocrit 33.9 VOL% (42.0-52.0); Hemoglobin 10.5 GM/DL (14.0-18.0); Immature Granulocytes % 0.6 %; Immature Granulocytes Absolute 0.07 #; Lymphocytes # 1.2 10*3/uL (1.4-4.0); Lymphocytes % 9.4 % (21.2-54.2); Mean Corpuscular Hemoglobin 29 PG (27-34); Mean Platelet Volume 13.7 FL (9.6-12.0); Monocytes % 7.8 % (1.7-12.7); Neutrophils % 81.2 % (38.7-73.9); Platelet Count 287 T/CUMM (130-400); Red Blood Count 3.57 MC/CUMM (3.8-5.5); Red Cell Distribution Width 13.5 % (9.3-17.3); White Blood Count 12.3 T/CUMM (4-12)
[2018-09-28 05:52] LABS: Calcium 8.8 MG/DL (8.5-10.1); Osmolality,Calculated 299.1 MOS/KG (273-304); Potassium 4.3 MMOL/L (3.5-5.1)
[2018-09-28 05:57] LABS: Prealbumin 22.4 MG/DL (20-40)
[2018-09-28] MEDS: INSULIN LISPRO 100 UNIT/ML SUBCUT SCH ×3 (06:00→18:20)
[2018-09-28 06:06] LABS: Platelet Estimate Normal
[2018-09-28 06:07] LABS: Anisocytosis Slight
[2018-09-28] MEDS: INSULIN GLARGINE 100 UNIT/ML SUBCUT SCH ×2 (09:30→21:06)
[2018-09-28] MEDS: FERROUS SULFATE 300 MG/5 ML UDCUP PER TUBE SCH ×2 (09:30→16:30)
[2018-09-28] MEDS: CARVEDILOL 25 MG TABLET PO SCH ×2 (09:30→16:30)
[2018-09-28] MEDS: ENOXAPARIN 40 MG/0.4 ML SYRINGE SUBCUT SCH (09:30)
[2018-09-28] MEDS: LACTOBACILLUS ACIDOPHILUS/BULGARICUS CAPLET PER TUBE SCH (09:30)
[2018-09-28] MEDS: FINASTERIDE 5 MG TABLET PO SCH (09:30)
[2018-09-28] MEDS: DILTIAZEM 60 MG TABLET PO SCH ×4 (09:30→21:06)
[2018-09-28] MEDS: MULTIVITAMIN LIQUID (CENTRUM) 60 ML BOTTLE PER TUBE SCH (09:30)
[2018-09-28] MEDS: CHOLECALCIFEROL 1,000 UNIT TABLET PO SCH (09:30)
[2018-09-28] MEDS: LANSOPRAZOLE ODT 30 MG TABLET PER TUBE SCH (09:30)
[2018-09-28] MEDS: ASCORBIC ACID 500 MG TABLET PO SCH ×2 (09:30→21:05)
[2018-09-28] MEDS: OMEGA 3 ACID ETHYL ESTERS 1 GM CAPSULE PO SCH (09:30)
[2018-09-28] MEDS: POTASSIUM CHLORIDE 20 MEQ/15 ML UDCUP PO SCH (09:30)
[2018-09-28] MEDS: GEMFIBROZIL 600 MG TABLET PO SCH ×2 (09:30→16:30)
[2018-09-28] MEDS: buPROPion 75 MG TABLET PER TUBE SCH ×2 (09:30→21:05)
[2018-09-28] MEDS: FUROSEMIDE 40 MG/4 ML VIAL IV SCH ×2 (09:30→16:10)
[2018-09-28] MEDS: ASPIRIN CHEW 81 MG TABLET PO SCH (09:30)
[2018-09-28] MEDS: FLUCONAZOLE INJ 200 MG in PREMIX 1 EACH IV SCH (15:30)
[2018-09-28] MEDS: ATORVASTATIN 80 MG TABLET PO SCH (21:05)
[2018-09-28] MEDS: TAMSULOSIN 0.4 MG CAPSULE PO SCH (21:06)
[2018-09-29] MEDS: INSULIN LISPRO 100 UNIT/ML SUBCUT SCH ×5 (01:21→23:32)
[2018-09-29] MEDS: ALBUTEROL/IPRATROPIUM 3 ML NEB RESP TX SCH ×6 (03:00→22:50)
[2018-09-29 04:46] LABS: ABG Base Excess 7.5 MMOL/L (-2.5-2.5); ABG HCO3 31.3 MMOL/L (20-26); ABG Oxygen Saturation 99.2 % (95-100); ABG PCO2 43.5 MM HG (35-48); ABG PH 7.475 (7.35-7.45); ABG TCO2 28.3 MMOL/L (23-27); Allen Test Positive; Pt O2 Delivery Device Ventilator
[2018-09-29 05:54] LABS: Basophils % 0.2 % (0.0-0.8); Eosinophils # 0.1 10*3/uL (0.0-0.87); Eosinophils % 0.7 % (0.00-10.9); Hematocrit 32.5 VOL% (42.0-52.0); Hemoglobin 10.3 GM/DL (14.0-18.0); Immature Granulocytes % 0.7 %; Immature Granulocytes Absolute 0.08 #; Lymphocytes # 1.1 10*3/uL (1.4-4.0); Lymphocytes % 9.6 % (21.2-54.2); Mean Corpuscular HGB Conc 31.7 GM/DL (32-36); Mean Corpuscular Hemoglobin 30 PG (27-34); Mean Corpuscular Volume 94.5 FL (87-102); Mean Platelet Volume 13.2 FL (9.6-12.0); Monocytes # 0.9 10*3/uL (0.11-0.8); Monocytes % 7.5 % (1.7-12.7); Neutrophils # 9.6 10*3/uL (1.4-7.4); Neutrophils % 81.3 % (38.7-73.9); Platelet Count 302 T/CUMM (130-400); Red Blood Count 3.44 MC/CUMM (3.8-5.5); Red Cell Distribution Width 13.7 % (9.3-17.3); White Blood Count 11.8 T/CUMM (4-12)
[2018-09-29 06:14] LABS: Calcium 8.7 MG/DL (8.5-10.1); Osmolality,Calculated 301.1 MOS/KG (273-304); Potassium 4.2 MMOL/L (3.5-5.1)
[2018-09-29 06:31] LABS: Band Neutrophils 3 % (0-10); Lymphocytes 10 % (20-55); Ovalocytes 1+; Platelet Estimate Normal; Segmented Neutrophils 81 % (50-85); Total Cells Counted 100
[2018-09-29] MEDS: CHOLECALCIFEROL 1,000 UNIT TABLET PO SCH (08:18)
[2018-09-29] MEDS: FUROSEMIDE 40 MG/4 ML VIAL IV SCH ×2 (08:18→17:15)
[2018-09-29] MEDS: OMEGA 3 ACID ETHYL ESTERS 1 GM CAPSULE PO SCH (08:19)
[2018-09-29] MEDS: INSULIN GLARGINE 100 UNIT/ML SUBCUT SCH ×2 (08:19→20:16)
[2018-09-29] MEDS: DILTIAZEM 60 MG TABLET PO SCH ×4 (08:20→20:15)
[2018-09-29] MEDS: POTASSIUM CHLORIDE 20 MEQ/15 ML UDCUP PO SCH (08:20)
[2018-09-29] MEDS: MULTIVITAMIN LIQUID (CENTRUM) 60 ML BOTTLE PER TUBE SCH (08:20)
[2018-09-29] MEDS: LACTOBACILLUS ACIDOPHILUS/BULGARICUS CAPLET PER TUBE SCH (08:20)
[2018-09-29] MEDS: buPROPion 75 MG TABLET PER TUBE SCH ×2 (08:20→20:15)
[2018-09-29] MEDS: FINASTERIDE 5 MG TABLET PO SCH (08:21)
[2018-09-29] MEDS: ASPIRIN CHEW 81 MG TABLET PO SCH (08:21)
[2018-09-29] MEDS: LANSOPRAZOLE ODT 30 MG TABLET PER TUBE SCH (08:21)
[2018-09-29] MEDS: GEMFIBROZIL 600 MG TABLET PO SCH ×2 (08:21→17:15)
[2018-09-29] MEDS: ASCORBIC ACID 500 MG TABLET PO SCH ×2 (08:21→20:15)
[2018-09-29] MEDS: CARVEDILOL 25 MG TABLET PO SCH ×2 (08:22→17:15)
[2018-09-29] MEDS: FERROUS SULFATE 300 MG/5 ML UDCUP PER TUBE SCH ×2 (08:22→17:15)
[2018-09-29] MEDS: FLUCONAZOLE INJ 200 MG in PREMIX 1 EACH IV SCH (15:05)
[2018-09-29] MEDS: glipiZIDE 5 MG TABLET PER TUBE SCH (15:05)
[2018-09-29] MEDS: TAMSULOSIN 0.4 MG CAPSULE PO SCH (20:15)
[2018-09-29] MEDS: ATORVASTATIN 80 MG TABLET PO SCH (20:15)
[2018-09-30] MEDS: ALBUTEROL/IPRATROPIUM 3 ML NEB RESP TX SCH ×4 (02:28→14:07)
[2018-09-30] MEDS: glipiZIDE 5 MG TABLET PER TUBE SCH ×2 (03:25→14:43)
[2018-09-30 03:48] LABS: ABG Base Excess 7.6 MMOL/L (-2.5-2.5); ABG HCO3 31.4 MMOL/L (20-26); ABG Oxygen Saturation 99.4 % (95-100); ABG PCO2 42.8 MM HG (35-48); ABG PH 7.481 (7.35-7.45); ABG TCO2 28.6 MMOL/L (23-27); Allen Test Positive; Pt O2 Delivery Device Ventilator
[2018-09-30 05:35] LABS: Basophils % 0.3 % (0.0-0.8); Eosinophils # 0.1 10*3/uL (0.0-0.87); Eosinophils % 0.7 % (0.00-10.9); Hematocrit 33.3 VOL% (42.0-52.0); Hemoglobin 10.2 GM/DL (14.0-18.0); Immature Granulocytes % 0.4 %; Immature Granulocytes Absolute 0.05 #; Lymphocytes # 1.2 10*3/uL (1.4-4.0); Lymphocytes % 10.1 % (21.2-54.2); Mean Corpuscular HGB Conc 30.6 GM/DL (32-36); Mean Corpuscular Hemoglobin 29 PG (27-34); Mean Corpuscular Volume 95.7 FL (87-102); Mean Platelet Volume 12.7 FL (9.6-12.0); Monocytes # 0.8 10*3/uL (0.11-0.8); Monocytes % 7.2 % (1.7-12.7); Neutrophils # 9.3 10*3/uL (1.4-7.4); Neutrophils % 81.3 % (38.7-73.9); Platelet Count 306 T/CUMM (130-400); Red Blood Count 3.48 MC/CUMM (3.8-5.5); Red Cell Distribution Width 13.7 % (9.3-17.3); White Blood Count 11.4 T/CUMM (4-12)
[2018-09-30] MEDS: INSULIN LISPRO 100 UNIT/ML SUBCUT SCH ×2 (05:40→12:20)
[2018-09-30 05:56] LABS: Calcium 8.5 MG/DL (8.5-10.1); Osmolality,Calculated 298.1 MOS/KG (273-304); Potassium 4.2 MMOL/L (3.5-5.1)
[2018-09-30] MEDS ORDERED: MIDAZOLAM 2 MG/2 ML VIAL IV ONE (07:30)
[2018-09-30] MEDS ORDERED: MULTIVITAMIN LIQUID (CENTRUM) 60 ML BOTTLE PER TUBE SCH (09:00)
[2018-09-30] MEDS: CHOLECALCIFEROL 1,000 UNIT TABLET PO SCH (09:17)
[2018-09-30] MEDS: ASPIRIN CHEW 81 MG TABLET PO SCH (09:17)
[2018-09-30] MEDS: FUROSEMIDE 40 MG/4 ML VIAL IV SCH (09:17)
[2018-09-30] MEDS: POTASSIUM CHLORIDE 20 MEQ/15 ML UDCUP PO SCH (09:17)
[2018-09-30] MEDS: DILTIAZEM 60 MG TABLET PO SCH ×2 (09:18→12:46)
[2018-09-30] MEDS: FINASTERIDE 5 MG TABLET PO SCH (09:18)
[2018-09-30] MEDS: GEMFIBROZIL 600 MG TABLET PO SCH (09:18)
[2018-09-30] MEDS: CARVEDILOL 25 MG TABLET PO SCH (09:18)
[2018-09-30] MEDS: LACTOBACILLUS ACIDOPHILUS/BULGARICUS CAPLET PER TUBE SCH (09:18)
[2018-09-30] MEDS: FERROUS SULFATE 300 MG/5 ML UDCUP PER TUBE SCH (09:18)
[2018-09-30] MEDS: ENOXAPARIN 40 MG/0.4 ML SYRINGE SUBCUT SCH (09:19)
[2018-09-30] MEDS: ASCORBIC ACID 500 MG TABLET PO SCH (09:19)
[2018-09-30] MEDS: OMEGA 3 ACID ETHYL ESTERS 1 GM CAPSULE PO SCH (09:32)
[2018-09-30] MEDS: INSULIN GLARGINE 100 UNIT/ML SUBCUT SCH (09:32)
[2018-09-30] MEDS: LANSOPRAZOLE ODT 30 MG TABLET PER TUBE SCH (09:33)
[2018-09-30] MEDS: buPROPion 75 MG TABLET PER TUBE SCH (09:33)
[2018-09-30] MEDS: FLUCONAZOLE INJ 200 MG in PREMIX 1 EACH IV SCH (14:43)
[2018-09-30] MEDS: MORPHINE 4 MG/1 ML VIAL IV PRN ×3 (15:21→23:00)
[2018-10-01] MEDS: MORPHINE 4 MG/1 ML VIAL IV PRN ×2 (03:40→18:40)
[2018-10-01 04:45] LABS: Calcium 8.9 MG/DL (8.5-10.1); Osmolality,Calculated 302.4 MOS/KG (273-304); Potassium 3.9 MMOL/L (3.5-5.1)
[2018-10-01 04:46] LABS: Basophils % 0.3 % (0.0-0.8); Eosinophils # 0.1 10*3/uL (0.0-0.87); Eosinophils % 0.7 % (0.00-10.9); Hematocrit 34.6 VOL% (42.0-52.0); Hemoglobin 10.4 GM/DL (14.0-18.0); Immature Granulocytes % 0.6 %; Immature Granulocytes Absolute 0.06 #; Lymphocytes # 1.2 10*3/uL (1.4-4.0); Lymphocytes % 11.1 % (21.2-54.2); Mean Corpuscular HGB Conc 30.1 GM/DL (32-36); Mean Corpuscular Hemoglobin 29 PG (27-34); Mean Corpuscular Volume 97.2 FL (87-102); Mean Platelet Volume 12.7 FL (9.6-12.0); Monocytes # 0.7 10*3/uL (0.11-0.8); Monocytes % 6.7 % (1.7-12.7); Neutrophils # 8.7 10*3/uL (1.4-7.4); Neutrophils % 80.6 % (38.7-73.9); Platelet Count 310 T/CUMM (130-400); Red Blood Count 3.56 MC/CUMM (3.8-5.5); Red Cell Distribution Width 13.6 % (9.3-17.3); White Blood Count 10.8 T/CUMM (4-12)
[2018-10-01 05:23] LABS: Lymphocytes 6 % (20-55); Platelet Estimate Normal; Polychromasia Few; Segmented Neutrophils 93 % (50-85); Total Cells Counted 100
[2018-10-02] MEDS: MORPHINE 4 MG/1 ML VIAL IV PRN ×3 (09:23→13:57)
[2018-10-02] MEDS: LORazepam 2 MG/1 ML VIAL IV PRN ×3 (09:23→13:57)
[2018-10-02] MEDS ORDERED: fentaNYL 50 MCG/HR PATCH TRANSDERM SCH (15:30)
[2018-10-02] MEDS: MORPHINE 4 MG/1 ML VIAL IV SCH ×4 (15:48→21:25)
[2018-10-03] MEDS: MORPHINE 4 MG/1 ML VIAL IV SCH ×12 (00:33→22:36)
[2018-10-03 19:24] VITALS: BP 111/61
[2018-10-04] MEDS: MORPHINE 4 MG/1 ML VIAL IV SCH ×8 (00:39→13:30)
[2018-10-04] MEDS: MORPHINE 4 MG/1 ML VIAL IV PRN (06:39)
[2018-10-04] MEDS: LORazepam 2 MG/1 ML VIAL IV PRN (06:39)
== END 2018-10-04 13:58 | disposition expired | DRG 870 ==
LOC: EDUNIT# → EDBD → N.ED 00:32 → N.EDINP 02:33 → SUATTDRO 02:33 → N.2E 03:26 → N.CC 13:34 → N.TELEN 09-13 16:23 → N.ICU 09-15 22:42
PROVIDERS: ADMIT Hospitalist; ATTEND Family Medicine